=== PATIENT | female | born 1940 | race Caucasian/White ===

== ENCOUNTER → 2020-12-21 16:06 | Outpatient (CLI) | payer MEDICARE, OTHER, SELFPAY ==
--- NOTE | 2020-12-21 16:23 | RAD_ITS ---
STUDY: X-RAY - CERVICAL SPINE REASON FOR EXAM: Female, 80 years old. Cervical radiculopathy. TECHNIQUE: 3 view(s) of the cervical spine were obtained. COMPARISON: None FINDINGS: Generalized osteopenia. Normal anterior atlantoaxial articulation. Normal odontoid process. Normal cervical lordosis. Normal vertebral bodies and endplates. Diffuse uncovertebral and facet sclerosis. And intervertebral disc space narrowing at C4-5, C5-6 and C6-7 with osteophyte formation most marked at C5-6. The soft tissue structures are unremarkable. RAD/Cerv Spine 2 or 3 Views IMPRESSION: Osteopenia with moderate lower cervical spondylosis, most marked at C5-6. No acute abnormality, erosive changes or evidence of fusion. Electronically Signed: Logan Talavera MD at 12:31 EDT , Service support ,
--- NOTE | 2020-12-21 16:23 | RAD_ITS ---
STUDY: X-RAY - ABDOMEN/PELVIS REASON FOR EXAM: Female, 80 years old. Abdominal pain. TECHNIQUE: AP supine and decubitus views of the abdomen and pelvis. COMPARISON: None. FINDINGS: Normal visualized lung bases. There is an unremarkable bowel gas pattern with air seen to the rectum. There is no demonstrated free abdominal air. The visualized liver, spleen and kidneys are grossly normal in size and morphology. Normal soft tissue structures. Osteopenia with osteoarthritic changes. RAD/Abd Inc Decub and/or Erect IMPRESSION: No acute abnormality of the lower chest, abdomen or pelvis. Electronically Signed: Logan Talavera MD at 12:28 EDT , Service support ,
--- NOTE | 2020-12-21 16:23 | RAD_ITS ---
STUDY: X-RAY - LUMBAR SPINE REASON FOR EXAM: Female, 80 years old. Low back pain. TECHNIQUE: 2 view(s) of the lumbar spine were obtained. COMPARISON: None FINDINGS: Generalized osteopenia. Normal lumbar lordosis. There is no substantial scoliosis. There is a normal alignment of the vertebrae. Normal vertebral bodies and endplates. Diffuse facet sclerosis. Intervertebral disc space narrowing at L5-S1 with small osteophytes. Vascular calcifications. RAD/Lumbar Spine 2 or 3 Views IMPRESSION: Osteopenia with lumbar spondylosis most marked at L5-S1. Electronically Signed: Logan Talavera MD at 13:40 EDT , Service support ,
--- NOTE | 2020-12-21 16:25 | RAD_ITS ---
STUDY: X-RAY - RIGHT SHOULDER REASON FOR EXAM: Female, 80 years old. Rotator cuff syndrome. TECHNIQUE: 4 view(s) of the shoulder. COMPARISON: None. FINDINGS: Generalized osteopenia. Moderate arthrosis of the glenohumeral joint. Moderate arthrosis of the AC joint. Normal acromion. Normal humeral head and visualized proximal humerus. The soft tissue structures are unremarkable. Normal visualized pulmonary apex. RAD/Shoulder min 2 Views IMPRESSION: Osteopenia with moderate arthrosis of the glenohumeral and acromioclavicular joints. Electronically Signed: Logan Talavera MD at 12:29 EDT , Service support ,
[2020-12-21 17:15] LABS: Absolute Lymphocyte Count 1.53 X10^3/uL (0.83-4.51); Absolute Neutrophil Count 6.4 X10^3/uL (2.0-7.7); Basophil# 0.02 X10^3/uL; Basophil% 0.2 % (0-1); Eosinophil# 0.07 X10^3/uL; Eosinophils% 0.8 % (0-5); Hematocrit 38.4 % (37-47); Hemoglobin 11.6 g/dL (12.0-15.0); Lymphocyte # 1.53 X10^3/ul (0.83-4.51); Lymphocyte % 17.7 % (19-41); Mean Corp Hgb Conc 30.2 g/dL (32-36); Mean Corpuscular Hgb 24.6 pg (27.0-32.0); Mean Corpuscular Volume 81.4 fL (81-99); Mean Platelet Vol. 11.6 fl (6.2-12.0); Monocyte# 0.56 X10^3/uL; Monocyte% 6.5 % (0-10); NRBC Flagged by Analyzer 0 % (0-5); Neutrophil % 74.2 % (47-70); Platelet Count 324 K/mm3 (150-450); RBC Distribution Width CV 17.5 % (11.6-14.6); RBC Distribution Width SD 51.8 fl (35.1-43.9); Red Blood Count 4.72 M/mm3 (4.2-5.4); White Blood Count 8.6 K/mm3 (4.4-11.0)
[2020-12-21 17:44] LABS: Vitamin D,25 Hydroxy 66.7 ng/mL
[2020-12-21 17:54] LABS: ALB/GLOB Ratio 0.9 RATIO (0.9-2.4); AST(SGOT) 14 U/L (15-37); Alanine Aminotransfer ALT/SGPT 27 U/L (13-56); Albumin, Serum 3.3 g/dL (3.2-5.0); Alkaline Phosphatase 84 U/L (45-117); Anion Gap 7 (5-15); BUN 22 mg/dL (7-18); BUN/Creat Ratio 13.7 RATIO (10-20); Calcium,Total 9.2 mg/dL (8.5-10.1); Chloride 100 mmol/L (98-107); Creatinine, Serum 1.61 mg/dL (0.55-1.02); EST Glomerular Filtration Rate 33 mL/min (>60); Est Glom Filt Rate - Afr Amer 40 mL/min (>60); Globulin 3.6 g/dL (2.2-4.2); Glucose 398 mg/dL (74-106); Potassium 4.9 mmol/L (3.5-5.1); Protein, Total 6.9 g/dL (6.4-8.2); Sodium Level 134 mmol/L (136-145); Thyroid Stim Hormone (TSH) 1.02 uIU/mL (0.358-3.74)
== END ==
PROVIDERS: Visit Provider Family Medicine Geriatric Medicine
DX: R53.83 Other fatigue (principal); E55.9 Vitamin D deficiency, unspecified; R10.9 Unspecified abdominal pain; G54.2 Cervical root disorders, not elsewhere classified; M75.50 Bursitis of unspecified shoulder; M54.5 Low back pain
CPT/HCPCS: 36415; 72040; 72100; 73030; 74019; 80053; 82306; 84443; 85025

== ENCOUNTER → 2021-01-10 | Outpatient (CLI) | payer MEDICARE, SELFPAY | END | disposition home or self-care (01) | LOC: LABSPEC 17:02 | PROVIDERS: Visit Provider Family Medicine Geriatric Medicine | DX: N39.0 Urinary tract infection, site not specified (principal) | CPT/HCPCS: 87077; 87086; 87088; 87186 ==

== ENCOUNTER → 2021-01-14 12:06 | Outpatient (CLI) | payer MEDICARE, SELFPAY | PROVIDERS: Visit Provider Family Medicine Geriatric Medicine | DX: R19.7 Diarrhea, unspecified (principal) | CPT/HCPCS: 82274; 83630; 87177; 87209; 87493; 87506 ==

== ENCOUNTER → 2021-02-08 12:59 | Outpatient (CLI) | payer MEDICARE, OTHER, SELFPAY | PROVIDERS: PCP Family Medicine Geriatric Medicine; Referring Provider Family Medicine Geriatric Medicine; Visit Provider Family Medicine Geriatric Medicine | DX: R68.83 Chills (without fever) (principal) | CPT/HCPCS: 87635; 87804; 87807; C9803; U0005; U0003 ==

== ENCOUNTER → 2021-03-22 14:21 | Outpatient (CLI) | payer MEDICARE, OTHER, SELFPAY ==
--- NOTE | 2021-03-22 15:18 | RAD_ITS ---
EXAM: XR ABDOMEN, 2 VIEWS CLINICAL INDICATION: FECAL IMPACTION OF COLON TECHNIQUE: Frontal view of the abdomen/pelvis with upright view of the abdomen. This report was created using [employer] report generation technology. COMPARISON: None. FINDINGS: LOWER THORAX: No acute pathology. INTRAPERITONEAL SPACE: No free air. GASTROINTESTINAL TRACT: Large amount of stool in the rectal vault can suggest constipation. ORGANS: Unremarkable as visualized. No organomegaly. No abnormal calcifications. BONES/JOINTS: Degenerative findings in the lumbar spine. Degenerative findings of the hips. SOFT TISSUES: No acute pathology. RAD/Abd Inc Decub and/or Erect IMPRESSION: Large amount of stool in the rectal vault can suggest constipation. Electronically Signed: Gui Ott MD at 16:23 EDT , Service support ,
[2021-03-22 17:21] LABS: Absolute Lymphocyte Count 2.11 X10^3/uL (0.83-4.51); Absolute Neutrophil Count 4.7 X10^3/uL (2.0-7.7); Basophil# 0.01 X10^3/uL; Basophil% 0.1 % (0-1); Eosinophil# 0.05 X10^3/uL; Eosinophils% 0.7 % (0-5); Hematocrit 40.7 % (37-47); Hemoglobin 12.6 g/dL (12.0-15.0); Lymphocyte # 2.11 X10^3/ul (0.83-4.51); Lymphocyte % 28.8 % (19-41); Mean Corpuscular Hgb 26.4 pg (27.0-32.0); Mean Corpuscular Volume 85.3 fL (81-99); Mean Platelet Vol. 11.8 fl (6.2-12.0); Monocyte# 0.49 X10^3/uL; Monocyte% 6.7 % (0-10); NRBC Flagged by Analyzer 0 % (0-5); Neutrophil # 4.65 X10^3/uL (2.7-7.7); Neutrophil % 63.4 % (47-70); Platelet Count 239 K/mm3 (150-450); RBC Distribution Width CV 15.9 % (11.6-14.6); RBC Distribution Width SD 50.1 fl (35.1-43.9); Red Blood Count 4.77 M/mm3 (4.2-5.4); White Blood Count 7.3 K/mm3 (4.4-11.0)
[2021-03-22 17:38] LABS: Vitamin D,25 Hydroxy 57.2 ng/mL
[2021-03-22 17:43] LABS: ALB/GLOB Ratio 0.9 RATIO (0.9-2.4); AST(SGOT) 21 U/L (15-37); Alanine Aminotransfer ALT/SGPT 35 U/L (13-56); Albumin, Serum 3.3 g/dL (3.2-5.0); Alkaline Phosphatase 68 U/L (45-117); Anion Gap 9 (5-15); BUN 41 mg/dL (7-18); BUN/Creat Ratio 27.5 RATIO (10-20); Calcium,Total 9.2 mg/dL (8.5-10.1); Chloride 104 mmol/L (98-107); Creatinine, Serum 1.49 mg/dL (0.55-1.02); EST Glomerular Filtration Rate 36 mL/min (>60); Est Glom Filt Rate - Afr Amer 43 mL/min (>60); Globulin 3.5 g/dL (2.2-4.2); Glucose 203 mg/dL (74-106); Potassium 4.7 mmol/L (3.5-5.1); Protein, Total 6.8 g/dL (6.4-8.2); Sodium Level 141 mmol/L (136-145); Thyroid Stim Hormone (TSH) 1.29 uIU/mL (0.358-3.74)
== END ==
LOC: POLAB3 14:22 → RAD 15:15
PROVIDERS: PCP Family Medicine Geriatric Medicine; Referring Provider Family Medicine Geriatric Medicine; Visit Provider Family Medicine Geriatric Medicine
DX: E11.65 Type 2 diabetes mellitus with hyperglycemia (principal); E55.9 Vitamin D deficiency, unspecified; I10 Essential (primary) hypertension; K56.41 Fecal impaction
CPT/HCPCS: 36415; 74019; 80053; 82306; 84443; 85025

== ENCOUNTER → 2021-06-08 14:10 | Outpatient (CLI) | payer MEDICARE, OTHER, SELFPAY | PROVIDERS: PCP Family Medicine Geriatric Medicine; Visit Provider Family Medicine Geriatric Medicine | DX: R68.83 Chills (without fever) (principal) | CPT/HCPCS: 87635; 87804; 87807; U0005; U0003 ==

== ENCOUNTER 2021-06-20 14:26 | Outpatient (CLI) | payer MEDICARE, SELFPAY ==
[2021-06-20 17:18] LABS: Absolute Lymphocyte Count 1.57 X10^3/uL (0.83-4.51); Absolute Neutrophil Count 4.3 X10^3/uL (2.0-7.7); Basophil# 0.02 X10^3/uL; Basophil% 0.3 % (0-1); Eosinophil# 0.04 X10^3/uL; Eosinophils% 0.6 % (0-5); Hematocrit 43.7 % (37-47); Hemoglobin 13.8 g/dL (12.0-15.0); Lymphocyte # 1.57 X10^3/ul (0.83-4.51); Lymphocyte % 24.7 % (19-41); Mean Corp Hgb Conc 31.6 g/dL (32-36); Mean Corpuscular Hgb 27.8 pg (27.0-32.0); Mean Corpuscular Volume 87.9 fL (81-99); Mean Platelet Vol. 11.4 fl (6.2-12.0); Monocyte# 0.42 X10^3/uL; Monocyte% 6.6 % (0-10); NRBC Flagged by Analyzer 0 % (0-5); Neutrophil # 4.29 X10^3/uL (2.7-7.7); Neutrophil % 67.5 % (47-70); Platelet Count 196 K/mm3 (150-450); RBC Distribution Width CV 14.9 % (11.6-14.6); RBC Distribution Width SD 47.7 fl (35.1-43.9); Red Blood Count 4.97 M/mm3 (4.2-5.4); White Blood Count 6.4 K/mm3 (4.4-11.0)
[2021-06-20 17:39] LABS: Vitamin D,25 Hydroxy 59.7 ng/mL
[2021-06-20 17:46] LABS: AST(SGOT) 22 U/L (15-37); Alanine Aminotransfer ALT/SGPT 50 U/L (13-56); Albumin, Serum 3.2 g/dL (3.2-5.0); Alkaline Phosphatase 64 U/L (45-117); Anion Gap 6 (5-15); BUN 28 mg/dL (7-18); BUN/Creat Ratio 21.9 RATIO (10-20); Calcium,Total 9.3 mg/dL (8.5-10.1); Chloride 104 mmol/L (98-107); Creatinine, Serum 1.28 mg/dL (0.55-1.02); EST Glomerular Filtration Rate 43 mL/min (>60); Est Glom Filt Rate - Afr Amer 52 mL/min (>60); Globulin 3.3 g/dL (2.2-4.2); Glucose 169 mg/dL (74-106); Potassium 4.4 mmol/L (3.5-5.1); Protein, Total 6.5 g/dL (6.4-8.2); Sodium Level 141 mmol/L (136-145); Thyroid Stim Hormone (TSH) 1.19 uIU/mL (0.358-3.74)
== END 2021-06-20 23:59 | disposition short-term general hospital (02) ==
LOC: POLAB3 14:31
PROVIDERS: PCP Family Medicine Geriatric Medicine; Visit Provider Family Medicine Geriatric Medicine
DX: E11.65 Type 2 diabetes mellitus with hyperglycemia (principal); E55.9 Vitamin D deficiency, unspecified; R53.83 Other fatigue
CPT/HCPCS: 36415; 80053; 82306; 84443; 85025

== ENCOUNTER 2021-07-21 14:29 | Outpatient (CLI) | payer MEDICARE, SELFPAY ==
[2021-07-21 17:38] LABS: Protein, Urine (Random) 29.6 mg/dL (<11.9); Protein:Creat Ratio 165 mg/g CRE (0-200)
== END 2021-07-21 23:59 | disposition home or self-care (01) ==
LOC: LABSPEC 14:29
PROVIDERS: PCP Family Medicine Geriatric Medicine; Visit Provider Internal Medicine Nephrology
DX: E11.22 Type 2 diabetes mellitus with diabetic chronic kidney disease (principal); N18.32 Chronic kidney disease, stage 3b
CPT/HCPCS: 82570; 84156

== ENCOUNTER 2021-07-26 14:21 | Outpatient (CLI) | payer MEDICARE, SELFPAY ==
--- NOTE | 2021-07-26 14:25 | US_ITS ---
STUDY: RENAL ULTRASOUND - COMPLETE REASON FOR EXAM: Female, 80 years old. CKD TECHNIQUE: Ultrasound evaluation of the kidneys was performed with real-time and static walter-scale imaging. COMPARISON: None. FINDINGS: RIGHT KIDNEY: Normal location of the right kidney, which is normal in size. The right kidney measures 11 cm x 4.2 cm x 4.6 cm. There is a normal cortex of the right kidney. The renal cortex measures 1.0 cm. There is no right renal mass or cyst. There are no right renal calculi. There is no right hydronephrosis. DISTAL RIGHT URETER: There is non-visualization of the distal right ureter. There is no demonstrated right ureterovesical junction calculus. There is a visualized right ureteral jet. LEFT KIDNEY: Normal location of the left kidney, which is normal in size. The left kidney measures 9.1 cm x 4.6cm x 5.1 cm. There is a normal cortex of the left kidney. The renal cortex measures 1 cm. There is no left renal mass or cyst. There are no left renal calculi. There is no left hydronephrosis. DISTAL LEFT URETER: There is non-visualization of the distal left ureter. There is no demonstrated left ureterovesical junction calculus. There is a visualized left ureteral jet. BLADDER: The distended urinary bladder has a volume of 310 ml. There is a normal wall thickness of the distended urinary bladder. There is no demonstrated mass within the urinary bladder. There are no demonstrated bladder calculi. US/Kidney and Bladder IMPRESSION: Normal ultrasound of the kidneys and urinary bladder. Electronically Signed: Toni Dawkins MD at 12:09 EST ,
== END 2021-07-26 23:59 | disposition home or self-care (01) ==
LOC: US 14:22
PROVIDERS: PCP Family Medicine Geriatric Medicine; Referring Provider Internal Medicine Nephrology; Visit Provider Internal Medicine Nephrology
DX: N18.32 Chronic kidney disease, stage 3b (principal)
CPT/HCPCS: 76770

== ENCOUNTER 2021-08-30 15:25 | Outpatient (CLI) | payer MEDICARE, SELFPAY ==
--- NOTE | 2021-08-30 15:32 | RAD_ITS ---
STUDY: RIGHT SHOULDER X-RAY SERIES--4 VIEWS OF 1440 HOURS ON 08/30/2021 REASON FOR EXAM: 80 year-old female with right shoulder pain. TECHNIQUE: 4 view(s) of the shoulder. COMPARISON: None. FINDINGS: No fractures or dislocations. No osseous lytic, sclerotic or mass lesions. Mild osteoarthritic changes of the right acromioclavicular joint. No significant arthritic changes of the right shoulder joint. No calcific tendinitis. Normal clavicle, scapula, and adjacent ribs. Normal soft tissues. Mild demineralization. RAD/Shoulder min 2 Views IMPRESSION: 1. Mild osteoarthritic changes of the right acromioclavicular joint. 2. No evidence of arthritic changes of the right shoulder joint. 3. No fractures or dislocations. 4. No calcific tendinitis. 5. Mild demineralization. Electronically Signed: Farrukh Barcenas MD at 20:27 EDT ,
== END 2021-08-30 23:59 | disposition home or self-care (01) ==
LOC: RAD 15:27
PROVIDERS: PCP Family Medicine Geriatric Medicine; Referring Provider Family Medicine Geriatric Medicine; Visit Provider Family Medicine Geriatric Medicine
DX: M25.519 Pain in unspecified shoulder (principal)
CPT/HCPCS: 73030

== ENCOUNTER 2021-09-22 14:04 | Outpatient (CLI) | payer MEDICARE, SELFPAY ==
[2021-09-22 17:23] LABS: Absolute Lymphocyte Count 1.41 X10^3/uL (0.83-4.51); Absolute Neutrophil Count 5.5 X10^3/uL (2.0-7.7); Basophil# 0.02 X10^3/uL; Basophil% 0.3 % (0-1); Eosinophil# 0.14 X10^3/uL; Eosinophils% 1.8 % (0-5); Hematocrit 43.4 % (37-47); Hemoglobin 13.8 g/dL (12.0-15.0); Lymphocyte # 1.41 X10^3/ul (0.83-4.51); Lymphocyte % 18.6 % (19-41); Mean Corp Hgb Conc 31.8 g/dL (32-36); Mean Corpuscular Hgb 28.6 pg (27.0-32.0); Mean Platelet Vol. 11.5 fl (6.2-12.0); Monocyte# 0.49 X10^3/uL; Monocyte% 6.4 % (0-10); NRBC Flagged by Analyzer 0 % (0-5); Neutrophil # 5.49 X10^3/uL (2.7-7.7); Neutrophil % 72.2 % (47-70); Platelet Count 213 K/mm3 (150-450); RBC Distribution Width CV 13.3 % (11.6-14.6); RBC Distribution Width SD 43.8 fl (35.1-43.9); Red Blood Count 4.82 M/mm3 (4.2-5.4); White Blood Count 7.6 K/mm3 (4.4-11.0)
[2021-09-22 17:42] LABS: Vitamin D,25 Hydroxy 70.2 ng/mL
[2021-09-22 17:44] LABS: Hemoglobin A1c 10.7 % (3.8-5.6)
[2021-09-22 17:50] LABS: ALB/GLOB Ratio 1.1 RATIO (0.9-2.4); AST(SGOT) 18 U/L (15-37); Alanine Aminotransfer ALT/SGPT 33 U/L (13-56); Albumin, Serum 3.4 g/dL (3.2-5.0); Alkaline Phosphatase 68 U/L (45-117); Anion Gap 5 (5-15); BUN 24 mg/dL (7-18); Chloride 104 mmol/L (98-107); Cholesterol 90 mg/dL (200); EST Glomerular Filtration Rate 46 mL/min (>60); Est Glom Filt Rate - Afr Amer 56 mL/min (>60); Globulin 3.2 g/dL (2.2-4.2); Glucose 255 mg/dL (74-106); High Density Lipoprotein 45 mg/dL; Magnesium 1.5 mg/dL (1.6-2.6); Phosphorus 2.5 mg/dL (2.5-4.9); Potassium 4.3 mmol/L (3.5-5.1); Protein, Total 6.6 g/dL (6.4-8.2); Sodium Level 138 mmol/L (136-145); Thyroid Stim Hormone (TSH) 0.82 uIU/mL (0.358-3.74); Triglycerides 81 mg/dL; Very Low Density Lipoprotein 16 mg/dL (5-40)
[2021-09-23 08:04] LABS: PTHIN 23.9 pg/mL (18.4-80.1)
== END 2021-09-22 23:59 | disposition home or self-care (01) ==
LOC: POLAB3 14:05
PROVIDERS: PCP Family Medicine Geriatric Medicine; Visit Provider Internal Medicine Nephrology
DX: E11.22 Type 2 diabetes mellitus with diabetic chronic kidney disease (principal); E11.65 Type 2 diabetes mellitus with hyperglycemia; N18.32 Chronic kidney disease, stage 3b; E55.9 Vitamin D deficiency, unspecified; E78.5 Hyperlipidemia, unspecified; I12.9 Hypertensive chronic kidney disease with stage 1 through stage 4 chronic kidney disease, or unspecified chronic kidney disease
CPT/HCPCS: 36415; 80053; 80061; 82306; 83036; 83735; 83970; 84100; 84443; 85025

== ENCOUNTER → 2021-10-05 | Outpatient (CLI) | payer MEDICARE, SELFPAY ==
--- NOTE | 2021-10-05 14:24 | US_ITS ---
EXAM: US CHEST CLINICAL INDICATION: CHEST LUMP TECHNIQUE: Real-time ultrasound of the chest with image documentation. This report was created using [employer] report generation technology. COMPARISON: None. FINDINGS: LIMITATIONS: Evaluation was limited to the area of palpable lump at the level of the superior sternum in the midline. SOFT TISSUES: There is fairly homogeneous zone of soft tissue suspected to be subcutaneous fat or lipoma in the region of palpable swelling. No measurements are provided but this is at least 5.5 cm x 5.8 cm x 2 cm on the images. No capsule or fluid collection identified. LYMPH NODES: Unremarkable. No lymphadenopathy. US/Chest IMPRESSION: Prominent heterogeneous lobulated tissue in the indicated region of palpable mass appears to be likely adipose tissue without capsule or necrosis. Electronically Signed: Niharika Martin MD at 7:56 EDT ,
== END | disposition home or self-care (01) ==
LOC: US 14:18
PROVIDERS: PCP Family Medicine Geriatric Medicine; Referring Provider Family Medicine Geriatric Medicine; Visit Provider Family Medicine Geriatric Medicine
DX: R22.9 Localized swelling, mass and lump, unspecified (principal)
CPT/HCPCS: 76604

== ENCOUNTER → 2021-10-17 | Outpatient (CLI) | payer MEDICARE, SELFPAY ==
--- NOTE | 2021-10-17 12:01 | RAD_ITS ---
EXAM: XR SACRUM AND COCCYX, 2 OR MORE VIEWS CLINICAL INDICATION: LOW BACK PAIN TECHNIQUE: Frontal and lateral views of the sacrum and coccyx. This report was created using [employer] report generation technology. COMPARISON: None. FINDINGS: SACRUM/COCCYX: Nondisplaced fracture of the inferior portion of the coccyx. No destructive or sclerotic lesions. Sacroiliac joints are unremarkable. DISC SPACES: Disc space narrowing noted at L5-S1. Facet arthropathy present at L4-5 and L5-S1. SOFT TISSUES: Unremarkable. No soft tissue swelling or gas. RAD/Sacrum-Coccyx min 2 Views IMPRESSION: Nondisplaced coccygeal fracture. Electronically Signed: Tushar Lyn MD at 11:53 EDT ,
--- NOTE | 2021-10-17 12:02 | RAD_ITS ---
ACR Level 3 findings have been noted. An addendum which confirms receipt of the report will follow. EXAM: XR RIGHT HUMERUS, 2 OR MORE VIEWS CLINICAL INDICATION: PAIN IN R ARM TECHNIQUE: Frontal and lateral views of the right humerus. This report was created using [employer] report generation technology. COMPARISON: Right shoulder radiographs December 21, 2020. Right shoulder radiographs August 30, 2021. FINDINGS: BONES/JOINTS: Mild hypertrophic changes of the acromioclavicular joint but it is fairly well-maintained, similar. Fairly well-maintained glenohumeral joint. Thin line of benign type periosteal reaction along the deep margin of the proximal half of the right humerus, best seen on the lateral view, nonspecific, similar to appearance on internal rotation view of the shoulder December 21, 2020. No acute fracture. No subluxation. Normal alignment. No sclerotic or destructive changes observed. SOFT TISSUES: Unremarkable. No soft tissue swelling or gas. No radiopaque foreign body. RAD/Humerus min 2 Views IMPRESSION: 1. No specific acute abnormality. 2. Mild degenerative changes of the shoulder. 3. Mild benign-type periosteal reaction of the proximal half of the humerus may be due to hypertrophic pulmonary osteoarthropathy or other process such as hypervitaminosis A, chronic venous insufficiency, thyroid disease or other process. It appears similar to shoulder radiographs from December 21, 2020. Electronically Signed: Niharika Martin MD at 20:48 EDT ,
--- NOTE | 2021-10-17 12:10 | RAD_ITS ---
STUDY: X-RAY - RIGHT SHOULDER REASON FOR EXAM: Female, 80 years old. Shoulder pain. TECHNIQUE: 3 view(s) of the shoulder. COMPARISON: 08/30/2021. FINDINGS: Osteopenia. Mild arthrosis of the glenohumeral joint unchanged. Moderate arthrosis of the AC joint is unchanged. Normal acromion. Normal humeral head and visualized proximal humerus. The soft tissue structures are unremarkable. Normal visualized pulmonary apex. RAD/Shoulder min 2 Views IMPRESSION: Stable osteopenia with osteoarthritic changes as described. No acute abnormality or erosive changes. Electronically Signed: Logan Talavera MD at 9:39 EDT ,
== END | disposition home or self-care (01) ==
LOC: RAD 11:58
PROVIDERS: PCP Family Medicine Geriatric Medicine; Referring Provider Family Medicine Geriatric Medicine; Visit Provider Family Medicine Geriatric Medicine
DX: M25.511 Pain in right shoulder (principal); M79.601 Pain in right arm; M54.50 Low back pain, unspecified
CPT/HCPCS: 72220; 73030; 73060

== ENCOUNTER → 2021-11-02 | Outpatient (CLI) | payer MEDICARE, SELFPAY | END | disposition home or self-care (01) | LOC: LAB 06:46 | PROVIDERS: PCP Family Medicine Geriatric Medicine; Referring Provider Family Medicine Geriatric Medicine; Visit Provider Family Medicine Geriatric Medicine | DX: E24.9 Cushing's syndrome, unspecified (principal) | CPT/HCPCS: 36415; 82533 ==

== ENCOUNTER → 2021-11-10 | Outpatient (CLI) | payer MEDICARE, SELFPAY | END | disposition home or self-care (01) | LOC: PSN 12:05 | PROVIDERS: PCP Family Medicine Geriatric Medicine; Referring Provider Family Medicine Geriatric Medicine; Visit Provider Family Medicine Geriatric Medicine | DX: R68.83 Chills (without fever) (principal); Z20.822 Contact with and (suspected) exposure to COVID-19 | CPT/HCPCS: 87635; 87804; 87807; U0003; U0005 ==

== ENCOUNTER → 2021-11-30 | Outpatient (CLI) | payer MEDICARE, SELFPAY | END | disposition home or self-care (01) | LOC: LAB 06:56 | PROVIDERS: PCP Family Medicine Geriatric Medicine; Visit Provider Family Medicine Geriatric Medicine | DX: E24.9 Cushing's syndrome, unspecified (principal) | CPT/HCPCS: 36415; 82533 ==

== ENCOUNTER → 2021-12-15 | Outpatient (CLI) | payer MEDICARE, SELFPAY ==
[2021-12-17 12:08] LABS: DHEA Sulfate 31.5 ug/dL (13.9-142.8)
[2021-12-18 14:37] LABS: Adrenocorticotropic Hormone 9.7 pg/mL (7.2-63.3)
== END | disposition home or self-care (01) ==
LOC: POLAB3 15:28
PROVIDERS: PCP Family Medicine Geriatric Medicine; Visit Provider Family Medicine Geriatric Medicine
DX: E24.9 Cushing's syndrome, unspecified (principal)
CPT/HCPCS: 36415; 82024; 82627; 82626

== ENCOUNTER → 2021-12-22 | Outpatient (CLI) | payer MEDICARE, SELFPAY ==
[2021-12-22 17:01] LABS: Absolute Lymphocyte Count 1.44 X10^3/uL (0.83-4.51); Absolute Neutrophil Count 5.4 X10^3/uL (2.0-7.7); Basophil# 0.01 X10^3/uL; Basophil% 0.1 % (0-1); Eosinophil# 0.07 X10^3/uL; Eosinophils% 0.9 % (0-5); Hematocrit 41.5 % (37-47); Hemoglobin 13.3 g/dL (12.0-15.0); Lymphocyte # 1.44 X10^3/ul (0.83-4.51); Lymphocyte % 19.2 % (19-41); Mean Corpuscular Hgb 28.7 pg (27.0-32.0); Mean Corpuscular Volume 89.4 fL (81-99); Mean Platelet Vol. 11.6 fl (6.2-12.0); Monocyte# 0.53 X10^3/uL; Monocyte% 7.1 % (0-10); NRBC Flagged by Analyzer 0 % (0-5); Neutrophil # 5.42 X10^3/uL (2.7-7.7); Neutrophil % 72.3 % (47-70); Platelet Count 223 K/mm3 (150-450); RBC Distribution Width CV 14.1 % (11.6-14.6); RBC Distribution Width SD 45.9 fl (35.1-43.9); Red Blood Count 4.64 M/mm3 (4.2-5.4); White Blood Count 7.5 K/mm3 (4.4-11.0)
[2021-12-22 17:31] LABS: Vitamin D,25 Hydroxy 46.2 ng/mL
[2021-12-22 18:09] LABS: ALB/GLOB Ratio 1.1 RATIO (0.9-2.4); AST(SGOT) 18 U/L (15-37); Alanine Aminotransfer ALT/SGPT 32 U/L (13-56); Albumin, Serum 3.4 g/dL (3.2-5.0); Alkaline Phosphatase 60 U/L (45-117); Anion Gap 5 (5-15); BUN 25 mg/dL (7-18); BUN/Creat Ratio 20.3 RATIO (10-20); Calcium,Total 9.3 mg/dL (8.5-10.1); Chloride 102 mmol/L (98-107); Cholesterol 96 mg/dL (200); Creatinine, Serum 1.23 mg/dL (0.55-1.02); EST Glomerular Filtration Rate 45 mL/min (>60); Est Glom Filt Rate - Afr Amer 54 mL/min (>60); Glucose 208 mg/dL (74-106); High Density Lipoprotein 45 mg/dL; Potassium 4.5 mmol/L (3.5-5.1); Protein, Total 6.4 g/dL (6.4-8.2); Sodium Level 138 mmol/L (136-145); Triglycerides 111 mg/dL; Very Low Density Lipoprotein 22 mg/dL (5-40)
== END | disposition home or self-care (01) ==
LOC: POLAB3 14:31
PROVIDERS: PCP Family Medicine Geriatric Medicine; Visit Provider Family Medicine Geriatric Medicine
DX: I10 Essential (primary) hypertension (principal); E11.65 Type 2 diabetes mellitus with hyperglycemia; E78.5 Hyperlipidemia, unspecified; E55.9 Vitamin D deficiency, unspecified
CPT/HCPCS: 36415; 80053; 80061; 82306; 84443; 85025

== ENCOUNTER → 2022-01-26 | Outpatient (CLI) | payer MEDICARE, SELFPAY ==
--- NOTE | 2022-01-26 13:30 | MRI_ITS ---
EXAM: MR ABDOMEN WITHOUT AND WITH INTRAVENOUS CONTRAST CLINICAL INDICATION: GT''S SYNDROME TECHNIQUE: Multiplanar and multisequence MR images of the abdomen without and with intravenous contrast. This report was created using [employer] report [employer] technology. CONTRAST: IV Yes YES COMPARISON: None. FINDINGS: LOWER THORAX: There is a small hiatal hernia. No pleural effusion. LIVER: Unremarkable. Normal morphology. No focal mass. GALLBLADDER AND BILE DUCTS: Unremarkable. No gallstones. No gallbladder distention or wall edema. No intra- or extrahepatic biliary ductal dilation. PANCREAS: Unremarkable. No focal cystic or solid mass. SPLEEN: Unremarkable. Normal size without focal cystic or solid mass. ADRENALS: Normal bilateral adrenal glands. KIDNEYS AND URETERS: Unremarkable. Normal renal size and position. No hydronephrosis. INTRAPERITONEAL SPACE: Unremarkable. No ascites or other fluid collection. No free air. VASCULATURE: Unremarkable. Abdominal aorta is non-dilated. LYMPH NODES: No enlarged lymph nodes. MRI/MRI Abd WITH and W/O Contrast IMPRESSION: Normal bilateral adrenal glands. Electronically Signed: Gui Ott MD at 14:47 EDT ,
== END | disposition home or self-care (01) ==
LOC: MRI 12:41
PROVIDERS: PCP Family Medicine Geriatric Medicine; Visit Provider Family Medicine Geriatric Medicine
DX: E24.9 Cushing's syndrome, unspecified (principal)
CPT/HCPCS: 74183; A9575

== ENCOUNTER → 2022-02-09 | Outpatient (CLI) | payer MEDICARE, SELFPAY ==
[2022-02-09 17:07] LABS: Anion Gap 4 (5-15); BUN 32 mg/dL (7-18); BUN/Creat Ratio 19.8 RATIO (10-20); Calcium,Total 9.4 mg/dL (8.5-10.1); Chloride 102 mmol/L (98-107); Creatinine, Serum 1.62 mg/dL (0.55-1.02); EST Glomerular Filtration Rate 32 mL/min (>60); Est Glom Filt Rate - Afr Amer 39 mL/min (>60); Glucose 315 mg/dL (74-106); Potassium 4.8 mmol/L (3.5-5.1); Sodium Level 138 mmol/L (136-145)
== END | disposition home or self-care (01) ==
LOC: POLAB3 16:05
PROVIDERS: PCP Family Medicine Geriatric Medicine; Visit Provider Family Medicine Geriatric Medicine
DX: N18.31 Chronic kidney disease, stage 3a (principal)
CPT/HCPCS: 36415; 80048

== ENCOUNTER → 2022-03-30 | Outpatient (CLI) | payer MEDICARE, SELFPAY ==
[2022-03-30 13:40] LABS: Albumin, Serum 3.3 g/dL (3.2-5.0); BUN 28 mg/dL (7-18); Calcium,Total 9.4 mg/dL (8.5-10.1); Chloride 107 mmol/L (98-107); Creatinine, Serum 1.65 mg/dL (0.55-1.02); EST Glomerular Filtration Rate 32 mL/min (>60); Est Glom Filt Rate - Afr Amer 38 mL/min (>60); Glucose 164 mg/dL (74-106); Magnesium 1.7 mg/dL (1.6-2.6); Phosphorus 3.4 mg/dL (2.5-4.9); Potassium 4.4 mmol/L (3.5-5.1); Sodium Level 143 mmol/L (136-145)
== END | disposition home or self-care (01) ==
LOC: LAB 11:52
PROVIDERS: PCP Family Medicine Geriatric Medicine; Referring Provider Internal Medicine Nephrology; Visit Provider Internal Medicine Nephrology
DX: N18.32 Chronic kidney disease, stage 3b (principal); E83.42 Hypomagnesemia
CPT/HCPCS: 36415; 80069; 83735

== ENCOUNTER → 2022-04-06 | Outpatient (CLI) | payer MEDICARE, SELFPAY ==
--- NOTE | 2022-04-06 14:49 | CT_ITS ---
STUDY: CTA CHEST REASON FOR EXAM: Female, 81 years old. SOB. Hypertension. RADIATION DOSAGE (If Supplied By Facility): CTDIvol = ( 13.63 ) mGy, DLP = ( 504.41 ) mGycm TECHNIQUE: The examination was performed with the intravenous administration of IV 100mL Isovue-370. Post-processing of the angiographic images was performed, with multiplanar reformation and 3D reconstruction. Individualized dose optimization techniques were used for this CT. COMPARISON: None. FINDINGS: Normal enhancement of the main pulmonary artery and right and left pulmonary arteries. Normal enhancement of the bilateral peripheral pulmonary arteries. There is no demonstrated pulmonary embolism. There is atherosclerotic calcification of the aortic arch with tortuosity. There is no demonstrated aortic dissection. There are calcifications of the coronary arteries. Normal mediastinum. Normal hilar regions. Normal visualized trachea and bronchi. The lungs are well expanded. Minimal degree of increased linear markings at the lung bases slightly more prominent at the left lower lobe suggestive of atelectasis. Minimal linear scarring in the posterior aspect of the left lung apex. 1.1 cm groundglass nodular density in the lateral aspect of the right lung apex. Normal pleura. Normal chest wall structures. There are degenerative changes of thoracic spine. Moderate sized hiatal hernia. CT/CTA Chest W/WO Contrast IMPRESSION: No evidence of pulmonary embolism. Mild linear densities at the lung bases as well as in the left lung apex. Hiatal hernia. Coronary artery calcification. Electronically Signed: Toni Dawkins MD at 15:31 EDT ,
[2022-04-06 17:58] LABS: Absolute Lymphocyte Count 1.56 X10^3/uL (0.83-4.51); Absolute Neutrophil Count 4.8 X10^3/uL (2.0-7.7); Basophil# 0.02 X10^3/uL; Basophil% 0.3 % (0-1); Eosinophil# 0.07 X10^3/uL; Hematocrit 39.5 % (37-47); Hemoglobin 12.3 g/dL (12.0-15.0); Lymphocyte # 1.56 X10^3/ul (0.83-4.51); Lymphocyte % 22.3 % (19-41); Mean Corp Hgb Conc 31.1 g/dL (32-36); Mean Corpuscular Hgb 28.9 pg (27.0-32.0); Mean Corpuscular Volume 92.7 fL (81-99); Mean Platelet Vol. 11.6 fl (6.2-12.0); Monocyte# 0.53 X10^3/uL; Monocyte% 7.6 % (0-10); NRBC Flagged by Analyzer 0 % (0-5); Neutrophil # 4.78 X10^3/uL (2.7-7.7); Neutrophil % 68.4 % (47-70); Platelet Count 225 K/mm3 (150-450); RBC Distribution Width CV 14.4 % (11.6-14.6); RBC Distribution Width SD 49.1 fl (35.1-43.9); Red Blood Count 4.26 M/mm3 (4.2-5.4)
[2022-04-06 18:36] LABS: AST(SGOT) 13 U/L (15-37); Alanine Aminotransfer ALT/SGPT 21 U/L (13-56); Albumin, Serum 3.3 g/dL (3.2-5.0); Alkaline Phosphatase 59 U/L (45-117); Anion Gap 6 (5-15); BUN 32 mg/dL (7-18); BUN/Creat Ratio 20.4 RATIO (10-20); Calcium,Total 8.9 mg/dL (8.5-10.1); Chloride 106 mmol/L (98-107); Cholesterol 66 mg/dL (200); Creatinine, Serum 1.57 mg/dL (0.55-1.02); EST Glomerular Filtration Rate 34 mL/min (>60); Est Glom Filt Rate - Afr Amer 41 mL/min (>60); Globulin 3.2 g/dL (2.2-4.2); Glucose 49 mg/dL (74-106); High Density Lipoprotein 29 mg/dL; Potassium 3.8 mmol/L (3.5-5.1); Protein, Total 6.5 g/dL (6.4-8.2); Sodium Level 142 mmol/L (136-145); Thyroid Stim Hormone (TSH) 1.75 uIU/mL (0.358-3.74); Triglycerides 98 mg/dL; Very Low Density Lipoprotein 20 mg/dL (5-40)
[2022-04-06 18:38] LABS: Vitamin D,25 Hydroxy 49.8 ng/mL
== END | disposition home or self-care (01) ==
PROVIDERS: PCP Family Medicine Geriatric Medicine; Referring Provider Family Medicine Geriatric Medicine; Visit Provider Family Medicine Geriatric Medicine
DX: I10 Essential (primary) hypertension (principal); E11.65 Type 2 diabetes mellitus with hyperglycemia; E78.5 Hyperlipidemia, unspecified; E55.9 Vitamin D deficiency, unspecified
CPT/HCPCS: 36415; 71275; 80053; 80061; 82306; 84443; 85025; Q9967

== ENCOUNTER → 2022-04-24 | Outpatient (CLI) | payer MEDICARE, SELFPAY ==
[2022-04-24 18:28] LABS: Albumin, Serum 3.4 g/dL (3.2-5.0); BUN 19 mg/dL (7-18); BUN/Creat Ratio 13.6 RATIO (10-20); Calcium,Total 9.5 mg/dL (8.5-10.1); Chloride 105 mmol/L (98-107); EST Glomerular Filtration Rate 38 mL/min (>60); Est Glom Filt Rate - Afr Amer 46 mL/min (>60); Glucose 233 mg/dL (74-106); Phosphorus 2.4 mg/dL (2.5-4.9); Potassium 3.9 mmol/L (3.5-5.1); Sodium Level 144 mmol/L (136-145)
== END | disposition home or self-care (01) ==
LOC: POLAB3 14:45
PROVIDERS: PCP Family Medicine Geriatric Medicine; Visit Provider Internal Medicine Nephrology
DX: N18.32 Chronic kidney disease, stage 3b (principal); N39.0 Urinary tract infection, site not specified
CPT/HCPCS: 36415; 80069; 87077; 87086; 87088; 87186

== ENCOUNTER → 2022-05-10 | Outpatient (CLI) | payer MEDICARE, SELFPAY | END | disposition home or self-care (01) | PROVIDERS: PCP Family Medicine Geriatric Medicine; Referring Provider Family Medicine Geriatric Medicine; Visit Provider Family Medicine Geriatric Medicine | DX: R68.83 Chills (without fever) (principal); Z20.822 Contact with and (suspected) exposure to COVID-19 | CPT/HCPCS: 36415; 80053; 84100; 84443; 85025; 87086; 87088; 87635; 87804; 87807; C9803; U0003; U0005 ==

== ENCOUNTER → 2022-05-10 | Outpatient (CLI) | payer MEDICARE, SELFPAY ==
[2022-05-10 13:17] LABS: Absolute Lymphocyte Count 1.62 X10^3/uL (0.83-4.51); Absolute Neutrophil Count 5.2 X10^3/uL (2.0-7.7); Basophil# 0.02 X10^3/uL; Basophil% 0.3 % (0-1); Eosinophil# 0.06 X10^3/uL; Eosinophils% 0.8 % (0-5); Hematocrit 42.1 % (37-47); Hemoglobin 13.4 g/dL (12.0-15.0); Lymphocyte # 1.62 X10^3/ul (0.83-4.51); Mean Corp Hgb Conc 31.8 g/dL (32-36); Mean Corpuscular Hgb 27.7 pg (27.0-32.0); Mean Platelet Vol. 13.1 fl (6.2-12.0); Monocyte# 0.47 X10^3/uL; Monocyte% 6.4 % (0-10); NRBC Flagged by Analyzer 0 % (0-5); Neutrophil # 5.16 X10^3/uL (2.7-7.7); Neutrophil % 70.2 % (47-70); Platelet Count 217 K/mm3 (150-450); RBC Distribution Width CV 13.7 % (11.6-14.6); RBC Distribution Width SD 43.4 fl (35.1-43.9); Red Blood Count 4.84 M/mm3 (4.2-5.4); White Blood Count 7.4 K/mm3 (4.4-11.0)
[2022-05-10 14:19] LABS: ALB/GLOB Ratio 1.1 RATIO (0.9-2.4); AST(SGOT) 26 U/L (15-37); Alanine Aminotransfer ALT/SGPT 37 U/L (13-56); Albumin, Serum 3.3 g/dL (3.2-5.0); Alkaline Phosphatase 60 U/L (45-117); Anion Gap 10 (5-15); BUN 18 mg/dL (7-18); BUN/Creat Ratio 11.8 RATIO (10-20); Calcium,Total 9.1 mg/dL (8.5-10.1); Chloride 97 mmol/L (98-107); Creatinine, Serum 1.53 mg/dL (0.55-1.02); EST Glomerular Filtration Rate 35 mL/min (>60); Est Glom Filt Rate - Afr Amer 42 mL/min (>60); Globulin 3.1 g/dL (2.2-4.2); Glucose 312 mg/dL (74-106); Phosphorus 1.7 mg/dL (2.5-4.9); Potassium 2.7 mmol/L (3.5-5.1); Protein, Total 6.4 g/dL (6.4-8.2); Sodium Level 139 mmol/L (136-145); Thyroid Stim Hormone (TSH) 7.61 uIU/mL (0.358-3.74)
== END | disposition home or self-care (01) ==
LOC: POLAB3 11:21
PROVIDERS: PCP Family Medicine Geriatric Medicine; Visit Provider Internal Medicine Nephrology
DX: N18.32 Chronic kidney disease, stage 3b (principal); N39.0 Urinary tract infection, site not specified; I12.9 Hypertensive chronic kidney disease with stage 1 through stage 4 chronic kidney disease, or unspecified chronic kidney disease
CPT/HCPCS: 36415; 80053; 84100; 84443; 85025; 87086; 87088

== ENCOUNTER → 2022-05-12 | Outpatient (CLI) | payer MEDICARE, SELFPAY ==
[2022-05-12 13:55] LABS: Anion Gap 5 (5-15); BUN 22 mg/dL (7-18); BUN/Creat Ratio 12.4 RATIO (10-20); Calcium,Total 9.6 mg/dL (8.5-10.1); Chloride 100 mmol/L (98-107); Creatinine, Serum 1.77 mg/dL (0.55-1.02); EST Glomerular Filtration Rate 29 mL/min (>60); Est Glom Filt Rate - Afr Amer 35 mL/min (>60); Glucose 289 mg/dL (74-106); Potassium 3.4 mmol/L (3.5-5.1); Sodium Level 141 mmol/L (136-145)
== END | disposition home or self-care (01) ==
LOC: LAB 13:02
PROVIDERS: PCP Family Medicine Geriatric Medicine; Referring Provider Family Medicine Geriatric Medicine; Visit Provider Family Medicine Geriatric Medicine
DX: I10 Essential (primary) hypertension (principal)
CPT/HCPCS: 36415; 80048

== ENCOUNTER 2022-05-14 10:33 | Inpatient (IN) | payer MEDICARE, SELFPAY ==
[2022-05-14] VITALS (20 sets, daily range): BP systolic 148–198; BP diastolic 64–112; PULSE 74–95; RESP 16–24; TEMP 36.1–36.9; O2SAT 2–100; BMI 34.9; BMI 35.1
--- NOTE | 2022-05-14 10:51 | EDS_ITS ---
HPI History of Present Illness Chief Complaint: Shortness of Breath Informant: patient Onset/Context/Timing Onset: Weeks (2) Context: gradual Timing: Continuous Quality: Positive for Dyspnea on exertion Worsened by: Exertion Relieved by: Nothing Associated Symptoms cough, subjective, chills and yellow sputum; Negative for rhinorrhea, post nasal drip, ear pain, fever, sore throat or sweats Chest Pain: Positive for Intermittent and Dull Narrative Narrative: Patient presents with shortness of breath that has been getting progressively worse over the past 2 weeks. Patient states it is gradually getting worse. Patient states it is worse with any exertion or movement. Patient admits to a cough with some yellow sputum production. Patient states nothing seems to help with her breathing. Patient has an albuterol inhaler but states that it is not effective. Patient admits to some subjective chills. Patient admits to occasional intermittent chest pain. Patient states that her doctor told her it is from arthritis. [facility] Medical History Asthma Atherosclerosis of coronary artery of [place] heart without angina pectoris CKD (chronic kidney disease), stage III Dameon syndrome Depression Diabetes mellitus Essential hypertension Hyperlipidemia Obesity Osteoarthritis Home Medications aspirin 81 mg chewable tablet 81 mg PO DAILY 10/27/21 [History Last Taken Unknown] albuterol sulfate 90 mcg/actuation aerosol inhaler 1 puff inhalation Q4H PRN sob 03/13/22 [History Last Taken Unknown] atorvastatin 40 mg tablet 40 mg PO QHS 03/13/22 [History Last Taken Unknown] baclofen 10 mg tablet 10 mg PO DAILY 03/13/22 [History Last Taken Unknown] citalopram 20 mg tablet 20 mg PO DAILY 03/13/22 [History Last Taken Unknown] insulin degludec 200 unit/mL (3 mL) subcutaneous pen 52 unit subcut DAILY 03/13/22 [History Last Taken Unknown] ipratropium bromide 42 mcg (0.06 %) nasal spray 1 spray intranasal BID 03/13/22 [History Last Taken Unknown] isosorbide mononitrate 30 mg tablet,extended release 24 hr 30 mg PO DAILY 03/13/22 [History Last Taken Unknown] levocetirizine 5 mg tablet 5 mg PO DAILY 03/13/22 [History Last Taken Unknown] pantoprazole 40 mg tablet,delayed release 40 mg PO DAILY 03/13/22 [History Last Taken Unknown] pioglitazone 30 mg tablet 30 mg PO DAILY 03/13/22 [History Last Taken Unknown] terbinafine HCl 1 % topical cream (Antifungal (terbinafine)) 1 applic topical BID 03/13/22 [History Last Taken Unknown] Allergy/AdvReac Type Severity Reaction Status Date / Time naproxen Allergy Unknown Hives Verified 03/15/22 12:03 Surgical History History of right and left heart catheterization (12/30/20) Hx of hysterectomy Social History Smoking Status: Former smoker ROS ROS ED Constitutional Constitutional ED: Denies chills or fever(s) Eyes Eyes: Denies blurry vision or change in vision ENT ENT ED: Denies rhinorrhea or sore throat Cardiovascular Cardiovascular: Denies chest pain or palpitations Respiratory/Chest Respiratory/Chest: Reports cough and dyspnea Gastrointestinal Gastrointestinal: Reports diarrhea and nausea; Denies vomiting Genitourinary Genitourinary ED: Denies dysuria or hematuria Musculoskeletal Musculoskeletal: Reports back pain; Denies neck pain Integumentary Reports rash; Denies abscess Neurologic Neurologic: Denies headache(s) or weakness Allergic/Immunologic Allergic/Immunologic ED: Denies mouth swelling or urticaria EXAM Physical Exam Const Vital Signs: 05/14/22 10:34 05/14/22 10:39 05/14/22 10:44 Temperature 97.4 F L 97.4 F L Temperature Source Temporal Temporal Pulse Rate 95 87 Respiratory Rate 24 H 24 H Respiratory Effort Short of Breath Respiratory Depth Deep Respiratory Pattern Tachypnea Blood Pressure 174/87 H 179/112 H Blood Pressure Mean 116 134 Pulse Ox 85 95 Oxygen Delivery Method Room Air Nasal Cannula Room Air Oxygen Flow Rate (L/min) 2 05/14/22 11:05 05/14/22 11:15 05/14/22 12:00 Temperature Temperature Source Pulse Rate 82 80 78 Respiratory Rate 18 16 18 Respiratory Effort Respiratory Depth Respiratory Pattern Normal Blood Pressure 198/81 H 163/80 H Blood Pressure Mean 120 107 Pulse Ox 94 97 Oxygen Delivery Method Nasal Cannula Nasal Cannula Oxygen Flow Rate (L/min) 2 2 05/14/22 13:00 05/14/22 14:00 05/14/22 15:02 Temperature 97.8 F Temperature Source Oral Pulse Rate 75 78 82 Respiratory Rate 17 17 17 Respiratory Effort Respiratory Depth Respiratory Pattern Blood Pressure 196/78 H 197/94 H 172/80 H Blood Pressure Mean 117 128 110 Pulse Ox 97 95 96 Oxygen Delivery Method Nasal Cannula Nasal Cannula Nasal Cannula Oxygen Flow Rate (L/min) 2 2 2 Positive well nourished, well developed and obese General Appearance ED: well developed and NAD Nutritional Appearance: obese HEENT Reports moist mucous membranes Neck supple and no JVD Resp normal respiratory effort Auscultation: diminished lung sounds diffuse Cardio regular rate, regular rhythm and no murmurs GI normal to inspection, nondistended, normoactive bowel sounds and non-tender Palpation: soft Extremity normal to inspection General Extremety ED: Negative for edema or tenderness General Extremity: Negative for edema Neuro oriented x3, CN's II-XII intact bilaterally and no sensory deficits noted Sensorium / Orientation: alert Motor Exam: strength 5/5 throughout Psych mental status grossly normal Skin no rashes or lesions noted MDM MDM MDM Narrative Medical decision making narrative: Patient was placed on oxygen. EKG was obtained. On my interpretation it shows a normal sinus rhythm with frequent PVCs. There are occasional couplets. There TN interval with borderline at 196 ms. QRS interval was normal. QTc interval was borderline at 500 ms. [place] was -16. There is evidence of left ventricular hypertrophy with repolarization abnormality. This was unchanged compared to previous EKG dated 03/15/2022. CBC was within normal limits. Basic metabolic profile showed a potassium of 2.6. Creatinine was slightly elevated at 1.32. High-sensitivity troponin was normal. Lactate was normal. Glucose was 147. Anion gap was normal. PA and lateral chest x-ray was obtained. There are 2 views. On my interpretation, lung rodríguez are clear. There is normal cardiac silhouette. Bony thorax is normal. There is no acute process noted. Radiologist also interpreted the x-ray and agrees. COVID-19 rapid antigen was obtained and was negative. Influenza A and influenza B rapid antigens were obtained and were negative. Blood cultures were obtained. Patient was still feeling short of breath on reevaluation. Because of this, CTA of the chest was obtained. There are bilateral pulmonary emboli. There is no evidence of heart strain. This was interpreted by the radiologist and reviewed by myself. Patient was started on Eliquis. Case was discussed with the hospitalist. She will admit the patient to her service. Patient understood and was agreeable with the plan. All questions were answered. Lab Data Attestation: I reviewed the patient's lab results. Labs: Laboratory Results - last 24 hr 05/14/22 05/14/22 05/14/22 10:45 10:45 10:45 WBC 8.6 RBC 4.62 Hgb 12.6 Hct 40.1 MCV 86.8 MCH 27.3 MCHC 31.4 L RDW Std Deviation 45.4 H RDW Coeff of Duran 14.3 Plt Count 255 MPV 12.3 H Immature Gran % (Auto) 0.400 Neut % (Auto) 69.4 Lymph % (Auto) 21.8 [place] % (Auto) 6.8 Eos % (Auto) 1.4 Baso % (Auto) 0.2 Absolute Neuts (auto) 5.9 Absolute Lymphs (auto) 1.87 Nucleated RBC % 0 Sodium 142 Potassium 2.6 L* Chloride 104 Carbon Dioxide 34.0 H Anion Gap 4 L BUN 15 Creatinine 1.32 H Estim Creat Clear Calc 28.86 Est GFR (MDRD) Af Amer 50 L Est GFR (MDRD) Non-Af 41 L BUN/Creatinine Ratio 11.4 Glucose 147 H Lactic Acid 1.9 Calcium 9.3 Troponin I High Sens 47 Radiography Chest X-Ray - ED: 2 View, Read by ED Physician, Read by Radiologist and No Acute Disease Diagnostic Testing: Clinical Impression(s) from Imaging Studies Chest X-Ray 05/14/22 10:56 IMPRESSION: No radiographic evidence of acute cardiopulmonary disease. Electronically Signed: Naty Wong MD at 12:50 EST , Chest CTA 05/14/22 13:48 IMPRESSION: Bilateral pulmonary emboli. Atherosclerosis. Stable 1 cm right upper lobe nodular groundglass opacity recommend follow-up chest CT in 6 months. Hiatal hernia. Electronically Signed: Naty Wong MD at 14:57 EST , EKG Initial EKG: Attestation: I personally reviewed and interpreted this EKG as follows: Interpretation: Sinus Rhythm (With occasional PVCs with a rate of 87 beats) and Non-Specific ST Changes Prior EKG tracings: available for review Prior: Unchanged (03/15/2022) Discharge Plan Triage Chief Complaint: Shortness of Breath ED Provider: [place] Dx/Rx/DC Orders Clinical Impression: Pulmonary emboli, Dyspnea, Hypoxia Prescriptions: No Action aspirin 81 mg tablet,chewable 81 mg PO DAILY atorvastatin 40 mg tablet 40 mg PO QHS baclofen 10 mg tablet 10 mg PO DAILY ipratropium bromide 42 mcg (0.06 %) spray,non-aerosol 1 spray intranasal BID isosorbide mononitrate 30 mg tablet extended release 24 hr 30 mg PO DAILY levocetirizine 5 mg tablet 5 mg PO DAILY pantoprazole 40 mg tablet,delayed release (DR/EC) 40 mg PO DAILY pioglitazone 30 mg tablet 30 mg PO DAILY insulin degludec 200 unit/mL (3 mL) insulin pen 52 unit subcut DAILY albuterol sulfate 90 mcg/actuation HFA aerosol inhaler 1 puff inhalation Q4H PRN (Reason: sob) citalopram 20 mg tablet 20 mg PO DAILY terbinafine HCl [Antifungal (terbinafine)] 1 % cream 1 applic topical BID Primary Care Provider: Lei Kwok Chi Referrals: Lei Kwok Chi, MD [Primary Care Provider] - Disposition Disposition: Acute Care Hospital [facility]
--- NOTE | 2022-05-14 10:56 | RAD_ITS ---
INDICATION: Dyspnea EXAMINATION/TECHNIQUE: X-RAY - XR Chest 2 Views COMPARISON: October 27, 2021 FINDINGS: LINES/DEVICES: None. LUNGS: No consolidation, edema or effusion. No pneumothorax. MEDIASTINUM AND CARDIOVASCULAR STRUCTURES: Cardiac silhouette not enlarged. Central airways and mediastinal contour are unremarkable. BONES AND SOFT TISSUES: Unremarkable. RAD/Chest PA and Lateral IMPRESSION: No radiographic evidence of acute cardiopulmonary disease. Electronically Signed: Naty Wong MD at 12:50 EST ,
--- NOTE | 2022-05-14 10:57 | EKG12_ITS ---
Test Reason : Blood Pressure : / mmHG Vent. Rate : 087 BPM Atrial Rate : 087 BPM P-R Int : 196 ms QRS Dur : 082 ms QT Int : 416 ms P-R-T Axes : 037 -16 066 degrees QTc Int : 500 ms Sinus rhythm with frequent and consecutive Premature ventricular complexes Left ventricular hypertrophy with repolarization abnormality ( R in aVL , Romhilt-Self ) Prolonged QT Abnormal ECG Confirmed by SHIREEN CALHOUN, LOY ([id number]), multimedia editor MICHAEL SIM ([id number]) on 05/15/2022 10:05:06 AM Referred By: Confirmed By:LOY IYER MD
--- NOTE | 2022-05-14 11:03 | NURSING ---
NO OLD EKGS
[2022-05-14 11:06] LABS: Absolute Lymphocyte Count 1.87 X10^3/uL (0.83-4.51); Absolute Neutrophil Count 5.9 X10^3/uL (2.0-7.7); Basophil# 0.02 X10^3/uL; Basophil% 0.2 % (0-1); Eosinophil# 0.12 X10^3/uL; Eosinophils% 1.4 % (0-5); Hematocrit 40.1 % (37-47); Hemoglobin 12.6 g/dL (12.0-15.0); Lymphocyte # 1.87 X10^3/ul (0.83-4.51); Lymphocyte % 21.8 % (19-41); Mean Corp Hgb Conc 31.4 g/dL (32-36); Mean Corpuscular Hgb 27.3 pg (27.0-32.0); Mean Corpuscular Volume 86.8 fL (81-99); Mean Platelet Vol. 12.3 fl (6.2-12.0); Monocyte# 0.58 X10^3/uL; Monocyte% 6.8 % (0-10); NRBC Flagged by Analyzer 0 % (0-5); Neutrophil # 5.94 X10^3/uL (2.7-7.7); Neutrophil % 69.4 % (47-70); Platelet Count 255 K/mm3 (150-450); RBC Distribution Width CV 14.3 % (11.6-14.6); RBC Distribution Width SD 45.4 fl (35.1-43.9); Red Blood Count 4.62 M/mm3 (4.2-5.4); White Blood Count 8.6 K/mm3 (4.4-11.0)
[2022-05-14] MEDS: Ipratropium/Albuterol Sulfate 3 ML AMPUL.NEB INHALATION ×2 (11:15→21:07)
[2022-05-14 11:19] LABS: Lactic Acid 1.9 mmol/L (0.4-1.9)
[2022-05-14 11:28] LABS: Anion Gap 4 (5-15); BUN 15 mg/dL (7-18); BUN/Creat Ratio 11.4 RATIO (10-20); Calcium,Total 9.3 mg/dL (8.5-10.1); Chloride 104 mmol/L (98-107); Creatinine, Serum 1.32 mg/dL (0.55-1.02); EST Glomerular Filtration Rate 41 mL/min (>60); Est Glom Filt Rate - Afr Amer 50 mL/min (>60); Estimated Creatinine Clearance 28.86 ml/min; Glucose 147 mg/dL (74-106); Potassium 2.6 mmol/L (3.5-5.1); Sodium Level 142 mmol/L (136-145); Troponin-I HS 47 pg/mL (3.0-54.0)
[2022-05-14] MEDS: Potassium Chloride Oral Tablet 20 MEQ 40 MEQ PO (12:53)
[2022-05-14] MEDS: Potassium Chloride 10mEq/100mL 10 MEQ/100 ML IV.SOLN. 100 MEQ IV BOLUS ×2 (12:55→14:06)
--- NOTE | 2022-05-14 13:48 | CT_ITS ---
We are attempting to reach an attending provider to discuss findings. An addendum with communication details will be sent when the communication is complete. STUDY: CTA CHEST REASON FOR EXAM: Female, 81 years old. Dyspnea RADIATION DOSAGE (If Supplied By Facility): CTDIvol = ( 13.39 ) mGy, DLP = ( 496.90 ) mGycm TECHNIQUE: The examination was performed with the intravenous administration of IV 100mL Isovue-370. Post-processing of the angiographic images was performed, with multiplanar reformation and 3D reconstruction. Individualized dose optimization techniques were used for this CT. COMPARISON: April 06, 2022 FINDINGS: Normal enhancement of the main pulmonary artery and right and left pulmonary arteries. There are bilateral filling defects within segmental and subsegmental pulmonary arteries throughout the lungs consistent with pulmonary emboli. There is no evidence of right heart strain. . There is atherosclerotic calcification of the aortic arch and descending thoracic aorta. There is no demonstrated aortic dissection. There are calcifications of the coronary arteries. There is a moderate-sized hiatal hernia. Normal hilar regions. Normal visualized trachea and bronchi. Minimal grossly stable bibasilar atelectasis and/or scarring. There is a stable 1 cm groundglass nodular opacity within the right upper lobe. Normal chest wall structures. There are degenerative changes of thoracic spine. The limited images of the upper abdomen demonstrates splenic granulomas. CT/CTA Chest W/WO Contrast IMPRESSION: Bilateral pulmonary emboli. Atherosclerosis. Stable 1 cm right upper lobe nodular groundglass opacity recommend follow-up chest CT in 6 months. Hiatal hernia. Electronically Signed: Naty Wong MD at 14:57 EST ,
[2022-05-14] MEDS: 0.9% Normal Saline 1,000 ML 1000 ML IV (14:44)
--- NOTE | 2022-05-14 15:01 | HP.PCM.HOS_ITS ---
HPI - General General Date of Admission: 05/14/22 Date of Service: 05/14/22 Chief Complaint: Dyspnea, cough, fever, chills. HPI Narrative The patient is an 81 y/o F w/ PMHx: CKD stage III unclear subtype, HTN, HLD, Depression and Anxiety, Cheswold syndrome, Nonobstructive CAD, Allergic rhinitis, Asthma, Obesity, Diabetes mellitus type II who presents to the [facility] ED on 05/14/22 with history of worsening dyspnea, worse with exertion progressively over the last 2 weeks with associated cough with yellow sputum production as well as subjective fevers and chills with associated pleuritic chest discomfort intermittent, dull, worse with coughing without any improvement with her home albuterol inhaler prompting eventual ED evaluation. Patient does report that since she was ill and not feeling well she had been very inactive and primarily laying or sitting constantly. Patient also reports over the last several days she has had intermittent loose stools and poor appetite. Work-up in the ED included T97.4, heart rate 95, BP 174/87, respiratory rate 24, initially 85% on room air with improvement to 95% on 2 L nasal cannula, CBC with WC 8.6, hemoglobin 12.6, platelet 255 without marked shift, BMP with potassium 2.6, At 34, BUN/creatinine 15/1.32, glucose 147, lactic acid 1.9, troponin 47, blood culture x2 pending per ED, rapid SARS COVID and influenza negative, chest x-ray with no acute cardiopulmonary findings, CTPA with bilateral pulmonary emboli, atherosclerotic change, stable 1 cm right upper lobe nodular groundglass opacity with recommended CT chest follow-up 6 months, hiatal hernia, EKG SR with PVCs with with no acute evidence of ischemia. In the ED patient administered potassium 40 mill equivalent p.o. x1, DuoNeb therapy, Eliquis 10 mg p.o. x1 and a 500 cc bolus. [facility] Medical History (Updated 05/14/22 @ 15:[address] Los Tate, ) Asthma Atherosclerosis of coronary artery of [place] heart without angina pectoris CKD (chronic kidney disease), stage III Dameon syndrome Depression Diabetes mellitus Essential hypertension Former tobacco use Hyperlipidemia Obesity Osteoarthritis Home Medications aspirin 81 mg chewable tablet 81 mg PO DAILY 10/27/21 [History Last Taken Unknown] albuterol sulfate 90 mcg/actuation aerosol inhaler 1 puff inhalation Q4H PRN sob 03/13/22 [History Last Taken Unknown] atorvastatin 40 mg tablet 40 mg PO QHS 03/13/22 [History Last Taken Unknown] baclofen 10 mg tablet 10 mg PO DAILY 03/13/22 [History Last Taken Unknown] citalopram 20 mg tablet 20 mg PO DAILY 03/13/22 [History Last Taken Unknown] insulin degludec 200 unit/mL (3 mL) subcutaneous pen 52 unit subcut DAILY 08/30 [History Last Taken Unknown] ipratropium bromide 42 mcg (0.06 %) nasal spray 1 spray intranasal BID 03/13/22 [History Last Taken Unknown] isosorbide mononitrate 30 mg tablet,extended release 24 hr 30 mg PO DAILY 03/13/22 [History Last Taken Unknown] levocetirizine 5 mg tablet 5 mg PO DAILY 03/13/22 [History Last Taken Unknown] pantoprazole 40 mg tablet,delayed release 40 mg PO DAILY 03/13/22 [History Last Taken Unknown] pioglitazone 30 mg tablet 30 mg PO DAILY 03/13/22 [History Last Taken Unknown] terbinafine HCl 1 % topical cream (Antifungal (terbinafine)) 1 applic topical BID 03/13/22 [History Last Taken Unknown] Allergy/AdvReac Type Severity Reaction Status Date / Time naproxen Allergy Unknown Hives Verified 03/15/22 12:03 Family History (Updated 05/14/22 @ 16:[address] Lauren Walton MD) Mother Heart disease CAD (coronary artery disease) Hypertension CHF (congestive heart failure) Father Diabetes Surgical History History of right and left heart catheterization (12/30/20) Hx of hysterectomy Social History (Updated 05/14/22 @ 16:[address] Lauren Walton MD) household members: family Smoking Status: Former smoker how long ago did patient quit smoking: Quit ~ 30 years prior, 1 ppd since teen until quit. alcohol intake: never substance use type: does not use ROS ROS Narrative Admission Review of Systems: CONSTITUTIONAL: No weight loss, + fever, chills, weakness or fatigue. HEENT: + congestion, rhinorrhea. Eyes: No visual loss, blurred vision, double vision or yellow sclerae. Ears, Nose, Throat: No hearing loss, sneezing. SKIN: No rash or itching, lesions, wounds. CARDIOVASCULAR: + Pleuritic chest discomfort. No palpitations, edema, orthopnea, syncopal events. RESPIRATORY: + shortness of breath, cough with mildly productive sputum, No marked wheezing, hemoptysis. GASTROINTESTINAL: + anorexia, nausea without vomiting, diarrhea, No marked abdominal pain, melena, BRBPR. GENITOURINARY: No dysuria, frequency, urgency or retention. NEUROLOGICAL: No headache, dizziness, syncope, paralysis, ataxia, numbness or tingling in the extremities, focal weakness, change in bowel or bladder control, seizure. MUSCULOSKELETAL: + muscle, back pain, joint pain or stiffness. HEMATOLOGIC: No anemia, bleeding or bruising. LYMPHATICS: No enlarged nodes. No history of splenectomy. PSYCHIATRIC: + history of depression or anxiety. ENDOCRINOLOGIC: No reports of sweating, cold or heat intolerance. No polyuria or polydipsia. ALLERGIES: + history of asthma, hives, rhinitis. Vital Signs Vital Signs Vital Signs: 05/14/22 10:34 05/14/22 10:39 05/14/22 10:44 Temperature 97.4 F L 97.4 F L Temperature Source Temporal Temporal Pulse Rate 95 87 Respiratory Rate 24 H 24 H Respiratory Effort Short of Breath Respiratory Depth Deep Respiratory Pattern Tachypnea Blood Pressure 174/87 H 179/112 H Blood Pressure Mean 116 134 Pulse Ox 85 95 Oxygen Delivery Method Room Air Nasal Cannula Room Air Oxygen Flow Rate (L/min) 2 05/14/22 11:05 05/14/22 11:15 05/14/22 12:00 Temperature Temperature Source Pulse Rate 82 80 78 Respiratory Rate 18 16 18 Respiratory Effort Respiratory Depth Respiratory Pattern Normal Blood Pressure 198/81 H 163/80 H Blood Pressure Mean 120 107 Pulse Ox 94 97 Oxygen Delivery Method Nasal Cannula Nasal Cannula Oxygen Flow Rate (L/min) 2 2 05/14/22 13:00 Temperature Temperature Source Pulse Rate 75 Respiratory Rate 17 Respiratory Effort Respiratory Depth Respiratory Pattern Blood Pressure 196/78 H Blood Pressure Mean 117 Pulse Ox 97 Oxygen Delivery Method Nasal Cannula Oxygen Flow Rate (L/min) 2 Weight Weight: 203 lb 11.314 oz Body Mass Index (BMI) 34.9 Physical Exam Narrative Physical Examination: General: Awake, alert, oriented x 3 and cooperative, seated upright in the ED bed, fatigued and ill-appearing. Skin: Normal color, normal turgor, no icterus, no cyanosis except for occasional staged ecchymoses and healing abrasion to the left anterior trejo. HEENT: AT/NC, EOMI, PERRLA, mildly dry MM, no carotid bruits or JVD noted. Lungs: Significantly diminished, decreased effort, shallow breaths secondary to discomfort with deep inspiratory effort, currently no rales, ronchi or wheezing. Heart: Currently regular rate and rhythm; no gallop, rub audible. Abdomen: Soft, obese, NTTP, ND, mildly hyperactive BS, no HSM. Extremities: No cyanosis, clubbing, or edema, discomfort bilateral lower extremity palpation consistent with her peripheral neuropathy per discussion. Neurological: Patient awake, alert, oriented as noted, cognitive function intact; pupils equally reactive to light and accommodation, cranial nerves II-XI I grossly normal, moving all 4 extremities, no focal deficits, strength moderately to severely globally decreased secondary to acute presentation Psychiatric: Affect appears fatigued, ill-appearing, no acute evidence of depressive or anxiety feelings. Results Lab / Micro Data Result Diagrams: 05/14/22 10:45 05/14/22 10:45 Labs: Laboratory Results - last 24 hr 05/14/22 10:45: WBC 8.6, RBC 4.62, Hgb 12.6, Hct 40.1, MCV 86.8, MCH 27.3, MCHC 31.4 L, RDW Std Deviation 45.4 H, RDW Coeff of Duran 14.3, Plt Count 255, MPV 12.3 H, Immature Gran % (Auto) 0.400, Neut % (Auto) 69.4, Lymph % (Auto) 21.8, [place] % (Auto) 6.8, Eos % (Auto) 1.4, Baso % (Auto) 0.2, Absolute Neuts (auto) 5.9, Absolute Lymphs (auto) 1.87, Nucleated RBC % 0 05/14/22 10:45: Sodium 142, Potassium 2.6 L*, Chloride 104, Carbon Dioxide 34.0 H, Anion Gap 4 L, BUN 15, Creatinine 1.32 H, Estim Creat Clear Calc 28.86, Est GFR (MDRD) Af Amer 50 L, Est GFR (MDRD) Non-Af 41 L, BUN/Creatinine Ratio 11.4, Glucose 147 H, Calcium 9.3, Troponin I High Sens 47 05/14/22 10:45: Lactic Acid 1.9 Micro: Microbiology 05/14/22 10:45 Nasal Secretion SARS-CoV-2 & FLU Antigen (Rapid) - Final Radiology Impression Chest X-Ray 05/14/22 10:56 IMPRESSION: No radiographic evidence of acute cardiopulmonary disease. Electronically Signed: Naty Wong MD at 12:50 EST , Chest CTA 05/14/22 13:48 IMPRESSION: Bilateral pulmonary emboli. Atherosclerosis. Stable 1 cm right upper lobe nodular groundglass opacity recommend follow-up chest CT in 6 months. Hiatal hernia. Electronically Signed: Naty Wong MD at 14:57 EST , Assessment & Plan Assessment/Plan (1) Pulmonary emboli: PLAN: Plan The patient is an 81 y/o F w/ PMHx: CKD stage III unclear subtype, HTN, HLD, Depression and Anxiety, Cheswold syndrome, Nonobstructive CAD, Allergic rhinitis, Asthma, Obesity, Diabetes mellitus type II who presents to the [facility] ED on 05/14/22 with history of worsening dyspnea, worse with exertion progressively over the last 2 weeks with associated cough with yellow sputum production as well as subjective fevers and chills with associated pleuritic chest discomfort intermittent, dull, worse with coughing without any improvement with her home albuterol inhaler prompting eventual ED evaluation. #1. Acute Hypoxia, chest pain secondary to Bilateral Pulmonary Embolism: Will admit to PCU, maintain on cardiac telemetry. Will obtain ECHO, BNP, suspect patient likely with PE secondary to recent significant decrease in activity however to be cautious COVID PCR requested given timeline as this certainly would make patient at risk for VTE, continue therapeutic Eliquis regimen with pending AM insurance oral regimen investigation. #2. Suspected Recent Acute Viral Syndrome complicated by Underlying Chronic Asthma in addition to #1: Given URI type symptoms, still some concern for concurrent viral syndrome, maintain on oxygen with wean as tolerated to room air, continue ATC duonebs, PRN albuterol, HOB, IS parameters, obtain full respiratory viral panel, sputum Cx, procalcitonin although no concerning findings on CTPA. #4. Hypokalemia: Admission K+ 2.6, magnesium level requested, supplementation given, repeat level in AM. #5. Incidental right upper lobe nodule: CTPA with noted stable 1 cm right upper lobe nodular groundglass opacity with recommended CT chest follow-up 6 months, will encourage outpatient follow-up and continued evaluation. #6. Nonobstructive CAD: Nonobstructive CAD with last cardiac catheterization noted 11/2020 with moderate disease in the left anterior descending with normal FFR, normal right heart pressure and the rest of her anatomy unremarkable, will continue aspirin, statin, hypertensive regimen with adjustments as needed as noted. #7. Hypertension: Continue home regimen including isosorbide with further adjustments as needed as elevated BP upon presentation, PRN hydralazine. #8. Hyperlipidemia: Continue home statin regimen. #9. Diabetes mellitus type II: Hold oral home regimen, continue home insulin regimen, ADA diet, accu checks w/ ISS. #10. Chronic Kidney Disease Stage III, unclear subtype: Admission BUN/Cr 15/1.32, baseline renal function appears primarily 1.4-1.7, repeat BMP in AM. #11. Obesity: Weight loss and lifestyle changes encouraged. #12. Allergic rhinitis: We will continue patient home levocetirizine and nasal ipratropium regimen regimen. #13. Anxiety and depression: We will continue patient home citalopram regimen. #14. GERD: We will continue patient on PPI. #15. DVT prophylaxis: SCDs, Eliquis as noted. #16. CODE status: Patient MALCOM is the patient's daughter who is present and living will is currently in place. Discussed CODE status at length including difference between FULL code, DNR-CCA and DNR-CC status. Following discussions about the differences in these status, requested DNR-CCA, no intubation status. Advanced Care Planning Face to Face Time: 16 minutes. Charges/Coding Visit Charges Inpatient E&M: 74316 Init Hosp L3 Procedures Hospitalists Procedures: 19916 Advncd Care Plan 30 Min
--- NOTE | 2022-05-14 15:31 | NURSING ---
PCU WHITE PULMONARY EMBOLI, HYPOXIA
[2022-05-14] MEDS: APIXABAN 5 MG TABLET 10 MG PO ×2 (16:01→21:49)
[2022-05-14 16:32] LABS: Magnesium 1.5 mg/dL (1.6-2.6)
[2022-05-14 16:41] LABS: BNP,B-Type NATRIURETIC PEPTIDE 251.8 pg/mL (0-100)
--- NOTE | 2022-05-14 17:10 | ECHOD_ITS ---
Reason For Study: Other, B/L PEs Procedure This was a 2D Doppler, Color Flow transthoracic echocardiogram. Myocardial strain analysis was performed in this exam to aid in the assessment of cardiac function. Exam performed portable in patient room. Left Ventricle Normal LV size. Mild concentric left ventricular hypertrophy. Left ventricular systolic function is normal. The estimated ejection fraction is 70 %. Stage 1 diastolic dysfunction. No regional wall motion abnormalities noted. Right Ventricle Normal RV size. Normal systolic function. Atria Normal left atrium. Normal right atrium. Mitral Valve Normal mitral valve. Tricuspid Valve Normal tricuspid valve. Moderate (2+) tricuspid valve insufficiency. Pulmonary artery systolic pressure is 54 mmHg. Aortic Valve Normal aortic valve. Trisinus/trileaflet aortic valve. Pulmonic Valve Normal pulmonic valve. Great Vessels Normal aortic root. The pulmonary artery is normal size. Normal inferior vena cava. Pericardium/Pleural No pericardial effusion. MMode/2D Measurements & Calculations LVIDd: 4.8 cm IVSd: 1.2 cm Ao root diam: 2.8 cm LVIDs: 2.7 cm LVPWd: 1.2 cm RVDd: 3.6 cm FS: 43.8 % LAV(MOD-bp): 53.9 ml LVAd ap4: 21.6 cm2 SV(MOD-sp4): 34.5 ml LAV(MOD-bp) Indexed: 27.4 ml/m2 LVLd ap4: 7.4 cm LAV(MOD-sp2): 49.2 ml EDV(MOD-sp4): 53.1 ml LAV(MOD-sp4): 54.9 ml EDV(sp4-el): 53.1 ml LVAs ap4: 11.0 cm2 LVLs ap4: 5.7 cm ESV(MOD-sp4): 18.6 ml ESV(sp4-el): 18.0 ml EF(MOD-sp4): 65.0 % EF(sp4-el): 66.1 % SV(sp4-el): 35.1 ml LA A4 area: 19.8 cm2 LA dimension(2D): 4.0 cm RA A4 area: 13.0 cm2 Time Measurements MV dec time: 0.29 sec Doppler Measurements & Calculations MV E max dhruv: 92.6 cm/sec Lat Peak E' Dhruv: 6.7 cm/sec Med Peak E' Dhruv: 6.6 cm/sec MV A max dhruv: 130.3 cm/sec E/E' lat: 13.8 E/E' med: 14.1 MV E/A: 0.71 MV V2 max: 166.3 cm/sec Ao V2 max: 187.7 cm/sec LV V1 max: 143.7 cm/sec MV max P.1 mmHg Ao max P.1 mmHg LV V1 max P.3 mmHg MV V2 mean: 100.5 cm/sec Ao V2 mean: 128.2 cm/sec MV mean P.5 mmHg Ao mean P.3 mmHg MV V2 VTI: 35.8 cm Ao V2 VTI: 32.7 cm PA V2 max: 102.2 cm/sec TR max dhruv: 359.0 cm/sec TR max P.6 mmHg ECHO/Echo Complete Interpretation Summary Normal LV size. Mild concentric left ventricular hypertrophy. Left ventricular systolic function is normal. The estimated ejection fraction is 70 %. Pulmonary artery systolic pressure is 54 mmHg. Stage 1 diastolic dysfunction. Ordering Physician: Luaren Walton Referring Physician: Lei Kwok Chi Performed By: Jade Webb, MONICA, RVT
[2022-05-14] MEDS: 0.9% Normal Saline 1,000 ML 100 ML IV (18:23)
[2022-05-14 18:30] LABS: Bedside Glucose 95 mg/dL (74-106)
[2022-05-14] MEDS: Menthol/Lanolin/Calamine/Znox 113 GM Tube 1 APPLIC TOPICAL (21:46)
[2022-05-14] MEDS: Ipratropium Bromide 0.06% NASAL SPRAY 1 SPRAY NASAL (21:48)
[2022-05-14] MEDS: Acetaminophen 325 MG Tablet 650 MG PO (21:49)
[2022-05-14] MEDS: Atorvastatin Calcium 40 MG Tablet PO (21:49)
[2022-05-14] MEDS: oxyCODONE 5 MG Tablet PO (21:50)
[2022-05-14] MEDS: MELATONIN 3 MG TABLET PO (21:50)
[2022-05-14 21:55] LABS: Bedside Glucose 85 mg/dL (74-106)
[2022-05-15] VITALS (14 sets, daily range): BP systolic 125–157; BP diastolic 54–83; PULSE 60–93; RESP 16–24; TEMP 36.7–37.5; O2SAT 94–98
[2022-05-15 06:39] LABS: Absolute Neutrophil Count 4.8 X10^3/uL (2.0-7.7); Basophil# 0.02 X10^3/uL; Basophil% 0.2 % (0-1); Eosinophil# 0.14 X10^3/uL; Eosinophils% 1.6 % (0-5); Hematocrit 38.5 % (37-47); Hemoglobin 11.8 g/dL (12.0-15.0); Lymphocyte % 35.8 % (19-41); Mean Corp Hgb Conc 30.6 g/dL (32-36); Mean Corpuscular Hgb 26.9 pg (27.0-32.0); Mean Corpuscular Volume 87.7 fL (81-99); Mean Platelet Vol. 11.6 fl (6.2-12.0); Monocyte# 0.75 X10^3/uL; Monocyte% 8.4 % (0-10); NRBC Flagged by Analyzer 0 % (0-5); Neutrophil # 4.81 X10^3/uL (2.7-7.7); Neutrophil % 53.8 % (47-70); Platelet Count 254 K/mm3 (150-450); RBC Distribution Width CV 14.5 % (11.6-14.6); RBC Distribution Width SD 46.8 fl (35.1-43.9); Red Blood Count 4.39 M/mm3 (4.2-5.4); White Blood Count 8.9 K/mm3 (4.4-11.0)
[2022-05-15 07:08] LABS: AST(SGOT) 42 U/L (15-37); Alanine Aminotransfer ALT/SGPT 47 U/L (13-56); Albumin, Serum 2.9 g/dL (3.2-5.0); Alkaline Phosphatase 57 U/L (45-117); Anion Gap 5 (5-15); BUN 14 mg/dL (7-18); BUN/Creat Ratio 10.4 RATIO (10-20); Calcium,Total 8.8 mg/dL (8.5-10.1); Chloride 107 mmol/L (98-107); Creatinine, Serum 1.34 mg/dL (0.55-1.02); EST Glomerular Filtration Rate 40 mL/min (>60); Est Glom Filt Rate - Afr Amer 49 mL/min (>60); Estimated Creatinine Clearance 28.43 ml/min; Globulin 2.9 g/dL (2.2-4.2); Glucose 71 mg/dL (74-106); Protein, Total 5.8 g/dL (6.4-8.2); Sodium Level 144 mmol/L (136-145)
[2022-05-15 07:15] LABS: Bedside Glucose 66 mg/dL (74-106)
[2022-05-15] MEDS: Ipratropium/Albuterol Sulfate 3 ML AMPUL.NEB INHALATION ×3 (07:19→15:45)
[2022-05-15 07:20] LABS: Bedside Glucose 98 mg/dL (74-106)
[2022-05-15] MEDS: Mag Hydrox/Al Hydrox/Simeth 30 ML UDC PO (08:07)
[2022-05-15] MEDS: Ipratropium Bromide 0.06% NASAL SPRAY 1 SPRAY NASAL ×2 (08:09→21:08)
[2022-05-15] MEDS: Aspirin 81 MG TAB.CHEW PO (08:09)
[2022-05-15] MEDS: Loratadine 10 MG Tablet PO (08:09)
[2022-05-15] MEDS: Pantoprazole Sodium 40 MG Tablet PO (08:09)
[2022-05-15] MEDS: Baclofen 10 MG Tablet PO (08:09)
[2022-05-15] MEDS: Citalopram 20 MG Tablet PO (08:09)
[2022-05-15] MEDS: Isosorbide Mononitrate 30 MG Tablet PO (08:09)
[2022-05-15] MEDS: APIXABAN 5 MG TABLET 10 MG PO ×2 (08:09→21:15)
[2022-05-15] MEDS: Menthol/Lanolin/Calamine/Znox 113 GM Tube 1 APPLIC TOPICAL ×4 (08:10→21:09)
[2022-05-15] MEDS: Potassium Chloride Oral Tablet 20 MEQ 40 MEQ PO (11:04)
[2022-05-15] MEDS: Insulin Glargine-YFGN 100 UNIT/ML Pen 52 UNIT SC (11:05)
[2022-05-15] MEDS: Insulin Lispro 100 UNIT/ML INSULN.PEN SC ×3 (11:07→21:24)
--- NOTE | 2022-05-15 11:50 | CASEMGMT ---
RN ACE Face to Face with patient for initial transition planning/care coordination assessment. RN CM introduced self and role at [facility]. Patient sister in chair, alert and oriented, daughter and son at bedside. Patient willing to participate in assessment and is able to answer all questions appropriately. Care providers, pharmacy, and demographics verified. Patient wishes to discharge home with possible HHC, will monitor progress with therapy. List of SNF provided to patient. CM to provide HHC list as well. Patient states she has no further needs or concerns at this time. CM to follow for discharge planning needs that may arise. PCP: Sundar Specialists: Newton briar wood sorter Preferred Pharmacy: [facility] Insurance: [employer] Prescription Benefit: yes Living Will/HPOA: yes, daughter Kassi Villaseñor LNOK: daughter, son, grandson Living Arrangements: Patient lives with daughter and grandson in a 2 story home with bed and bath on first floor. 2 steps to enter the home. Patient states the daughter and grandson assist patient with ADLs at home. Transportation: daughter DME/HHC: Patient has shower chair, cane, walker, and grab bars at home. No previous HHC or SNF. Will monitor patient for home oxygen and states no preferences for DME. Disposition Plan: Patient to discharge home with HHC, family support, and follow-up plans in place. Carmen OSBORN, RN, CM
[2022-05-15 11:55] LABS: Bedside Glucose 183 mg/dL (74-106)
--- NOTE | 2022-05-15 13:00 | CASEMGMT ---
Per Hitesh AVALOS CM, family requesting HHC list as well. Pt/family provided list of HHC providers including quality and resource use data and consistent with pt's preferred geographic region, medical needs, and insurance network. Pt/family updated on therapy recommendations today, voice understanding. CM to follow. Bryan AVALOS CM
--- NOTE | 2022-05-15 15:04 | CHAPLAIN ---
Type of Pastoral Visit __x_ Initial Visit ___ Follow-up Visit ___ On-call Visit ___ General Patient Visit ___ Spiritual Assessment ___ Family Conference ___ Bereavement ___ Rapid Response ___ Code Blue ___ Other (describe below) Pastoral Care Referral From _x__ Patient _x__ Family ___ Nurse ___ Physician ___ [employer] Fuels Research Engineer ___ Funeral Director ___ Other (describe below) Sacrament/Intervention _x__ Active listening ___ Anointing ___ Druze ___ Bereavement ___ Communion ___ Elvira exploration ___ _x__ Life review _x__ Prayer ___ Reconciliation ___ Sacrament of Sick _x__ Supportive presence ___ Wedding ___ Other (describe below) Pastoral Comments family asks for prayer for mother/grandmother
--- NOTE | 2022-05-15 15:52 | PCM.PN.HOSP ---
Subjective Subjective Reports continued shortness of breath, minimal cough. No significant chest pain though did have some indigestion after drinking more juice. Reports she did have leg swelling at home but it is somewhat better. No other complaints today Objective Data Objective Data Vital Signs: Vital Signs Temp Pulse Resp BP Pulse Ox O2 Del Method O2 Flow Rate 99.5 F H 60 16 125/54 H 94 Nasal Cannula 3 05/15/22 14:00 05/15/22 14:00 05/15/22 14:00 05/15/22 14:00 05/15/22 14:00 05/15/22 14:00 05/15/22 14:00 Oxygen Flow Rate (L/min) 3 Oxygen Delivery Method Nasal Cannula Weight: 93 kg Body Mass Index (BMI) 35.1 Intake & Output: Intake and Output for Last 24 Hours 05/13/22 05/14/22 05/15/22 23:59 23:59 23:59 Intake Total 1700.00 / 1700.00 104 / 104 Output Total 150 / 150 Balance 1700.00 / 1700.00 -46 / -46 Lab / Micro Data Result Diagrams: 05/15/22 06:31 05/15/22 06:31 Labs: Laboratory Results - last 24 hr 05/14/22 15:40: COVID-19 (DHARA) Not Detected 05/14/22 18:04: POC Glucose 95 05/14/22 21:36: POC Glucose 85 05/14/22 : Magnesium 1.5 L 05/14/22 : Procalcitonin 0.10 H 05/14/22 : B-Natriuretic Peptide 251.8 H 05/15/22 06:23: POC Glucose 66 L 05/15/22 06:31: WBC 8.9, RBC 4.39, Hgb 11.8 L, Hct 38.5, MCV 87.7, MCH 26.9 L, MCHC 30.6 L, RDW Std Deviation 46.8 H, RDW Coeff of Duran 14.5, Plt Count 254, MPV 11.6, Immature Gran % (Auto) 0.200, Neut % (Auto) 53.8, Lymph % (Auto) 35.8, [place] % (Auto) 8.4, Eos % (Auto) 1.6, Baso % (Auto) 0.2, Absolute Neuts (auto) 4.8, Absolute Lymphs (auto) 3.20, Nucleated RBC % 0 05/15/22 06:31: Sodium 144, Potassium 3.0 L, Chloride 107, Carbon Dioxide 32.0, Anion Gap 5, BUN 14, Creatinine 1.34 H, Estim Creat Clear Calc 28.43, Est GFR (MDRD) Af Amer 49 L, Est GFR (MDRD) Non-Af 40 L, BUN/Creatinine Ratio 10.4, Glucose 71 L, Calcium 8.8, Total Bilirubin 0.70, AST 42 H, ALT 47, Alkaline Phosphatase 57, Total Protein 5.8 L, Albumin 2.9 L, Globulin 2.9, Albumin/Globulin Ratio 1.0 05/15/22 06:59: POC Glucose 98 05/15/22 11:03: POC Glucose 183 H Micro: Microbiology 05/14/22 21:00 Mucosa - Nasopharyngeal Respiratory Panel (PCR) - Final 05/14/22 10:45 Nasal Secretion SARS-CoV-2 & FLU Antigen (Rapid) - Final Radiography Diagnostic Testing: Radiology Impression Echocardiogram 05/14/22 17:10 Interpretation Summary Normal LV size. Mild concentric left ventricular hypertrophy. Left ventricular systolic function is normal. The estimated ejection fraction is 70 %. Pulmonary artery systolic pressure is 54 mmHg. Stage 1 diastolic dysfunction. Ordering Physician: Lauren Walton Referring Physician: Lei Kwok Chi Performed By: Jade Webb, RDCS, RVT Physical Exam Const alert and no apparent distress Constitutional Narrative: Oriented HEENT normocephalic and head/scalp atraumatic Eyes Eyes Narrative: EOM grossly intact, anicteric Neck supple Resp Resp Narrative: Slight increased work of breathing Cardio regular rate and regular rhythm GI soft to palpation, non-tender and non-distended Extremity Extremity Narrative: No edema appreciated Neuro moves all extremities Neuro Narrative: No overt focal deficits appreciated Psych Psych Narrative: Cooperative Assessment & Plan Assessment/Plan (1) Pulmonary emboli: PLAN: Plan #Acute hypoxia and chest pain secondary to bilateral pulmonary embolism On telemetry Echo shows: Mild concentric left ventricular hypertrophy. Left ventricular systolic function is normal. The estimated ejection fraction is 70 %. Pulmonary artery systolic pressure is 54 mmHg. Stage 1 diastolic dysfunction. COVID-negative Therapeutic Eliquis #Incidental right upper lobe nodule Stable 1 cm right upper lobe nodule with groundglass opacity, recommend CT chest follow-up in 6 months as an outpatient #Hypertension continue home medications #Type 2 diabetes mellitus Home insulin regimen #CKD stage III unclear subtype Trend BMP avoid nephrotoxic agents #Obesity Weight loss and lifestyle changes encouraged #DVT ppx: SCDs, Naga Sauceda MD Charges/Coding Visit Charges Inpatient E&M: 59893 Subs Hosp L2
[2022-05-15 17:45] LABS: Bedside Glucose 216 mg/dL (74-106)
[2022-05-15] MEDS: Acetaminophen 325 MG Tablet 650 MG PO (19:36)
[2022-05-15] MEDS: Atorvastatin Calcium 40 MG Tablet PO (21:15)
[2022-05-15 22:20] LABS: Bedside Glucose 268 mg/dL (74-106)
[2022-05-16] VITALS (15 sets, daily range): BP systolic 141–164; BP diastolic 63–78; PULSE 74–93; RESP 18–20; TEMP 36.4–37.3; O2SAT 82–99
[2022-05-16 06:33] LABS: Absolute Lymphocyte Count 1.28 X10^3/uL (0.83-4.51); Absolute Neutrophil Count 4.7 X10^3/uL (2.0-7.7); Basophil# 0.01 X10^3/uL; Basophil% 0.1 % (0-1); Eosinophil# 0.11 X10^3/uL; Eosinophils% 1.6 % (0-5); Hematocrit 35.6 % (37-47); Hemoglobin 10.8 g/dL (12.0-15.0); Lymphocyte # 1.28 X10^3/ul (0.83-4.51); Lymphocyte % 19.2 % (19-41); Mean Corp Hgb Conc 30.3 g/dL (32-36); Mean Corpuscular Hgb 27.1 pg (27.0-32.0); Mean Corpuscular Volume 89.2 fL (81-99); Mean Platelet Vol. 12.2 fl (6.2-12.0); Monocyte# 0.58 X10^3/uL; Monocyte% 8.7 % (0-10); NRBC Flagged by Analyzer 0.4 % (0-5); Neutrophil # 4.68 X10^3/uL (2.7-7.7); Neutrophil % 70.3 % (47-70); Platelet Count 241 K/mm3 (150-450); RBC Distribution Width CV 14.6 % (11.6-14.6); RBC Distribution Width SD 46.8 fl (35.1-43.9); Red Blood Count 3.99 M/mm3 (4.2-5.4); White Blood Count 6.7 K/mm3 (4.4-11.0)
[2022-05-16 07:00] LABS: Bedside Glucose 75 mg/dL (74-106)
[2022-05-16 07:14] LABS: Anion Gap 3 (5-15); BUN 17 mg/dL (7-18); BUN/Creat Ratio 12.8 RATIO (10-20); Chloride 110 mmol/L (98-107); Creatinine, Serum 1.33 mg/dL (0.55-1.02); EST Glomerular Filtration Rate 41 mL/min (>60); Est Glom Filt Rate - Afr Amer 49 mL/min (>60); Estimated Creatinine Clearance 28.65 ml/min; Glucose 83 mg/dL (74-106); Potassium 3.4 mmol/L (3.5-5.1); Sodium Level 145 mmol/L (136-145)
[2022-05-16] MEDS: Ipratropium/Albuterol Sulfate 3 ML AMPUL.NEB INHALATION ×3 (07:27→15:10)
[2022-05-16] MEDS: Potassium Chloride Oral Tablet 20 MEQ 40 MEQ PO (07:56)
[2022-05-16] MEDS: hydrALAZINE 20 MG/ML Vial 10 MG IV (08:19)
[2022-05-16] MEDS: Aspirin 81 MG TAB.CHEW PO (08:19)
[2022-05-16] MEDS: 0.9% Saline Lock 10 ML Syringe IV (08:20)
[2022-05-16] MEDS: Ipratropium Bromide 0.06% NASAL SPRAY 1 SPRAY NASAL (10:38)
[2022-05-16] MEDS: Isosorbide Mononitrate 30 MG Tablet PO (10:45)
[2022-05-16] MEDS: Citalopram 20 MG Tablet PO (10:45)
[2022-05-16] MEDS: Loratadine 10 MG Tablet PO (10:45)
[2022-05-16] MEDS: Pantoprazole Sodium 40 MG Tablet PO (10:46)
[2022-05-16] MEDS: oxyCODONE 5 MG Tablet PO (10:57)
[2022-05-16] MEDS: Insulin Glargine-YFGN 100 UNIT/ML Pen 52 UNIT SC (11:05)
[2022-05-16] MEDS: Insulin Lispro 100 UNIT/ML INSULN.PEN SC ×2 (11:06→17:32)
[2022-05-16 11:31] LABS: Bedside Glucose 151 mg/dL (74-106)
--- NOTE | 2022-05-16 12:58 | CASEMGMT ---
Physician indicated family would like patient to go to TCU. This JOLEEN and JOLEEN Rm met with patient, her daughter, and son. Introduced selves and role at [facility]. SW let them know there are no beds available in TCU. Family did not want patient to go to a longterm. Patient's daughter said they will take patient home. SW offered home health and patient's daughter declined. Patient's daughter said she helps patient with everything already and she is with her 01/01. They would have been in agreement with TCU, but no other nursing homes. JOLEEN notified physician. Plan: Home with family Dulce Piper Mireles MSW [place]
[2022-05-16] MEDS: APIXABAN 5 MG TABLET 10 MG PO (13:04)
[2022-05-16] MEDS: Baclofen 10 MG Tablet PO (13:04)
[2022-05-16] MEDS: Acetaminophen 325 MG Tablet 650 MG PO (13:08)
--- NOTE | 2022-05-16 14:31 | DCINST_ITS ---
Discharge Instructions Diet Discharge Diet: No restrictions Activity Discharge Activity: Return to Normal Activity (As tolerated) Follow Up Care Test Results: Test results from this visit will be discussed in further detail at your follow- up appointment, if applicable. Discharge Plan Admission Admit Date/Time: 05/14/22 15:11 Primary Reason for Your Visit: Shortness of breath Attending Provider: Gerri Sauceda Primary Care Provider: Lei Kwok Chi Consulting Providers: Lauren Walton Instructions Patient Instructions: DVT/PE Discharge instruction sheet, Embolism Pulmonary Dc Additional Instructions / Restrictions: *Please take this with you to your next doctors appointment* ?You have been started on a blood thinner called Eliquis. You will take 10 mg twice daily through the and starting the you will take 5 mg twice daily. ?Your pioglitazone has been held, but you will continue your insulin. Please discuss this with your primary care physician your hospital follow-up appointment ?You were incidentally found to have a small stable 1 cm right upper lobe nodule on your lung imaging and follow-up imaging is recommended in 6 months. Please discuss this with your primary care physician -Please call your primary care provider's office upon discharge to schedule a hospital follow up within 1 week. -For any concerning signs or symptoms please call 911 or proceed to the nearest emergency department Discharge Orders/Prescriptions Prescriptions: New Eliquis 5 mg Tablet See Rx Instructions .ROUTE .COMPLEX Qty: 78 0RF Rx Instructions: You will take 10 mg (2 tabs) twice daily through the and thereafter you will take 5 mg twice daily. Continued aspirin 81 mg tablet,chewable 81 mg PO DAILY atorvastatin 40 mg tablet 40 mg PO QHS baclofen 10 mg tablet 10 mg PO DAILY ipratropium bromide 42 mcg (0.06 %) spray,non-aerosol 1 spray intranasal BID isosorbide mononitrate 30 mg tablet extended release 24 hr 30 mg PO DAILY levocetirizine 5 mg tablet 5 mg PO DAILY pantoprazole 40 mg tablet,delayed release (DR/EC) 40 mg PO DAILY insulin degludec 200 unit/mL (3 mL) insulin pen 52 unit subcut DAILY albuterol sulfate 90 mcg/actuation HFA aerosol inhaler 1 puff inhalation Q4H PRN (Reason: sob) citalopram 20 mg tablet 20 mg PO DAILY terbinafine HCl [Antifungal (terbinafine)] 1 % cream 1 applic topical BID Discontinued pioglitazone 30 mg tablet 30 mg PO DAILY Referrals / Follow Up: Lei Kwok Chi, MD [Primary Care Provider] - Within 1 Week Disposition Disposition (needs filled in before D/C Order can be placed): Home, Self Care
--- NOTE | 2022-05-16 14:45 | DS.PCM_ITS ---
Providers Date of Admission: 05/14/22 Date of Discharge: 05/16/22 Primary Care Physician: Dr. Lei Kwok MD Reason For Visit: HYPOXIA, BL PE Diagnosis Discharge Diagnosis (1) Pulmonary emboli: Status: Acute Code(s): I26.99 - Other pulmonary embolism without acute cor pulmonale Plan #Acute hypoxia and chest pain secondary to bilateral pulmonary embolism #Incidental right upper lobe nodule #Hypertension #Type 2 diabetes mellitus #CKD stage III unclear subtype #Obesity Medications at Discharge Home Medications aspirin 81 mg chewable tablet 81 mg PO DAILY 10/27/21 albuterol sulfate 90 mcg/actuation aerosol inhaler 1 puff inhalation Q4H PRN sob 03/13/22 atorvastatin 40 mg tablet 40 mg PO QHS 03/13/22 baclofen 10 mg tablet 10 mg PO DAILY 03/13/22 citalopram 20 mg tablet 20 mg PO DAILY 03/13/22 insulin degludec 200 unit/mL (3 mL) subcutaneous pen 52 unit subcut DAILY 03/13/22 ipratropium bromide 42 mcg (0.06 %) nasal spray 1 spray intranasal BID 03/13/22 isosorbide mononitrate 30 mg tablet,extended release 24 hr 30 mg PO DAILY 03/13/22 levocetirizine 5 mg tablet 5 mg PO DAILY 03/13/22 pantoprazole 40 mg tablet,delayed release 40 mg PO DAILY 03/13/22 terbinafine HCl 1 % topical cream (Antifungal (terbinafine)) 1 applic topical BID 03/13/22 apixaban 5 mg tablet (Eliquis) See Rx Instructions .Route .COMPLEX #78 tabs 05/16/22 Hospital Course Procedures Transthoracic echo Summary of Care Provided Minutes Spent on Discharge: 32 Hospital Course: 81 y/o F w/ PMHx: CKD stage III unclear subtype, HTN, HLD, Depression and Anxiety, Hamel syndrome, Nonobstructive CAD, Allergic rhinitis, Asthma, Obesity, Diabetes mellitus type II who presents to the [facility] ED on 05/14/22 with h istory of worsening dyspnea, worse with exertion progressively over the last 2 weeks with associated cough with yellow sputum production as well as subjective fevers and chills with associated pleuritic chest discomfort intermittent, dull, worse with coughing without any improvement with her home albuterol inhaler prompting eventual ED evaluation. She was found to have bilateral PEs and was admitted and placed on Eliquis. Vitally stable, shortness of breath did not worsen and stayed roughly the same. Slight cough. Ambulated to assess for O2 needs prior to discharge. On day of discharge she did have some nausea in the morning but this resolved and overall she was feeling better. Was assessed by therapy and SNF versus TCU recommended, patient and family only agreeable to TCU will and given no beds available they prefer home. Reports she was already requiring significant assistance prior to presentation and they were comfortable with home discharge. Of note incidental 1 cm stable right upper lobe nodule seen on CT and follow-up recommended in 6 months. Instructions provided for patient as below: *Please take this with you to your next doctors appointment* ?You have been started on a blood thinner called Eliquis. You will take 10 mg twice daily through the and starting the you will take 5 mg twice daily. ?Your pioglitazone has been held, but you will continue your insulin. Please discuss this with your primary care physician your hospital follow-up appointment ?You were incidentally found to have a small stable 1 cm right upper lobe nodule on your lung imaging and follow-up imaging is recommended in 6 months. Please discuss this with your primary care physician -Please call your primary care provider's office upon discharge to schedule a hospital follow up within 1 week. -For any concerning signs or symptoms please call 911 or proceed to the nearest emergency department Physical Exam Const alert and no apparent distress Constitutional Narrative: Oriented HEENT normocephalic and head/scalp atraumatic Eyes Eyes Narrative: EOM grossly intact, anicteric Neck supple Resp Resp Narrative: Slight increased work of breathing Cardio regular rate and regular rhythm GI soft to palpation, non-tender and non-distended Extremity Extremity Narrative: No edema appreciated Neuro moves all extremities Neuro Narrative: No overt focal deficits appreciated Psych Psych Narrative: Cooperative Weight / BMI Weight Weight: 95.2 kg Body Mass Index (BMI) 35.1 ABG / Lab / Microbiology Data Result Diagrams: 05/16/22 05:49 05/16/22 05:49 Laboratory: Laboratory Results - last 24 hr 05/15/22 17:18: POC Glucose 216 H 05/15/22 21:23: POC Glucose 268 H 05/16/22 05:49: WBC 6.7, RBC 3.99 L, Hgb 10.8 L, Hct 35.6 L, MCV 89.2, MCH 27.1, MCHC 30.3 L, RDW Std Deviation 46.8 H, RDW Coeff of Duran 14.6, Plt Count 241, MPV 12.2 H, Immature Gran % (Auto) 0.100, Neut % (Auto) 70.3 H, Lymph % (Auto) 19.2, [place] % (Auto) 8.7, Eos % (Auto) 1.6, Baso % (Auto) 0.1, Absolute Neuts (auto) 4.7, Absolute Lymphs (auto) 1.28, Nucleated RBC % 0.4 05/16/22 05:49: Sodium 145, Potassium 3.4 L, Chloride 110 H, Carbon Dioxide 32.0, Anion Gap 3 L, BUN 17, Creatinine 1.33 H, Estim Creat Clear Calc 28.65, Est GFR (MDRD) Af Amer 49 L, Est GFR (MDRD) Non-Af 41 L, BUN/Creatinine Ratio 12.8, Glucose 83, Calcium 9.0 05/16/22 06:35: POC Glucose 75 05/16/22 11:03: POC Glucose 151 H Microbiology: Microbiology 05/14/22 13:45 Blood Culture (Wb) #2 - Left Wrist Blood Culture - Preliminary No growth in 48 hours. 05/14/22 10:45 Blood Culture (Wb) - Anticubital Left Blood Culture - Preliminary No growth in 48 hours. 05/16/22 09:41 Sputum, Expectorated/Coughed Gram Stain - Final 05/15/22 12:15 Stool Enteric Bacteriology - Final 05/15/22 16:15 Stool C. difficile DNA Amplification - Final 05/14/22 21:00 Mucosa - Nasopharyngeal Respiratory Panel (PCR) - Final 05/14/22 10:45 Nasal Secretion SARS-CoV-2 & FLU Antigen (Rapid) - Final D/C Instructions Discharge Diet: No restrictions Meaningful Use Info Meaningful Use Diagnoses (Choose all that apply): VTE VTE Anticoag overlap given w/in hospital stay or rx'd at dc?: Yes Pt receive overlap for 5 days?: Yes Discharge Plan Admission Admit Date/Time: 05/14/22 15:11 Primary Reason for Your Visit: Shortness of breath Attending Provider: Gerri Sauceda Primary Care Provider: Lei Kwok Chi Consulting Providers: Lauren Walton Instructions Patient Instructions: DVT/PE Discharge instruction sheet, Embolism Pulmonary Dc Additional Instructions / Restrictions: *Please take this with you to your next doctors appointment* ?You have been started on a blood thinner called Eliquis. You will take 10 mg twice daily through the and starting the you will take 5 mg twice daily. ?Your pioglitazone has been held, but you will continue your insulin. Please discuss this with your primary care physician your hospital follow-up appointment ?You were incidentally found to have a small stable 1 cm right upper lobe nodule on your lung imaging and follow-up imaging is recommended in 6 months. Please discuss this with your primary care physician -Please call your primary care provider's office upon discharge to schedule a hospital follow up within 1 week. -For any concerning signs or symptoms please call 911 or proceed to the nearest emergency department Discharge Orders/Prescriptions Prescriptions: New Eliquis 5 mg Tablet See Rx Instructions .ROUTE .COMPLEX Qty: 78 0RF Rx Instructions: You will take 10 mg (2 tabs) twice daily through the and thereafter you will take 5 mg twice daily. Continued aspirin 81 mg tablet,chewable 81 mg PO DAILY atorvastatin 40 mg tablet 40 mg PO QHS baclofen 10 mg tablet 10 mg PO DAILY ipratropium bromide 42 mcg (0.06 %) spray,non-aerosol 1 spray intranasal BID isosorbide mononitrate 30 mg tablet extended release 24 hr 30 mg PO DAILY levocetirizine 5 mg tablet 5 mg PO DAILY pantoprazole 40 mg tablet,delayed release (DR/EC) 40 mg PO DAILY insulin degludec 200 unit/mL (3 mL) insulin pen 52 unit subcut DAILY albuterol sulfate 90 mcg/actuation HFA aerosol inhaler 1 puff inhalation Q4H PRN (Reason: sob) citalopram 20 mg tablet 20 mg PO DAILY terbinafine HCl [Antifungal (terbinafine)] 1 % cream 1 applic topical BID Discontinued pioglitazone 30 mg tablet 30 mg PO DAILY Referrals / Follow Up: Lei Kwok Chi, MD [Primary Care Provider] - Within 1 Week Disposition Disposition (needs filled in before D/C Order can be placed): Home, Self Care Charges/Coding Visit Charges Inpatient E&M: 43348 Disch Hosp
[2022-05-16 17:56] LABS: Bedside Glucose 204 mg/dL (74-106)
== END 2022-05-16 19:15 | disposition home or self-care (01) | DRG 176 ==
LOC: ED 15:19 → PCU 16:04
PROVIDERS: Admitting Provider Family Medicine; Emergency Provider Emergency Medicine; PCP Family Medicine Geriatric Medicine; Visit Provider Internal Medicine
DX: I26.99 Other pulmonary embolism without acute cor pulmonale (principal); E11.22 Type 2 diabetes mellitus with diabetic chronic kidney disease; N18.30 Chronic kidney disease, stage 3 unspecified; K21.9 Gastro-esophageal reflux disease without esophagitis; E78.5 Hyperlipidemia, unspecified; I25.10 Atherosclerotic heart disease of native coronary artery without angina pectoris; J45.909 Unspecified asthma, uncomplicated; E87.6 Hypokalemia; I12.9 Hypertensive chronic kidney disease with stage 1 through stage 4 chronic kidney disease, or unspecified chronic kidney disease; F41.9 Anxiety disorder, unspecified; F32.A Depression, unspecified; Z87.891 Personal history of nicotine dependence; I49.3 Ventricular premature depolarization; Z79.82 Long term (current) use of aspirin; R91.8 Other nonspecific abnormal finding of lung field; E66.9 Obesity, unspecified; Z68.35 Body mass index [BMI] 35.0-35.9, adult
CPT/HCPCS: 36415; 71046; 71275; 80048; 80053; 82962; 83605; 83735; 83880; 84145; 84484; 85025; 87040; 87070; 87077; 87186; 87205; 87428; 87493; 87506; 87633; 87635; 93005; 93306; 94640; 97162; 97166; 97802; 99251; 99285; J7030; J7040; Q9957; Q9967; A4216; G0463; U0003; U0005

== ENCOUNTER → 2022-05-18 | Outpatient (CLI) | payer MEDICARE, SELFPAY ==
--- NOTE | 2022-05-18 14:05 | VDLE_ITS ---
Reason For Study: Edema RIGHT GSV is normal. CFV is compressible, spontaneous, phasic, competent and demonstrates normal augmentation. FV is compressible, spontaneous, phasic, competent and demonstrates normal augmentation. POP V is compressible, spontaneous, phasic, competent and demonstrates normal augmentation. T/P Trunk is compressible. PTV is compressible. RT PerV is compressible. Procedure This is a venous duplex using B-mode, color flow and spectral Doppler. Exam performed in department. A preliminary report was called and/or faxed to [facility]. VL/Venous Duplex US, Unilateral Interpretation Summary Deep veins of the right lower extremity are patent and compressible segmentally . There is no evidence of right lower extremity deep vein thrombosis. Valvular competence luba ears intact within the proximal deep venous system on the right . The right great saphenous vein a ppears patent and compressible segmentally. Ordering Physician: Lei Kwok Chi Referring Physician: Lei Kwok Chi Performed By: Carmen Cid RVT
== END | disposition home or self-care (01) ==
LOC: CVS 14:03
PROVIDERS: PCP Family Medicine Geriatric Medicine; Referring Provider Family Medicine Geriatric Medicine; Visit Provider Family Medicine Geriatric Medicine
DX: R60.0 Localized edema (principal)
CPT/HCPCS: 93971

== ENCOUNTER → 2022-05-31 | Outpatient (CLI) | payer MEDICARE, SELFPAY ==
--- NOTE | 2022-05-31 14:08 | RAD_ITS ---
STUDY: X-RAY - THORACIC SPINE REASON FOR EXAM: Female, 81 years old. PAIN -- . TECHNIQUE: XR Spine Thoracic 3 Views COMPARISON: None FINDINGS: Normal kyphosis of the thoracic spine. There is no substantial scoliosis. There is demineralization of the thoracic spine. There is multilevel disc space narrowing of the thoracic spine. The soft tissue structures are unremarkable. RAD/Thoracic Spine 3 Views IMPRESSION: There are degenerative changes as noted above. Electronically Signed: Gui Ott MD at 17:52 EST ,
== END | disposition home or self-care (01) ==
PROVIDERS: PCP Family Medicine Geriatric Medicine; Referring Provider Family Medicine Geriatric Medicine; Visit Provider Family Medicine Geriatric Medicine
DX: M54.6 Pain in thoracic spine (principal); N39.0 Urinary tract infection, site not specified
CPT/HCPCS: 72072; 87077; 87086; 87088; 87186

== ENCOUNTER → 2022-06-17 | Outpatient (CLI) | payer MEDICARE, SELFPAY ==
--- NOTE | 2022-06-17 11:21 | MRI_ITS ---
MRI of thoracic spine INDICATION: Back pain without known injury MRI of thoracic spine was performed in sagittal and axial projections utilizing T1, T2 and STIR imaging sequences. FINDINGS: There is moderate to severe wedging of the T6 vertebral body demonstrating intramedullary bone marrow edema in association with bulging of the disc at T6-7 narrowing the spinal canal and mildly compressing the cord Spinal cord is normal size and homogeneous signal intensity. There is mild multilevel disc space narrowing and desiccation of the discs. MRI/Spine Thoracic (Routine) IMPRESSION: Moderate to severe acute compression of the T6 vertebral body with bulging of the disc at T6-7 creating mild spinal stenosis and cord compression. In the absence of recent trauma pathologic fracture not excluded. Repeat scan with contrast would be useful for further evaluation if indicated Electronically Signed: Seymour Lindsay MD at 17:50 EST ,
== END | disposition home or self-care (01) ==
LOC: MRI 10:48
PROVIDERS: PCP Family Medicine Geriatric Medicine; Visit Provider Family Medicine Geriatric Medicine
DX: M54.6 Pain in thoracic spine (principal)
CPT/HCPCS: 72146

== ENCOUNTER → 2022-07-06 | Outpatient (CLI) | payer MEDICARE, SELFPAY ==
[2022-07-06 15:35] LABS: Absolute Lymphocyte Count 1.34 X10^3/uL (0.83-4.51); Absolute Neutrophil Count 5.9 X10^3/uL (2.0-7.7); Basophil# 0.01 X10^3/uL; Basophil% 0.1 % (0-1); Eosinophil# 0.03 X10^3/uL; Eosinophils% 0.4 % (0-5); Hematocrit 37.1 % (37-47); Hemoglobin 11.1 g/dL (12.0-15.0); Lymphocyte # 1.34 X10^3/ul (0.83-4.51); Mean Corp Hgb Conc 29.9 g/dL (32-36); Mean Corpuscular Hgb 25.5 pg (27.0-32.0); Mean Corpuscular Volume 85.3 fL (81-99); Mean Platelet Vol. 11.7 fl (6.2-12.0); Monocyte# 0.54 X10^3/uL; Monocyte% 6.9 % (0-10); NRBC Flagged by Analyzer 0 % (0-5); Neutrophil # 5.91 X10^3/uL (2.7-7.7); Neutrophil % 75.2 % (47-70); Platelet Count 329 K/mm3 (150-450); RBC Distribution Width CV 15.4 % (11.6-14.6); Red Blood Count 4.35 M/mm3 (4.2-5.4); White Blood Count 7.9 K/mm3 (4.4-11.0)
[2022-07-06 15:50] LABS: Vitamin D,25 Hydroxy 49.8 ng/mL
[2022-07-06 16:06] LABS: AST(SGOT) 14 U/L (15-37); Alanine Aminotransfer ALT/SGPT 26 U/L (13-56); Albumin, Serum 3.2 g/dL (3.2-5.0); Alkaline Phosphatase 73 U/L (45-117); Anion Gap 6 (5-15); BUN 31 mg/dL (7-18); Chloride 98 mmol/L (98-107); Creatinine, Serum 1.24 mg/dL (0.55-1.02); EST Glomerular Filtration Rate 44 mL/min (>60); Est Glom Filt Rate - Afr Amer 53 mL/min (>60); Globulin 3.3 g/dL (2.2-4.2); Glucose 265 mg/dL (74-106); Potassium 4.9 mmol/L (3.5-5.1); Protein, Total 6.5 g/dL (6.4-8.2); Sodium Level 137 mmol/L (136-145)
[2022-07-07 11:24] LABS: Cholesterol 86 mg/dL (200); High Density Lipoprotein 46 mg/dL; Triglycerides 84 mg/dL; Very Low Density Lipoprotein 17 mg/dL (5-40)
== END | disposition home or self-care (01) ==
LOC: POLAB3 12:55
PROVIDERS: PCP Family Medicine Geriatric Medicine; Visit Provider Family Medicine Geriatric Medicine
DX: I10 Essential (primary) hypertension (principal); E11.65 Type 2 diabetes mellitus with hyperglycemia; E55.9 Vitamin D deficiency, unspecified; E78.5 Hyperlipidemia, unspecified; N39.0 Urinary tract infection, site not specified
CPT/HCPCS: 36415; 80053; 80061; 82306; 84443; 85025; 87086; 87088

== ENCOUNTER → 2022-07-17 | Outpatient (CLI) | payer MEDICARE, SELFPAY ==
[2022-07-17 17:29] LABS: Amphetamine Urine VISTA NEGATIVE (<1000 ng/mL); Barbiturate Urine VISTA NEGATIVE (< 200 ng/mL); Benzodiazepine Urine VISTA NEGATIVE (< 200 ng/mL); Cocaine Urine VISTA NEGATIVE (< 300 ng/mL); Ecstacy Urine VISTA NEGATIVE (< 500 ng/mL); Methadone Urine VISTA NEGATIVE (< 300 ng/mL); PCP Urine VISTA NEGATIVE (< 25 ng/mL); THC Urine VISTA NEGATIVE (< 50 ng/mL); Vista UDS pH Range 5
== END | disposition home or self-care (01) ==
LOC: LAB 15:36
PROVIDERS: PCP Family Medicine Geriatric Medicine; Referring Provider Anesthesiology Pain Medicine; Visit Provider Anesthesiology Pain Medicine
DX: F11.20 Opioid dependence, uncomplicated (principal)
CPT/HCPCS: 80307

== ENCOUNTER → 2022-08-03 | Outpatient (CLI) | payer MEDICARE, SELFPAY ==
[2022-08-03 14:35] LABS: Absolute Lymphocyte Count 1.73 X10^3/uL (0.83-4.51); Basophil# 0.02 X10^3/uL; Basophil% 0.3 % (0-1); Eosinophil# 0.08 X10^3/uL; Eosinophils% 1.1 % (0-5); Hematocrit 36.9 % (37-47); Hemoglobin 10.9 g/dL (12.0-15.0); Lymphocyte # 1.73 X10^3/ul (0.83-4.51); Lymphocyte % 23.1 % (19-41); Mean Corp Hgb Conc 29.5 g/dL (32-36); Mean Corpuscular Hgb 25.3 pg (27.0-32.0); Mean Corpuscular Volume 85.6 fL (81-99); Mean Platelet Vol. 11.1 fl (6.2-12.0); Monocyte% 6.7 % (0-10); NRBC Flagged by Analyzer 0 % (0-5); Neutrophil # 5.03 X10^3/uL (2.7-7.7); Neutrophil % 66.9 % (47-70); Platelet Count 250 K/mm3 (150-450); RBC Distribution Width CV 16.2 % (11.6-14.6); RBC Distribution Width SD 51.7 fl (35.1-43.9); Red Blood Count 4.31 M/mm3 (4.2-5.4); White Blood Count 7.5 K/mm3 (4.4-11.0)
[2022-08-03 14:57] LABS: ALB/GLOB Ratio 1.1 RATIO (0.9-2.4); AST(SGOT) 13 U/L (15-37); Alanine Aminotransfer ALT/SGPT 20 U/L (13-56); Albumin, Serum 3.3 g/dL (3.2-5.0); Alkaline Phosphatase 57 U/L (45-117); Anion Gap 5 (5-15); BUN 30 mg/dL (7-18); BUN/Creat Ratio 24.4 RATIO (10-20); Calcium,Total 9.3 mg/dL (8.5-10.1); Chloride 101 mmol/L (98-107); Creatinine, Serum 1.23 mg/dL (0.55-1.02); EST Glomerular Filtration Rate 45 mL/min (>60); Est Glom Filt Rate - Afr Amer 54 mL/min (>60); Globulin 3.1 g/dL (2.2-4.2); Glucose 205 mg/dL (74-106); Magnesium 1.7 mg/dL (1.6-2.6); Phosphorus 3.1 mg/dL (2.5-4.9); Potassium 4.4 mmol/L (3.5-5.1); Protein, Total 6.4 g/dL (6.4-8.2); Sodium Level 140 mmol/L (136-145)
== END | disposition home or self-care (01) ==
LOC: POLAB3 13:53
PROVIDERS: PCP Family Medicine Geriatric Medicine; Visit Provider Family Medicine Geriatric Medicine
DX: N39.0 Urinary tract infection, site not specified (principal); R25.1 Tremor, unspecified
CPT/HCPCS: 36415; 80053; 83735; 84100; 85025; 87086

== ENCOUNTER → 2022-08-03 | Outpatient (CLI) | payer MEDICARE, SELFPAY ==
--- NOTE | 2022-08-03 14:07 | VDLE_ITS ---
Reason For Study: Calf pain RIGHT LEFT GSV is normal. CFV is compressible, spontaneous, phasic, CFV is compressible, spontaneous, phasic, competent, and demonstrates normal competent and demonstrates normal augmentation. augmentation. FV is compressible, spontaneous, phasic, competent and demonstrates normal augmentation. POP V is compressible, spontaneous, phasic, competent and demonstrates normal augmentation. T/P Trunk is compressible. PTV is compressible. RT PerV is compressible. Procedure This is a venous duplex using B-mode, color flow and spectral Doppler. Exam performed in department. A preliminary report was called and/or faxed to [facility]. VL/Venous Duplex US, Unilateral Interpretation Summary There is no evidence of right lower extremity deep vein thrombosis. Right great saphenous vein appears patent and compressible segmentally. Normal flow patterns left common f emoral vein Ordering Physician: Lei Kwok Chi Referring Physician: Lei Kwok Chi Performed By: Carmen Cid RVT
== END | disposition home or self-care (01) ==
PROVIDERS: PCP Family Medicine Geriatric Medicine; Referring Provider Family Medicine Geriatric Medicine; Visit Provider Family Medicine Geriatric Medicine
DX: M79.661 Pain in right lower leg (principal); N39.0 Urinary tract infection, site not specified; R25.1 Tremor, unspecified
CPT/HCPCS: 36415; 80053; 83735; 84100; 85025; 87086; 87088; 93971

== ENCOUNTER → 2022-08-31 | Outpatient (CLI) | payer MEDICARE, SELFPAY ==
[2022-08-31 16:59] LABS: Absolute Lymphocyte Count 1.59 X10^3/uL (0.83-4.51); Absolute Neutrophil Count 4.2 X10^3/uL (2.0-7.7); Basophil# 0.01 X10^3/uL; Basophil% 0.2 % (0-1); Eosinophil# 0.06 X10^3/uL; Eosinophils% 0.9 % (0-5); Hematocrit 37.2 % (37-47); Hemoglobin 11.3 g/dL (12.0-15.0); Lymphocyte # 1.59 X10^3/ul (0.83-4.51); Mean Corp Hgb Conc 30.4 g/dL (32-36); Mean Corpuscular Hgb 25.9 pg (27.0-32.0); Mean Corpuscular Volume 85.3 fL (81-99); Mean Platelet Vol. 12.3 fl (6.2-12.0); Monocyte# 0.44 X10^3/uL; Monocyte% 6.9 % (0-10); NRBC Flagged by Analyzer 0 % (0-5); Neutrophil # 4.23 X10^3/uL (2.7-7.7); Neutrophil % 66.7 % (47-70); Platelet Count 218 K/mm3 (150-450); RBC Distribution Width CV 16.1 % (11.6-14.6); RBC Distribution Width SD 50.5 fl (35.1-43.9); Red Blood Count 4.36 M/mm3 (4.2-5.4); White Blood Count 6.4 K/mm3 (4.4-11.0)
[2022-08-31 17:25] LABS: AST(SGOT) 12 U/L (15-37); Alanine Aminotransfer ALT/SGPT 28 U/L (13-56); Albumin, Serum 3.3 g/dL (3.2-5.0); Alkaline Phosphatase 64 U/L (45-117); Anion Gap 5 (5-15); BUN 30 mg/dL (7-18); BUN/Creat Ratio 27.8 RATIO (10-20); Calcium,Total 9.4 mg/dL (8.5-10.1); Chloride 98 mmol/L (98-107); Creatinine, Serum 1.08 mg/dL (0.55-1.02); EST Glomerular Filtration Rate 52 mL/min (>60); Est Glom Filt Rate - Afr Amer 63 mL/min (>60); Globulin 3.3 g/dL (2.2-4.2); Glucose 286 mg/dL (74-106); Potassium 4.7 mmol/L (3.5-5.1); Protein, Total 6.6 g/dL (6.4-8.2); Sodium Level 135 mmol/L (136-145)
== END | disposition home or self-care (01) ==
LOC: MFPLAB 15:09
PROVIDERS: PCP Family Medicine Geriatric Medicine; Visit Provider Family Medicine Geriatric Medicine
DX: R32 Unspecified urinary incontinence (principal); N18.31 Chronic kidney disease, stage 3a
CPT/HCPCS: 36415; 80053; 85025; 87086; 87088

== ENCOUNTER → 2022-09-01 | Outpatient (CLI) | payer MEDICARE, SELFPAY | END | disposition home or self-care (01) | PROVIDERS: PCP Family Medicine Geriatric Medicine; Referring Provider Family Medicine Geriatric Medicine; Visit Provider Family Medicine Geriatric Medicine | DX: A04.72 Enterocolitis due to Clostridium difficile, not specified as recurrent (principal); R19.7 Diarrhea, unspecified | CPT/HCPCS: 82274; 83630; 87177; 87209 ==

== ENCOUNTER → 2022-10-05 | Outpatient (CLI) | payer MEDICARE, SELFPAY ==
[2022-10-05 15:31] LABS: Absolute Lymphocyte Count 1.54 X10^3/uL (0.83-4.51); Absolute Neutrophil Count 4.3 X10^3/uL (2.0-7.7); Basophil# 0.02 X10^3/uL; Basophil% 0.3 % (0-1); Eosinophil# 0.11 X10^3/uL; Eosinophils% 1.7 % (0-5); Hematocrit 36.4 % (37-47); Hemoglobin 10.9 g/dL (12.0-15.0); Lymphocyte # 1.54 X10^3/ul (0.83-4.51); Mean Corp Hgb Conc 29.9 g/dL (32-36); Mean Corpuscular Hgb 26.7 pg (27.0-32.0); Monocyte# 0.49 X10^3/uL; Monocyte% 7.6 % (0-10); NRBC Flagged by Analyzer 0 % (0-5); Neutrophil # 4.25 X10^3/uL (2.7-7.7); Neutrophil % 66.1 % (47-70); Platelet Count 191 K/mm3 (150-450); RBC Distribution Width CV 15.9 % (11.6-14.6); RBC Distribution Width SD 51.8 fl (35.1-43.9); Red Blood Count 4.09 M/mm3 (4.2-5.4); White Blood Count 6.4 K/mm3 (4.4-11.0)
[2022-10-05 16:05] LABS: Vitamin D,25 Hydroxy 45.6 ng/mL
[2022-10-05 16:08] LABS: AST(SGOT) 14 U/L (15-37); Alanine Aminotransfer ALT/SGPT 23 U/L (13-56); Alkaline Phosphatase 58 U/L (45-117); Anion Gap 2 (5-15); BUN 32 mg/dL (7-18); BUN/Creat Ratio 28.3 RATIO (10-20); Calcium,Total 9.2 mg/dL (8.5-10.1); Chloride 103 mmol/L (98-107); Cholesterol 92 mg/dL (200); Creatinine, Serum 1.13 mg/dL (0.55-1.02); EST Glomerular Filtration Rate 49 mL/min (>60); Est Glom Filt Rate - Afr Amer 59 mL/min (>60); Globulin 3.1 g/dL (2.2-4.2); Glucose 188 mg/dL (74-106); High Density Lipoprotein 43 mg/dL; Potassium 4.4 mmol/L (3.5-5.1); Protein, Total 6.1 g/dL (6.4-8.2); Sodium Level 139 mmol/L (136-145); Triglycerides 107 mg/dL; Very Low Density Lipoprotein 21 mg/dL (5-40)
== END | disposition home or self-care (01) ==
LOC: POLAB3 13:33
PROVIDERS: PCP Family Medicine Geriatric Medicine; Visit Provider Family Medicine Geriatric Medicine
DX: I10 Essential (primary) hypertension (principal); E11.65 Type 2 diabetes mellitus with hyperglycemia; E55.9 Vitamin D deficiency, unspecified; E78.5 Hyperlipidemia, unspecified
CPT/HCPCS: 36415; 80053; 80061; 82306; 84443; 85025

== ENCOUNTER → 2022-12-25 | Outpatient (CLI) | payer MEDICARE, SELFPAY ==
[2022-12-25 16:24] LABS: Absolute Neutrophil Count 4.2 X10^3/uL (2.0-7.7); Basophil# 0.01 X10^3/uL; Basophil% 0.2 % (0-1); Eosinophil# 0.08 X10^3/uL; Eosinophils% 1.3 % (0-5); Hematocrit 32.9 % (37-47); Hemoglobin 9.6 g/dL (12.0-15.0); Lymphocyte % 21.6 % (19-41); Mean Corp Hgb Conc 29.2 g/dL (32-36); Mean Corpuscular Hgb 26.2 pg (27.0-32.0); Mean Corpuscular Volume 89.6 fL (81-99); Mean Platelet Vol. 12.9 fl (6.2-12.0); Monocyte# 0.47 X10^3/uL; Monocyte% 7.8 % (0-10); NRBC Flagged by Analyzer 0 % (0-5); Neutrophil # 4.15 X10^3/uL (2.7-7.7); Neutrophil % 68.8 % (47-70); POSITIVE COUNT YES; Platelet Count 207 K/mm3 (150-450); RBC Distribution Width CV 14.5 % (11.6-14.6); Red Blood Count 3.67 M/mm3 (4.2-5.4)
[2022-12-25 16:28] LABS: Differential Indicated SCAN CRITERIA MET
[2022-12-25 16:52] LABS: Differential Comment SCANNED
[2022-12-25 17:16] LABS: Vitamin D,25 Hydroxy 48.2 ng/mL
[2022-12-25 17:29] LABS: ALB/GLOB Ratio 0.9 RATIO (0.9-2.4); AST(SGOT) 17 U/L (15-37); Alanine Aminotransfer ALT/SGPT 20 U/L (13-56); Alkaline Phosphatase 75 U/L (45-117); Anion Gap 2 (5-15); BUN 27 mg/dL (7-18); BUN/Creat Ratio 23.1 RATIO (10-20); Calcium,Total 8.9 mg/dL (8.5-10.1); Chloride 101 mmol/L (98-107); Cholesterol 92 mg/dL (200); Creatinine, Serum 1.17 mg/dL (0.55-1.02); EST Glomerular Filtration Rate 47 mL/min (>60); Est Glom Filt Rate - Afr Amer 57 mL/min (>60); Globulin 3.3 g/dL (2.2-4.2); Glucose 237 mg/dL (74-106); High Density Lipoprotein 40 mg/dL; Potassium 4.6 mmol/L (3.5-5.1); Protein, Total 6.3 g/dL (6.4-8.2); Sodium Level 138 mmol/L (136-145); Triglycerides 143 mg/dL; Very Low Density Lipoprotein 29 mg/dL (5-40)
== END | disposition home or self-care (01) ==
LOC: POLAB3 13:39
PROVIDERS: PCP Family Medicine Geriatric Medicine; Visit Provider Family Medicine Geriatric Medicine
DX: I10 Essential (primary) hypertension (principal); E11.65 Type 2 diabetes mellitus with hyperglycemia; E55.9 Vitamin D deficiency, unspecified
CPT/HCPCS: 36415; 80053; 80061; 82306; 84443; 85025

== ENCOUNTER → 2023-01-01 | Outpatient (CLI) | payer MEDICARE, SELFPAY ==
--- NOTE | 2023-01-01 14:30 | RAD_ITS ---
INDICATION: Other intervertebral disc degeneration, lumbar region EXAMINATION/TECHNIQUE: X-RAY - XR Spine Lumbar 2 or 3 Views COMPARISON: Lumbar spine 12/21/2020. FINDINGS: 3 views of the lumbar spine. BONES: Normal anatomic alignment without evidence of fracture or subluxation. No concerning bony lesion or abnormal sclerosis to suggest lesion. DISCS/JOINTS: Moderate L5-S1 degenerative disc disease. SOFT TISSUES: Dense atherosclerotic vascular calcifications. RAD/Lumbar Spine 2 or 3 Views IMPRESSION: Degenerative change of the lumbar spine. If there is persistent clinical concern for spine fracture and this is a trauma patient, recommend dedicated lumbar spine CT. Electronically Signed: Renny Ortega MD at 5:57 EDT ,
== END | disposition home or self-care (01) ==
PROVIDERS: PCP Family Medicine Geriatric Medicine; Referring Provider Anesthesiology Pain Medicine; Visit Provider Anesthesiology Pain Medicine
DX: M51.36 Other intervertebral disc degeneration, lumbar region (principal)
CPT/HCPCS: 72100

== ENCOUNTER → 2023-01-18 | Outpatient (CLI) | payer MEDICARE, SELFPAY ==
[2023-01-18 11:46] LABS: Anion Gap 4 (5-15); BUN 28 mg/dL (7-18); BUN/Creat Ratio 21.5 RATIO (10-20); Calcium,Total 8.8 mg/dL (8.5-10.1); Chloride 99 mmol/L (98-107); EST Glomerular Filtration Rate 42 mL/min (>60); Est Glom Filt Rate - Afr Amer 50 mL/min (>60); Glucose 298 mg/dL (74-106); Sodium Level 140 mmol/L (136-145)
== END | disposition home or self-care (01) ==
LOC: LAB 11:10
PROVIDERS: PCP Family Medicine Geriatric Medicine; Referring Provider Nurse Practitioner Family; Visit Provider Nurse Practitioner Family
DX: E11.22 Type 2 diabetes mellitus with diabetic chronic kidney disease (principal); N18.30 Chronic kidney disease, stage 3 unspecified; Z51.81 Encounter for therapeutic drug level monitoring; Z79.899 Other long term (current) drug therapy
CPT/HCPCS: 36415; 80048

== ENCOUNTER → 2023-03-06 | Outpatient (CLI) | payer MEDICARE, SELFPAY | END | disposition home or self-care (01) | LOC: PSN 13:36 | PROVIDERS: PCP Family Medicine Geriatric Medicine; Referring Provider Family Medicine Geriatric Medicine; Visit Provider Family Medicine Geriatric Medicine | DX: R68.83 Chills (without fever) (principal) | CPT/HCPCS: 87635; 87804; 87807; C9803 ==

== ENCOUNTER → 2023-03-19 | Outpatient (CLI) | payer MEDICARE, SELFPAY | END | disposition home or self-care (01) | LOC: RAD 12:37 | PROVIDERS: PCP Family Medicine Geriatric Medicine; Referring Provider Family Medicine Geriatric Medicine; Visit Provider Family Medicine Geriatric Medicine | DX: R13.10 Dysphagia, unspecified (principal) | CPT/HCPCS: 74230 ==

== ENCOUNTER → 2023-03-27 | Outpatient (CLI) | payer MEDICARE, SELFPAY ==
--- NOTE | 2023-03-19 13:43 | SP.MBSS_ITS ---
Modified Barium Swallow Patient Information Study Date: 03/19/23 Study Time: 13:00 Direct Billable Minutes: 90 Total Minutes procedure & reportin Diagnosis: R06.00 - Dyspnea, unspecified Referring Physician: Lei Kwok Chi Reason for Referral: Objectively assess swallow function, risk for aspiration and to determine recommendations for LRD and compensatory strategies to improve safety of swallow. Medical History: Jake Mendez is a 82-year-old lady with a hx of SOB, hypertension, hyperlipidemia, type 2 diabetes mellitus and significant shortness of breath. Patient accompanied with her daughter who reports coughing / choking w/ PO intake resulting in emesis. Patient reporting frequent globus sensation. Hx of reflux which is managed by medication. Current Diet Ordered: Regular / Thin Dentition: WNL and Upper Dentures Mental Status: WNL Respiratory Status: Oxygenating on 4L/M nasal cannula Penetration-Aspiration Scale Penetration-Aspiration Scale: OBJECTIVE ASSESSMENT OF SWALLOW FUNCTION (QUANTITATIVE ? PER TRIAL): PENETRATION / ASPIRATION SCALE (ROJAS): 1 = does not enter airway 2 = enters airway/above vocal folds/ejected 3 = enters airway/above vocal folds/not ejected 4 = enters airway/contacts vocal folds/ejected 5 = enters airway/contacts vocal folds/not ejected 6 = enters airway/below vocal folds/ejected 7 = enters airway/below vocal folds/not ejected despite effort 8 = enters airway/below vocal folds/no effort VIDEOFLOROSCOPIC SCALE SCORE (ROJAS): Grade I = aspiration of material that has penetrated into the laryngeal vestibule, intact cough reflex Grade II = aspiration < 10 % of the bolus, intact cough reflex Grade III = aspiration of < 10 % of the bolus, reduced cough reflex or aspiration of > 10 % of the bolus, intact cough reflex Grade IV = aspiration of > 10 % of the bolus, reduced cough reflex Penetration-Aspiration Scale Score Thin Liquid via teaspoon: Result: 1= does not enter airway Thin Liquid via teaspoon Trial 2: Result: 1= does not enter airway Thin Liquid via cup: Result: 1= does not enter airway Thin Liquid via straw: Result: 2= enter airway/above vocal folds/ejected [place] Thick Liquid via cup: Result: 1= does not enter airway Honey Thick Liquid via tsp: Result: 1= does not enter airway Pudding via tsp: Result: 1= does not enter airway Cookie: Result: 1= does not enter airway Oral Phase Labial Seal: No Labial Escape Tongue Control During Bolus Hold: Escape to lateral buccal cavity/floor of mouth Bolus Preparation/Mastication: Slow prolonged chewing/mashing with complete recollection Bolus Transport/Lingual Motion: Brisk tongue motion Oral Residue: Trace residue lining oral structures Pharyngeal Phase Initiation of Pharyngeal Swallow: Bolus head in valleculae Soft Palate Elevation: No bolus between soft palate and pharyngeal wall Laryngeal Elevation: Comp. Superior move thyroid cart w/comp. apprx arytenoid cart-epig pet Anterior Hyoid Excursion: Complete anterior movement Epiglottic Movement: Complete inversion Laryngeal Vestibule Closure at Height of Swallow: Complete; no air/contrast in laryngeal vestibule Pharyngeal Stripping Wave: Present - diminished Pharyngoesophageal Segment Opening: Complete distension and complete duration; no obstruction of flow Tongue Base Retraction: Narrow column of contrast between tongue base & post. pharyngeal wall Pharyngeal Residue: Trace residue within or on pharyngeal structures Esophageal Phase Esophageal Clearance: Esophageal retention w/ retrograde flow through pharyngoesophageal seg Diagnosis/Impression Diagnosis: esophageal dysphagia R13.14 Impression: No significant deficits identified in the oral or pharyngeal phase of the swallow. Prominent cricopharyngeal bar located at the C5/C6 level w/ no effect on pharyngeal motility. Noted esophageal retention with retrograde flow with belching post deglutition observed by STERILIZATION SPECIALIST. Recommendations Diet: Regular Textures and Thin Liquids Compensatory Strategies: Small Bites, Small Sips, Alternate bites/solids and sips/liquids, Sitting upright and Remain sitting upright for 30 minutes after PO intake Recommend Repeat Modified Barium Swallow: No Need for Skilled Speech Therapy Services: No Recommended Referrals: GI Consult Education Completed: 1. Described result of evaluation. Status Active ST Patient: Active Contact Information [facility] Speech Therapy:: Sandra White M.A. [facility] Speech-Language Pathologist [facility] [address] [place] [address] [email or web address] [phone]
--- NOTE | 2023-03-27 09:35 | RAD_ITS ---
STUDY: X-RAY - ESOPHAGUS (BARIUM SWALLOW) WITH FLUOROSCOPY REASON FOR EXAM: Female, 82 years old. DYSPHAGIA TECHNIQUE: 17 view(s) of the esophagus were obtained following swallowing of barium. FLUOROSCOPY TIME (if supplied): (36 seconds) minutes/seconds. 54.56 mGy COMPARISON: None. FINDINGS: There is no demonstrated esophageal foreign body. There is no demonstrated stricture or mucosal abnormality. Large hiatal hernia. There is evidence of gastroesophageal reflux. The patient ingested a 12 mm tablet of barium. The tablet is trapped in the hiatal hernia. There is atherosclerotic calcification of the aortic arch with tortuosity of the descending aorta. Normal visualized pulmonary parenchyma. There are diffuse degenerative changes of the visualized thoracic spine. RAD/Esophagus Dual Contrast IMPRESSION: Large hiatal hernia with gastroesophageal reflux. The ingested tablet of barium is trapped within the hiatal hernia. Electronically Signed: Toni Dawkins MD at 9:57 EDT ,
== END | disposition home or self-care (01) ==
LOC: RAD 09:32
PROVIDERS: PCP Family Medicine Geriatric Medicine; Referring Provider Family Medicine Geriatric Medicine; Visit Provider Family Medicine Geriatric Medicine
DX: R13.10 Dysphagia, unspecified (principal)
CPT/HCPCS: 74221; 92611

== ENCOUNTER → 2023-03-29 | Outpatient (CLI) | payer MEDICARE, SELFPAY ==
[2023-03-29 15:19] LABS: Absolute Lymphocyte Count 1.17 X10^3/uL (0.83-4.51); Absolute Neutrophil Count 3.7 X10^3/uL (2.0-7.7); Basophil# 0.01 X10^3/uL; Basophil% 0.2 % (0-1); Eosinophil# 0.09 X10^3/uL; Eosinophils% 1.6 % (0-5); Hematocrit 35.4 % (37-47); Lymphocyte # 1.17 X10^3/ul (0.83-4.51); Lymphocyte % 21.4 % (19-41); Mean Corp Hgb Conc 28.2 g/dL (32-36); Mean Corpuscular Hgb 23.8 pg (27.0-32.0); Mean Corpuscular Volume 84.1 fL (81-99); Mean Platelet Vol. 12.6 fl (6.2-12.0); Monocyte# 0.49 X10^3/uL; Monocyte% 8.9 % (0-10); NRBC Flagged by Analyzer 0 % (0-5); Neutrophil % 67.5 % (47-70); Platelet Count 277 K/mm3 (150-450); RBC Distribution Width CV 17.2 % (11.6-14.6); RBC Distribution Width SD 52.8 fl (35.1-43.9); Red Blood Count 4.21 M/mm3 (4.2-5.4); White Blood Count 5.5 K/mm3 (4.4-11.0)
[2023-03-29 16:00] LABS: Vitamin D,25 Hydroxy 46.1 ng/mL
[2023-03-29 16:16] LABS: ALB/GLOB Ratio 0.8 RATIO (0.9-2.4); AST(SGOT) 14 U/L (15-37); Alanine Aminotransfer ALT/SGPT 23 U/L (13-56); Albumin, Serum 2.8 g/dL (3.2-5.0); Alkaline Phosphatase 88 U/L (45-117); Anion Gap 5 (5-15); BUN 25 mg/dL (7-18); BUN/Creat Ratio 19.1 RATIO (10-20); Calcium,Total 8.9 mg/dL (8.5-10.1); Chloride 98 mmol/L (98-107); Cholesterol 78 mg/dL (200); Creatinine, Serum 1.31 mg/dL (0.55-1.02); EST Glomerular Filtration Rate 41 mL/min (>60); Est Glom Filt Rate - Afr Amer 50 mL/min (>60); Globulin 3.6 g/dL (2.2-4.2); Glucose 322 mg/dL (74-106); High Density Lipoprotein 38 mg/dL; Potassium 4.1 mmol/L (3.5-5.1); Protein, Total 6.4 g/dL (6.4-8.2); Sodium Level 139 mmol/L (136-145); Thyroid Stim Hormone (TSH) 1.88 uIU/mL (0.358-3.74); Triglycerides 143 mg/dL; Very Low Density Lipoprotein 29 mg/dL (5-40)
== END | disposition home or self-care (01) ==
LOC: POLAB3 13:18
PROVIDERS: PCP Family Medicine Geriatric Medicine; Visit Provider Family Medicine Geriatric Medicine
DX: I10 Essential (primary) hypertension (principal); E11.65 Type 2 diabetes mellitus with hyperglycemia; E55.9 Vitamin D deficiency, unspecified
CPT/HCPCS: 36415; 80053; 80061; 82306; 84443; 85025

== ENCOUNTER → 2023-05-24 | Outpatient (CLI) | payer MEDICARE, SELFPAY ==
[2023-05-24 13:12] LABS: BUP Internal Control LINE = VALID (VALID); Buprenorphine Drug Screen Negative (<10 ng/mL)
[2023-05-24 13:23] LABS: Amphetamine Urine VISTA NEGATIVE (<1000 ng/mL); Barbiturate Urine VISTA NEGATIVE (< 200 ng/mL); Benzodiazepine Urine VISTA NEGATIVE (< 200 ng/mL); Cocaine Urine VISTA NEGATIVE (< 300 ng/mL); Ecstacy Urine VISTA NEGATIVE (< 500 ng/mL); Methadone Urine VISTA NEGATIVE (< 300 ng/mL); PCP Urine VISTA NEGATIVE (< 25 ng/mL); THC Urine VISTA NEGATIVE (< 50 ng/mL); Vista UDS pH Range 6
== END | disposition home or self-care (01) ==
LOC: LAB 12:25
PROVIDERS: PCP Family Medicine Geriatric Medicine; Referring Provider Anesthesiology Pain Medicine; Visit Provider Anesthesiology Pain Medicine
DX: F11.20 Opioid dependence, uncomplicated (principal)
CPT/HCPCS: 80307

== ENCOUNTER → 2023-06-27 | Outpatient (CLI) | payer MEDICARE, SELFPAY ==
--- OUTSIDE RECORDS SUMMARY | 2023-06-27 11:56 | XMS RPT_ITS | CCD ---
Author Name Unknown Address [address] [place] [address] Organization [facility] Care Team Providers Care Skin Pass Operator Name Role Phone JAZ DIALLO Unavailable Unavailable JAZ DIALLO Unavailable Unavailable JAYDA AVENDAÑO Unavailable Unavailable REFERRINGMARC Unavailable Unavailable JAZ DIALLO Unavailable Unavailable JAYDA AVENDAÑO Unavailable Unavailable DR KUSH LUNSFORD MD Primary Care Physician Calos CHULA, Breann Unavailable Unavailable ISATU SAN, DR. CURRIE Primary Care UnavailMINE Jaffe Attending Unavailable Allergies Allergy Classification Reported Allergen(s) Allergy Type Date of Onset Reaction(s) Facility (2 sources) Naproxen; Translations: [naproxen] Drug Allergy Unknown, shayy [facility] [place] Medications Current Medications Medication Drug Class(es) Dates Sig (Normalized) Sig (Original) Albuterol (Eqv-ProAir HFA) 90 mcg/inh inhalation aerosol (1 source) Start: 10-08-2020 take 1 dose by inhalation every six hours as needed for wheezing Albuterol (Eqv-ProAir HFA) 90 mcg/inh inhalation aerosol Dose = 2 puff(s), Inhalation, q6hr, PRN Wheezing, INHALE 2 PUFFS UP TO 4 TIMES A DAY NEEDED Start Date: 10/08/20 Status: Ordered aspirin 81 mg delayed release oral tablet (1 source) Platelet Aggregation Inhibitor, Nonsteroidal Anti-inflammatory Drug Start: 12-30-2020 aspirin 81 mg oral delayed release tablet Dose : 81 mg = 1 tab(s), Oral, Daily, # 30 tab(s), 0 Refill(s), Pharmacy: [facility]/pharmacy #[id number], 165.1, cm, 12/30/20 9:17:00 EDT, Height, kg, 12/30/20 9:17:00 EDT, Dosing Weight Start Date: 12/30/20 Status: Ordered atorvastatin 40 mg oral tablet (1 source) HMG-CoA Reductase Inhibitor Start: 12-30-2020 atorvastatin 40 mg oral tablet Dose : 40 mg = 1 tab(s), Oral, qDay, # 90 tab(s), 0 Refill(s), Pharmacy: [facility]/pharmacy #[id number], 165.1, cm, 12/30/20 9:17:00 EDT, Height, kg, 12/30/20 9:17:00 EDT, Dosing Weight Start Date: 12/30/20 Status: Ordered Breo Ellipta 200 mcg-25 mcg/inh inhalation powder (1 source) Start: 10-08-2020 take 1 dose by inhalation once daily Breo Ellipta 200 mcg-25 mcg/inh inhalation powder Dose = 1 puff(s), Inhalation, Daily, 0 Refill(s) Start Date: 10/08/20 Status: Ordered carvedilol 3.125 mg oral tablet (1 source) alpha-Adrenergic Michael, beta-Adrenergic Michael Start: 01-23-2022 carvedilol 3.125 mg oral tablet 1 tab(s), Oral, BIDM, # 180 tab(s), 3 Refill(s), Pharmacy: [id number], 165, cm, 05/03/21 14:18:00 EST, Height, kg, 05/03/21 14:18:00 EST, Dosing Weight Start Date: 01/23/22 Status: Ordered DME MISCellaneous (1 source) Start: 05-10-2021 DME MISCellaneous See Instructions, BD Ultra Fine Mini Pen needles use as directed #1 box x refills Dx: E11.9, # 1 EA, 11 Refill(s), [facility], 165, cm, 05/03/21 14:18:00 EST, Height, 87.5, kg, 05/03/21 14:18:00 EST, Dosing Weight Start Date: 05/10/21 Status: Ordered 3 ml insulin glargine 100 unt/ml pen injector (1 source) Insulin Analog Start: 11-05-2020 inject 1 dose by subcutaneous injection once daily at bedtime Eliudaglyovanny FishikPen 100 units/mL subcutaneous solution Dose : 40 unit(s) =, Subcutaneous, qHS, # 1 EA, 3 Refill(s), other reason (Rx), Dosing Weight Start Date: 11/05/20 Status: Ordered 3 ml insulin glargine 100 unt/ml / lixisenatide 0.033 mg/ml pen injector (1 source) Insulin Analog Start: 12-30-2020 inject 1 dose by subcutaneous injection once daily Soliqua 100/33 subcutaneous solution Dose : 30 unit(s) =, Subcutaneous, Daily Start Date: 12/30/20 Status: Ordered 24 hr isosorbide mononitrate 30 mg extended release oral tablet (1 source) Nitrate Vasodilator Start: 11-11-2021 take 1 tablet by mouth once daily in the morning isosorbide mononitrate 30 mg oral tablet, extended release 1 tab(s), Oral, qAM, # 90 tab(s), 1 Refill(s), Pharmacy: [facility] [id number], 165, cm, 05/03/21 14:18:00 EST, Height, kg, 05/03/21 14:18:00 EST, Dosing Weight Start Date: 11/11/21 Status: Ordered pioglitazone 30 mg oral tablet (1 source) Peroxisome Proliferator Receptor alpha Agonist, Peroxisome Proliferator Receptor gamma Agonist, Thiazolidinedione Start: 10-08-2020 take 1 tablet by mouth once daily pioglitazone 30 mg oral tablet See Instructions, TAKE 1 TABLET DAILY, # 90 tab(s), 3 Refill(s), [id number], DM (diabetes mellitus), type 2, 163.19, cm, 10/08/20 13:37:00 EDT, Height, kg, 10/08/20 13:37:00 EDT, Dosing Weight Start Date: 10/08/20 Status: Ordered Completed/Discontinued Medications Medication Drug Class(es) Dates Sig (Normalized) Sig (Original) pantoprazole 40 mg delayed release oral tablet (1 source) Proton Pump Inhibitor Start: 10-08-2020 End: 10-03-2021 pantoprazole 40 mg oral enteric coated tablet Dose : 40 mg = 1 tab(s), Oral, qDay, # 90 tab(s), 3 Refill(s), Pharmacy: [facility]/pharmacy #[id number], GERD - Gastro-esophageal reflux disease, 163.19, cm, 10/08/20 13:37:00 EDT, Height, kg, 10/08/20 13:37:00 EDT, Dosing Weight Start Date: 10/08/20 Stop Date: 10/03/21 Status: Ordered Problems Active Problems Problem Classification Problem Date Documented Da te Episodic/Chronic Abdominal hernia (1 source) Hiatal hernia 11-18-2020 Episodic Cardiac dysrhythmias (1 source) Premature atrial contraction 11-18-2020 Chronic Coronary atherosclerosis and other heart disease (1 source) Coronary arteriosclerosis 02-07-2021 Chronic Diabetes mellitus without complication (1 source) Type 2 diabetes mellitus 11-07-2019 Chronic Esophageal disorders (1 source) Gastroesophageal reflux disease 12-02-2015 Chronic Essential hypertension (1 source) Hypertensive disorder 11-07-2019 Chronic Heart valve disorders (1 source) Irregular heart beat 11-18-2020 Episodic Past or Other Problems Problem Classification Problem Date Documented Da te Episodic/Chronic Gastrointestinal hemorrhage (2 sources) Gastrointestinal hemorrhage, unspecified; Translations: [GASTROINTESTINAL HEMORRHAGE, UNSPECIFIED] Onset: 7 Episodic Unclassified (1 source) RECTAL BLEED Onset: 7 Results Test Name Value Interpretation Reference Range Facil ity Vital Signs Date Time Vital Sign Value Performing Clinician [facility] 04-04-2022 12:13-0400 Diastolic blood pressure 78 mm[Hg] DR MINE ZAVALA MD [facility] 04-04-2022 12:13-0400 Heart rate 80 /min DR MINE ZAVALA MD [facility] 04-04-2022 12:13-0400 Respiratory rate 20 /min DR MINE ZAVALA MD [facility] 04-04-2022 12:13-0400 Systolic blood pressure 168 mm[Hg] DR MINE ZAVALA MD [facility] 04-04-2022 10:25-0400 Body height 165.[address] MINE ZAVALA MD [facility] 04-04-2022 10:25-0400 Body temperature 98.42 [degF] DR MINE ZAVALA MD [facility] 04-04-2022 10:25-0400 Body weight 81.[address] MINE ZAVALA MD [facility] 04-04-2022 10:25-0400 Diastolic blood pressure 86 mm[Hg] DR MINE ZAVALA MD [facility] 04-04-2022 10:25-0400 Heart rate 79 /min DR MINE ZAVALA MD [facility] 04-04-2022 10:25-0400 Respiratory rate 20 /min DR MINE ZAVALA MD [facility] 04-04-2022 10:25-0400 Systolic blood pressure 188 mm[Hg] DR MINE ZAVALA MD [facility] Encounters Encounter Date Encounter Type Care Provider Facility Start: 04-04-2022 End: 04-04-2022 Emergency department patient visit DR. KUSH LUNSFORD MD. Facility: Start: 04-04-2022 End: 04-04-2022 Emergency department patient visit DR MINE ZAVALA MD [facility] Start: 12-18-2016 End: 12-19-2016 Ambulatory PHY WO ID REFERRING Facility:[facility] Start: 12-18-2016 End: 12-18-2016 Ambulatory JAZ DIALLO Facility:[facility] Procedures Date Procedure Procedure Detail Performing Clinician Start: 01-27-[address] er[address] injection DR MINE ZAVALA MD Start: 02-25-2015 Cervical facet joint pain (finding) DR MINE ZAVALA MD Immunizations Immunization Date Immunization Notes Care Provider [facility] 10-08-2020 pneumococcal polysaccharide vaccine, 23 valent; Translations: [Pneumovax 23] DR MINE ZAVALA MD [facility] 08-16-2020 COVID-19, mRNA, LNP- S, PF, 100 mcg or 50 mcg dose; Translations: [Moderna COVID-19 Vaccine] DR MINE ZAVALA MD [facility] 07-19-2020 SARS-CoV-2 (COVID-19 ) mRNA-[address] MINE ZAVALA MD [facility] 05-27-2019 influenza, injectabl e, quadrivalent, preservative free; Translations: [Fluarix PF Quadrivalent ] DR MINE ZAVALA MD [facility] 05-27-2019 pneumococcal conjuga te vaccine, 13 valent; Translations: [Prevnar 13] DR MINE ZAVALA MD [facility] 05-07-2018 influenza virus vacc ine, unspecified formulation DR MINE ZAVALA MD [facility] 05-14-2017 influenza virus vacc ine, unspecified formulation DR MINE ZAVALA MD [facility] 04-13-2016 influenza virus vacc ine, unspecified formulation DR MINE ZAVALA MD [facility] 04-15-2015 influenza virus vacc ine, unspecified formulation DR MINE ZAVALA MD [facility] 06-11-2013 zoster vaccine, live DR FANI ZAVALA MD [facility] [place] Payers Date Payer Category Payer Private Health Insurance [id number] 1940 Unknown [id number] Social History Date Type Detail Facility Start: 04-15-2018 Tobacco smoking status Ex-smoker (fi nding) [facility] Sex Assigned At Female [facility] Medical Equipment Procedure Code Equipment Code Equipment Origin al Text Equipment Identifier Dates BD PEN NEEDL MIS [id number], 0 Refill(s) Start: 04-04-2019 Functional Status Date Assessment Result Facility 04-04-2022 Functional Status Resting [facility] Mental Status Date Assessment Result Facility 04-04-2022 Mental Status Orientation Oriented x 4 [facility] Discharge instructions 04-04-2022 Note Date & Type Note Facility 04-04-2022 Hospital Discharg e instructions Patient Education 04/04/2022 11:40:26 NECK SPRAIN/STRAIN Neck Sprain or Strain A sudden force that causes turning or bending of the neck (such as in a car accident) can stretch or tear muscles (strain) and ligaments (sprain) and cause neck pain. Sometimes neck pain occurs after a simple awkward movement. In either case, muscle spasm is commonly present and contributes to the pain. Unless you had a forceful physical injury (for example, a car accident or fall), X-rays are usually not ordered for the initial evaluation of neck pain. If pain continues and dose not respond to medical treatment, X-rays and other tests may be performed at a later time. Home care The following guidelines will help you care for your injury at home: You may feel more soreness and spasm the first few days after the injury. Reduce your activity level until symptoms begin to improve. When lying down, use a comfortable pillow that supports the head and keeps the spine in a neutral position. The position of the head should not be tilted forward or backward. Use ice packs (ice in a plastic bag, wrapped in a towel) to treat acute pain. Apply for 20 minutes every 2 4 hours during the first two days. Then, begin local heat (hot shower, hot bath or heating pad) and massage to reduce muscle spasm. Some patients feel best alternating hot and cold treatments, or just staying with one method only. Do what feels the best to you and gives the most relief. You may use acetaminophen or ibuprofen to control pain, unless another pain medicine was prescribed. If you have chronic liver or kidney disease or ever had a stomach ulcer or GI bleeding, talk with your doctor before using these medicines. Follow-up care Follow up with your physician or this facility if your symptoms do not show signs of improvement. Physical therapy may be needed. If you had X-rays today, they didn t show any broken bones, breaks, or fractures. Sometimes fractures don t show up on the first X-ray. Bruises and sprains can sometimes hurt as much as a fracture. These injuries can take time to heal completely. If your symptoms don t improve or they get worse, talk with your doctor. You may need a repeat X-ray. When to seek medical advice Call your health care provider right away if any of these occur: Pain becomes worse or spreads into your arms Weakness or numbness in one or both arms [id number] [employer] [place] [address]. All rights reserved. This information is not intended as a substitute for professional medical care. Always follow your healthcare professional's instructions. 04/04/2022 11:40:22 Hypoglycemia (Low Blood Sugar) Low Blood Sugar (Hypoglycemia) Having too little sugar (glucose) in your blood is called low blood sugar (hypoglycemia). Low blood sugar often means anything lower than 70 mg/dL. Talk with your healthcare provider about your target range. Ask what level is too low for you. Diabetes itself doesn t cause low blood sugar. But some treatments for diabetes may raise your risk for it. These include pills or insulin. Low blood sugar may make you pass out or have a seizure. So always treat low blood sugar right away. But don't overeat. Special note: Always carry a source of fast-acting sugar and a snack in case of hypoglycemia. What you may notice If you have low blood sugar, you may have one or more of these symptoms: Shakiness or dizziness Cold, clammy skin or sweating Feeling hungry Headache Nervousness A hard, fast heartbeat Weakness Confusion or irritability Blurred eyesight Having nightmares or waking up confused or sweating Numbness or tingling in the lips or tongue What you should do Here are tips to follow if you have hypoglycemia: First check your blood sugar. If it's too low (out of your target range), eat or drink 15 to 20 grams of fast-acting sugar. This may be 3 to 4 glucose tablets, 4 ounces (half a cup) of fruit juice or regular (nondiet) soda, or 1 tablespoon of honey. Don t take more than this, or your blood sugar may go too high. Don't eat foods high in protein such as milk or nuts to treat hypoglycemia. Protein may increase your insulin response. It may lower your blood sugar even more. Wait 15 minutes. Then recheck your blood sugar if you can. If your blood sugar is still too low, repeat the steps above and check your blood sugar again. If your blood sugar still has not gone back to your target range, contact your healthcare provider. Or seek emergency care. Once your blood sugar is back at target range, eat a snack or meal. Preventing low blood sugar Things you can do include the following: If your condition needs a strict treatment plan, eat meals and snacks at the same times each day. Don t skip meals! If your treatment plan lets you change when and what you eat, learn how to change the time and dose of your rapid-acting insulin to match this. Ask your healthcare provider if it's safe to drink alcohol. Never drink on an empty stomach. Take your medicine at the prescribed times. Always carry a source of fast-acting sugar and a snack when you re away from home. If you have had several hypoglycemic episodes, talk with your healthcare provider. See if you may be able to take less medicine. You also may have a condition where you no longer recognize the symptoms of low blood sugar until the value falls to dangerous levels. Other things to do Other tips include: Carry a medical ID card or wear a medical alert bracelet or necklace. It should say that you have diabetes. It should also say what to do if you pass out or have a seizure. Make sure your family, friends, and coworkers know the signs of low blood sugar. Tell them what to do if your blood sugar falls very low and you can t treat yourself. Keep a glucagon emergency kit handy. Be sure your family, friends, and coworkers know how and when to use it. Check it often. Replace the glucagon before it expires. Talk with your healthcare team about other things you can do to prevent low blood sugar. If you have unexplained hypoglycemia or hypoglycemia several times, call your healthcare provider. [phone] [employer]. [address] [place] [address]. All rights reserved. This information is not intended as a substitute for professional medical care. Always follow your healthcare professional's instructions. Follow Up Care 04/04/2022 10:03:28 With:KUSH LUNSFORD MD Address: [facility] [place] [id number]- When:2-[address] [facility] Clinical Note 04-04-2022 Note Date & Type Note Facility 04-04-2022 Note Discharge Instructions Thank you for allowing [facility] to assist you with your healthcare needs. The following is important discharge information regarding your hospital visit. Diagnosis from Today's Visit Hypoglycemia Neck sprain Fall What to Do Next Instructions from Your Care Team No qualifying data available. Post Acute Orders No qualifying data available. You Need to Schedule the Following Appointments Follow Up with KUSH LUNSFORD MD When Within 2-4 days Where: [facility] [place] [address]- Allergies naproxen sodium (hives) naproxen (Unknown) Medications Please ask your primary doctor or pharmacist before taking any other medication not listed, including over the counter drugs, herbal medications, vitamins and or supplements as they may interact with your home medications. What How Much When Why Instructions Last Dose Unchanged albuterol (Albuterol (Eqv-ProAir HFA) 90 mcg/ inh inhalation aerosol) 2 puff(s) by inhalation Every 6 hours as needed for Wheezing INHALE 2 PUFFS UP TO 4 TIMES A DAY NEEDED Unchanged aspirin (aspirin 81 mg oral delayed release tablet) 1 tab(s) by mouth Every day Unchanged atorvastatin (atorvastatin 40 mg oral tablet) 1 tab(s) by mouth Once a day Unchanged carvedilol (carvedilol 3.125 mg oral tablet) 1 tab(s) by mouth Twice daily with meals Unchanged DME (DME MISCellaneous) See instructions BD Ultra Fine Mini Pen needles use as directed #1 box x refills Dx: E11.9 Unchanged fluticasone-vilanterol (Breo Ellipta 200 mcg-25 mcg/ inh inhalation powder) 1 puff(s) by inhalation Every day Unchanged insulin glargine (Basaglar KwikPen 100 units/ mL subcutaneous solution) 40 unit(s) Subcutaneous Daily at bedtime Unchanged insulin glargine-lixisenatide (Soliqua) (Soliqua 100/ 33 subcutaneous solution) 30 unit(s) Subcutaneous Every day Unchanged isosorbide mononitrate (isosorbide mononitrate 30 mg oral tablet, extended release) 1 tab(s) by mouth Once a day (in the morning) Unchanged Misc Medication (BD PEN NEEDL MIS [id number]) Unchanged pantoprazole (pantoprazole 40 mg oral enteric coated tablet) 1 tab(s) by mouth Once a day GERD - Gastro-esophageal reflux disease Duration: 90 Days Unchanged pioglitazone (pioglitazone 30 mg oral tablet) See instructions DM (diabetes mellitus), type 2 TAKE 1 TABLET DAILY Please take this list to your next doctor s visit. Bring all medications you take, including over the counter medications, herbals and other supplements with you to your doctor s visit. Patients and families are reminded to discard old lists and to update any records with all medication providers or retail pharmacies. Education [employer] Neck Sprain or Strain A sudden force that causes turning or bending of the neck (such as in a car accident) can stretch or tear muscles (strain) and ligaments (sprain) and cause neck pain. Sometimes neck pain occurs after a simple awkward movement. In either case, muscle spasm is commonly present and contributes to the pain. Unless you had a forceful physical injury (for example, a car accident or fall), X-rays are usually not ordered for the initial evaluation of neck pain. If pain continues and dose not respond to medical treatment, X-rays and other tests may be performed at a later time. Home care The following guidelines will help you care for your injury at home: You may feel more soreness and spasm the first few days after the injury. Reduce your activity level until symptoms begin to improve. When lying down, use a comfortable pillow that supports the head and keeps the spine in a neutral position. The position of the head should not be tilted forward or backward. Use ice packs (ice in a plastic bag, wrapped in a towel) to treat acute pain. Apply for 20 minutes every 2 4 hours during the first two days. Then, begin local heat (hot shower, hot bath or heating pad) and massage to reduce muscle spasm. Some patients feel best alternating hot and cold treatments, or just staying with one method only. Do what feels the best to you and gives the most relief. You may use acetaminophen or ibuprofen to control pain, unless another pain medicine was prescribed. If you have chronic liver or kidney disease or ever had a stomach ulcer or GI bleeding, talk with your doctor before using these medicines. Follow-up care Follow up with your physician or this facility if your symptoms do not show signs of improvement. Physical therapy may be needed. If you had X-rays today, they didn t show any broken bones, breaks, or fractures. Sometimes fractures don t show up on the first X-ray. Bruises and sprains can sometimes hurt as much as a fracture. These injuries can take time to heal completely. If your symptoms don t improve or they get worse, talk with your doctor. You may need a repeat X-ray. When to seek medical advice Call your health care provider right away if any of these occur: Pain becomes worse or spreads into your arms Weakness or numbness in one or both arms [phone] [employer]. [address] [place] [id number]. All rights reserved. This information is not intended as a substitute for professional medical care. Always follow your healthcare professional's instructions. Low Blood Sugar (Hypoglycemia) Having too little sugar (glucose) in your blood is called low blood sugar (hypoglycemia). Low blood sugar often means anything lower than 70 mg/dL. Talk with your healthcare provider about your target range. Ask what level is too low for you. Diabetes itself doesn t cause low blood sugar. But some treatments for diabetes may raise your risk for it. These include pills or insulin. Low blood sugar may make you pass out or have a seizure. So always treat low blood sugar right away. But don't overeat. Special note: Always carry a source of fast-acting sugar and a snack in case of hypoglycemia. What you may notice If you have low blood sugar, you may have one or more of these symptoms: Shakiness or dizziness Cold, clammy skin or sweating Feeling hungry Headache Nervousness A hard, fast heartbeat Weakness Confusion or irritability Blurred eyesight Having nightmares or waking up confused or sweating Numbness or tingling in the lips or tongue What you should do Here are tips to follow if you have hypoglycemia: First check your blood sugar. If it's too low (out of your target range), eat or drink 15 to 20 grams of fast-acting sugar. This may be 3 to 4 glucose tablets, 4 ounces (half a cup) of fruit juice or regular (nondiet) soda, or 1 tablespoon of honey. Don t take more than this, or your blood sugar may go too high. Don't eat foods high in protein such as milk or nuts to treat hypoglycemia. Protein may increase your insulin response. It may lower your blood sugar even more. Wait 15 minutes. Then recheck your blood sugar if you can. If your blood sugar is still too low, repeat the steps above and check your blood sugar again. If your blood sugar still has not gone back to your target range, contact your healthcare provider. Or seek emergency care. Once your blood sugar is back at target range, eat a snack or meal. Preventing low blood sugar Things you can do include the following: If your condition needs a strict treatment plan, eat meals and snacks at the same times each day. Don t skip meals! If your treatment plan lets you change when and what you eat, learn how to change the time and dose of your rapid-acting insulin to match this. Ask your healthcare provider if it's safe to drink alcohol. Never drink on an empty stomach. Take your medicine at the prescribed times. Always carry a source of fast-acting sugar and a snack when you re away from home. If you have had several hypoglycemic episodes, talk with your healthcare provider. See if you may be able to take less medicine. You also may have a condition where you no longer recognize the symptoms of low blood sugar until the value falls to dangerous levels. Other things to do Other tips include: Carry a medical ID card or wear a medical alert bracelet or necklace. It should say that you have diabetes. It should also say what to do if you pass out or have a seizure. Make sure your family, friends, and coworkers know the signs of low blood sugar. Tell them what to do if your blood sugar falls very low and you can t treat yourself. Keep a glucagon emergency kit handy. Be sure your family, friends, and coworkers know how and when to use it. Check it often. Replace the glucagon before it expires. Talk with your healthcare team about other things you can do to prevent low blood sugar. If you have unexplained hypoglycemia or hypoglycemia several times, call your healthcare provider. [phone] [employer]. [address] [place] [address], [place] [address]. All rights reserved. This information is not intended as a substitute for professional medical care. Always follow your healthcare professional's instructions. Additional Information VACCINATE! IT SAVES LIVES! Members of the community who have not yet received the COVID-19 vaccine and would like to receive it can visit one of [facility] vaccine clinics. There are many vaccine clinic locations within the [facility]. For locations and available times, please visit [email or web address]. It is important to note that some COVID mobile vaccine clinics are held outdoors and may be canceled in rainy or stormy conditions. To learn more about pediatric vaccinations (ages 5-11), we invite you to visit the [facility] webpage. [email or web address]/pages/[email or web address] 992-Lyhca-Ilqhawtdoyx-Frequently-Asked -Questions.html To learn more about the COVID-19 vaccine, we invite you to visit the [facility] website for a list of frequently asked questions. [email or web address]/assets/Patients-an d-Visitors/ufavr-Oyeobzi-Mbojnuspxy_Fd ked-Questions.pdf [facility] Patient Portal Access Instructions: Stay connected with your healthcare team and access your personal medical information anytime with the [facility] [employer]Spring [employer] Patient Portal. If you would like a full copy of your medical records please contact the [facility] Medical Records Department Sunday through Sunday between 8a.m. and 4:30p.m. Please follow the directions below to access the portal: 1.Access the email account [facility]2.Look for an invitation email from [facility].3.Open the email and access the invitation link: Accept Invitation to [employer]4.Fill in the required rodríguez to create your account. Sign into [email or web address] with your username and password that you created in the above steps to stay up to date. You can then view a summary of results, a summary of your visits, and the ability to download your summaries to your computer or send the information securely to a physician. Remember that your healthcare information is confidential, so carefully consider who you will allow to register on the [facility] Patient Portal for access to your information. You can also access the [facility] Patient Portal on the Zackfire.[email or web address] luba. Simply click on Health Records under Health Data and then click on the Upfront [employer]at[employer] logo. HOW TO SAFELY DISPOSE OF PRESCRIPTION MEDICATIONS Please use one of the following methods to safely dispose of your unused medications. 1.Use a drug disposal kit: the drug disposal pouch allows you to safely discard your old and unused drugs. Ask your nurse to give you one when you are discharged.2.Visit a local take-back location: Many local pharmacies and police departments have programs that collect old and unwanted prescription drugs. Call your local pharmacy or go to http://Zaiseoul.Healthcentrix/5V6Li6t to find one close to you.3.Make use of household items: Use cat litter or old coffee grounds to dispose medications if other options are not available. Mix your drugs with these household products, seal them in an airtight container and throw it into the garbage. Call [facility]: [phone] to be sure your drugs can be disposed of in this way. Some medicines may require a different approach.4.Never flush your medications down the toilet. IF YOU HAVE BEEN PRESCRIBED AN OPIOIDS FOR PAIN If you have been prescribed an opioid (such as hydrocodone, oxycodone or morphine), it is critical to understand the possible side effects and risks of opioid pain medications. Even when taken as directed, opioids can have several side effects including: Tolerance, meaning you might need to take more of a medication for the same pain relief. Nausea, vomiting and/or constipation. Sleepiness, dizziness, dry mouth, confusion, depression or itching. Physical dependence, meaning you have withdrawal symptoms when a medication is stopped ? this can develop within a few days. KNOW YOUR RESPONSIBILITIES It is important to know exactly how much and how often to take the opioid pain medications you are prescribed. Never take opioids in higher amounts or more often than prescribed. Do not combine opioids with alcohol or other drugs that cause drowsiness, such as benzodiazepines, also known as benzos, including diazepam and alprazolam, muscle relaxants or sleep aids. Never sell or share prescription opioids. This is illegal. Store opioids in a secure place and out of reach of others (including children, family, friends and visitors). The last page(s) of this document has been signed and retained as a CHART COPY Signatures Patient Education Materials NECK SPRAIN/STRAIN Hypoglycemia (Low Blood Sugar) Medication Leaflets My discharge plan and instructions have been reviewed and explained to me and I,MAYTE YUMIKO Feng understand my current condition and have read and understand these discharge instructions. I have received a written copy of the plan/instructions. If I have questions, I am aware that I should contact my doctor. Patient/Audiovisual Tech Signature: _ Date/Time: Relationship to Patient: Witness Name/Signature: Date/Time: [facility] Clinical Note 04-04-2022 Note Date & Type Note Facility 04-04-2022 Note ORIGINAL HISTORY: Injury COMPARISON: No TECHNIQUE: Cervical spine CT with sagittal and coronal reconstructions. This exam was performed according to our departmental dose optimization program, and includes the following measures where applicable: automated exposure control, adjustment of the mAs and/or kVp according to patient size and/or exam, and an iterative reconstruction algorithm. FINDINGS: There are no acute fractures or dislocations. Alignment is within normal limits. The individual vertebral bodies are. The prevertebral soft tissues are unremarkable in appearance. IMPRESSION: No acute fracture. Interpreted by: Francisco James MD Preliminary Report By: Francisco James MD Electronically signed By Francisco James MD Dictated Date: 04/04/2022 10:45:02 AM Prelim Date: 04/04/2022 10:46:28 AM Sign Date: 04/04/2022 10:46:28 AM Ordering Provider: [facility] Clinical Note 04-04-2022 Note Date & Type Note Facility 04-04-2022 Note ORIGINAL HISTORY: Injury COMPARISON: No TECHNIQUE: Cervical spine CT with sagittal and coronal reconstructions. This exam was performed according to our departmental dose optimization program, and includes the following measures where applicable: automated exposure control, adjustment of the mAs and/or kVp according to patient size and/or exam, and an iterative reconstruction algorithm. FINDINGS: There are no acute fractures or dislocations. Alignment is within normal limits. The individual vertebral bodies are. The prevertebral soft tissues are unremarkable in appearance. IMPRESSION: No acute fracture. Interpreted by: Francisco James MD Preliminary Report By: Francisco James MD Electronically signed By Francisco James MD Dictated Date: 04/04/2022 10:45:02 AM Prelim Date: 04/04/2022 10:46:28 AM Sign Date: 04/04/2022 10:46:28 AM Ordering Provider: [facility] Evaluation + Plan note Note Date & Type Note Facility Evaluation + Plan note No data available for this section [facility] Summary Purpose Family History No Family History Records FoundNo Family History Records Found Advance Directives No Advanced Directives Records FoundNo Advanced Directives Records Found Additional Source Comments INFORMATION SOURCE (unrecogn ized section and content) DATE CREATED AUTHOR AUTHOR'S ORGANIZ ATION 04/14/2022 [facility] ([place]) Care Team (unrecognized sect ion and content) Care Team Personnel Name: MELIA POWERS Position: P4 Advanced Practice Nurse Member Role: Primary Care Address: Address: [address] [place] [address]- Name: Percy Live Clerbertrand Crain PT Position: P3 Scheduling - Transportation Agent Advanced Member Role: Other Name: KUSH LUNSFORD MD Member Role: Primary Care Physician Address: Address: [facility]/[address] [place], [place] [address] Name: ROBBIE Browning Position: AO RN Member Role: ED RN Name: MD SALLY, MINE CALHOUN Position: ED Physician Member Role: ED Physician Address: Address[address] [facility] [place] [address]- Care Team Related Persons Name: KENNETH LYMAN FOR RECORDS PERTAINING TO PATIENTS WHO ARE OR HAVE BEEN ENROLLED IN A CHEMICAL DEPENDENCY/SUBSTANCEABUSE PROGRAM, SOME INFORMATION MAY BE OMITTED. This clinical summary was aggregated from multiple sources. Caution should be exercised in using it in the provision of clinical care. This summary normalizes information from multiple sources, and as a consequence, information in this document may materially change the coding, format and clinical context of patient data. In addition, data may be omitted in some cases. CLINICAL DECISIONS SHOULD BE BASED ON THE PRIMARY CLINICAL RECORDS. [facility] [employer] provides no warranty or guarantee of the accuracy or completeness of information in this document.
[2023-06-27 12:27] LABS: Absolute Neutrophil Count 6.9 X10^3/uL (2.0-7.7); Basophil# 0.01 X10^3/uL; Basophil% 0.1 % (0-1); Hematocrit 31.7 % (37-47); Hemoglobin 9.5 g/dL (12.0-15.0); Mean Corpuscular Hgb 24.6 pg (27.0-32.0); Mean Corpuscular Volume 82.1 fL (81-99); Mean Platelet Vol. 12.6 fl (6.2-12.0); Monocyte# 0.39 X10^3/uL; Monocyte% 4.7 % (0-10); NRBC Flagged by Analyzer 0 % (0-5); Neutrophil # 6.91 X10^3/uL (2.7-7.7); Neutrophil % 82.6 % (47-70); Platelet Count 258 K/mm3 (150-450); RBC Distribution Width CV 16.3 % (11.6-14.6); Red Blood Count 3.86 M/mm3 (4.2-5.4); White Blood Count 8.4 K/mm3 (4.4-11.0)
[2023-06-27 12:49] LABS: Vitamin D,25 Hydroxy 47.9 ng/mL
[2023-06-27 13:35] LABS: AST(SGOT) 15 U/L (15-37); Alanine Aminotransfer ALT/SGPT 22 U/L (13-56); Albumin, Serum 3.1 g/dL (3.2-5.0); Alkaline Phosphatase 87 U/L (45-117); Anion Gap 6 (5-15); BUN 27 mg/dL (7-18); BUN/Creat Ratio 18.6 RATIO (10-20); Calcium,Total 9.2 mg/dL (8.5-10.1); Chloride 99 mmol/L (98-107); Cholesterol 95 mg/dL (200); Creatinine, Serum 1.45 mg/dL (0.55-1.02); EST Glomerular Filtration Rate 37 mL/min (>60); Est Glom Filt Rate - Afr Amer 44 mL/min (>60); Globulin 3.1 g/dL (2.2-4.2); Glucose 392 mg/dL (74-106); High Density Lipoprotein 42 mg/dL; Potassium 4.3 mmol/L (3.5-5.1); Protein, Total 6.2 g/dL (6.4-8.2); Sodium Level 137 mmol/L (136-145); Thyroid Stim Hormone (TSH) 0.89 uIU/mL (0.358-3.74); Triglycerides 129 mg/dL; Very Low Density Lipoprotein 26 mg/dL (5-40)
== END | disposition home or self-care (01) ==
PROVIDERS: PCP Family Medicine Geriatric Medicine; Visit Provider Family Medicine Geriatric Medicine
DX: E11.65 Type 2 diabetes mellitus with hyperglycemia (principal); E55.9 Vitamin D deficiency, unspecified; E78.5 Hyperlipidemia, unspecified; I10 Essential (primary) hypertension
CPT/HCPCS: 36415; 80053; 80061; 82306; 84443; 85025

== ENCOUNTER → 2023-07-02 | Outpatient (CLI) | payer MEDICARE, SELFPAY ==
--- OUTSIDE RECORDS SUMMARY | 2023-07-02 14:28 | XMS RPT_ITS | CCD ---
Author Name Unknown Address [address] [place] [address] Organization [facility] Care Team Providers Care Senior Staff Consultant Name Role Phone JAZ DIALLO Unavailable Unavailable JAZ DIALLO Unavailable Unavailable JAYDA AVENDAÑO Unavailable Unavailable REFERRINGMARC Unavailable Unavailable JAZ DIALLO Unavailable Unavailable JAYDA AVENDAÑO Unavailable Unavailable DR KUSH LUNSFORD MD Primary Care Physician Calos QUIROS, Breann Unavailable Unavailable ISATU SAN, DR. CURRIE Primary Care UnavailMINE Jaffe Attending Unavailable Allergies Allergy Classification Reported Allergen(s) Allergy Type Date of Onset Reaction(s) Facility (2 sources) Naproxen; Translations: [naproxen] Drug Allergy Unknown, shayy [facility] [place] Medications Current Medications Medication Drug Class(es) Dates [...] Daily, # 30 tab(s), 0 Refill(s), Pharmacy: [facility]/pharmacy #[id number], 165.1, cm, 12/30/20 9:17:00 EDT, Height, kg, 12/30/20 9:17:00 EDT, Dosing Weight Start Date: 12/30/20 Status: Ordered atorvastatin 40 mg oral tablet (1 source) HMG-CoA Reductase Inhibitor Start: 12-30-2020 atorvastatin 40 mg oral tablet Dose : 40 mg = 1 tab(s), Oral, qDay, # 90 tab(s), 0 Refill(s), Pharmacy: [facility]/pharmacy #[id number], 165.1, cm, 12/30/20 9:17:00 EDT, Height, [...] BIDM, # 180 tab(s), 3 Refill(s), Pharmacy: [facility] STORE [id number], 165, cm, 05/03/21 14:18:00 EST, Height, kg, 05/03/21 14:18:00 EST, Dosing Weight Start Date: 01/23/22 Status: Ordered DME MISCellaneous (1 source) Start: 05-10-2021 DME MISCellaneous See Instructions, BD Ultra Fine Mini Pen needles use as directed #1 box x refills Dx: E11.9, # 1 EA, 11 Refill(s), [facility], 165, cm, 05/03/21 14:18:00 EST, Height, [...] qAM, # 90 tab(s), 1 Refill(s), Pharmacy: [id number], 165, cm, 05/03/21 14:18:00 EST, Height, kg, 05/03/21 14:18:00 EST, Dosing Weight Start Date: 11/11/21 Status: Ordered pioglitazone 30 mg oral tablet (1 source) Peroxisome Proliferator Receptor alpha Agonist, Peroxisome Proliferator Receptor gamma Agonist, Thiazolidinedione Start: 10-08-2020 take 1 tablet by mouth once daily pioglitazone 30 mg oral tablet See Instructions, TAKE 1 TABLET DAILY, # 90 tab(s), 3 Refill(s), [id number], DM (diabetes mellitus), type 2, 163.19, [...] qDay, # 90 tab(s), 3 Refill(s), Pharmacy: [facility]/pharmacy #[id number], GERD - Gastro-esophageal reflux disease, 163.19, [...] Time Vital Sign Value Performing Clinician [facility] 04-04-2022 12:13-0400 Diastolic blood pressure 78 mm[Hg] DR MINE ZAVALA MD [facility] 04-04-2022 12:13-0400 Heart rate 80 /min DR MINE ZAVALA MD [facility] 04-04-2022 12:13-0400 Respiratory rate 20 /min DR MINE ZAVALA MD [facility] 04-04-2022 12:13-0400 Systolic blood pressure 168 mm[Hg] DR MINE ZAVALA MD [facility] 04-04-2022 10:25-0400 Body height 165.[address] MINE ZAVALA MD [facility] 04-04-2022 10:25-0400 Body temperature 98.42 [degF] DR MINE ZAVAAL MD [facility] 04-04-2022 10:25-0400 Body weight 81.[address] MINE ZAVALA MD [facility] 04-04-2022 10:25-0400 Diastolic blood pressure 86 mm[Hg] DR MINE ZAVALA MD [facility] 04-04-2022 10:25-0400 Heart rate 79 /min DR MINE ZAVALA MD [facility] 04-04-2022 10:25-0400 Respiratory rate 20 /min DR MINE ZAVALA MD [facility] 04-04-2022 10:25-0400 Systolic blood pressure 188 mm[Hg] DR MINE ZAVALA MD [facility] Encounters Encounter Date Encounter Type Care Provider Facility Start: 04-04-2022 End: 04-04-2022 Emergency department patient visit DR. KUSH LUNSFORD MD. Facility: Start: 04-04-2022 End: 04-04-2022 Emergency department patient visit DR MINE ZAVALA MD [facility] Start: 12-18-2016 End: 12-19-2016 Ambulatory PHY WO ID REFERRING Facility:[facility] Start: 12-18-2016 End: 12-18-2016 Ambulatory JAZ DIALLO Facility:[facility] Procedures Date Procedure Procedure Detail Performing Clinician Start: 01-27-[address] eroid injection DR MINE ZAVALA MD Start: 02-25-2015 Cervical facet joint pain (finding) DR MINE ZAVALA MD Immunizations Immunization Date Immunization Notes Care Provider Fa [facility] 10-08-2020 pneumococcal polysaccharide vaccine, 23 valent; Translations: [Pneumovax 23] DR MINE ZAVALA MD [facility] 08-16-2020 COVID-19, mRNA, LNP- S, PF, 100 mcg or 50 mcg dose; Translations: [Moderna COVID-19 Vaccine] DR MINE ZAVALA MD [facility] 07-19-2020 SARS-CoV-2 (COVID-19 ) mRNA-[address] MINE ZAVALA MD [facility] 05-27-2019 influenza, injectabl e, quadrivalent, preservative free; Translations: [Fluarix PF Quadrivalent ] DR MINE ZAVALA MD [facility] 05-27-2019 pneumococcal conjuga te vaccine, 13 valent; Translations: [Prevnar 13] DR MINE ZAVALA MD [facility] 05-07-2018 influenza virus vacc ine, unspecified formulation DR MINE ZAVALA MD [facility] 05-14-2017 influenza virus vacc ine, unspecified formulation DR MINE ZAVALA MD [facility] 04-13-2016 influenza virus vacc ine, unspecified formulation DR MINE ZAVALA MD [facility] 04-15-2015 influenza virus vacc ine, unspecified formulation DR MINE ZAVALA MD [facility] 06-11-2013 zoster vaccine, live DR FANI ZAVALA MD [facility] [place] Payers Date Payer Category Payer Private Health Insurance [id number] 1940 Unknown [id number] Social History Date Type Detail Facility Start: 04-15-2018 Tobacco smoking status Ex-smoker (fi nding) [facility] Sex Assigned At Female [facility] Medical Equipment Procedure Code Equipment Code Equipment Origin al Text Equipment Identifier Dates BD PEN NEEDL MIS [id number], 0 Refill(s) Start: 04-04-2019 Functional Status Date Assessment Result Facility 04-04-2022 Functional Status Resting [facility] spital [facility] Mental Status Date Assessment Result Facility 04-04-2022 Mental Status Orientation Oriented x 4 [facility] Discharge instructions 04-04-2022 Note Date & Type [...] or numbness in one or both arms [id number] [employer] [place] [address]. All rights reserved. This information is not [...] hypoglycemia several times, call your healthcare provider. [phone] [employer]. [address] [place] [address]. All rights reserved. This information is not intended as a substitute for professional medical care. Always follow your healthcare professional's instructions. Follow Up Care 04/04/2022 10:03:28 With:KUSH LUNSFORD MD Address: [facility]ULT [facility]/[address] [place] [address]- When:2-4 days [facility] Clinical Note 04-04-2022 Note Date & Type Note Facility 04-04-2022 Note Discharge Instructions Thank you for allowing [facility] to assist you with your healthcare needs. [...] ADULT [facility]AT[facility]/[place] [place] [address]- Allergies naproxen sodium (hives) naproxen (Unknown) Medications [...] Unchanged Misc Medication (BD PEN NEEDL MIS [id number]) Unchanged pantoprazole (pantoprazole 40 mg oral enteric [...] or numbness in one or both arms [phone] [employer]. [address] [place] [address]. All rights reserved. This information is not [...] hypoglycemia several times, call your healthcare provider. [phone] [employer]. [address] [place] [address], [place] [address]. All rights reserved. This information is not intended as a substitute for professional medical care. Always follow your healthcare professional's instructions. Additional Information VACCINATE! IT SAVES LIVES! Members of the community who have not yet received the COVID-19 vaccine and would like to receive it can visit one of [facility] vaccine clinics. There are many vaccine clinic locations within the [facility]. For locations and available times, please visit [email or web address]. It is important to note that some COVID mobile vaccine clinics are held outdoors and may be canceled in rainy or stormy conditions. To learn more about pediatric vaccinations (ages 5-11), we invite you to visit the [facility] webpage. [email or web address]/pages/[email or web address] 899-Ismux-Emhcjzjcxmu-Frequently-Asked -Questions.html To learn more about the COVID-19 vaccine, we invite you to visit the [facility] website for a list of frequently asked questions. https://[place].[facility]/assets/Patients-an d-Visitors/yvxcn-Hnrlzxv-Tuluuudryc_Ae ked-Questions.pdf [facility] Patient Portal Access Instructions: Stay connected with your healthcare team and access your personal medical information anytime with the [facility] 4th aspectChart Patient Portal. If you would like a full copy of your medical records please contact the [facility] Medical Records Department Sunday through Sunday between 8a.m. and 4:30p.m. Please follow the directions below to access the portal: 1.Access the email account you provided upon registration to the [facility].2.Look for an invitation email from [facility].3.Open the email and access the invitation link: Accept Invitation to [employer]4.Fill in the required rodríguez to create your account. Sign into www.Clear Standards with your username and password that you [...] you will allow to register on the [facility] Patient Portal for access to your information. You can also access the [facility] Patient Portal on the ChargeBee luba. Simply click on Health Records under Health Data and then click on the SpamLion logo. HOW TO SAFELY DISPOSE OF PRESCRIPTION [...] Call your local pharmacy or go to http://Canal Internet.Game Digital/5P1As6l to find one close to you.3.Make use of household items: Use cat litter or old coffee grounds to dispose medications if other options are not available. Mix your drugs with these household products, seal them in an airtight container and throw it into the garbage. Call [facility]: [phone] to be sure your drugs can be [...] aware that I should contact my doctor. Patient/Catering Coordinator Signature: _ Date/Time: Relationship to Patient: Witness Name/Signature: Date/Time: [facility] Clinical Note 04-04-2022 Note Date & Type [...] Sign Date: 04/04/2022 10:46:28 AM Ordering Provider: [facility] Clinical Note 04-04-2022 Note Date & [...] Sign Date: 04/04/2022 10:46:28 AM Ordering Provider: [facility] Evaluation + Plan note Note Date & Type Note Facility Evaluation + Plan note No data available for this section [facility] Summary Purpose Family History No Family History Records FoundNo Family History Records Found Advance Directives No Advanced Directives Records FoundNo Advanced Directives Records Found Additional Source Comments INFORMATION SOURCE (unrecogn ized section and content) DATE CREATED AUTHOR AUTHOR'S ORGANIZ ATION 04/14/2022 [facility] ([place]) Care Team (unrecognized sect ion and content) Care Team Personnel Name: MELIA POWERS Position: P4 Advanced Practice Nurse Member Role: Primary Care Address: Address: [address] [place] [address]- Name: Percy Live Clerbertrand Crain PT Position: P3 Scheduling - Corrections Nurse Advanced Member Role: Other Name: KUSH LUNSFORD MD Member Role: Primary Care Physician Address: Address: ADULT GERIATRICS/[address] [place], [place] [address] Name: ROBBIE Browning Position: AO RN Member Role: ED RN Name: MD SALLY, MINE CALHOUN Position: ED Physician Member Role: ED Physician Address: Address: [address] [place] [address]- Care Team Related Persons Name: KENNETH LYMAN [...] BE BASED ON THE PRIMARY CLINICAL RECORDS. [facility] [employer] provides no warranty or guarantee of the accuracy or completeness of information in this document.
[2023-07-02 16:25] LABS: Vitamin B12 370 pg/mL (211-911)
[2023-07-02 16:32] LABS: Absolute Lymphocyte Count 1.85 X10^3/uL (0.83-4.51); Absolute Neutrophil Count 6.7 X10^3/uL (2.0-7.7); Basophil# 0.02 X10^3/uL; Basophil% 0.2 % (0-1); Eosinophil# 0.08 X10^3/uL; Eosinophils% 0.9 % (0-5); Hematocrit 37.4 % (37-47); Hemoglobin 11.3 g/dL (12.0-15.0); Lymphocyte # 1.85 X10^3/ul (0.83-4.51); Lymphocyte % 19.7 % (19-41); Mean Corp Hgb Conc 30.2 g/dL (32-36); Mean Corpuscular Hgb 24.6 pg (27.0-32.0); Mean Corpuscular Volume 81.3 fL (81-99); Mean Platelet Vol. 12.8 fl (6.2-12.0); Monocyte# 0.73 X10^3/uL; Monocyte% 7.8 % (0-10); NRBC Flagged by Analyzer 0 % (0-5); Neutrophil # 6.67 X10^3/uL (2.7-7.7); Neutrophil % 70.9 % (47-70); POSITIVE MORPHOLOGY YES; Platelet Count 229 K/mm3 (150-450); RBC Distribution Width CV 16.5 % (11.6-14.6); RBC Distribution Width SD 48.5 fl (35.1-43.9); RET-HE 28.8 pg (30-35); Reticulocyte Count 1.78 % (0.5-1.5); White Blood Count 9.4 K/mm3 (4.4-11.0)
[2023-07-02 16:49] LABS: Ferritin 13 ng/mL (8-252); Iron 56 ug/dL (50-170); Iron Binding Capacity,Total 412 ug/dL (250-450); PERCENT IRON SATURATION 13.6 % (15.0-55.0)
[2023-07-02 16:51] LABS: Differential Indicated SCAN CRITERIA MET
[2023-07-02 16:55] LABS: Differential Comment SCANNED
== END | disposition home or self-care (01) ==
LOC: LAB 14:00
PROVIDERS: PCP Family Medicine Geriatric Medicine; Referring Provider Family Medicine Geriatric Medicine; Visit Provider Family Medicine Geriatric Medicine
DX: D50.9 Iron deficiency anemia, unspecified (principal)
CPT/HCPCS: 36415; 82607; 82728; 82746; 83540; 83550; 85025; 85045

== ENCOUNTER → 2023-07-03 | Outpatient (CLI) | payer MEDICARE, SELFPAY ==
--- OUTSIDE RECORDS SUMMARY | 2023-07-03 12:59 | XMS RPT_ITS | CCD ---
Author Name Unknown Address [address] [place] [address] Organization [facility] Care Team Providers Care Inside Steward/Stewardess Name Role Phone JAZ DIALLO Unavailable Unavailable [...] Translations: [naproxen] Drug Allergy Unknown, shayy [facility] Medications Current Medications Medication Drug Class(es) Dates [...] Daily, # 30 tab(s), 0 Refill(s), Pharmacy: [facility]/pharmacy #[id number], 165.1, cm, 12/30/20 9:17:00 EDT, Height, kg, 12/30/20 9:17:00 EDT, Dosing Weight Start Date: 12/30/20 Status: Ordered atorvastatin 40 mg oral tablet (1 source) HMG-CoA Reductase Inhibitor Start: 12-30-2020 atorvastatin 40 mg oral tablet Dose : 40 mg = 1 tab(s), Oral, qDay, # 90 tab(s), 0 Refill(s), Pharmacy: [facility]/pharmacy #[id number], 165.1, cm, 12/30/20 9:17:00 EDT, Height, [...] BIDM, # 180 tab(s), 3 Refill(s), Pharmacy: [facility], 165, cm, 05/03/21 14:18:00 EST, Height, kg, 05/03/21 14:18:00 EST, Dosing Weight Start Date: 01/23/22 Status: Ordered DME MISCellaneous (1 source) Start: 05-10-2021 DME MISCellaneous See Instructions, BD Ultra Fine Mini Pen needles use as directed #1 box x refills Dx: E11.9, # 1 EA, 11 Refill(s), [facility], 165, cm, 05/03/21 14:18:00 EST, [...] qAM, # 90 tab(s), 1 Refill(s), Pharmacy: [id number], 165, cm, 05/03/21 14:18:00 EST, Height, kg, 05/03/21 14:18:00 EST, Dosing Weight Start Date: 11/11/21 Status: Ordered pioglitazone 30 mg oral tablet (1 source) Peroxisome Proliferator Receptor alpha Agonist, Peroxisome Proliferator Receptor gamma Agonist, Thiazolidinedione Start: 10-08-2020 take 1 tablet by mouth once daily pioglitazone 30 mg oral tablet See Instructions, TAKE 1 TABLET DAILY, # 90 tab(s), 3 Refill(s), [id number], DM (diabetes mellitus), type 2, 163.19, [...] qDay, # 90 tab(s), 3 Refill(s), Pharmacy: [facility]/pharmacy #[id number], GERD - Gastro-esophageal reflux disease, 163.19, [...] Time Vital Sign Value Performing Clinician [facility] 04-04-2022 12:13-0400 Diastolic blood pressure 78 mm[Hg] DR MINE ZAVALA MD [facility] 04-04-2022 12:13-0400 Heart rate 80 /min DR MINE ZAVALA MD [facility] 04-04-2022 12:13-0400 Respiratory rate 20 /min DR MINE ZAVALA MD [facility] 04-04-2022 12:13-0400 Systolic blood pressure 168 mm[Hg] DR MINE ZAVALA MD [facility] 04-04-2022 10:25-0400 Body height 165.[address] MINE ZAVALA MD [facility] 04-04-2022 10:25-0400 Body temperature 98.42 [degF] DR MINE ZAVALA MD [facility] 04-04-2022 10:25-0400 Body weight 81.[address] MINE ZAVALA MD [facility] 04-04-2022 10:25-0400 Diastolic blood pressure 86 mm[Hg] DR MINE ZAVALA MD [facility] 04-04-2022 10:25-0400 Heart rate 79 /min DR MINE ZAVALA MD [facility] 04-04-2022 10:25-0400 Respiratory rate 20 /min DR MINE ZAVALA MD [facility] 04-04-2022 10:25-0400 Systolic blood pressure 188 mm[Hg] DR MINE ZAVALA MD [facility] Encounters Encounter Date Encounter Type Care Provider Facility Start: 04-04-2022 End: 04-04-2022 Emergency department patient visit DR. KUSH LUNSFORD MD. Facility: Start: 04-04-2022 End: 04-04-2022 Emergency department patient visit DR MINE ZAVALA MD [facility] Start: 12-18-2016 End: 12-19-2016 Ambulatory PHY WO ID REFERRING Facility:[facility] Start: 12-18-2016 End: 12-18-2016 Ambulatory JAZ DIALLO Facility:[facility] Procedures Date Procedure Procedure Detail Performing Clinician Start: 01-27-[address] eroid injection DR MINE ZAVALA MD Start: 02-25-2015 Cervical facet joint pain (finding) DR MINE ZAVALA MD Immunizations Immunization Date Immunization Notes Care Provider [facility] 10-08-2020 pneumococcal polysaccharide vaccine, 23 valent; Translations: [Pneumovax 23] DR MINE ZAVALA MD [facility] 08-16-2020 COVID-19, mRNA, LNP- S, PF, 100 mcg or 50 mcg dose; Translations: [Moderna COVID-19 Vaccine] DR MINE ZAVALA MD [facility] 07-19-2020 SARS-CoV-2 (COVID-19 ) mRNA-[address] MINE ZAVALA MD [facility] 05-27-2019 influenza, injectabl e, quadrivalent, preservative free; Translations: [Fluarix PF Quadrivalent ] DR MINE ZAVALA MD [facility] 05-27-2019 pneumococcal conjuga te vaccine, 13 valent; Translations: [Prevnar 13] DR MINE ZAVALA MD [facility] 05-07-2018 influenza virus vacc ine, unspecified formulation DR MINE ZAVALA MD [facility] 05-14-2017 influenza virus vacc ine, unspecified formulation DR MINE ZAVALA MD [facility] 04-13-2016 influenza virus vacc ine, unspecified formulation DR MINE ZAVALA MD [facility] 04-15-2015 influenza virus vacc ine, unspecified formulation DR MINE ZAVALA MD [facility] 06-11-2013 zoster vaccine, live DR FANI ZAVALA MD [facility] Payers Date Payer Category Payer Private Health Insurance [id number] 1940 Unknown [id number] Social History Date Type Detail Facility Start: 04-15-2018 Tobacco smoking status Ex-smoker (fi nding) [facility] Sex Assigned At Female [facility] Medical Equipment Procedure Code Equipment Code Equipment Origin al Text Equipment Identifier Dates BD PEN NEEDL MIS [id number], 0 Refill(s) Start: 04-04-2019 Functional Status Date Assessment Result Facility 04-04-2022 Functional Status Resting [facility] spital [facility] Mental Status Date Assessment Result Facility 04-04-2022 Mental Status Orientation Oriented x 4 [facility] Discharge instructions 04-04-2022 Note Date & [...] or numbness in one or both arms [id number] [employer] [address] [place] [address]. All rights reserved. This information is not [...] hypoglycemia several times, call your healthcare provider. [phone] [employer]. [address] [place] [address]. All rights reserved. This information is not intended as a substitute for professional medical care. Always follow your healthcare professional's instructions. Follow Up Care 04/04/2022 10:03:28 With:KUSH LUNSFORD MD Address: [facility] [place] [id number]- When:2-4 days [facility] Clinical Note 04-04-2022 Note Date & Type Note Facility 04-04-2022 Note Discharge Instructions Thank you for allowing [facility] to assist you with your healthcare needs. [...] [facility] [place] [address]- Allergies naproxen sodium (hives) naproxen (Unknown) Medications [...] Unchanged Misc Medication (BD PEN NEEDL MIS [id number]) Unchanged pantoprazole (pantoprazole 40 mg oral enteric [...] or numbness in one or both arms [id number] [employer]. [address] [place] [address]. All rights reserved. This information is not [...] hypoglycemia several times, call your healthcare provider. [phone] [employer]. [address] [place] [address], [place] [address]. All rights reserved. This information is not intended as a substitute for professional medical care. Always follow your healthcare professional's instructions. Additional Information VACCINATE! IT SAVES LIVES! Members of the community who have not yet received the COVID-19 vaccine and would like to receive it can visit one of [facility] vaccine clinics. There are many vaccine clinic locations within the [facility]. For locations and available times, please visit [email or web address]. It is important to note that some COVID mobile vaccine clinics are held outdoors and may be canceled in rainy or stormy conditions. To learn more about pediatric vaccinations (ages 5-11), we invite you to visit the [facility] webpage. [email or web address] -[email or web address] To learn more about the COVID-19 vaccine, we invite you to visit the [facility] website for a list of frequently asked questions. [email or web address] [facility] Patient Portal Access Instructions: Stay connected with your healthcare team and access your personal medical information anytime with the [facility] Patient Portal. If you would like a full copy of your medical records please contact the [facility] Medical Records Department Sunday through Sunday between 8a.m. and 4:30p.m. Please follow the directions below to access the portal: 1.Access the email account you provided upon registration to the [facility].2.Look for an invitation email from [facility].3.Open the email and access the invitation link: Accept Invitation to [facility]4.Fill in the required rodríguez to create your account. Sign into [email or web address] with your username and password that you [...] you will allow to register on the [facility] Patient Portal for access to your information. You can also access the [facility] Patient Portal on the [employer]. Simply click on Health Records under Health Data and then click on the [employer] logo. HOW TO SAFELY DISPOSE OF PRESCRIPTION [...] Call your local pharmacy or go to [email or web address] to find one close to you.3.Make use of household items: Use cat litter or old coffee grounds to dispose medications if other options are not available. Mix your drugs with these household products, seal them in an airtight container and throw it into the garbage. Call [facility]: [phone] to be sure your drugs can be [...] aware that I should contact my doctor. Patient/Broker In Charge Signature: _ Date/Time: Relationship to Patient: Witness Name/Signature: Date/Time: [facility] Clinical Note 04-04-2022 Note Date & Type [...] Sign Date: 04/04/2022 10:46:28 AM Ordering Provider: [facility] Clinical Note 04-04-2022 Note Date & [...] Sign Date: 04/04/2022 10:46:28 AM Ordering Provider: [facility] Evaluation + Plan note Note Date & Type Note Facility Evaluation + Plan note No data available for this section [facility] Summary Purpose Family History No Family History Records FoundNo Family History Records Found Advance Directives No Advanced Directives Records FoundNo Advanced Directives Records Found Additional Source Comments INFORMATION SOURCE (unrecogn ized section and content) DATE CREATED AUTHOR AUTHOR'S ORGANIZ ATION 04/14/2022 [facility] ([place]) Care Team (unrecognized sect ion and content) Care Team Personnel Name: MELIA POWERS Position: P4 Advanced Practice Nurse Member Role: Primary Care Address: Address: [address] [place] [address]- Name: Percy Live Clerbertrand Crain PT Position: P3 Scheduling - [employer] Technician Advanced Member Role: Other Name: KUSH LUNSFORD MD Member Role: Primary Care Physician Address: Address: [facility] [place], [place] [address] Name: ROBBIE Browning Position: AO RN Member Role: ED RN Name: MD SALLY, MINE CALHOUN Position: ED Physician Member Role: ED Physician Address: Address: [address] [place] [address]- Care Team Related Persons Name: KENNETH LYMAN [...] BE BASED ON THE PRIMARY CLINICAL RECORDS. [facility] [employer] provides no warranty or guarantee of the accuracy or completeness of information in this document.
== END | disposition home or self-care (01) ==
LOC: LABSPEC 12:33
PROVIDERS: PCP Family Medicine Geriatric Medicine; Referring Provider Family Medicine Geriatric Medicine; Visit Provider Family Medicine Geriatric Medicine
DX: D64.9 Anemia, unspecified (principal)
CPT/HCPCS: 82274

== ENCOUNTER → 2023-08-02 | Outpatient (CLI) | payer MEDICARE, SELFPAY ==
[2023-08-02 12:03] LABS: Absolute Lymphocyte Count 1.43 X10^3/uL (0.83-4.51); Absolute Neutrophil Count 4.2 X10^3/uL (2.0-7.7); Basophil# 0.02 X10^3/uL; Basophil% 0.3 % (0-1); Eosinophil# 0.07 X10^3/uL; Eosinophils% 1.1 % (0-5); Hematocrit 36.1 % (37-47); Hemoglobin 10.4 g/dL (12.0-15.0); Lymphocyte # 1.43 X10^3/ul (0.83-4.51); Lymphocyte % 22.7 % (19-41); Mean Corp Hgb Conc 28.8 g/dL (32-36); Mean Corpuscular Hgb 24.7 pg (27.0-32.0); Mean Corpuscular Volume 85.7 fL (81-99); Mean Platelet Vol. 12.3 fl (6.2-12.0); Monocyte# 0.56 X10^3/uL; Monocyte% 8.9 % (0-10); NRBC Flagged by Analyzer 0 % (0-5); Neutrophil # 4.18 X10^3/uL (2.7-7.7); Neutrophil % 66.4 % (47-70); Platelet Count 206 K/mm3 (150-450); RBC Distribution Width CV 18.2 % (11.6-14.6); RBC Distribution Width SD 56.6 fl (35.1-43.9); Red Blood Count 4.21 M/mm3 (4.2-5.4); White Blood Count 6.3 K/mm3 (4.4-11.0)
== END | disposition home or self-care (01) ==
LOC: LAB 11:09
PROVIDERS: PCP Family Medicine Geriatric Medicine; Referring Provider Family Medicine Geriatric Medicine; Visit Provider Family Medicine Geriatric Medicine
DX: D50.9 Iron deficiency anemia, unspecified (principal)
CPT/HCPCS: 36415; 85025

== ENCOUNTER 2023-08-17 09:20 | Inpatient (IN) | payer MEDICARE, SELFPAY ==
[2023-08-17] VITALS (13 sets, daily range): BP systolic 152–228; BP diastolic 81–115; PULSE 78–105; RESP 16–24; TEMP 36.3–37.1; O2SAT 90–99; BMI 39.7
--- NOTE | 2023-08-17 10:22 | EDS_ITS ---
HPI History of Present Illness Chief Complaint: Back Informant: patient and family Narrative Narrative: Brought in by EMS from home increasing lower back pain for the past few days. Started after opening a window no radicular pain. Pain worse with movement. She and was with a walker. She had leftover hydrocodone from compression fracture cervical spine previously was been using this last dose 7 AM. In addition reports worsening cough started 2 months ago worse over the last few days with sputum. Chronic 3 L oxygen at home. Wheezing. Denies diagnosed COPD or asthma. Remote tobacco 40 years ago. She is a diabetic. Status post aerosol treatments by EMS. Daughters increase oxygen to 4 L. No fevers. Denies nausea or vomiting. [facility] Medical History Asthma Atherosclerosis of coronary artery of [place] heart without angina pectoris CKD (chronic kidney disease), stage III [place] syndrome Depression Diabetes mellitus Dyspnea Essential hypertension Former tobacco use Hyperlipidemia Hypoxia Obesity Osteoarthritis Home Medications aspirin 81 mg chewable tablet 81 mg PO DAILY 10/27/21 [History Last Taken Unknown] atorvastatin 40 mg tablet 40 mg PO QHS 03/13/22 [History Last Taken Unknown] ipratropium bromide 42 mcg (0.06 %) nasal spray 1 spray intranasal BID 03/13/22 [History Last Taken Unknown] isosorbide mononitrate 30 mg tablet,extended release 24 hr 30 mg PO DAILY 03/13/22 [History Last Taken Unknown] levocetirizine 5 mg tablet 5 mg PO DAILY 03/13/22 [History Last Taken Unknown] pantoprazole 40 mg tablet,delayed release 40 mg PO DAILY 03/13/22 [History Last Taken Unknown] hydrocodone-acetaminophen 5-325mg 5mg-325mg 1 tab PO TID 01/02/23 [History Last Taken Unknown] insulin degludec 200 unit/mL (3 mL) subcutaneous pen 40 unit subcut BID 01/02/23 [History Last Taken Unknown] pioglitazone 30 mg tablet 30 mg PO DAILY 01/02/23 [History Last Taken Unknown] pregabalin 50 mg capsule 50 mg PO TID 01/02/23 [History Last Taken Unknown] propranolol 40 mg tablet 40 mg PO BID 01/02/23 [History Last Taken Unknown] furosemide 40 mg tablet (Lasix) 40 mg PO DAILY #90 tabs 01/05/23 [Rx Last Taken Unknown] doxepin 10 mg capsule 25 mg PO DAILY 05/07/23 [History Last Taken Unknown] venlafaxine 75 mg tablet 75 mg PO DAILY 05/07/23 [History Last Taken Unknown] Allergy/AdvReac Type Severity Reaction Status Date / Time naproxen Allergy Unknown Hives Verified 05/07/23 13:00 Family History Mother Heart disease CAD (coronary artery disease) Hypertension CHF (congestive heart failure) Father Diabetes Surgical History History of right and left heart catheterization (12/30/20) Hx of hysterectomy Social History household members: family number of children: 4 Smoking Status: Former smoker how long ago did patient quit smoking: Quit ~ 30 years prior, 1 ppd since teen until quit. alcohol intake: never substance use type: does not use ROS ROS ED Constitutional Constitutional ED: Denies chills, fever(s) or sweats Eyes Eyes: Denies change in vision ENT ENT ED: Denies dysphagia or sore throat Cardiovascular Cardiovascular: Denies chest pain, leg edema, palpitations or racing heartbeat Respiratory/Chest Respiratory/Chest: Reports cough and dyspnea; Denies dyspnea on exertion Gastrointestinal Gastrointestinal: Denies abdominal pain, diarrhea, nausea or vomiting Genitourinary Genitourinary ED: Denies dysuria, hematuria or urinary frequency Musculoskeletal Musculoskeletal: Reports back pain; Denies extremity pain or neck pain Integumentary Denies rash or wounds Neurologic Neurologic: Denies headache(s), paresthesias or weakness EXAM Physical Exam Const Vital Signs: 08/17/23 09:22 08/17/23 09:21 08/17/23 09:27 Temperature 97.8 F 97.8 F 98.1 F Temperature Source Oral Temporal Temporal Pulse Rate 82 90 89 Respiratory Rate 24 H 16 20 H Blood Pressure 207/96 H 201/93 H 201/97 H Blood Pressure Mean 133 129 131 Pulse Ox 97 98 97 Oxygen Delivery Method Nasal Cannula Nasal Cannula Nasal Cannula Oxygen Flow Rate (L/min) 4 4 4 08/17/23 10:27 08/17/23 11:00 08/17/23 10:45 Temperature 98.1 F 97.4 F L Temperature Source Temporal Temporal Pulse Rate 89 89 Respiratory Rate 20 H 19 H Blood Pressure 201/94 H 179/103 H Blood Pressure Mean 129 128 Pulse Ox 98 90 Oxygen Delivery Method Nasal Cannula Nasal Cannula Nasal Cannula Oxygen Flow Rate (L/min) 4 4 4 08/17/23 11:04 08/17/23 11:04 08/17/23 12:22 Temperature Temperature Source Pulse Rate 89 89 Respiratory Rate 20 H 17 Blood Pressure 194/94 H Blood Pressure Mean 127 Pulse Ox 98 98 Oxygen Delivery Method Nasal Cannula Nasal Cannula Oxygen Flow Rate (L/min) 4 08/17/23 12:00 Temperature 98.1 F Temperature Source Temporal Pulse Rate 89 Respiratory Rate 20 H Blood Pressure 174/82 H Blood Pressure Mean 112 Pulse Ox 97 Oxygen Delivery Method Room Air Oxygen Flow Rate (L/min) 4 Positive well nourished and well developed Constitutional Narrative: 4 L nasal cannula speaking in short sentences. However no distress. General Appearance ED: well developed HEENT Reports moist mucous membranes normocephalic and atraumatic Eyes PERRL, EOMs intact bilaterally and conjunctivae normal General Eye ED: Yes normal appearance of both eyes Neck no lymphadenopathy and supple General: Negative for tenderness Chest Wall Chest: Negative for tenderness Resp Resp Narrative: Coarse breath sounds. Effort and Inspection: symmetric chest movement; Negative for respiratory distress Cardio regular rate, regular rhythm and no murmurs Peripheral Pulses: pulses 2+ throughout GI normal to inspection, nondistended, normoactive bowel sounds and non-tender Palpation: Negative for guarding or rebound tenderness present Back/Spine no CVA tenderness Back/Spine Narrative: No midline tenderness tender palpation left lumbar para straight leg test was negative. Extremity normal to inspection General Extremety ED: Negative for edema or tenderness General Extremity: Negative for edema Neuro oriented x3 and no sensory deficits noted Sensorium / Orientation: awake and alert Skin no rashes or lesions noted and no wounds MDM MDM MDM Narrative Medical decision making narrative: Interventions / MDM: Differential diagnosis: Vertebral compression fracture, electrolyte abnormalities, viral syndrome reviewed. Wrist x-rays in the system. Diagnosis considered but do not suspect: Pneumonia however x-ray negative. My EKG interpretation: Sinus rate of 87, no ST or T wave changes. Imaging independently reviewed and interpreted by myself: 2 view chest x-ray no infiltrates. T7 compression fracture new from May 2022. T12 compression fracture new from December 2022. 3 view lumbar x-ray: T12 fracture noted. No lumbar fractures. External documents reviewed: Reviewed previous x-rays in the system for comparison. Test considered but not ordered:N/A ED course: Patient multiple complaints primary complaint is back pain without direct falls. Reports worsening cough with productive sputum. Aerosol treatments ordered for coarse breath sounds. On her baseline home oxygen. COVID and flu sent. Basic labs ordered. [place] for pain control. Chest x-ray and lumbar x-rays ordered. Chest x-ray negative for any acute lung process notes new T7 and T12 fractures. Lumbar x-rays negative. COVID and flu returned negative. Labs notes potassium 2.4 oral potassium started. Magnesium added 1.3. IV magnesium for infusion. Patient difficulty ambulating at home with new compression fractures. Clinically tender T12. There is no T7 tenderness. I discussed with hospitalist Dr. Hernandez for admission. Re-evaluation: stable Disposition discussed with patient/family/significant other: Patient and family Case discussed with consulting clinician: Hospitalist This note was generated with [employer] dictation software. It may contain incorrect words, spelling, and punctuation that were not noted in checking the note before signing. Lab Data Attestation: I reviewed the patient's lab results. Labs: Laboratory Results - last 24 hr 08/17/23 10:34 WBC 9.8 RBC 4.28 Hgb 10.8 L Hct 36.1 L MCV 84.3 MCH 25.2 L MCHC 29.9 L RDW Std Deviation 53.7 H RDW Coeff of Duran 17.5 H Plt Count 208 MPV 12.1 H Immature Gran % (Auto) 0.500 Neut % (Auto) 85.2 H Lymph % (Auto) 7.9 L [place] % (Auto) 6.2 Eos % (Auto) 0.0 Baso % (Auto) 0.2 Absolute Neuts (auto) 8.4 H Absolute Lymphs (auto) 0.78 L Nucleated RBC % 0 Sodium 144 Potassium 2.4 L* Chloride 110 H Carbon Dioxide 29.0 Anion Gap 5 BUN 14 Creatinine 0.59 Estim Creat Clear Calc 66.39 Est GFR (MDRD) Af Amer 126 Est GFR (MDRD) Non-Af 104 BUN/Creatinine Ratio 23.9 H Glucose 124 H Calcium 7.1 L Phosphorus 1.6 L Magnesium 1.3 L Radiography Diagnostic Testing: Clinical Impression(s) from Imaging Studies Chest X-Ray 08/17/23 10:45 IMPRESSION: 1. No radiographic evidence of acute cardiopulmonary disease. 2. Severe compression fractures of T7 and L1 new since the previous exam. Electronically Signed: Hayden Arango MD at 11:31 EST , Lumbar Spine X-Ray 08/17/23 11:45 IMPRESSION: Degenerative changes of the lower lumbar spine unchanged. Electronically Signed: Hayden Arango MD at 12:04 EST , Discharge Plan Dx/Rx/DC Orders Clinical Impression: Compression fracture of T7 vertebra, T12 compression fracture, Acute viral syndrome, Acute hypokalemia, Hypomagnesemia Disposition Disposition: Acute Care Hospital [facility] Discharge Date/Time: 08/17/23 14:11
[2023-08-17] MEDS: HYDROcodone Bitartrate/Apap 5/325 Tablet PO (10:25)
[2023-08-17 10:42] LABS: Absolute Lymphocyte Count 0.78 X10^3/uL (0.83-4.51); Absolute Neutrophil Count 8.4 X10^3/uL (2.0-7.7); Basophil# 0.02 X10^3/uL; Basophil% 0.2 % (0-1); Hematocrit 36.1 % (37-47); Hemoglobin 10.8 g/dL (12.0-15.0); Lymphocyte # 0.78 X10^3/ul (0.83-4.51); Lymphocyte % 7.9 % (19-41); Mean Corp Hgb Conc 29.9 g/dL (32-36); Mean Corpuscular Hgb 25.2 pg (27.0-32.0); Mean Corpuscular Volume 84.3 fL (81-99); Mean Platelet Vol. 12.1 fl (6.2-12.0); Monocyte# 0.61 X10^3/uL; Monocyte% 6.2 % (0-10); NRBC Flagged by Analyzer 0 % (0-5); Neutrophil # 8.37 X10^3/uL (2.7-7.7); Neutrophil % 85.2 % (47-70); Platelet Count 208 K/mm3 (150-450); RBC Distribution Width CV 17.5 % (11.6-14.6); RBC Distribution Width SD 53.7 fl (35.1-43.9); Red Blood Count 4.28 M/mm3 (4.2-5.4); White Blood Count 9.8 K/mm3 (4.4-11.0)
--- NOTE | 2023-08-17 10:45 | RAD_ITS ---
INDICATION: cough EXAMINATION/TECHNIQUE: X-RAY - XR Chest 2 Views COMPARISON: Prior study dated: 05/14/2022 FINDINGS: LINES/DEVICES: None. LUNGS: Hypoventilatory changes. No focal infiltrate is seen. No evidence of pleural effusions. MEDIASTINUM AND CARDIOVASCULAR STRUCTURES: Borderline cardiac silhouette. BONES AND SOFT TISSUES: Severe compression fracture of T7 and L1 new since the previous examination. RAD/Chest PA and Lateral IMPRESSION: 1. No radiographic evidence of acute cardiopulmonary disease. 2. Severe compression fractures of T7 and L1 new since the previous exam. Electronically Signed: Hayden Arango MD at 11:31 EST ,
[2023-08-17] MEDS: Ipratropium/Albuterol Sulfate 3 ML AMPUL.NEB INHALATION (11:02)
--- OUTSIDE RECORDS SUMMARY | 2023-08-17 11:02 | XMS RPT_ITS | CCD ---
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 Name Role Phone JAZ DIALLO Unavailable Unavailable [...] Translations: [naproxen] Drug Allergy Unknown, shayy [facility] [place] Medications Current Medications Medication Drug Class(es) Dates [...] Daily, # 30 tab(s), 0 Refill(s), Pharmacy: [facility]/pharmacy #[id number], 165.1, cm, 12/30/20 9:17:00 EDT, Height, kg, 12/30/20 9:17:00 EDT, Dosing Weight Start Date: 12/30/20 Status: Ordered atorvastatin 40 mg oral tablet (1 source) HMG-CoA Reductase Inhibitor Start: 12-30-2020 atorvastatin 40 mg oral tablet Dose : 40 mg = 1 tab(s), Oral, qDay, # 90 tab(s), 0 Refill(s), Pharmacy: [facility]/pharmacy #[id number], 165.1, cm, 12/30/20 9:17:00 EDT, [...] BIDM, # 180 tab(s), 3 Refill(s), Pharmacy: [facility] STORE 15[facility], 165, cm, 05/03/21 14:18:00 EST, Height, kg, 05/03/21 14:18:00 EST, Dosing Weight Start Date: 01/23/22 Status: Ordered DME MISCellaneous (1 source) Start: 05-10-2021 DME MISCellaneous See Instructions, BD Ultra Fine Mini Pen needles use as directed #1 box x refills Dx: E11.9, # 1 EA, 11 Refill(s), [facility], 165, cm, 05/03/21 14:18:00 EST, [...] qAM, # 90 tab(s), 1 Refill(s), Pharmacy: [facility] [id number], 165, cm, 05/03/21 14:18:00 EST, Height, kg, 05/03/21 14:18:00 EST, Dosing Weight Start Date: 11/11/21 Status: Ordered pioglitazone 30 mg oral tablet (1 source) Peroxisome Proliferator Receptor alpha Agonist, Peroxisome Proliferator Receptor gamma Agonist, Thiazolidinedione Start: 10-08-2020 take 1 tablet by mouth once daily pioglitazone 30 mg oral tablet See Instructions, TAKE 1 TABLET DAILY, # 90 tab(s), 3 Refill(s), [id number], DM (diabetes mellitus), type [...] qDay, # 90 tab(s), 3 Refill(s), Pharmacy: [facility]/pharmacy #[id number], GERD - Gastro-esophageal reflux disease, [...] Value Performing Clinician [facility] 04-04-2022 12:13-0400 Diastolic blood pressure 78 mm[Hg] DR MINE ZAVALA MD [facility] 04-04-2022 12:13-0400 Heart rate 80 /min DR MINE ZAVALA MD [facility] 04-04-2022 12:13-0400 Respiratory rate 20 /min DR MINE ZAVALA MD [facility] 04-04-2022 12:13-0400 Systolic blood pressure 168 mm[Hg] DR MINE ZAVALA MD [facility] 04-04-2022 10:25-0400 Body height 165.[address] MINE ZAVALA MD [facility] 04-04-2022 10:25-0400 Body temperature 98.42 [degF] DR MINE ZAVALA MD [facility] 04-04-2022 10:25-0400 Body weight 81.[address] MINE ZAVALA MD [facility] 04-04-2022 10:25-0400 Diastolic blood pressure 86 mm[Hg] DR MINE ZAVALA MD [facility] 04-04-2022 10:25-0400 Heart rate 79 /min DR MINE ZAVALA MD [facility] 04-04-2022 10:25-0400 Respiratory rate 20 /min DR MINE ZAVALA MD [facility] 04-04-2022 10:25-0400 Systolic blood pressure 188 mm[Hg] DR MINE ZAVALA MD [facility] Encounters Encounter Date Encounter Type Care Provider Facility Start: 04-04-2022 End: 04-04-2022 Emergency department patient visit DR. KUSH LUNSFORD MD. Facility: Start: 04-04-2022 End: 04-04-2022 Emergency department patient visit DR MINE ZAVALA MD [facility] Start: 12-18-2016 End: 12-19-2016 Ambulatory PHY WO ID REFERRING Facility:[facility] Start: 12-18-2016 End: 12-18-2016 Ambulatory JAZ DIALLO Facility:[facility] Procedures Date Procedure Procedure Detail Performing Clinician Start: 01-27-[address] eroid injection DR MINE ZAVALA MD Start: 02-25-2015 Cervical facet joint pain (finding) DR MINE ZAVALA MD Immunizations Immunization Date Immunization Notes Care Provider [facility] 10-08-2020 pneumococcal polysaccharide vaccine, 23 valent; Translations: [Pneumovax 23] DR MINE ZAVALA MD [facility] 08-16-2020 COVID-19, mRNA, LNP- S, PF, 100 mcg or 50 mcg dose; Translations: [Moderna COVID-19 Vaccine] DR MINE ZAVALA MD [facility] 07-19-2020 SARS-CoV-2 (COVID-19 ) mRNA-[address] MINE ZAVALA MD [facility] 05-27-2019 influenza, injectabl e, quadrivalent, preservative free; Translations: [Fluarix PF Quadrivalent ] DR MINE ZAVALA MD [facility] 05-27-2019 pneumococcal conjuga te vaccine, 13 valent; Translations: [Prevnar 13] DR MINE ZAVALA MD [facility] 05-07-2018 influenza virus vacc ine, unspecified formulation DR MINE ZAVALA MD [facility] 05-14-2017 influenza virus vacc ine, unspecified formulation DR MINE ZAVALA MD [facility] 04-13-2016 influenza virus vacc ine, unspecified formulation DR MINE ZAVALA MD [facility] 04-15-2015 influenza virus vacc ine, unspecified formulation DR MINE ZAVALA MD [facility] 06-11-2013 zoster vaccine, live DR FANI ZAVALA MD [facility] [place] Payers Date Payer Category Payer Private Health Insurance [id number] 1940 Unknown [id number] Social History Date Type Detail Facility Start: 04-15-2018 Tobacco smoking status Ex-smoker (fi nding) [facility] Sex Assigned At Female [facility] Medical Equipment Procedure Code Equipment Code Equipment Origin al Text Equipment Identifier Dates BD PEN NEEDL MIS [id number], 0 Refill(s) Start: 04-04-2019 Functional Status Date Assessment Result Facility 04-04-2022 Functional Status Resting [facility] Mental Status Date Assessment Result Facility 04-04-2022 Mental Status Orientation Oriented x [address] [facility] Discharge instructions 04-04-2022 Note Date & [...] or numbness in one or both arms [id number] [employer] [address] [place] [address]. All rights reserved. This information is not [...] hypoglycemia several times, call your healthcare provider. [id number] [employer]. [address] [place] [address]. All rights reserved. This information is not intended as a substitute for professional medical care. Always follow your healthcare professional's instructions. Follow Up Care 04/04/2022 10:03:28 With:KUSH LUNSFORD MD Address: [facility] [place] [id number]- When:2-4 days [facility] Clinical Note 04-04-2022 Note Date & Type Note Facility 04-04-2022 Note Discharge Instructions Thank you for allowing [facility] to assist you with your healthcare needs. [...] [facility] [place] [address]- Allergies naproxen sodium (hives) naproxen (Unknown) Medications [...] Unchanged Misc Medication (BD PEN NEEDL MIS [id number]) Unchanged pantoprazole (pantoprazole 40 mg oral enteric [...] or numbness in one or both arms [id number] [employer]. [address] [place] [address]. All rights reserved. This information is not [...] hypoglycemia several times, call your healthcare provider. [phone] [employer]. [address] [place] [address], [place] [address]. All rights reserved. This information is not intended as a substitute for professional medical care. Always follow your healthcare professional's instructions. Additional Information VACCINATE! IT SAVES LIVES! Members of the community who have not yet received the COVID-19 vaccine and would like to receive it can visit one of [facility] vaccine clinics. There are many vaccine clinic locations within the [facility]. For locations and available times, please visit [email or web address]. It is important to note that some COVID mobile vaccine clinics are held outdoors and may be canceled in rainy or stormy conditions. To learn more about pediatric vaccinations (ages 5-11), we invite you to visit the [facility] webpage. [email or web address] -[email or web address] To learn more about the COVID-19 vaccine, we invite you to visit the [facility] website for a list of frequently asked questions. [email or web address] [facility] [employer] Patient Portal Access Instructions: Stay connected with your healthcare team and access your personal medical information anytime with the [facility] [employer] Patient Portal. If you would like a full copy of your medical records please contact the [facility] Medical Records Department Sunday through Sunday between 8a.m. and 4:30p.m. Please follow the directions below to access the portal: 1.Access the email account you provided upon registration to the [facility].2.Look for an invitation email from [facility].3.Open the email and access the invitation link: Accept Invitation to [employer]4.Fill in the required rodríguez to create your account. Sign into www.[email or web address] with your username and password that you [...] you will allow to register on the [employer] Patient Portal for access to your information. You can also access the [employer] Patient Portal on the [employer]a. Simply click on Health Records under Health Data and then click on the [employer] logo. HOW TO SAFELY DISPOSE OF PRESCRIPTION [...] Call your local pharmacy or go to [email or web address] to find one close to you.3.Make use of household items: Use cat litter or old coffee grounds to dispose medications if other options are not available. Mix your drugs with these household products, seal them in an airtight container and throw it into the garbage. Call [facility]: [phone] to be sure your drugs can be [...] aware that I should contact my doctor. 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: _ Date/Time: Relationship to Patient: Witness Name/Signature: Date/Time: [facility] Clinical Note 04-04-2022 Note Date & [...] Sign Date: 04/04/2022 10:46:28 AM Ordering Provider: [facility] Clinical Note 04-04-2022 Note Date & [...] Sign Date: 04/04/2022 10:46:28 AM Ordering Provider: [facility] Evaluation + Plan note Note Date & Type Note Facility Evaluation + Plan note No data available for this section [facility] Summary Purpose Family History No Family [...] Member Role: Primary Care Address: Address: [address] [place] [address]- Name: Percy [employer]erbertrand Crain PT Position: P3 Scheduling - Recruiting Consultant Advanced Member Role: Other Name: KUSH LUNSFORD MD Member Role: Primary Care Physician Address: Address: [facility] [place], [place] [address] Name: ROBBIE Browning Position: AO RN Member Role: ED RN Name: MD SALLY, MINE CALHOUN Position: ED Physician Member Role: ED Physician Address: Address: [address] [place] [address]- Care Team Related Persons Name: KENNETH LYMAN [...] BE BASED ON THE PRIMARY CLINICAL RECORDS. [facility] [employer] provides no warranty or guarantee of the accuracy or completeness of information in this document.
[2023-08-17 11:05] LABS: Anion Gap 5 (5-15); BUN 14 mg/dL (7-18); BUN/Creat Ratio 23.9 RATIO (10-20); Calcium,Total 7.1 mg/dL (8.5-10.1); Chloride 110 mmol/L (98-107); Creatinine, Serum 0.59 mg/dL (0.55-1.02); EST Glomerular Filtration Rate 104 mL/min (>60); Est Glom Filt Rate - Afr Amer 126 mL/min (>60); Estimated Creatinine Clearance 66.39 ml/min; Glucose 124 mg/dL (74-106); Potassium 2.4 mmol/L (3.5-5.1); Sodium Level 144 mmol/L (136-145)
--- NOTE | 2023-08-17 11:13 | EKG12_ITS ---
Test Reason : SOB Blood Pressure : / mmHG Vent. Rate : 087 BPM Atrial Rate : 087 BPM P-R Int : 192 ms QRS Dur : 086 ms QT Int : 376 ms P-R-T Axes : 055 -18 047 degrees QTc Int : 452 ms Normal sinus rhythm Minimal voltage criteria for LVH, may be normal variant ( R in aVL ) Borderline ECG Confirmed by Jun Salas ([id number]), health editor TRACEY PINEDA ([id number]) on 08/20/2023 2:01:59 PM Referred By: Confirmed By:Jun Salas
[2023-08-17] MEDS: Potassium Chloride Oral Tablet 20 MEQ 40 MEQ PO (11:21)
[2023-08-17 11:31] LABS: Magnesium 1.3 mg/dL (1.6-2.6)
--- NOTE | 2023-08-17 11:45 | RAD_ITS ---
INDICATION: pain EXAMINATION/TECHNIQUE: X-RAY - XR Spine Lumbar 2 or 3 Views COMPARISON: Prior study dated: 01/01/2023 FINDINGS: VERTEBRAE: Preserved vertebral body height. No fracture. No spondylolisthesis. Preservation of the normal lumbar lordosis. No substantial scoliosis. DISCS: Narrowing of L5-S1 disc space is again seen. Mild degenerative changes in the facet joints of the lower lumbar spine. INCLUDED ABDOMEN: Atherosclerotic calcifications of the abdominal aorta. RAD/Lumbar Spine 2 or 3 Views IMPRESSION: Degenerative changes of the lower lumbar spine unchanged. Electronically Signed: Hayden Arango MD at 12:04 EST ,
--- NOTE | 2023-08-17 11:58 | CHAPLAIN ---
Type of Pastoral Visit _x__ Initial Visit ___ Follow-up Visit ___ On-call Visit ___ General Patient Visit ___ Spiritual Assessment ___ Family Conference ___ Bereavement ___ Rapid Response ___ Code Blue ___ Other (describe below) Pastoral Care Referral From _x__ Patient _x__ Family ___ Nurse ___ Physician ___ Rabbit Dresser ___ Skin Care Therapist ___ Other (describe below) Sacrament/Intervention _x__ Active listening ___ Anointing ___ Congregation ___ Bereavement ___ Communion ___ Elvira exploration ___ ___ Life review _x__ Prayer ___ Reconciliation ___ Sacrament of Sick _x__ Supportive presence ___ Wedding ___ Other (describe below) Pastoral Comments
--- NOTE | 2023-08-17 12:37 | PCM.HP.STD ---
[facility] - General General Date of Admission: 08/17/23 Date of Service: 08/17/23 Chief Complaint: Patient has severe back pain lower since Sunday. HPI Narrative YUMIKO HU, is a 82 F with history of osteoporosis and chronic back pain follows Dr. Gunderson was brought to ED for severe lower back pain. Patient was trying to open the window by pushing upward and got severe lower back pain on past Sunday. Patient is very fatigued tired and frail, increased nausea for last few days to weeks with the decreased oral intake. Patient looks dehydrated. Patient has history of T7 old fracture but in ER imaging chest x-ray shows severe compression fracture of T12 which is new. She has old T7 fracture. Patient was given pain medication and further admitted. [facility] Medical History Asthma Atherosclerosis of coronary artery of [place] heart without angina pectoris CKD (chronic kidney disease), stage III [place] syndrome Depression Diabetes mellitus Dyspnea Essential hypertension Former tobacco use Hyperlipidemia Hypoxia Obesity Osteoarthritis Home Medications aspirin 81 mg chewable tablet 81 mg PO DAILY 10/27/21 [History Last Taken Unknown] atorvastatin 40 mg tablet 40 mg PO QHS 03/13/22 [History Last Taken Unknown] ipratropium bromide 42 mcg (0.06 %) nasal spray 1 spray intranasal BID 03/13/22 [History Last Taken Unknown] isosorbide mononitrate 30 mg tablet,extended release 24 hr 30 mg PO DAILY 03/13/22 [History Last Taken Unknown] levocetirizine 5 mg tablet 5 mg PO DAILY 03/13/22 [History Last Taken Unknown] pantoprazole 40 mg tablet,delayed release 40 mg PO DAILY 03/13/22 [History Last Taken Unknown] hydrocodone-acetaminophen 5-325mg 5mg-325mg 1 tab PO TID 01/02/23 [History Last Taken Unknown] insulin degludec 200 unit/mL (3 mL) subcutaneous pen 40 unit subcut BID 01/02/23 [History Last Taken Unknown] pioglitazone 30 mg tablet 30 mg PO DAILY 01/02/23 [History Last Taken Unknown] pregabalin 50 mg capsule 50 mg PO TID 01/02/23 [History Last Taken Unknown] propranolol 40 mg tablet 40 mg PO BID 01/02/23 [History Last Taken Unknown] furosemide 40 mg tablet (Lasix) 40 mg PO DAILY #90 tabs 01/05/23 [Rx Last Taken Unknown] doxepin 10 mg capsule 25 mg PO DAILY 05/07/23 [History Last Taken Unknown] venlafaxine 75 mg tablet 75 mg PO DAILY 05/07/23 [History Last Taken Unknown] Allergy/AdvReac Type Severity Reaction Status Date / Time naproxen Allergy Unknown Hives Verified 05/07/23 13:00 Family History Mother Heart disease CAD (coronary artery disease) Hypertension CHF (congestive heart failure) Father Diabetes Surgical History History of right and left heart catheterization (12/30/20) Hx of hysterectomy Social History household members: family number of children: 4 Smoking Status: Former smoker how long ago did patient quit smoking: Quit ~ 30 years prior, 1 ppd since teen until quit. alcohol intake: never substance use type: does not use ROS ROS Narrative Constitutional: Reports fatigue and weakness. No fever. In pain HEENT: Reports systems reviewed and no addt'l complaints, except as documented Respiratory/Chest: No acute shortness of breath or respiratory distress or wheezing. CVS: No chest pain or tightness. Gastrointestinal: Nausea. Denies coffee ground emesis, hematemesis or vomiting Genitourinary: Denies burning urination or new urinary tract symptoms. Chronic urinary incontinence Musculoskeletal: As described in HPI. Low back pain Neurologic: Denies seizure-like symptoms. Denies one-sided weakness or numbness/paresthesia. skin: No ulcer. No rash Endocrinology: Reports systems reviewed and no addt'l complaints, except as documented Hematologic/Lymphatic: Reports systems reviewed and no addt'l complaints, except as documented Rest 14 ROS are negative except as mentioned in HPI Vital Signs Vital Signs Vital Signs: 08/17/23 09:22 08/17/23 09:21 08/17/23 09:27 Temperature 97.8 F 97.8 F 98.1 F Temperature Source Oral Temporal Temporal Pulse Rate 82 90 89 Respiratory Rate 24 H 16 20 H Blood Pressure 207/96 H 201/93 H 201/97 H Blood Pressure Mean 133 129 131 Pulse Ox 97 98 97 Oxygen Delivery Method Nasal Cannula Nasal Cannula Nasal Cannula Oxygen Flow Rate (L/min) 4 4 4 08/17/23 10:27 08/17/23 11:00 08/17/23 10:45 Temperature 98.1 F 97.4 F L Temperature Source Temporal Temporal Pulse Rate 89 89 Respiratory Rate 20 H 19 H Blood Pressure 201/94 H 179/103 H Blood Pressure Mean 129 128 Pulse Ox 98 90 Oxygen Delivery Method Nasal Cannula Nasal Cannula Nasal Cannula Oxygen Flow Rate (L/min) 4 4 4 08/17/23 11:04 08/17/23 11:04 08/17/23 12:22 Temperature Temperature Source Pulse Rate 89 89 Respiratory Rate 20 H 17 Blood Pressure 194/94 H Blood Pressure Mean 127 Pulse Ox 98 98 Oxygen Delivery Method Nasal Cannula Nasal Cannula Oxygen Flow Rate (L/min) 4 Weight Weight: 239 lb Body Mass Index (BMI) 39.7 Physical Exam Narrative General: Alert, Oriented x3, Cooperative HEENT: Atraumatic, PERRLA, EOMI, Normocephalic Oral: Oral mucosa dry. No Gingival or Mucosal Lesions/ Ulcerations Neck: Supple, No JVD, Negative Carotid Bruits Chest wall/Lungs: Air entry diminished in bilateral lung bases. No crepitation/rhonchi Cardiovascular: Regular rate, Regular Rhythm, Normal S1, Normal S2, No M/G/R Abdomen: Bowel Sounds Present, Soft, Non Tender, Non-Distended : No dysuria. No renal angle tenderness. No suprapubic tenderness. Extremities: No edema, Capillary Refill Less than 3 Seconds Skin: No rashes, No breakdown Spine: Tenderness present over T12-L1 vertebra although not able to sit or down laterally. SLR positive on the left lower extremity. Musculoskeletal: No Tenderness to Palpation of Joints or Extremities Neurological: Cranial nerves II-XII grossly intact, DTR 2+/4. Perineal sensation intact. Voiding urine although chronic incontinence Psych/Mental Status: Flat affect in pain Results Lab / Micro Data 08/17/23 10:34 08/17/23 10:34 Labs: Laboratory Results - last 24 hr 08/17/23 10:34: WBC 9.8, RBC 4.28, Hgb 10.8 L, Hct 36.1 L, MCV 84.3, MCH 25.2 L, MCHC 29.9 L, RDW Std Deviation 53.7 H, RDW Coeff of Duran 17.5 H, Plt Count 208, MPV 12.1 H, Immature Gran % (Auto) 0.500, Neut % (Auto) 85.2 H, Lymph % (Auto) 7.9 L, [place] % (Auto) 6.2, Eos % (Auto) 0.0, Baso % (Auto) 0.2, Absolute Neuts (auto) 8.4 H, Absolute Lymphs (auto) 0.78 L, Nucleated RBC % 0, Sodium 144, Potassium 2.4 L*, Chloride 110 H, Carbon Dioxide 29.0, Anion Gap 5, BUN 14, Creatinine 0.59, Estim Creat Clear Calc 66.39, Est GFR (MDRD) Af Amer 126, Est GFR (MDRD) Non-Af 104, BUN/Creatinine Ratio 23.9 H, Glucose 124 H, Calcium 7.1 L, Magnesium 1.3 L Micro: Microbiology 08/17/23 10:34 Mucosa - Nasopharyngeal SARS-CoV-2, Influenza & RSV (PCR) - Final Imaging Radiology Impression Chest X-Ray 08/17/23 10:45 IMPRESSION: 1. No radiographic evidence of acute cardiopulmonary disease. 2. Severe compression fractures of T7 and L1 new since the previous exam. Electronically Signed: Hayden Arango MD at 11:31 EST , Lumbar Spine X-Ray 08/17/23 11:45 IMPRESSION: Degenerative changes of the lower lumbar spine unchanged. Electronically Signed: Hayden Arango MD at 12:04 EST , Assessment & Plan Assessment/Plan (1) Acute exacerbation of chronic low back pain: PLAN: Plan This is a 82-year-old female being admitted for acute on chronic lower back pain after she tried to push window door about 3 days ago. 1. Acute on chronic lower back pain with osteoporosis complicated with compression fracture of T12: Patient is being admitted in PCU. Patient has chronic fracture of T7 since May 2022. T12 is a new fracture. chest x-ray and lumbar spine individually reviewed. Patient is very uncomfortable and pain gets exacerbated on movement on the spine therefore currently not candidate for MRI. Discussed with the pain management Dr. Guevara and agreed for epidural injection on Sunday. IV fluid Ringer lactate ordered. 2. Electrolyte abnormality, severe hypokalemia, hypomagnesemia and hypophosphatemia with severe nausea: IV electrolyte replacement ordered. Twelve-lead EKG shows normal sinus rhythm 87 beats minute, QTc 452 ms with mild concentric LVH. Supportive treatment for nausea and vomiting 3. Diabetes mellitus type 2: Glucose in BMP is 124. Accu-Chek ACHS and cover with Humalog sliding scale. Patient on pioglitazone continued. Home insulin dose adjusted as patient has poor oral intake. 4. Hypertension: Blood pressure is very high systolic in 200s. IV labetalol ordered. Lisinopril 10 mg daily ordered and titrate upwards. Patient on isosorbide mononitrate 30 mg daily also. Hold Lasix as patient is dehydrated. 5. CKD stage IIIa: BUNs/creatinine 14/0.59. 6. Obesity Weight loss and lifestyle changes encouraged 7. Incidental right upper lobe nodule, 1 cm with groundglass opacity found during previous admission on 05/15/2022. Was recommended for outpatient follow-up in 6 months. Patient is a 82-year-old and seems practically not possible to follow-up for nodule with other active comorbidities ongoing. 8. History of pulmonary embolism for which patient was on admitted in May 2022. Patient currently not on Eliquis probably has completed it. On baby aspirin continued #DVT ppx: SCDs. Lovenox 40 mg subcu daily. Last dose Sunday morning. Living will/advanced directive/end of life care: Patient does not have living will or advanced directive. After discussion of benefits/risks procedures involved with full code, DNR CC arrest and DNR CC, the patient opted for full code. Patient does want artificial life support including intubation, tube feed, ventilator and/chest compression, central venous catheter, vasopressor and DC shock if needed Total time spent in [id number] encounter in discussion of advanced directive 17 minutes. Microbiology Past 72 Hours 08/17/23 10:34 Mucosa - Nasopharyngeal SARS-CoV-2, Influenza & RSV (PCR) - Final Laboratory Results 08/17/23 10:34: WBC 9.8, RBC 4.28, Hgb 10.8 L, Hct 36.1 L, MCV 84.3, MCH 25.2 L, MCHC 29.9 L, RDW Std Deviation 53.7 H, RDW Coeff of Duran 17.5 H, Plt Count 208, MPV 12.1 H, Immature Gran % (Auto) 0.500, Neut % (Auto) 85.2 H, Lymph % (Auto) 7.9 L, [place] % (Auto) 6.2, Eos % (Auto) 0.0, Baso % (Auto) 0.2, Absolute Neuts (auto) 8.4 H, Absolute Lymphs (auto) 0.78 L, Nucleated RBC % 0, Sodium 144, Potassium 2.4 L*, Chloride 110 H, Carbon Dioxide 29.0, Anion Gap 5, BUN 14, Creatinine 0.59, Estim Creat Clear Calc 66.39, Est GFR (MDRD) Af Amer 126, Est GFR (MDRD) Non-Af 104, BUN/Creatinine Ratio 23.9 H, Glucose 124 H, Calcium 7.1 L, Magnesium 1.3 L Clinical Impression(s) from Imaging Studies Chest X-Ray 08/17/23 10:45 IMPRESSION: 1. No radiographic evidence of acute cardiopulmonary disease. 2. Severe compression fractures of T7 and L1 new since the previous exam. Lumbar Spine X-Ray 08/17/23 11:45 IMPRESSION: Degenerative changes of the lower lumbar spine unchanged. Charges/Coding Visit Charges Inpatient E&M: 34136 Init Hosp L3 Procedures Hospitalists Procedures: 73087 Advncd Care Plan 30 Min
[2023-08-17] MEDS: Magnesium Sulfate 2 GM in Dextrose 5%-Water (100mL Bag) 100 ML IV (12:55)
[2023-08-17 13:17] LABS: Phosphorus 1.6 mg/dL (2.5-4.9)
[2023-08-17] MEDS: Labetalol (Prefilled) 20 MG/4 ML 10 MG IV (13:29)
[2023-08-17] MEDS: Metoclopramide 10 MG/2 ML Vial 5 MG IV (14:51)
[2023-08-17] MEDS: Pregabalin 50 MG Capsule PO ×2 (15:28→22:02)
[2023-08-17] MEDS: oxyCODONE 5 MG Tablet PO ×2 (15:37→22:11)
[2023-08-17] MEDS: Lactated Ringers 1,000 ML 75 ML IV (16:34)
[2023-08-17] MEDS: Potassium Phosphate 21 MM in 0.9% Normal Saline (250mL Bag) 250 ML 84 MM IV (16:36)
[2023-08-17] MEDS: tiZANidine HCl 2 MG Tablet PO (22:04)
[2023-08-17] MEDS: Propranolol 40 MG Tablet PO (22:04)
[2023-08-17] MEDS: Atorvastatin Calcium 40 MG Tablet PO (22:05)
[2023-08-17] MEDS: Senna/Docusate Sodium 1 Tablet 2 TABLET PO (22:05)
[2023-08-17] MEDS: Ipratropium Bromide 0.06% NASAL SPRAY 1 SPRAY NASAL (22:06)
[2023-08-17 22:36] LABS: Bedside Glucose 116 mg/dL (74-106)
[2023-08-18] VITALS (11 sets, daily range): BP systolic 111–148; BP diastolic 56–78; PULSE 80–102; RESP 16–28; TEMP 35.8–37.2; O2SAT 94–99; BMI 40.5
[2023-08-18] MEDS: oxyCODONE 5 MG Tablet PO ×3 (03:45→12:31)
[2023-08-18 05:49] LABS: Absolute Lymphocyte Count 0.94 X10^3/uL (0.83-4.51); Basophil# 0.02 X10^3/uL; Basophil% 0.2 % (0-1); Eosinophil# 0.07 X10^3/uL; Eosinophils% 0.8 % (0-5); Hematocrit 35.3 % (37-47); Hemoglobin 10.4 g/dL (12.0-15.0); Lymphocyte # 0.94 X10^3/ul (0.83-4.51); Lymphocyte % 10.5 % (19-41); Mean Corp Hgb Conc 29.5 g/dL (32-36); Mean Corpuscular Volume 84.9 fL (81-99); Mean Platelet Vol. 11.9 fl (6.2-12.0); Monocyte# 0.82 X10^3/uL; Monocyte% 9.2 % (0-10); NRBC Flagged by Analyzer 0 % (0-5); Neutrophil # 7.03 X10^3/uL (2.7-7.7); Neutrophil % 78.9 % (47-70); Platelet Count 235 K/mm3 (150-450); RBC Distribution Width CV 17.7 % (11.6-14.6); RBC Distribution Width SD 55.2 fl (35.1-43.9); Red Blood Count 4.16 M/mm3 (4.2-5.4); White Blood Count 8.9 K/mm3 (4.4-11.0)
[2023-08-18] MEDS: Enoxaparin 40 MG/0.4 ML Syringe SC (05:59)
[2023-08-18] MEDS: Pregabalin 50 MG Capsule PO ×3 (05:59→22:46)
[2023-08-18] MEDS: tiZANidine HCl 2 MG Tablet PO (06:00)
[2023-08-18] MEDS: Lactated Ringers 1,000 ML 75 ML IV (06:00)
[2023-08-18 06:09] LABS: Anion Gap 3 (5-15); BUN 18 mg/dL (7-18); BUN/Creat Ratio 19.4 RATIO (10-20); Chloride 100 mmol/L (98-107); Creatinine, Serum 0.93 mg/dL (0.55-1.02); EST Glomerular Filtration Rate 61 mL/min (>60); Est Glom Filt Rate - Afr Amer 74 mL/min (>60); Estimated Creatinine Clearance 55.12 ml/min; Glucose 55 mg/dL (74-106); Magnesium 2.1 mg/dL (1.6-2.6); Phosphorus 2.9 mg/dL (2.5-4.9); Potassium 3.6 mmol/L (3.5-5.1); Sodium Level 142 mmol/L (136-145)
[2023-08-18] MEDS: Dextrose 50%-Water 25 GM/50 ML DISP.SYRIN IV (06:49)
[2023-08-18] MEDS: Venlafaxine HCl 75 MG Tablet PO (07:43)
[2023-08-18] MEDS: Pantoprazole Sodium 40 MG Tablet PO (07:43)
[2023-08-18] MEDS: Aspirin 81 MG TAB.CHEW PO (07:43)
[2023-08-18] MEDS: Ipratropium Bromide 0.06% NASAL SPRAY 1 SPRAY NASAL ×2 (07:43→22:47)
[2023-08-18] MEDS: Doxepin Hcl 25 MG Capsule PO (07:43)
[2023-08-18 07:49] LABS: Bedside Glucose 86 mg/dL (74-106)
[2023-08-18 07:49] LABS: Bedside Glucose 56 mg/dL (74-106)
[2023-08-18 07:49] LABS: Bedside Glucose 42 mg/dL (74-106)
--- NOTE | 2023-08-18 08:10 | CPS ---
Pt is unable to do I.S. or PEP therapy
--- NOTE | 2023-08-18 09:16 | PCM.PN.HOSP ---
Reason for Visit Reason for Visit: Diagnoses Other chronic pain (08/17/23) Low back pain, unspecified (08/17/23) Objective Data Objective Data Vital Signs: Vital Signs Temp Pulse Resp BP Pulse Ox O2 Del Method O2 Flow Rate 96.5 F L 80 18 132/78 H 99 Nasal Cannula 4 08/18/23 04:00 08/18/23 04:00 08/18/23 04:00 08/18/23 04:00 08/18/23 04:00 08/18/23 07:59 08/18/23 07:59 Oxygen Flow Rate (L/min) 4 Oxygen Delivery Method Nasal Cannula Weight: 236 lb 5.369 oz Body Mass Index (BMI) 40.5 Intake & Output: Intake and Output for Last 24 Hours 08/16/23 08/17/23 08/18/23 23:59 23:59 23:59 Intake Total 411 / 411 1000 / 1000 Output Total 50 / 50 Balance 361 / 361 1000 / 1000 Lab / Micro Data 08/18/23 05:27 08/18/23 05:27 Labs: Laboratory Results - last 24 hr 08/17/23 10:34: WBC 9.8, RBC 4.28, Hgb 10.8 L, Hct 36.1 L, MCV 84.3, MCH 25.2 L, MCHC 29.9 L, RDW Std Deviation 53.7 H, RDW Coeff of Duran 17.5 H, Plt Count 208, MPV 12.1 H, Immature Gran % (Auto) 0.500, Neut % (Auto) 85.2 H, Lymph % (Auto) 7.9 L, [place] % (Auto) 6.2, Eos % (Auto) 0.0, Baso % (Auto) 0.2, Absolute Neuts (auto) 8.4 H, Absolute Lymphs (auto) 0.78 L, Nucleated RBC % 0, Sodium 144, Potassium 2.4 L*, Chloride 110 H, Carbon Dioxide 29.0, Anion Gap 5, BUN 14, Creatinine 0.59, Estim Creat Clear Calc 66.39, Est GFR (MDRD) Af Amer 126, Est GFR (MDRD) Non-Af 104, BUN/Creatinine Ratio 23.9 H, Glucose 124 H, Calcium 7.1 L, Phosphorus 1.6 L, Magnesium 1.3 L 08/17/23 21:55: POC Glucose 116 H 08/18/23 05:27: WBC 8.9, RBC 4.16 L, Hgb 10.4 L, Hct 35.3 L, MCV 84.9, MCH 25.0 L, MCHC 29.5 L, RDW Std Deviation 55.2 H, RDW Coeff of Duran 17.7 H, Plt Count 235, MPV 11.9, Immature Gran % (Auto) 0.400, Neut % (Auto) 78.9 H, Lymph % (Auto) 10.5 L, [place] % (Auto) 9.2, Eos % (Auto) 0.8, Baso % (Auto) 0.2, Absolute Neuts (auto) 7.0, Absolute Lymphs (auto) 0.94, Nucleated RBC % 0, Sodium 142, Potassium 3.6, Chloride 100, Carbon Dioxide 39.0 H, Anion Gap 3 L, BUN 18, Creatinine 0.93, Estim Creat Clear Calc 55.12, Est GFR (MDRD) Af Amer 74, Est GFR (MDRD) Non-Af 61, BUN/Creatinine Ratio 19.4, Glucose 55 L, Calcium 9.0, Phosphorus 2.9, Magnesium 2.1 08/18/23 06:17: POC Glucose 42 L* 08/18/23 06:43: POC Glucose 56 L 08/18/23 07:30: POC Glucose 86 Micro: Microbiology 08/17/23 10:34 Mucosa - Nasopharyngeal SARS-CoV-2, Influenza & RSV (PCR) - Final Radiography Diagnostic Testing: Radiology Impression Chest X-Ray 08/17/23 10:45 IMPRESSION: 1. No radiographic evidence of acute cardiopulmonary disease. 2. Severe compression fractures of T7 and L1 new since the previous exam. Electronically Signed: Hayden Arango MD at 11:31 EST , Lumbar Spine X-Ray 08/17/23 11:45 IMPRESSION: Degenerative changes of the lower lumbar spine unchanged. Electronically Signed: Hayden Arango MD at 12:04 EST , Physical Exam Narrative Seen and examined. Patient is still in the pain stairs no change from yesterday. Patient had 14 beats of NSVT. Pain gets exacerbated on little bit change of the spine movement General: Alert, Oriented x3, Cooperative HEENT: Atraumatic, PERRLA, EOMI, Normocephalic Oral: Oral mucosa dry. No Gingival or Mucosal Lesions/ Ulcerations Neck: Supple, No JVD, Negative Carotid Bruits Chest wall/Lungs: Air entry diminished in bilateral lung bases. Bilateral wheezing. On 4 L of oxygen. Cardiovascular: Regular rate, Regular Rhythm, Normal S1, Normal S2, No M/G/R Abdomen: Bowel Sounds Present, Soft, Non Tender, Non-Distended : No dysuria. No renal angle tenderness. No suprapubic tenderness. Extremities: No edema, Capillary Refill Less than 3 Seconds Skin: No rashes, No breakdown Spine: Tenderness present over T12-L1 vertebra although not able to sit or down laterally. SLR positive on the left lower extremity. Musculoskeletal: No Tenderness to Palpation of Joints or Extremities Neurological: Cranial nerves II-XII grossly intact, DTR 2+/4. Perineal sensation intact. Voiding urine although chronic incontinence Psych/Mental Status: Flat affect in pain Assessment & Plan Assessment/Plan (1) Acute exacerbation of chronic low back pain: PLAN: Plan This is a 82-year-old female being admitted for acute on chronic lower back pain after she tried to push window door about 3 days ago. 1. Acute on chronic lower back pain with osteoporosis complicated with compression fracture of T12: Patient is being admitted in PCU. Patient has chronic fracture of T7 since May 2022. T12 is a new fracture. chest x-ray and lumbar spine individually reviewed. Patient is very uncomfortable and pain gets exacerbated on movement on the spine therefore currently not candidate for MRI. Discussed with the pain management Dr. Guevara and agreed for epidural injection on Sunday. IV fluid Ringer lactate ordered. NSVT: 4 patient had 14 beats of short run of PVC. Patient on propranolol 40 mg p.o. twice daily, changed to metoprolol 25 mg p.o. twice daily. Electrolytes are corrected. 2. Electrolyte abnormality, severe hypokalemia, hypomagnesemia and hypophosphatemia with severe nausea: IV electrolyte replacement ordered. Twelve-lead EKG shows normal sinus rhythm 87 beats minute, QTc 452 ms with mild concentric LVH. Supportive treatment for nausea and vomiting 08/17 hypomagnesemia hypophosphatemia and hypokalemia are corrected. Short run of NSVT. Per plain clothes police officer to metoprolol. Keep potassium about 4 and magnesium about 2.0. Suspected COPD: Chronic wheezing and hypoxia, exact etiology unclear: As per the daughter patient has chronic wheezing and history of smoking about about 20 pack years of smoking. Patient on DuoNeb every 6 hourly. Patient also on furosemide 40 mg daily at home regimen. Monitor electrolytes. 3. Diabetes mellitus type 2: Glucose in BMP is 124. Accu-Chek ACHS and cover with Humalog sliding scale. Patient on pioglitazone continued. Home insulin dose adjusted as patient has poor oral intake. 08/17: Patient had hypoglycemia glucose 42 and 56. Patient on 30 units of glargine insulin twice daily at home, decrease to 10 mg twice daily with holding parameters because of hypoglycemia. 4. Hypertension: Blood pressure is very high systolic in 200s. IV labetalol ordered. Lisinopril 10 mg daily ordered and titrate upwards. Patient on isosorbide mononitrate 30 mg daily also. Hold Lasix as patient is dehydrated. 08/28: Blood pressure profile is better improved 142/63. 5. CKD stage IIIa: BUNs/creatinine 14/0.59. 6. Obesity Weight loss and lifestyle changes encouraged 7. Incidental right upper lobe nodule, 1 cm with groundglass opacity found during previous admission on 05/15/2022. Was recommended for outpatient follow-up in 6 months. Patient is a 82-year-old and seems practically not possible to follow-up for nodule with other active comorbidities ongoing. 8. Patient also has chronic wheezing as per the daughter but denies any history of diagnosed asthma or COPD. Patient might have 2024. Packs of smoking but quit 40 years ago. Will recommend outpatient follow-up. 9. History of pulmonary embolism for which patient was on admitted in May 2022. Patient currently not on Eliquis probably has completed it. On baby aspirin continued #DVT ppx: SCDs. Lovenox 40 mg subcu daily. Last dose Sunday morning. Living will/advanced directive/end of life care: Patient does not have living will or advanced directive. After discussion of benefits/risks procedures involved with full code, DNR CC arrest and DNR CC, the patient opted for full code. Patient does want artificial life support including intubation, tube feed, ventilator and/chest compression, central venous catheter, vasopressor and DC shock if needed Total time spent in [id number] encounter in discussion of advanced directive 17 minutes. Microbiology Past 72 Hours 08/17/23 10:34 Mucosa - Nasopharyngeal SARS-CoV-2, Influenza & RSV (PCR) - Final Microbiology Past 72 Hours 08/17/23 10:34 Mucosa - Nasopharyngeal SARS-CoV-2, Influenza & RSV (PCR) - Final Laboratory Results 08/17/23 10:34: Phosphorus 1.6 L 08/17/23 21:55: POC Glucose 116 H 08/18/23 05:27: WBC 8.9, RBC 4.16 L, Hgb 10.4 L, Hct 35.3 L, MCV 84.9, MCH 25.0 L, MCHC 29.5 L, RDW Std Deviation 55.2 H, RDW Coeff of Duran 17.7 H, Plt Count 235, MPV 11.9, Immature Gran % (Auto) 0.400, Neut % (Auto) 78.9 H, Lymph % (Auto) 10.5 L, [place] % (Auto) 9.2, Eos % (Auto) 0.8, Baso % (Auto) 0.2, Absolute Neuts (auto) 7.0, Absolute Lymphs (auto) 0.94, Nucleated RBC % 0, Sodium 142, Potassium 3.6, Chloride 100, Carbon Dioxide 39.0 H, Anion Gap 3 L, BUN 18, Creatinine 0.93, Estim Creat Clear Calc 55.12, Est GFR (MDRD) Af Amer 74, Est GFR (MDRD) Non-Af 61, BUN/Creatinine Ratio 19.4, Glucose 55 L, Calcium 9.0, Phosphorus 2.9, Magnesium 2.1 08/18/23 06:17: POC Glucose 42 L* 08/18/23 06:43: POC Glucose 56 L 08/18/23 07:30: POC Glucose 86 08/18/23 11:11: POC Glucose 81 Clinical Impression(s) from Imaging Studies Chest X-Ray 08/17/23 10:45 IMPRESSION: 1. No radiographic evidence of acute cardiopulmonary disease. 2. Severe compression fractures of T7 and L1 new since the previous exam. Lumbar Spine X-Ray 08/17/23 11:45 IMPRESSION: Degenerative changes of the lower lumbar spine unchanged. Charges/Coding Visit Charges Inpatient E&M: 15033 Subs Hosp L2
[2023-08-18] MEDS: 0.9% Saline Lock 10 ML Syringe IV ×2 (09:53→16:16)
[2023-08-18] MEDS: KCL 20MEQ in D5.45NS 20 MEQ/1,000 ML IV.SOLN. 50 MEQ IV (09:53)
[2023-08-18] MEDS: Lisinopril 10 MG Tablet PO (09:54)
[2023-08-18] MEDS: Metoprolol Tartrate 25 MG Tablet PO ×2 (09:54→22:45)
[2023-08-18] MEDS: Isosorbide Mononitrate 30 MG Tablet PO (09:54)
[2023-08-18] MEDS: Potassium Chloride Oral Tablet 20 MEQ 40 MEQ PO (09:54)
[2023-08-18] MEDS: Furosemide 40 MG Tablet PO (09:57)
[2023-08-18 11:30] LABS: Bedside Glucose 81 mg/dL (74-106)
--- NOTE | 2023-08-18 13:40 | CASEMGMT ---
ROBBIE BELLO Assessment: Face to Face with pt for initial transition planning/care coordination assessment. ROBBIE EBLLO introduced self and role at [facility], pt voices understanding and consents to assessment. Pt is A&O x4, pt resting in bed, and answers all questions appropriately at this time. Care providers, pharmacy, and demographics verified/updated. Admitting Dx: compression T7, T12, hypokalemia PCP: Specialists: Dr. Estrada [facility] Insurance: [employer] Medicare Prescription Benefit: yes LNOK: Dale Solitario Living Arrangements: Pt lives at home with daughter and grandson. Home is single story with basement. Pt does not go down into the basement. There are 2 steps to enter the home with no rail, daughter and grandson assist pt. Pt reports she needs help with ADLs at baseline, daughter helps and is home 01/01, daughter completes all IADLs. Transportation: Daughter provides all transportation. DME: walker, shower chair, oxygen at 4L [place] through [employer]. Pt has a portable tank and home concentrator. CM to follow up Sunday to confirm home Rx. HHC/SNF: None Pt states no concerns with going home at time of dc. Pt states no further concerns/needs. CM to follow. Advised pt to ask CM if any further question/concerns/needs arise, voices understanding. Pt Goal: Home but is open to OP PT/OT, HHC, or SNF if needed Plan: Tentatively home, pending PT/OT assessment after her procedure Sunday Greta Wong MSN, RN, CCM
[2023-08-18] MEDS: tiZANidine HCl 2 MG Tablet 4 MG PO ×2 (13:48→22:45)
[2023-08-18] MEDS: Ipratropium/Albuterol Sulfate 3 ML AMPUL.NEB INHALATION ×2 (14:05→19:16)
[2023-08-18 15:58] LABS: Bedside Glucose 124 mg/dL (74-106)
[2023-08-18] MEDS: HYDROmorphone 1 MG/ML Syringe IV ×2 (16:16→20:19)
[2023-08-18] MEDS: Acetaminophen 325 MG Tablet 650 MG PO (20:14)
[2023-08-18] MEDS: Senna/Docusate Sodium 1 Tablet 2 TABLET PO (22:46)
[2023-08-18] MEDS: Atorvastatin Calcium 40 MG Tablet PO (22:47)
[2023-08-18] MEDS: Insulin Glargine-YFGN 100 UNIT/ML Pen 10 UNIT SC (23:07)
[2023-08-18] MEDS: Insulin Lispro 100 UNIT/ML INSULN.PEN SC (23:11)
[2023-08-18 23:30] LABS: Bedside Glucose 171 mg/dL (74-106)
[2023-08-19] VITALS (9 sets, daily range): BP systolic 92–178; BP diastolic 57–79; PULSE 81–105; RESP 16–24; TEMP 36.4–37.6; O2SAT 94–97; BMI 41.1
[2023-08-19 05:09] LABS: Absolute Lymphocyte Count 0.98 X10^3/uL (0.83-4.51); Absolute Neutrophil Count 4.8 X10^3/uL (2.0-7.7); Basophil# 0.03 X10^3/uL; Basophil% 0.4 % (0-1); Eosinophil# 0.13 X10^3/uL; Eosinophils% 1.9 % (0-5); Hematocrit 33.9 % (37-47); Hemoglobin 9.9 g/dL (12.0-15.0); Lymphocyte # 0.98 X10^3/ul (0.83-4.51); Lymphocyte % 14.3 % (19-41); Mean Corp Hgb Conc 29.2 g/dL (32-36); Mean Corpuscular Hgb 25.1 pg (27.0-32.0); Mean Platelet Vol. 11.7 fl (6.2-12.0); Monocyte# 0.84 X10^3/uL; Monocyte% 12.3 % (0-10); NRBC Flagged by Analyzer 0 % (0-5); Neutrophil # 4.81 X10^3/uL (2.7-7.7); Neutrophil % 70.5 % (47-70); Platelet Count 214 K/mm3 (150-450); RBC Distribution Width CV 17.5 % (11.6-14.6); RBC Distribution Width SD 55.8 fl (35.1-43.9); Red Blood Count 3.94 M/mm3 (4.2-5.4); White Blood Count 6.8 K/mm3 (4.4-11.0)
[2023-08-19] MEDS: Pregabalin 50 MG Capsule PO ×3 (05:14→22:57)
[2023-08-19] MEDS: HYDROmorphone 1 MG/ML Syringe IV ×2 (05:15→08:34)
[2023-08-19] MEDS: Acetaminophen 325 MG Tablet 650 MG PO (05:15)
[2023-08-19] MEDS: KCL 20MEQ in D5.45NS 20 MEQ/1,000 ML IV.SOLN. 50 MEQ IV (05:16)
[2023-08-19] MEDS: Enoxaparin 40 MG/0.4 ML Syringe SC (05:18)
[2023-08-19] MEDS: tiZANidine HCl 2 MG Tablet 4 MG PO ×3 (05:19→22:59)
[2023-08-19 05:27] LABS: Anion Gap 6 (5-15); BUN 35 mg/dL (7-18); BUN/Creat Ratio 21.5 RATIO (10-20); Chloride 97 mmol/L (98-107); Creatinine, Serum 1.63 mg/dL (0.55-1.02); EST Glomerular Filtration Rate 32 mL/min (>60); Est Glom Filt Rate - Afr Amer 39 mL/min (>60); Glucose 194 mg/dL (74-106); Potassium 4.2 mmol/L (3.5-5.1); Sodium Level 137 mmol/L (136-145)
[2023-08-19] MEDS: Insulin Lispro 100 UNIT/ML INSULN.PEN SC ×4 (07:00→22:55)
--- NOTE | 2023-08-19 07:03 | NURSING ---
PT BLADDER SCANNED FOR [phone], WILL NOTIFY THE DR
[2023-08-19 07:21] LABS: Bedside Glucose 188 mg/dL (74-106)
[2023-08-19] MEDS: Ipratropium/Albuterol Sulfate 3 ML AMPUL.NEB INHALATION ×2 (07:21→21:04)
[2023-08-19] MEDS: Metoprolol Tartrate 25 MG Tablet PO ×2 (08:10→22:57)
[2023-08-19] MEDS: Senna/Docusate Sodium 1 Tablet 2 TABLET PO ×2 (08:11→22:58)
[2023-08-19] MEDS: Spironolactone 25 MG Tablet 12.5 MG PO (08:12)
[2023-08-19] MEDS: Furosemide 40 MG Tablet PO (08:13)
[2023-08-19] MEDS: Pioglitazone Hydrochloride 30 MG Tablet PO (08:13)
[2023-08-19] MEDS: Pantoprazole Sodium 40 MG Tablet PO (08:14)
[2023-08-19] MEDS: Doxepin Hcl 25 MG Capsule PO (08:14)
[2023-08-19] MEDS: Isosorbide Mononitrate 30 MG Tablet PO (08:14)
[2023-08-19] MEDS: Lisinopril 10 MG Tablet PO (08:15)
[2023-08-19] MEDS: Aspirin 81 MG TAB.CHEW PO (08:15)
[2023-08-19] MEDS: Venlafaxine HCl 75 MG Tablet PO (08:16)
[2023-08-19] MEDS: Ipratropium Bromide 0.06% NASAL SPRAY 1 SPRAY NASAL ×2 (08:16→22:55)
[2023-08-19] MEDS: Polyethylene Glycol 3350 17 GM PACKET PO ×2 (08:17→22:58)
[2023-08-19] MEDS: Insulin Glargine-YFGN 100 UNIT/ML Pen 10 UNIT SC (08:29)
[2023-08-19] MEDS: 0.9% Saline Lock 10 ML Syringe IV ×3 (08:34→22:58)
[2023-08-19 12:01] LABS: Bedside Glucose 185 mg/dL (74-106)
--- NOTE | 2023-08-19 14:47 | PCM.PN.HOSP ---
Reason for Visit Reason for Visit: Diagnoses Other chronic pain (08/17/23) Low back pain, unspecified (08/17/23) Objective Data Objective Data Vital Signs: Vital Signs Temp Pulse Resp BP Pulse Ox O2 Del Method O2 Flow Rate 97.6 F L 88 18 136/59 H 94 Nasal Cannula 5 08/19/23 14:00 08/19/23 14:00 08/19/23 14:00 08/19/23 14:00 08/19/23 14:00 08/19/23 14:00 08/19/23 14:00 Oxygen Flow Rate (L/min) 5 Oxygen Delivery Method Nasal Cannula Weight: 239 lb 13.807 oz Body Mass Index (BMI) 41.1 Intake & Output: Intake and Output for Last 24 Hours 08/17/23 08/18/23 08/20/23 23:59 23:59 00:59 Intake Total 411 / 411 1875. 1259.17 / 1259.17 Output Total 50 / 50 850 / 850 Balance 361 / 361 409.17 / 409.17 Lab / Micro Data 08/19/23 04:27 08/19/23 04:27 Labs: Laboratory Results - last 24 hr 08/18/23 15:38: POC Glucose 124 H 08/18/23 23:04: POC Glucose 171 H 08/19/23 04:27: WBC 6.8, RBC 3.94 L, Hgb 9.9 L, Hct 33.9 L, MCV 86.0, MCH 25.1 L, MCHC 29.2 L, RDW Std Deviation 55.8 H, RDW Coeff of Duran 17.5 H, Plt Count 214, MPV 11.7, Immature Gran % (Auto) 0.600, Neut % (Auto) 70.5 H, Lymph % (Auto) 14.3 L, [place] % (Auto) 12.3 H, Eos % (Auto) 1.9, Baso % (Auto) 0.4, Absolute Neuts (auto) 4.8, Absolute Lymphs (auto) 0.98, Nucleated RBC % 0, Sodium 137, Potassium 4.2, Chloride 97 L, Carbon Dioxide 34.0 H, Anion Gap 6, BUN 35 H, Creatinine 1.63 H, Estim Creat Clear Calc 31.80, Est GFR (MDRD) Af Amer 39 L, Est GFR (MDRD) Non-Af 32 L, BUN/Creatinine Ratio 21.5 H, Glucose 194 H, Calcium 9.0 08/19/23 06:55: POC Glucose 188 H 08/19/23 11:14: POC Glucose 185 H Micro: Microbiology 08/17/23 10:34 Mucosa - Nasopharyngeal SARS-CoV-2, Influenza & RSV (PCR) - Final Physical Exam Narrative Seen and examined. Patient states her pain is slightly better but is still painful when she tries to move. Patient had food yesterday. Patient on 5 L of oxygen. Patient is still in the pain stairs no change from yesterday. Patient had 14 beats of NSVT. Pain gets exacerbated on little bit change of the spine movement General: Alert, Oriented x3, Cooperative HEENT: Atraumatic, PERRLA, EOMI, Normocephalic Oral: Oral mucosa dry. No Gingival or Mucosal Lesions/ Ulcerations Neck: Supple, No JVD, Negative Carotid Bruits Chest wall/Lungs: Air entry diminished in bilateral lung bases. Wheezing is better but patient on 5 L of oxygen. Cardiovascular: Regular rate, Regular Rhythm, Normal S1, Normal S2, No M/G/R Abdomen: Bowel Sounds Present, Soft, Non Tender, Non-Distended : No dysuria. No renal angle tenderness. No suprapubic tenderness. Extremities: No edema, Capillary Refill Less than 3 Seconds Skin: No rashes, No breakdown Spine: Tenderness present over T12-L1 vertebra. SLR positive on the left lower extremity. Musculoskeletal: No Tenderness to Palpation of Joints or Extremities Neurological: Cranial nerves II-XII grossly intact, DTR 2+/4. Perineal sensation intact. Voiding urine although chronic incontinence Psych/Mental Status: Flat affect in pain Assessment & Plan Assessment/Plan (1) Acute exacerbation of chronic low back pain: PLAN: Plan This is a 82-year-old female being admitted for acute on chronic lower back pain after she tried to push window door about 3 days ago. 1. Acute on chronic lower back pain with osteoporosis complicated with compression fracture of T12: Patient is being admitted in PCU. Patient has chronic fracture of T7 since May 2022. T12 is a new fracture. chest x-ray and lumbar spine individually reviewed. Patient is very uncomfortable and pain gets exacerbated on movement on the spine therefore currently not candidate for MRI. Discussed with the pain management Dr. Guevara and agreed for epidural injection on Sunday. IV fluid Ringer lactate ordered. NSVT: 4 patient had 14 beats of short run of PVC. Patient on propranolol 40 mg p.o. twice daily, changed to metoprolol 25 mg p.o. twice daily. Electrolytes are corrected. 08/18: Heart rate is controlled. 2. Electrolyte abnormality, severe hypokalemia, hypomagnesemia and hypophosphatemia with severe nausea: IV electrolyte replacement ordered. Twelve-lead EKG shows normal sinus rhythm 87 beats minute, QTc 452 ms with mild concentric LVH. Supportive treatment for nausea and vomiting 08/17 hypomagnesemia hypophosphatemia and hypokalemia are corrected. Short run of NSVT. Per rubber molder to metoprolol. Keep potassium about 4 and magnesium about 2.0. Suspected COPD: Chronic wheezing and hypoxia, exact etiology unclear: As per the daughter patient has chronic wheezing and history of smoking about about 20 pack years of smoking. Patient on DuoNeb every 6 hourly. Patient also on furosemide 40 mg daily at home regimen. Monitor electrolytes. 08/18: Shortness of breath and wheezing seems better but hypoxia increased. Solu-Medrol IV ordered. Repeat CT chest ordered. 3. Diabetes mellitus type 2: Glucose in BMP is 124. Accu-Chek ACHS and cover with Humalog sliding scale. Patient on pioglitazone continued. Home insulin dose adjusted as patient has poor oral intake. 08/17: Patient had hypoglycemia glucose 42 and 56. Patient on 30 units of glargine insulin twice daily at home, decrease to 10 mg twice daily with holding parameters because of hypoglycemia. 08/18: Glucose 1 85-1 88. Patient started on Solu-Medrol therefore dose of Lantus insulin increased. 4. Hypertension: Blood pressure is very high systolic in 200s. IV labetalol ordered. Lisinopril 10 mg daily ordered and titrate upwards. Patient on isosorbide mononitrate 30 mg daily also. Hold Lasix as patient is dehydrated. 08/28: Blood pressure profile is better improved 142/63. 5. ROHIT on CKD stage IIIa: BUNs/creatinine 14/0.59. 08/18: Patient creatinine jumped up from 0.9-1.63. Patient home dose of Lasix, lisinopril and spironolactone discontinued. Patient is well-hydrated. Will monitor kidney function. Actos also discontinued. 6. Obesity Weight loss and lifestyle changes encouraged 7. Incidental right upper lobe nodule, 1 cm with groundglass opacity found during previous admission on 05/15/2022. Was recommended for outpatient follow-up in 6 months. Patient is a 82-year-old and seems practically not possible to follow-up for nodule with other active comorbidities ongoing. 8. Patient also has chronic wheezing as per the daughter but denies any history of diagnosed asthma or COPD. Patient might have 2024. Packs of smoking but quit 40 years ago. Will recommend outpatient follow-up. 9. History of pulmonary embolism for which patient was on admitted in May 2022. Patient currently not on Eliquis probably has completed it. On baby aspirin continued #DVT ppx: SCDs. Lovenox 40 mg subcu daily. Last dose Sunday morning. Living will/advanced directive/end of life care: Patient does not have living will or advanced directive. After discussion of benefits/risks procedures involved with full code, DNR CC arrest and DNR CC, the patient opted for full code. Patient does want artificial life support including intubation, tube feed, ventilator and/chest compression, central venous catheter, vasopressor and DC shock if needed Total time spent in [id number] encounter in discussion of advanced directive 17 minutes. Microbiology Past 72 Hours 08/17/23 10:34 Mucosa - Nasopharyngeal SARS-CoV-2, Influenza & RSV (PCR) - Final Laboratory Results 08/18/23 15:38: POC Glucose 124 H 08/18/23 23:04: POC Glucose 171 H 08/19/23 04:27: WBC 6.8, RBC 3.94 L, Hgb 9.9 L, Hct 33.9 L, MCV 86.0, MCH 25.1 L, MCHC 29.2 L, RDW Std Deviation 55.8 H, RDW Coeff of Duran 17.5 H, Plt Count 214, MPV 11.7, Immature Gran % (Auto) 0.600, Neut % (Auto) 70.5 H, Lymph % (Auto) 14.3 L, [place] % (Auto) 12.3 H, Eos % (Auto) 1.9, Baso % (Auto) 0.4, Absolute Neuts (auto) 4.8, Absolute Lymphs (auto) 0.98, Nucleated RBC % 0, Sodium 137, Potassium 4.2, Chloride 97 L, Carbon Dioxide 34.0 H, Anion Gap 6, BUN 35 H, Creatinine 1.63 H, Estim Creat Clear Calc 31.80, Est GFR (MDRD) Af Amer 39 L, Est GFR (MDRD) Non-Af 32 L, BUN/Creatinine Ratio 21.5 H, Glucose 194 H, Calcium 9.0 08/19/23 06:55: POC Glucose 188 H 08/19/23 11:14: POC Glucose 185 H Clinical Impression(s) from Imaging Studies Chest X-Ray 08/17/23 10:45 IMPRESSION: 1. No radiographic evidence of acute cardiopulmonary disease. 2. Severe compression fractures of T7 and L1 new since the previous exam. Lumbar Spine X-Ray 08/17/23 11:45 IMPRESSION: Degenerative changes of the lower lumbar spine unchanged. Charges/Coding Visit Charges Inpatient E&M: 23549 Subs Hosp L2
--- NOTE | 2023-08-19 17:05 | RAD_ITS ---
STUDY: XR Chest 1 View 08/19/2023 4:24 PM REASON FOR EXAM: Female, 82 years old. SOB, HYPOXIA COMPARISON: Two days ago. TECHNIQUE: XR Chest 1 View FINDINGS: There is no demonstrated pleural abnormality. Enlarged heart size. Normal mediastinum. Normal elly. Prominent appearing increased interstitial lung markings. Normal visualized pulmonary arteries. There is atherosclerotic calcification of the aortic arch with tortuosity. There are diffuse degenerative changes of the visualized thoracic spine. There is degenerative osteoarthritis of the bilateral shoulders. There are no acute findings of the upper abdomen. RAD/Chest 1 View (Portable) IMPRESSION: There are no acute findings. Electronically Signed: Gui Ott MD at 17:36 EDT ,
[2023-08-19 17:06] LABS: Bedside Glucose 194 mg/dL (74-106)
[2023-08-19] MEDS: Insulin Glargine-YFGN 100 UNIT/ML Pen 20 UNIT SC (22:56)
[2023-08-19] MEDS: Atorvastatin Calcium 40 MG Tablet PO (22:57)
[2023-08-19 23:27] LABS: Bedside Glucose 267 mg/dL (74-106)
[2023-08-20] VITALS (16 sets, daily range): BP systolic 151–200; BP diastolic 61–107; PULSE 78–107; RESP 16–20; TEMP 36.3–37; O2SAT 96–100; BMI 40.8
[2023-08-20] MEDS: 0.9% Saline Lock 10 ML Syringe IV ×2 (05:17→16:16)
[2023-08-20] MEDS: HYDROmorphone 1 MG/ML Syringe IV ×2 (05:17→20:58)
[2023-08-20] MEDS: tiZANidine HCl 2 MG Tablet 4 MG PO ×2 (05:17→20:58)
[2023-08-20] MEDS: Pregabalin 50 MG Capsule PO ×2 (05:18→20:57)
[2023-08-20 06:06] LABS: Absolute Lymphocyte Count 0.46 X10^3/uL (0.83-4.51); Basophil# 0.01 X10^3/uL; Basophil% 0.1 % (0-1); Hematocrit 31.5 % (37-47); Hemoglobin 9.7 g/dL (12.0-15.0); Lymphocyte # 0.46 X10^3/ul (0.83-4.51); Lymphocyte % 6.1 % (19-41); Mean Corp Hgb Conc 30.8 g/dL (32-36); Mean Corpuscular Hgb 25.4 pg (27.0-32.0); Mean Corpuscular Volume 82.5 fL (81-99); Mean Platelet Vol. 11.9 fl (6.2-12.0); Monocyte% 1.3 % (0-10); NRBC Flagged by Analyzer 0 % (0-5); Neutrophil # 6.97 X10^3/uL (2.7-7.7); Neutrophil % 91.8 % (47-70); POSITIVE DIFFERENTIAL YES; Platelet Count 231 K/mm3 (150-450); RBC Distribution Width CV 16.8 % (11.6-14.6); RBC Distribution Width SD 50.5 fl (35.1-43.9); Red Blood Count 3.82 M/mm3 (4.2-5.4); White Blood Count 7.6 K/mm3 (4.4-11.0)
[2023-08-20 06:32] LABS: Anion Gap 8 (5-15); BUN 33 mg/dL (7-18); BUN/Creat Ratio 27.3 RATIO (10-20); Calcium,Total 9.2 mg/dL (8.5-10.1); Chloride 99 mmol/L (98-107); Creatinine, Serum 1.21 mg/dL (0.55-1.02); EST Glomerular Filtration Rate 45 mL/min (>60); Est Glom Filt Rate - Afr Amer 55 mL/min (>60); Estimated Creatinine Clearance 43.04 ml/min; Glucose 290 mg/dL (74-106); Sodium Level 138 mmol/L (136-145)
[2023-08-20] MEDS: Insulin Lispro 100 UNIT/ML INSULN.PEN SC ×3 (06:32→21:57)
[2023-08-20 06:59] LABS: Bedside Glucose 265 mg/dL (74-106)
[2023-08-20] MEDS: Isosorbide Mononitrate 30 MG Tablet PO (08:45)
[2023-08-20] MEDS: Metoprolol Tartrate 25 MG Tablet PO ×2 (08:46→21:11)
[2023-08-20 11:09] LABS: Bedside Glucose 211 mg/dL (74-106)
[2023-08-20] MEDS: Lactated Ringers 1,000 ML 15 ML IV (13:16)
--- NOTE | 2023-08-20 13:43 | CHAPLAIN ---
Type of Pastoral Visit ___ Initial Visit _x__ Follow-up Visit ___ On-call Visit ___ General Patient Visit ___ Spiritual Assessment ___ Family Conference ___ Bereavement ___ Rapid Response ___ Code Blue ___ Other (describe below) Pastoral Care Referral From _x__ Patient _x__ Family ___ Nurse ___ Physician ___ Integration Assistant ___ Vendor Analyst ___ Other (describe below) Sacrament/Intervention _x__ Active listening ___ Anointing ___ Anabaptism ___ Bereavement ___ Communion ___ Elvira exploration ___ ___ Life review _x__ Prayer ___ Reconciliation ___ Sacrament of Sick _x__ Supportive presence ___ Wedding ___ Other (describe below) Pastoral Comments presurgery prayer and time to give patient and family emotional support
--- NOTE | 2023-08-20 14:22 | PN.HOSP_ITS ---
Reason for Visit Reason for Visit: Diagnoses Other chronic pain (08/17/23) Low back pain, unspecified (08/17/23) Objective Data Objective Data Vital Signs: Vital Signs Temp Pulse Resp BP Pulse Ox O2 Del Method O2 Flow Rate 98.6 F 86 16 163/68 H 97 Nasal Cannula 4 08/20/23 08:38 08/20/23 08:46 08/20/23 08:38 08/20/23 11:55 08/20/23 08:38 08/20/23 09:43 08/20/23 09:43 Oxygen Flow Rate (L/min) 4 Oxygen Delivery Method Nasal Cannula Weight: 238 lb 5.115 oz Body Mass Index (BMI) 40.8 Intake & Output: Intake and Output for Last 24 Hours 08/18/23 08/19/23 08/20/23 22:59 23:59 23:59 Intake Total 120 / 120 Output Total 850 / 850 Balance -730 / -730 Lab / Micro Data 08/20/23 05:10 08/20/23 05:10 Labs: Laboratory Results - last 24 hr 08/19/23 16:23: POC Glucose 194 H 08/19/23 22:54: POC Glucose 267 H 08/20/23 05:10: WBC 7.6, RBC 3.82 L, Hgb 9.7 L, Hct 31.5 L, MCV 82.5, MCH 25.4 L , MCHC 30.8 L D, RDW Std Deviation 50.5 H, RDW Coeff of Duran 16.8 H, Plt Count 231, MPV 11.9, Immature Gran % (Auto) 0.700, Neut % (Auto) 91.8 H, Lymph % (Auto) 6.1 L, [place] % (Auto) 1.3, Eos % (Auto) 0.0, Baso % (Auto) 0.1, Absolute Neuts (auto) 7.0, Absolute Lymphs (auto) 0.46 L, Nucleated RBC % 0, Sodium 138, Potassium 4.0, Chloride 99, Carbon Dioxide 31.0, Anion Gap 8, BUN 33 H, Creatinine 1.21 H, Estim Creat Clear Calc 43.04, Est GFR (MDRD) Af Amer 55 L, Est GFR (MDRD) Non-Af 45 L, BUN/Creatinine Ratio 27.3 H, Glucose 290 H, Calcium 9.2 08/20/23 06:31: POC Glucose 265 H 08/20/23 10:49: POC Glucose 211 H Micro: Microbiology 08/17/23 10:34 Mucosa - Nasopharyngeal SARS-CoV-2, Influenza & RSV (PCR) - Final Radiography Diagnostic Testing: Radiology Impression Chest X-Ray 08/19/23 17:05 IMPRESSION: There are no acute findings. Electronically Signed: Gui Ott MD at 17:36 EDT , Physical Exam Narrative Seen and examined. Patient states her pain is better but is still painful when she tries to move. Patient had food yesterday. Patient is still in the pain and plan for epidural injection today. Pain gets exacerbated on little bit change of the spine movement General: Alert, Oriented x3, Cooperative HEENT: Atraumatic, PERRLA, EOMI, Normocephalic Oral: Oral mucosa dry. No Gingival or Mucosal Lesions/ Ulcerations Neck: Supple, No JVD, Negative Carotid Bruits Chest wall/Lungs: Air entry diminished in bilateral lung bases. Wheezing is improved. On 4 L of oxygen Abdomen: Bowel Sounds Present, Soft, Non Tender, Non-Distended : No dysuria. No renal angle tenderness. No suprapubic tenderness. Extremities: No edema, Capillary Refill Less than 3 Seconds Skin: No rashes, No breakdown Spine: Tenderness present over T12-L1 vertebra. SLR positive on the left lower extremity. Musculoskeletal: No Tenderness to Palpation of Joints or Extremities Neurological: Cranial nerves II-XII grossly intact, DTR 2+/4. Perineal sensation intact. Voiding urine although chronic incontinence Psych/Mental Status: Flat affect in pain Assessment & Plan Assessment/Plan (1) Acute exacerbation of chronic low back pain: PLAN: Plan This is a 82-year-old female being admitted for acute on chronic lower back pain after she tried to push window door about 3 days ago. 1. Acute on chronic lower back pain with osteoporosis complicated with compression fracture of T12: Patient is being admitted in PCU. Patient has chronic fracture of T7 since May 2022. T12 is a new fracture. chest x-ray and lumbar spine individually reviewed. Patient is very uncomfortable and pain gets exacerbated on movement on the spine therefore currently not candidate for MRI. Discussed with the pain management Dr. Guevara and agreed for epidural injection on Sunday. IV fluid Ringer lactate ordered. NSVT: 4 patient had 14 beats of short run of PVC. Patient on propranolol 40 mg p.o. twice daily, changed to metoprolol 25 mg p.o. twice daily. Electrolytes are corrected. 08/18: Heart rate is controlled. 2. Electrolyte abnormality, severe hypokalemia, hypomagnesemia and hypophosp hatemia with severe nausea: IV electrolyte replacement ordered. Twelve-lead EKG shows normal sinus rhythm 87 beats minute, QTc 452 ms with mild concentric LVH. Supportive treatment for nausea and vomiting 08/17 hypomagnesemia hypophosphatemia and hypokalemia are corrected. Short run of NSVT. Per automotive brake technician to metoprolol. Keep potassium about 4 and magnesium about 2.0. Suspected COPD: Chronic wheezing and hypoxia, exact etiology unclear: As per the daughter patient has chronic wheezing and history of smoking about about 20 pack years of smoking. Patient on DuoNeb every 6 hourly. Patient also on furosemide 40 mg daily at home regimen. Monitor electrolytes. 08/18: Shortness of breath and wheezing seems better but hypoxia increased. Solu-Medrol IV ordered. Repeat CT chest ordered. 08/19: Chest x-ray nasal reviewed does not show acute abnormality. Continue continue IV Solu-Medrol bronchodilator incentive spirometry and PEP. Patient not able to do much incentive spirometry in supine position. 3. Diabetes mellitus type 2: Glucose in BMP is 124. Accu-Chek ACHS and cover with Humalog sliding scale. Patient on pioglitazone continued. Home insulin dose adjusted as patient has poor oral intake. 08/17: Patient had hypoglycemia glucose 42 and 56. Patient on 30 units of glargine insulin twice daily at home, decrease to 10 mg twice daily with holding parameters because of hypoglycemia. 08/18: Glucose 1 85-1 88. Patient started on Solu-Medrol therefore dose of Lantus insulin increased. 08/19: Glucose increase due to Solu-Medrol. 4. Hypertension: Blood pressure is very high systolic in 200s. IV labetalol ordered. Lisinopril 10 mg daily ordered and titrate upwards. Patient on isosorbide mononitrate 30 mg daily also. Hold Lasix as patient is dehydrated. 08/28: Blood pressure profile is better improved 142/63. 5. ROHIT on CKD stage IIIa: BUNs/creatinine 14/0.59. 08/18: Patient creatinine jumped up from 0.9-1.63. Patient home dose of Lasix, lisinopril and spironolactone discontinued. Patient is well-hydrated. Will monitor kidney function. Actos also discontinued. 08/19: Creatinine 1.21. Improving. 6. Obesity Weight loss and lifestyle changes encouraged 7. Incidental right upper lobe nodule, 1 cm with groundglass opacity found dur ing previous admission on 05/15/2022. Was recommended for outpatient follow-up in 6 months. Patient is a 82-year-old and seems practically not possible to follow-up for nodule with other active comorbidities ongoing. 8. Patient also has chronic wheezing as per the daughter but denies any history of diagnosed asthma or COPD. Patient might have 2024. Packs of smoking but quit 40 years ago. Will recommend outpatient follow-up. 9. History of pulmonary embolism for which patient was on admitted in May 2022. Patient currently not on Eliquis probably has completed it. On baby aspirin continued #DVT ppx: SCDs. Lovenox 40 mg subcu daily. Last dose Sunday morning. Living will/advanced directive/end of life care: Patient does not have living will or advanced directive. After discussion of benefits/risks procedures involved with full code, DNR CC arrest and DNR CC, the patient opted for full code. Patient does want artificial life support including intubation, tube feed, lukas tilator and/chest compression, central venous catheter, vasopressor and DC shock if needed Total time spent in [id number] encounter in discussion of advanced directive 17 minutes. Clinical Impression(s) from Imaging Studies Chest X-Ray 08/17/23 10:45 IMPRESSION: 1. No radiographic evidence of acute cardiopulmonary disease. 2. Severe compression fractures of T7 and L1 new since the previous exam. Lumbar Spine X-Ray 08/17/23 11:45 IMPRESSION: Degenerative changes of the lower lumbar spine unchanged. Charges/Coding Visit Charges Inpatient E&M: 20849 Subs Hosp L2
--- NOTE | 2023-08-20 14:26 | RAD_ITS ---
PROCEDURE: Fluoroscopic guided lumbar epidural steroid injection DATE OF EXAMINATION: August 20, 2023 INDICATION: Female, 82 years old. Lumbar epidural injection PHYSICIAN: Shin Guevara MD FLUOROSCOPY TIME (if supplied): 33 seconds RADIATION DOSAGE (If Supplied By Facility): CTDIvol = ( 21.32 ) mGy, DLP = ( ) mGycm CONSENT: The risks, benefits and alternatives to the procedure were explained to the patient, and the patient agreed to the procedure and signed the consent. STERILE BARRIER TECHNIQUE: The following sterile barrier precautions were used during the procedure: hand hygiene; use of 2% chlorhexidine aseptic; use of a cap, mask, sterile gown, sterile gloves, sterile full body drape, and a large sterile sheet. PROCEDURE/TECHNIQUE: (All elements of maximal sterile barrier technique followed, including US elements as applicable) The risks, benefits, and alternatives to the procedure were explained to patient, and the patient agreed to the procedure and signed a consent form for the procedure. A timeout was performed to confirm the patient''s identity, the type of procedure, to be performed and the site of entry. Findings: 2 fluoroscopic images showing frontal and lateral views of the lumbar spine were presented to radiology for interpretation. The images show a posterior epidural needle into the epidural space, with subsequent injection of contrast outlining the epidural space and confirming proper positioning of the needle. RAD/Fluoro Guided Needle Placement IMPRESSION: 1. Status post fluoroscopic guided epidural steroid injection Electronically Signed: Marco Stephen MD at 16:00 EDT ,
[2023-08-20] MEDS: Lidocaine 0.5% (50 ml) 50 ML Vial (14:38)
[2023-08-20] MEDS: MethylPREDNISolone Acetate 40 MG/ML Vial (14:38)
[2023-08-20] MEDS: Labetalol (Prefilled) 20 MG/4 ML IV (16:15)
[2023-08-20 16:17] LABS: Bedside Glucose 213 mg/dL (74-106)
[2023-08-20] MEDS: Bisacodyl 10 MG Suppository RC (18:50)
[2023-08-20] MEDS: Ipratropium/Albuterol Sulfate 3 ML AMPUL.NEB INHALATION (19:38)
[2023-08-20] MEDS: Ipratropium Bromide 0.06% NASAL SPRAY 1 SPRAY NASAL (20:57)
[2023-08-20] MEDS: Atorvastatin Calcium 40 MG Tablet PO (20:57)
[2023-08-20] MEDS: Polyethylene Glycol 3350 17 GM PACKET PO (20:57)
[2023-08-20] MEDS: Senna/Docusate Sodium 1 Tablet 2 TABLET PO (20:58)
--- NOTE | 2023-08-20 21:10 | NURSING ---
Called pt's sister to inform of room number change.
[2023-08-20] MEDS: Insulin Glargine-YFGN 100 UNIT/ML Pen 20 UNIT SC (21:58)
[2023-08-20 22:19] LABS: Bedside Glucose 287 mg/dL (74-106)
[2023-08-21] VITALS (8 sets, daily range): BP systolic 188–212; BP diastolic 70–101; PULSE 80–98; RESP 16–20; TEMP 36.6–36.7; O2SAT 97–98; BMI 40.8
[2023-08-21] MEDS: Labetalol (Prefilled) 20 MG/4 ML IV ×3 (05:21→21:37)
[2023-08-21] MEDS: tiZANidine HCl 2 MG Tablet 4 MG PO (05:21)
[2023-08-21] MEDS: Pregabalin 50 MG Capsule PO (05:21)
[2023-08-21] MEDS: Acetaminophen 325 MG Tablet 650 MG PO ×2 (05:30→21:37)
[2023-08-21] MEDS: 0.9% Saline Lock 10 ML Syringe IV (05:38)
[2023-08-21] MEDS: Insulin Lispro 100 UNIT/ML INSULN.PEN SC ×4 (06:49→22:02)
[2023-08-21 07:12] LABS: Bedside Glucose 280 mg/dL (74-106)
[2023-08-21] MEDS: Ipratropium/Albuterol Sulfate 3 ML AMPUL.NEB INHALATION ×3 (07:21→19:58)
[2023-08-21] MEDS: Aspirin 81 MG TAB.CHEW PO (08:59)
[2023-08-21] MEDS: Isosorbide Mononitrate 30 MG Tablet PO (08:59)
[2023-08-21] MEDS: Pantoprazole Sodium 40 MG Tablet PO (08:59)
[2023-08-21] MEDS: Metoprolol Tartrate 25 MG Tablet PO ×2 (08:59→21:26)
[2023-08-21] MEDS: Senna/Docusate Sodium 1 Tablet 2 TABLET PO ×2 (09:00→21:27)
[2023-08-21] MEDS: Insulin Glargine-YFGN 100 UNIT/ML Pen 20 UNIT SC ×2 (09:01→22:04)
[2023-08-21 09:41] LABS: Absolute Lymphocyte Count 0.66 X10^3/uL (0.83-4.51); Absolute Neutrophil Count 9.1 X10^3/uL (2.0-7.7); Hematocrit 31.8 % (37-47); Hemoglobin 10.1 g/dL (12.0-15.0); Lymphocyte # 0.66 X10^3/ul (0.83-4.51); Lymphocyte % 6.3 % (19-41); Mean Corp Hgb Conc 31.8 g/dL (32-36); Mean Corpuscular Hgb 25.8 pg (27.0-32.0); Mean Corpuscular Volume 81.3 fL (81-99); Mean Platelet Vol. 11.6 fl (6.2-12.0); Monocyte# 0.68 X10^3/uL; Monocyte% 6.5 % (0-10); NRBC Flagged by Analyzer 0 % (0-5); Neutrophil # 9.09 X10^3/uL (2.7-7.7); Neutrophil % 86.5 % (47-70); Platelet Count 264 K/mm3 (150-450); RBC Distribution Width CV 17.2 % (11.6-14.6); RBC Distribution Width SD 50.7 fl (35.1-43.9); Red Blood Count 3.91 M/mm3 (4.2-5.4); White Blood Count 10.5 K/mm3 (4.4-11.0)
[2023-08-21 09:56] LABS: Anion Gap 5 (5-15); BUN 31 mg/dL (7-18); BUN/Creat Ratio 31.2 RATIO (10-20); Calcium,Total 9.5 mg/dL (8.5-10.1); Chloride 101 mmol/L (98-107); Creatinine, Serum 0.99 mg/dL (0.55-1.02); EST Glomerular Filtration Rate 57 mL/min (>60); Est Glom Filt Rate - Afr Amer 69 mL/min (>60); Estimated Creatinine Clearance 52.58 ml/min; Glucose 266 mg/dL (74-106); Sodium Level 140 mmol/L (136-145)
[2023-08-21 11:16] LABS: Bedside Glucose 241 mg/dL (74-106)
--- NOTE | 2023-08-21 15:36 | CASEMGMT ---
Discharge Planning A list of?SNF providers including quality and resource use data and consistent with the patient's preferred geographic region, medical needs, and insurance network was created in [facility] Guide.? This list was provided to the SW. Margarita Patrick Discharge Planning Asst.
[2023-08-21] MEDS: Glucerna Shake 120 ML LIQUID PO ×2 (15:51→18:31)
--- NOTE | 2023-08-21 16:32 | CASEMGMT ---
JOLEEN met with patient's daughter, Kassi. Introduced self and role at [facility]. Kassi said patient will definitely need to go somewhere for rehab. Kassi asked if patient could stay at [facility] for rehab. JOLEEN let her know SW will make a referral. SW will get back to her tomorrow. JOLEEN did provide Kassi with a list of senior living facilities and asked that she review them in the event [facility]CU cannot take patient. JOLEEN made a referral to [facility] in [facility]CU. JOLEEN will follow up tomorrow. Dulce MANCERA
--- NOTE | 2023-08-21 16:51 | PCM.PN.HOSP ---
Reason for Visit Reason for Visit: Diagnoses Other chronic pain (08/17/23) Low back pain, unspecified (08/17/23) Objective Data Objective Data Vital Signs: Vital Signs Temp Pulse Resp BP Pulse Ox O2 Del Method O2 Flow Rate 97.8 F 84 16 212/81 H 98 Nasal Cannula 3 08/21/23 14:50 08/21/23 14:50 08/21/23 14:50 08/21/23 14:50 08/21/23 14:50 08/21/23 14:50 08/21/23 14:50 Oxygen Flow Rate (L/min) 3 Oxygen Delivery Method Nasal Cannula Weight: 238 lb 1.588 oz Body Mass Index (BMI) 40.8 Intake & Output: Intake and Output for Last 24 Hours 08/19/23 08/20/23 08/21/23 23:59 23:59 23:59 Intake Total 240 / 490 490 / 490 Output Total 1250 / 1900 1050 / 1050 Balance -1010 / -1410 -560 / -560 Lab / Micro Data 08/21/23 09:28 08/21/23 09:28 Labs: Laboratory Results - last 24 hr 08/20/23 21:53: POC Glucose 287 H 08/21/23 06:48: POC Glucose 280 H 08/21/23 09:28: WBC 10.5, RBC 3.91 L, Hgb 10.1 L, Hct 31.8 L, MCV 81.3, MCH 25.8 L, MCHC 31.8 L, RDW Std Deviation 50.7 H, RDW Coeff of Duran 17.2 H, Plt Count 264, MPV 11.6, Immature Gran % (Auto) 0.700, Neut % (Auto) 86.5 H, Lymph % (Auto) 6.3 L, [place] % (Auto) 6.5, Eos % (Auto) 0.0, Baso % (Auto) 0.0, Absolute Neuts (auto) 9.1 H, Absolute Lymphs (auto) 0.66 L, Nucleated RBC % 0, Sodium 140, Potassium 4.0, Chloride 101, Carbon Dioxide 34.0 H, Anion Gap 5, BUN 31 H, Creatinine 0.99, Estim Creat Clear Calc 52.58, Est GFR (MDRD) Af Amer 69, Est GFR (MDRD) Non-Af 57 L, BUN/Creatinine Ratio 31.2 H, Glucose 266 H, Calcium 9.5 08/21/23 10:54: POC Glucose 241 H Micro: Microbiology 08/17/23 10:34 Mucosa - Nasopharyngeal SARS-CoV-2, Influenza & RSV (PCR) - Final Physical Exam Narrative Seen and examined. Patient was confused. She was having hallucinations visual and auditory. She was seeing her dog. Her pain is better. She had epidural injection yesterday. Blood pressure is high. General: Alert, Oriented x3, Cooperative HEENT: Atraumatic, PERRLA, EOMI, Normocephalic Oral: Oral mucosa dry. No Gingival or Mucosal Lesions/ Ulcerations Neck: Supple, No JVD, Negative Carotid Bruits Chest wall/Lungs: Air entry diminished in bilateral lung bases. Wheezing is improved. On 3 L of oxygen Abdomen: Bowel Sounds Present, Soft, Non Tender, Non-Distended : No dysuria. No renal angle tenderness. No suprapubic tenderness. Extremities: No edema, Capillary Refill Less than 3 Seconds Skin: No rashes, No breakdown Spine: Tenderness present over T12-L1 vertebra. SLR positive on the left lower extremity. Musculoskeletal: No Tenderness to Palpation of Joints or Extremities Neurological: Cranial nerves II-XII grossly intact, DTR 2+/4. Perineal sensation intact. Voiding urine although chronic incontinence Psych/Mental Status: Flat affect in pain Assessment & Plan Assessment/Plan (1) Acute exacerbation of chronic low back pain: PLAN: Plan This is a 82-year-old female being admitted for acute on chronic lower back pain after she tried to push window door about 3 days ago. 1. Acute on chronic lower back pain with osteoporosis complicated with compression fracture of T12: Patient is being admitted in PCU. Patient has chronic fracture of T7 since May 2022. T12 is a new fracture. chest x-ray and lumbar spine individually reviewed. Patient is very uncomfortable and pain gets exacerbated on movement on the spine therefore currently not candidate for MRI. Discussed with the pain management Dr. Guevara and agreed for epidural injection on Sunday. IV fluid Ringer lactate ordered. NSVT: 4 patient had 14 beats of short run of PVC. Patient on propranolol 40 mg p.o. twice daily, changed to metoprolol 25 mg p.o. twice daily. Electrolytes are corrected. 3/10: Heart rate is controlled. 2. Electrolyte abnormality, severe hypokalemia, hypomagnesemia and hypophosphatemia with severe nausea: IV electrolyte replacement ordered. Twelve-lead EKG shows normal sinus rhythm 87 beats minute, QTc 452 ms with mild concentric LVH. Supportive treatment for nausea and vomiting 08/17 hypomagnesemia hypophosphatemia and hypokalemia are corrected. Short run of NSVT. Per project portfolio analyst to metoprolol. Keep potassium about 4 and magnesium about 2.0. 08/20: Blood pressure very high 161/107 went up to 212/81. Labetalol 20 mg IV given. HCTZ 25 mg 1 dose now. Lisinopril 10 mg about 8 PM. Monitor BP every 1-2 hours. I think Solu-Medrol might have resulted into high blood pressure and hyperglycemia and psychotic symptoms of visual and auditory hallucinations.'s IV Solu-Medrol discontinued. Suspected COPD: Chronic wheezing and hypoxia, exact etiology unclear: As per the daughter patient has chronic wheezing and history of smoking about about 20 pack years of smoking. Patient on DuoNeb every 6 hourly. Patient also on furosemide 40 mg daily at home regimen. Monitor electrolytes. 08/18: Shortness of breath and wheezing seems better but hypoxia increased. Solu-Medrol IV ordered. Repeat CT chest ordered. 08/19: Chest x-ray nasal reviewed does not show acute abnormality. Continue continue IV Solu-Medrol bronchodilator incentive spirometry and PEP. Patient not able to do much incentive spirometry in supine position. 08/20: Solu-Medrol changed to prednisone. 3. Diabetes mellitus type 2: Glucose in BMP is 124. Accu-Chek ACHS and cover with Humalog sliding scale. Patient on pioglitazone continued. Home insulin dose adjusted as patient has poor oral intake. 08/17: Patient had hypoglycemia glucose 42 and 56. Patient on 30 units of glargine insulin twice daily at home, decrease to 10 mg twice daily with holding parameters because of hypoglycemia. 08/18: Glucose 1 85-1 88. Patient started on Solu-Medrol therefore dose of Lantus insulin increased. 08/19: Glucose increase due to Solu-Medrol. 08/20: Glucose is [id number]. 4. Hypertension: Blood pressure is very high systolic in 200s. IV labetalol ordered. Lisinopril 10 mg daily ordered and titrate upwards. Patient on isosorbide mononitrate 30 mg daily also. Hold Lasix as patient is dehydrated. 08/28: Blood pressure profile is better improved 142/63. 5. ROHIT on CKD stage IIIa: BUNs/creatinine 14/0.59. 08/18: Patient creatinine jumped up from 0.9-1.63. Patient home dose of Lasix, lisinopril and spironolactone discontinued. Patient is well-hydrated. Will monitor kidney function. Actos also discontinued. 08/19: Creatinine 1.21. Improving. 6. Obesity Weight loss and lifestyle changes encouraged 7. Incidental right upper lobe nodule, 1 cm with groundglass opacity found during previous admission on 05/15/2022. Was recommended for outpatient follow-up in 6 months. Patient is a 82-year-old and seems practically not possible to follow-up for nodule with other active comorbidities ongoing. 8. Patient also has chronic wheezing as per the daughter but denies any history of diagnosed asthma or COPD. Patient might have 2024. Packs of smoking but quit 40 years ago. Will recommend outpatient follow-up. 9. History of pulmonary embolism for which patient was on admitted in May 2022. Patient currently not on Eliquis probably has completed it. On baby aspirin continued #DVT ppx: SCDs. Lovenox 40 mg subcu daily. Last dose Sunday morning. Living will/advanced directive/end of life care: Patient does not have living will or advanced directive. After discussion of benefits/risks procedures involved with full code, DNR CC arrest and DNR CC, the patient opted for full code. Patient does want artificial life support including intubation, tube feed, ventilator and/chest compression, central venous catheter, vasopressor and DC shock if needed Total time spent in [id number] encounter in discussion of advanced directive 17 minutes. Clinical Impression(s) from Imaging Studies Chest X-Ray 08/17/23 10:45 IMPRESSION: 1. No radiographic evidence of acute cardiopulmonary disease. 2. Severe compression fractures of T7 and L1 new since the previous exam. Lumbar Spine X-Ray 08/17/23 11:45 IMPRESSION: Degenerative changes of the lower lumbar spine unchanged. Charges/Coding Visit Charges Inpatient E&M: 29883 Subs Hosp L2
[2023-08-21] MEDS: hydroCHLOROthiazide 25 MG Tablet PO (17:14)
[2023-08-21 17:35] LABS: Bedside Glucose 320 mg/dL (74-106)
[2023-08-21] MEDS: Atorvastatin Calcium 40 MG Tablet PO (21:27)
[2023-08-21] MEDS: Ipratropium Bromide 0.06% NASAL SPRAY 1 SPRAY NASAL (21:28)
[2023-08-21] MEDS: Lisinopril 10 MG Tablet PO (21:37)
[2023-08-21] MEDS: hydrOXYzine 50 MG/ML Vial 100 MG IM (22:06)
[2023-08-21 22:51] LABS: Bedside Glucose 231 mg/dL (74-106)
[2023-08-22] VITALS (10 sets, daily range): BP systolic 162–181; BP diastolic 85–98; PULSE 76–96; RESP 16–20; TEMP 36.4–36.6; O2SAT 96–99; BMI 39.6
[2023-08-22 07:00] LABS: Anion Gap 5 (5-15); BUN 29 mg/dL (7-18); BUN/Creat Ratio 26.6 RATIO (10-20); Calcium,Total 9.7 mg/dL (8.5-10.1); Chloride 100 mmol/L (98-107); Creatinine, Serum 1.09 mg/dL (0.55-1.02); EST Glomerular Filtration Rate 51 mL/min (>60); Est Glom Filt Rate - Afr Amer 62 mL/min (>60); Estimated Creatinine Clearance 46.98 ml/min; Glucose 144 mg/dL (74-106); Potassium 3.6 mmol/L (3.5-5.1); Sodium Level 141 mmol/L (136-145)
[2023-08-22 07:05] LABS: Absolute Lymphocyte Count 1.04 X10^3/uL (0.83-4.51); Absolute Neutrophil Count 8.8 X10^3/uL (2.0-7.7); Basophil# 0.02 X10^3/uL; Basophil% 0.2 % (0-1); Hematocrit 35.2 % (37-47); Hemoglobin 10.9 g/dL (12.0-15.0); Lymphocyte # 1.04 X10^3/ul (0.83-4.51); Lymphocyte % 9.5 % (19-41); Mean Corpuscular Hgb 25.1 pg (27.0-32.0); Mean Corpuscular Volume 81.1 fL (81-99); Mean Platelet Vol. 11.6 fl (6.2-12.0); Monocyte# 1.04 X10^3/uL; Monocyte% 9.5 % (0-10); NRBC Flagged by Analyzer 0.2 % (0-5); Neutrophil # 8.76 X10^3/uL (2.7-7.7); Neutrophil % 79.7 % (47-70); Platelet Count 287 K/mm3 (150-450); RBC Distribution Width CV 17.5 % (11.6-14.6); RBC Distribution Width SD 51.4 fl (35.1-43.9); Red Blood Count 4.34 M/mm3 (4.2-5.4)
[2023-08-22] MEDS: Ipratropium/Albuterol Sulfate 3 ML AMPUL.NEB INHALATION ×2 (07:34→20:01)
[2023-08-22] MEDS: Potassium Chloride Oral Tablet 20 MEQ 40 MEQ PO (08:32)
[2023-08-22] MEDS: Senna/Docusate Sodium 1 Tablet 2 TABLET PO ×2 (08:33→20:55)
[2023-08-22] MEDS: Metoprolol Tartrate 25 MG Tablet PO ×2 (08:36→20:54)
[2023-08-22] MEDS: Aspirin 81 MG TAB.CHEW PO (08:36)
[2023-08-22] MEDS: Isosorbide Mononitrate 60 MG Tablet PO (08:37)
[2023-08-22] MEDS: Ipratropium Bromide 0.06% NASAL SPRAY 1 SPRAY NASAL ×2 (08:38→20:51)
[2023-08-22] MEDS: Metoclopramide 10 MG/2 ML Vial 5 MG IV (09:08)
[2023-08-22] MEDS: 0.9% Saline Lock 10 ML Syringe IV ×4 (09:09→20:56)
[2023-08-22 09:19] LABS: Bedside Glucose 112 mg/dL (74-106)
[2023-08-22] MEDS: Lisinopril 20 MG Tablet PO (09:43)
[2023-08-22] MEDS: hydroCHLOROthiazide 12.5mg 12.5 MG PO (09:43)
[2023-08-22] MEDS: Acetaminophen 325 MG Tablet 650 MG PO (09:44)
[2023-08-22 11:45] LABS: Bedside Glucose 180 mg/dL (74-106)
[2023-08-22] MEDS: Ondansetron 4 MG/2 ML Vial 8 MG IV (12:29)
--- NOTE | 2023-08-22 14:00 | CHAPLAIN ---
Type of Pastoral Visit ___ Initial Visit _x__ Follow-up Visit ___ On-call Visit ___ General Patient Visit ___ Spiritual Assessment ___ Family Conference ___ Bereavement ___ Rapid Response ___ Code Blue ___ Other (describe below) Pastoral Care Referral From ___ Patient _x__ Family ___ Nurse ___ Physician ___ Stone Splitter ___ Artist'S Manager ___ Other (describe below) Sacrament/Intervention _x__ Active listening ___ Anointing ___ Confucianist ___ Bereavement ___ Communion ___ Elvira exploration ___ ___ Life review ___ Prayer ___ Reconciliation ___ Sacrament of Sick _x__ Supportive presence ___ Wedding ___ Other (describe below) Pastoral Comments patient is sleeping after a rough couple of nights of hallucinations and difficulty in resting per family members; several family members are in the room; daughter slips out of room to talk about pt's condition and decision to use Palliative Care; goal is keep pain at bay and be available to the pt; offer of support to family
--- NOTE | 2023-08-22 14:16 | CASEMGMT ---
Patient was accepted and approved for TCU. SW met with patient's daughter and let her know patient was accepted by TCU. Plan: [facility] TCU when medically ready. Dulce MANCERA
--- NOTE | 2023-08-22 16:24 | PN.HOSP_ITS ---
Reason for Visit Reason for Visit: Diagnoses Other chronic pain (08/17/23) Low back pain, unspecified (08/17/23) Objective Data Objective Data Vital Signs: Vital Signs Temp Pulse Resp BP Pulse Ox O2 Del Method O2 Flow Rate 98 F 76 18 172/87 H 98 Room Air 3 08/22/23 14:57 08/22/23 14:57 08/22/23 14:57 08/22/23 14:57 08/22/23 14:57 08/22/23 15:04 08/22/23 08:30 Oxygen Flow Rate (L/min) 3 Oxygen Delivery Method Room Air Weight: 231 lb 4.238 oz Body Mass Index (BMI) 39.6 Intake & Output: Intake and Output for Last 24 Hours 08/20/23 08/21/23 08/22/23 23:59 23:59 23:59 Intake Total 240 / 490 610 / 610 100 / 100 Output Total 1250 / 1900 3300 / 3300 575 / 575 Balance -1010 / -1410 -2690 / -2690 -475 / -475 Lab / Micro Data 08/22/23 06:20 08/22/23 06:20 Labs: Laboratory Results - last 24 hr 08/21/23 17:13: POC Glucose 320 H 08/21/23 22:02: POC Glucose 231 H 08/22/23 06:20: WBC 11.0, RBC 4.34, Hgb 10.9 L, Hct 35.2 L, MCV 81.1, MCH 25.1 L , MCHC 31.0 L, RDW Std Deviation 51.4 H, RDW Coeff of Duran 17.5 H, Plt Count 287, MPV 11.6, Immature Gran % (Auto) 1.100 H, Neut % (Auto) 79.7 H, Lymph % (Auto) 9.5 L, [place] % (Auto) 9.5, Eos % (Auto) 0.0, Baso % (Auto) 0.2, Absolute Neuts (auto) 8.8 H, Absolute Lymphs (auto) 1.04, Nucleated RBC % 0.2, Sodium 141, Potassium 3.6, Chloride 100, Carbon Dioxide 36.0 H, Anion Gap 5, BUN 29 H, Creatinine 1.09 H, Estim Creat Clear Calc 46.98, Est GFR (MDRD) Af Amer 62, Est GFR (MDRD) Non-Af 51 L, BUN/Creatinine Ratio 26.6 H, Glucose 144 H, Calcium 9.7 08/22/23 08:26: POC Glucose 112 H 08/22/23 11:26: POC Glucose 180 H Micro: Microbiology 08/17/23 10:34 Mucosa - Nasopharyngeal SARS-CoV-2, Influenza & RSV (PCR) - Final Physical Exam Narrative Seen and examined. Patient is awake and talking Jackie but sometimes at night she gets confused and gets hallucinations. She had epidural injection on 08/19/2022 Blood pressure is still elevated 160s to 170s but better than yesterday. On 3 antihypertensive medications. General: Alert, Oriented x3, Cooperative HEENT: Atraumatic, PERRLA, EOMI, Normocephalic Oral: Oral mucosa moist. No Gingival or Mucosal Lesions/ Ulcerations Neck: Supple, No JVD, Negative Carotid Bruits Chest wall/Lungs: Air entry diminished in bilateral lung bases. Wheezing resolved. Hypoxia resolved. Abdomen: Bowel Sounds Present, Soft, Non Tender, Non-Distended : No dysuria. No renal angle tenderness. No suprapubic tenderness. Extremities: No edema, Capillary Refill Less than 3 Seconds Skin: No rashes, No breakdown Spine: Tenderness present over T12-L1 vertebra. SLR positive on the left lower extremity. Musculoskeletal: No Tenderness to Palpation of Joints or Extremities Neurological: Cranial nerves II-XII grossly intact, DTR 2+/4. Perineal sensation intact. Voiding urine although chronic incontinence Psych/Mental Status: Flat affect in pain Assessment & Plan Assessment/Plan (1) Acute exacerbation of chronic low back pain: PLAN: Plan This is a 82-year-old female being admitted for acute on chronic lower back pain after she tried to push window door about 3 days ago. 1. Acute on chronic lower back pain with osteoporosis complicated with compression fracture of T12: Patient is being admitted in PCU. Patient has chronic fracture of T7 since May 2022. T12 is a new fracture. chest x-ray and lumbar spine individually reviewed. Patient is very uncomfortable and pain gets exacerbated on movement on the spine therefore currently not candidate for MRI. Discussed with the pain management Dr. Guevara and agreed for epidural injection on Sunday. IV fluid Ringer lactate ordered. NSVT: 4 patient had 14 beats of short run of PVC. Patient on propranolol 40 mg p.o. twice daily, changed to metoprolol 25 mg p.o. twice daily. Electrolytes are corrected. 08/18: Heart rate is controlled. 08/20: Back pain is better but is still on pain medications. 2. Electrolyte abnormality, severe hypokalemia, hypomagnesemia and hypopho sphatemia with severe nausea: IV electrolyte replacement ordered. Twelve-lead EKG shows normal sinus rhythm 87 beats minute, QTc 452 ms with mild concentric LVH. Supportive treatment for nausea and vomiting 08/17 hypomagnesemia hypophosphatemia and hypokalemia are corrected. Short run of NSVT. Per documentation engineer to metoprolol. Keep potassium about 4 and magnesium about 2.0. 08/20: Blood pressure very high 161/107 went up to 212/81. Labetalol 20 mg IV given. HCTZ 25 mg 1 dose now. Lisinopril 10 mg about 8 PM. Monitor BP every 1-2 hours. I think Solu-Medrol might have resulted into high blood pressure and hyperglycemia and psychotic symptoms of visual and auditory hallucinations.'s IV Solu-Medrol discontinued. Suspected COPD exacerbation: Chronic wheezing and hypoxia, exact etiology unclear: As per the daughter patient has chronic wheezing and history of smoking about about 20 pack years of smoking. Patient on DuoNeb every 6 hourly. Patient also on furosemide 40 mg daily at home regimen. Monitor electrolytes. 08/18: Shortness of breath and wheezing seems better but hypoxia increased. Solu-Medrol IV ordered. Repeat CT chest ordered. 08/19: Chest x-ray nasal reviewed does not show acute abnormality. Continue continue IV Solu-Medrol bronchodilator incentive spirometry and PEP. Patient not able to do much incentive spirometry in supine position. 08/20: Solu-Medrol changed to prednisone. 3. Diabetes mellitus type 2: Glucose in BMP is 124. Accu-Chek ACHS and cover with Humalog sliding scale. Patient on pioglitazone continued. Home insulin dose adjusted as patient has poor oral intake. 08/17: Patient had hypoglycemia glucose 42 and 56. Patient on 30 units of glargine insulin twice daily at home, decrease to 10 mg twice daily with holding parameters because of hypoglycemia. 08/18: Glucose 1 85-1 88. Patient started on Solu-Medrol therefore dose of Lantus insulin increased. 08/19: Glucose increase due to Solu-Medrol. 08/20: Glucose is [id number]. 08/21: Glucose profile is better after discontinuation of Solu-Medrol. 4. Hypertension: Blood pressure is very high systolic in 200s. IV labetalol ordered. Lisinopril 10 mg daily ordered and titrate upwards. Patient on isosorbide mononitrate 30 mg daily also. Hold Lasix as patient is dehydrated. 08/20: Blood pressure profile is better improved 142/63. 08/21: Blood pressure was in 200 yesterday currently in 170s. HCTZ started 12.5 mg daily. Lisinopril dose increased to 20 and then 40 mg daily. Hydralazine added 25 mg 3 times daily. Imdur increased to 60 mg daily 5. ROHIT on CKD stage IIIa: BUNs/creatinine 14/0.59. 08/18: Patient creatinine jumped up from 0.9-1.63. Patient home dose of Lasix, lisinopril and spironolactone discontinued. Patient is well-hydrated. Will monitor kidney function. Actos also discontinued. 08/19: Creatinine 1.21. Improving. 08/21: Creatinine 1.09. 6. Obesity Weight loss and lifestyle changes encouraged 7. Incidental right upper lobe nodule, 1 cm with groundglass opacity found during previous admission on 05/15/2022. Was recommended for outpatient follow- up in 6 months. Patient is a 82-year-old and seems practically not possible to follow-up for nodule with other active comorbidities ongoing. 8. Patient also has chronic wheezing as per the daughter but denies any history of diagnosed asthma or COPD. Patient might have 2024. Packs of smoking but quit 40 years ago. Will recommend outpatient follow-up. 9. History of pulmonary embolism for which patient was on admitted in May 2022. Patient currently not on Eliquis probably has completed it. On baby aspirin continued #DVT ppx: SCDs. Lovenox 40 mg subcu daily. Last dose Sunday morning. Living will/advanced directive/end of life care: Patient does not have living will or advanced directive. After discussion of benefits/risks procedures involved with full code, DNR CC arrest and DNR CC, the patient opted for full code. Patient does want artificial life support including intubation, tube feed, ventilator and/chest compression, central venous catheter, vasopressor and DC shock if needed Total time spent in [id number] encounter in discussion of advanced directive 17 minutes. Pre-CERT pending. Clinical Impression(s) from Imaging Studies Chest X-Ray 08/17/23 10:45 IMPRESSION: 1. No radiographic evidence of acute cardiopulmonary disease. 2. Severe compression fractures of T7 and L1 new since the previous exam. Lumbar Spine X-Ray 08/17/23 11:45 IMPRESSION: Degenerative changes of the lower lumbar spine unchanged. Charges/Coding Visit Charges Inpatient E&M: 64782 Subs Hosp L2
[2023-08-22 17:10] LABS: Bedside Glucose 181 mg/dL (74-106)
[2023-08-22] MEDS: hydrALAZINE 25 MG Tablet PO ×2 (17:30→20:50)
--- NOTE | 2023-08-22 17:30 | CASEMGMT ---
RN CM NOTE: Per Dr David Proctor requesting Palliative referral. Order placed and referral sent to [facility] Palliative via e-mail at this time. David OSBORN RN CM
[2023-08-22] MEDS: HYDROmorphone 1 MG/ML Syringe IV (20:11)
[2023-08-22] MEDS: Pregabalin 50 MG Capsule PO (20:50)
[2023-08-22] MEDS: Atorvastatin Calcium 40 MG Tablet PO (20:52)
[2023-08-22] MEDS: Ondansetron 4 MG/2 ML Vial IV (20:56)
[2023-08-22] MEDS: Insulin Lispro 100 UNIT/ML INSULN.PEN SC (21:00)
[2023-08-22] MEDS: Insulin Glargine-YFGN 100 UNIT/ML Pen 20 UNIT SC (21:00)
[2023-08-22 21:33] LABS: Bedside Glucose 199 mg/dL (74-106)
[2023-08-23 03:29] VITALS: BP 181/104; PULSE 84; RESP 18; TEMP 36.7; O2SAT 96
[2023-08-23] MEDS: HYDROmorphone 1 MG/ML Syringe IV (03:36)
[2023-08-23] MEDS: 0.9% Saline Lock 10 ML Syringe IV ×2 (03:37→10:03)
[2023-08-23 04:08] VITALS: BMI 39.5
[2023-08-23] MEDS: Pregabalin 50 MG Capsule PO (06:12)
[2023-08-23 06:13] VITALS: BP 181/104; PULSE 84
[2023-08-23] MEDS: hydrALAZINE 25 MG Tablet PO (06:13)
[2023-08-23 06:35] LABS: Absolute Lymphocyte Count 1.03 X10^3/uL (0.83-4.51); Absolute Neutrophil Count 6.4 X10^3/uL (2.0-7.7); Basophil# 0.02 X10^3/uL; Basophil% 0.2 % (0-1); Eosinophil# 0.02 X10^3/uL; Eosinophils% 0.2 % (0-5); Hematocrit 38.5 % (37-47); Hemoglobin 11.6 g/dL (12.0-15.0); Lymphocyte # 1.03 X10^3/ul (0.83-4.51); Lymphocyte % 12.4 % (19-41); Mean Corp Hgb Conc 30.1 g/dL (32-36); Mean Corpuscular Hgb 24.8 pg (27.0-32.0); Mean Corpuscular Volume 82.3 fL (81-99); Monocyte# 0.75 X10^3/uL; NRBC Flagged by Analyzer 0.2 % (0-5); Neutrophil # 6.35 X10^3/uL (2.7-7.7); Neutrophil % 76.4 % (47-70); Platelet Count 292 K/mm3 (150-450); RBC Distribution Width CV 17.5 % (11.6-14.6); RBC Distribution Width SD 52.6 fl (35.1-43.9); Red Blood Count 4.68 M/mm3 (4.2-5.4); White Blood Count 8.3 K/mm3 (4.4-11.0)
[2023-08-23 06:52] VITALS: PULSE 98; RESP 16; O2SAT 95
[2023-08-23] MEDS: Ipratropium/Albuterol Sulfate 3 ML AMPUL.NEB INHALATION ×2 (06:52→12:59)
[2023-08-23 07:19] LABS: Anion Gap 6 (5-15); BUN 29 mg/dL (7-18); BUN/Creat Ratio 28.2 RATIO (10-20); Calcium,Total 9.5 mg/dL (8.5-10.1); Chloride 97 mmol/L (98-107); Creatinine, Serum 1.03 mg/dL (0.55-1.02); EST Glomerular Filtration Rate 54 mL/min (>60); Est Glom Filt Rate - Afr Amer 66 mL/min (>60); Estimated Creatinine Clearance 49.63 ml/min; Glucose 176 mg/dL (74-106); Potassium 3.7 mmol/L (3.5-5.1); Sodium Level 139 mmol/L (136-145)
[2023-08-23 08:00] VITALS: BP 169/84; PULSE 79; RESP 18; TEMP 36.2; O2SAT 100
[2023-08-23] MEDS: Insulin Lispro 100 UNIT/ML INSULN.PEN SC (08:03)
[2023-08-23] MEDS: Insulin Lispro 100 UNIT/ML INSULN.PEN 10 UNIT SC (08:03)
[2023-08-23 08:24] LABS: Bedside Glucose 160 mg/dL (74-106)
--- NOTE | 2023-08-23 09:08 | PN.HOSP_ITS ---
Reason for Visit Reason for Visit: Diagnoses Other chronic pain (08/17/23) Low back pain, unspecified (08/17/23) Subjective Subjective Still with back pain despite epidural. Objective Data Objective Data Vital Signs: Vital Signs Temp Pulse Resp BP Pulse Ox O2 Del Method O2 Flow Rate 36.2 C L 79 18 169/84 H 100 Nasal Cannula 3 08/23/23 08:00 08/23/23 08:00 08/23/23 08:00 08/23/23 08:00 08/23/23 08:00 08/23/23 08:00 08/23/23 08:00 Oxygen Flow Rate (L/min) 3 Oxygen Delivery Method Nasal Cannula Weight: 104.6 kg Body Mass Index (BMI) 39.5 Intake & Output: Intake and Output for Last 24 Hours 08/21/23 08/22/23 08/23/23 23:59 23:59 23:59 Intake Total 610 / 610 490 / 490 1010 / 1010 Output Total 3300 / 3300 2775 / 2775 0 / 0 Balance -2690 / -2690 -2285 / -2285 1010 / 1010 Lab / Micro Data 08/23/23 06:19 08/23/23 06:19 Labs: Laboratory Results - last 24 hr 08/22/23 08:26: POC Glucose 112 H 08/22/23 11:26: POC Glucose 180 H 08/22/23 16:51: POC Glucose 181 H 08/22/23 20:58: POC Glucose 199 H 08/23/23 06:19: WBC 8.3, RBC 4.68, Hgb 11.6 L, Hct 38.5, MCV 82.3, MCH 24.8 L, MCHC 30.1 L, RDW Std Deviation 52.6 H, RDW Coeff of Duran 17.5 H, Plt Count 292, MPV 11.0, Immature Gran % (Auto) 1.800 H, Neut % (Auto) 76.4 H, Lymph % (Auto) 12.4 L, [place] % (Auto) 9.0, Eos % (Auto) 0.2, Baso % (Auto) 0.2, Absolute Neuts (auto) 6.4, Absolute Lymphs (auto) 1.03, Nucleated RBC % 0.2, Sodium 139, Potassium 3.7, Chloride 97 L, Carbon Dioxide 36.0 H, Anion Gap 6, BUN 29 H, Creatinine 1.03 H, Estim Creat Clear Calc 49.63, Est GFR (MDRD) Af Amer 66, Est GFR (MDRD) Non-Af 54 L, BUN/Creatinine Ratio 28.2 H, Glucose 176 H, Calcium 9.5 08/23/23 07:58: POC Glucose 160 H Micro: Microbiology 08/17/23 10:34 Mucosa - Nasopharyngeal SARS-CoV-2, Influenza & RSV (PCR) - Final Physical Exam Const alert and no apparent distress HEENT head/scalp atraumatic and moist oral mucous membranes Resp normal respiratory effort, no retractions, no use of accessory muscles and clear to auscultation bilaterally Cardio regular rate, regular rhythm, S1 normal heart sound and S2 normal heart sound GI normal to inspection, nondistended, normoactive bowel sounds, soft to palpation, non-tender and non-distended Extremity normal to inspection and full ROM Neuro Sensorium / Orientation: awake and alert Assessment & Plan Assessment/Plan (1) Acute exacerbation of chronic low back pain: PLAN: Plan Acute on chronic lower back pain with osteoporosis complicated with compression fracture of T12: * Patient has chronic fracture of T7 since May 2022. T12 is a new fracture. * Epidural injection on 08/19. * optimize pain medication so that she may be more functional. Hypokalemia * resolved with replacement. Suspected COPD exacerbation: * transitioned to prednisone * wean oxygen as tolerated ROHIT on CKD stage IIIa: BUNs/creatinine 14/0.59. * improved. furosemide, lisinopril and spironolactone dc'd Incidental right upper lobe nodule, 1 cm with groundglass opacity found during previous admission on 05/15/2022. Was recommended for outpatient follow-up in 6 months. Patient is a 82-year-old and seems practically not possible to follow- up for nodule with other active comorbidities ongoing. Chronic conditions: * Diabetes mellitus type 2: Glucose in BMP is 124. Accu-Chek ACHS and cover wi th Humalog sliding scale. Patient on pioglitazone continued. Home insulin dose adjusted as patient has poor oral intake. 08/17: Patient had hypoglycemia glucose 42 and 56. Patient on 30 units of glargine insulin twice daily at home, decrease to 10 mg twice daily with holding parameters because of h ypoglycemia.08/18: Glucose 1 85-1 88. Patient started on Solu-Medrol therefore dose of Lantus insulin increased.08/19: Glucose increase due to Solu- Medrol.08/20: Glucose is [id number]/21: Glucose profile is better after discontinuation of Solu-Medrol. * Hypertension: Blood pressure is very high systolic in 200s. IV labetalol ordered. Lisinopril 10 mg daily ordered and titrate upwards. Patient on isosorbide mononitrate 30 mg daily also. Hold Lasix as patient is dehydrated.08/20: Blood pressure profile is better improved 142/63.08/21: Blood pressure was in 200 yesterday currently in 170s. HCTZ started 12.5 mg daily. Lisinopril dose increased to 20 and then 40 mg daily. Hydralazine added 25 mg 3 times daily. Imdur increased to 60 mg daily * obesityWeight loss and lifestyle changes encouraged * History of pulmonary embolism for which patient was on admitted in May 2022. Patient currently not on Eliquis probably has completed it. On baby aspirin continued DVT ppx: SCDs. Lovenox 40 mg subcu daily. Dispostion: to TCU. DW pt's dtr.
[2023-08-23] MEDS: Ipratropium Bromide 0.06% NASAL SPRAY 1 SPRAY NASAL (09:44)
[2023-08-23] MEDS: predniSONE 20 MG Tablet 40 MG PO (09:44)
[2023-08-23] MEDS: Aspirin 81 MG TAB.CHEW PO (09:44)
[2023-08-23] MEDS: Potassium Chloride Oral Tablet 20 MEQ 40 MEQ PO (09:44)
[2023-08-23] MEDS: Doxepin Hcl 25 MG Capsule PO (09:45)
[2023-08-23] MEDS: Senna/Docusate Sodium 1 Tablet 2 TABLET PO (09:45)
[2023-08-23] MEDS: Pantoprazole Sodium 40 MG Tablet PO (09:45)
[2023-08-23 09:46] VITALS: PULSE 79
[2023-08-23] MEDS: Metoprolol Tartrate 25 MG Tablet PO (09:46)
[2023-08-23] MEDS: Lisinopril 40 MG Tablet PO (09:46)
[2023-08-23] MEDS: Polyethylene Glycol 3350 17 GM PACKET PO (09:46)
[2023-08-23] MEDS: Isosorbide Mononitrate 60 MG Tablet PO (09:47)
[2023-08-23] MEDS: hydroCHLOROthiazide 12.5mg 12.5 MG PO (09:47)
[2023-08-23] MEDS: Insulin Glargine-YFGN 100 UNIT/ML Pen 20 UNIT SC (09:48)
[2023-08-23] MEDS: HYDROmorphone 0.5 MG/0.5 ML SYRINGE IV (10:03)
--- NOTE | 2023-08-23 11:46 | TREXTCAR_ITS ---
Diet Diet Order/Speech Therapy: 08/20/23 16:07 Diet: Carbohydrate Controlled Is pt able to select menu?: Yes Wound(s) BACK: Wound Type: Puncture Therapies Weight Bearing: Full weight bearing Physical Therapy: Eval and Treat Occupational Therapy: Eval and Treat Problem/Diagnosis (1) Acute exacerbation of chronic low back pain: Status: Chronic Code(s): M54.50 - Low back pain, unspecified; G89.29 - Other chronic pain Plan Acute on chronic lower back pain with osteoporosis complicated with compression fracture of T12: * Patient has chronic fracture of T7 since May 2022. T12 is a new fracture. * Epidural injection on 08/19. * optimize pain medication so that she may be more functional. Hypokalemia * resolved with replacement. Suspected COPD exacerbation: * transitioned to prednisone * wean oxygen as tolerated ROHIT on CKD stage IIIa: BUNs/creatinine 14/0.59. * improved. furosemide, lisinopril and spironolactone dc'd Incidental right upper lobe nodule, 1 cm with groundglass opacity found during previous admission on 05/15/2022. Was recommended for outpatient follow-up in 6 months. Patient is a 82-year-old and seems practically not possible to follow- up for nodule with other active comorbidities ongoing. Chronic conditions: * Diabetes mellitus type 2: Glucose in BMP is 124. Accu-Chek ACHS and cover with Humalog sliding scale. Patient on pioglitazone continued. Home insulin dose adjusted as patient has poor oral intake. 08/17: Patient had hypoglycemia glucose 42 and 56. Patient on 30 units of glargine insulin twice daily at home, decrease to 10 mg twice daily with holding parameters because of hypoglycemia.08/18: Glucose 1 85-1 88. Patient started on Solu-Medrol therefore dose of Lantus insulin increased.08/19: Glucose increase due to Solu- Medrol.08/20: Glucose is .08/21: Glucose profile is better after discontinuation of Solu-Medrol. * Hypertension: Blood pressure is very high systolic in 200s. IV labetalol ordered. Lisinopril 10 mg daily ordered and titrate upwards. Patient on isosorbide mononitrate 30 mg daily also. Hold Lasix as patient is dehydrated.08/20: Blood pressure profile is better improved 142/63.08/21: Blood pressure was in 200 yesterday currently in 170s. HCTZ started 12.5 mg daily. Lisinopril dose increased to 20 and then 40 mg daily. Hydralazine added 25 mg 3 times daily. Imdur increased to 60 mg daily * obesityWeight loss and lifestyle changes encouraged * History of pulmonary embolism for which patient was on admitted in May 2022. Patient currently not on Eliquis probably has completed it. On baby aspirin continued Dispostion: to TCU. DW pt's dtr. Allergies/Procedures Done in Hospital Allergies naproxen Allergy (Unknown, Verified 05/07/23 13:00) Hives Type of Care/Length of Stay Estimated LOS: Convalescent Care Less Than 30 days Type of Care Needed: Skilled Rehab Potential: Fair Prognosis: Good Additional Orders/Day of Discharge Day of Discharge: 08/23/23 Dietary and Speech Recommendations Dietitian Recommendations/Changes: Recommend resume diet as tolerated with 1600 calorie/consistent carbohydrate; cardiac diet. Consider [employer] swallow evaulation due to coughing with oral intake. Will add 120mL glucerna shake 3 times per day with medpass. Discharge Plan Admission Admit Date/Time: 08/17/23 12:40 Primary Reason for Your Visit: Vertebral compression fracture. Attending Provider: Los Garcia Primary Care Provider: Lei Kwok [employer] Providers: Shin Guevara; Christian Hernandez Discharge Orders/Prescriptions Prescriptions: New hydrochlorothiazide 12.5 mg Capsule 12.5 mg PO DAILY Qty: 0 0RF insulin lispro [Humalog KwikPen Insulin] 100 unit/mL Insulin Pen See Protocol subcut ACHS Qty: 0 0RF Protocol: 4. Sliding Scale Insulin High-Med Dosing Condition: 150-199 mg/dl = 2 units Condition: 200-259 mg/dl = 4 units Condition: 260-324 mg/dl = 6 units Condition: 325-374 mg/dl = 8 units Condition: 375-409 mg/dl = 10 units Condition: 410-449 mg/dl = 11 units Condition: Greater than 449 call physician Protocol Text: - Use for Total Daily Dose of Insulin 56-80 units - Patient who are insulin resistant or septic HIGH MEDIUM DOSING ALGORITHM insulin lispro [Humalog KwikPen Insulin] 100 unit/mL Insulin Pen 10 unit subcut TIDAC Qty: 0 0RF prednisone 20 mg Tablet 40 mg PO BREAKFAST Qty: 8 0RF lisinopril 40 mg Tablet 40 mg PO DAILY Qty: 0 0RF metoprolol tartrate 25 mg Tablet 25 mg PO BID Qty: 0 0RF tizanidine 2 mg Tablet 4 mg PO TID PRN (Reason: muscle spasm) Qty: 0 0RF acetaminophen 500 mg capsule 1,000 mg PO Q8H Qty: 30 0RF oxycodone 5 mg capsule 5 mg PO Q4H PRN (Reason: pain) 3 Days Qty: 12 0RF lidocaine [Lidoderm] 5 % adhesive patch,medicated 1 patch topical DAILY Qty: 15 0RF Rx Instructions: leave on most painful area for up to 12 hrs Continued aspirin 81 mg tablet,chewable 81 mg PO DAILY atorvastatin 40 mg tablet 40 mg PO QHS ipratropium bromide 42 mcg (0.06 %) spray,non-aerosol 1 spray intranasal BID isosorbide mononitrate 30 mg tablet extended release 24 hr 30 mg PO DAILY levocetirizine 5 mg tablet 5 mg PO DAILY pantoprazole 40 mg tablet,delayed release (DR/EC) 40 mg PO DAILY pioglitazone 30 mg tablet 30 mg PO DAILY pregabalin 50 mg capsule 50 mg PO TID venlafaxine 75 mg tablet 75 mg PO DAILY doxepin 10 mg capsule 25 mg PO DAILY Changed insulin degludec 200 unit/mL (3 mL) insulin pen 25 unit subcut BID Qty: 9 0RF Discontinued hydrocodone-acetaminophen 5-325 mg tablet 1 tab PO TID propranolol 40 mg tablet 40 mg PO BID furosemide [Lasix] 40 mg tablet 40 mg PO DAILY Qty: 90 3RF Hold Instructions: Daughter not giving Referrals / Follow Up: Shin Guevara MD [Med Staff - Active Staff] - Within 3 Months Lei Kwok Chi, MD [Primary Care Provider] - Within 2 Weeks Disposition Disposition (needs filled in before D/C Order can be placed): Intermediate Facility
--- NOTE | 2023-08-23 11:57 | DS.PCM_ITS ---
Providers Date of Admission: 08/17/23 Primary Care Physician: Dr. Lei Kwok MD Consultations 08/17/23 15:28 Consult: Pain Management Routine Consulting Provider: Shin Guevara Reason for Consult: epidural pain injection EMERGENT Consult: No MD Notified: Yes Date Notified: 08/17/23 Time Notified: 15:29 Method of Notification: Verbal Reason For Visit: COMPRESSION T7, T12, HYPOKALEMIA Diagnosis Discharge Diagnosis (1) Acute exacerbation of chronic low back pain: Status: Chronic Code(s): M54.50 - Low back pain, unspecified; G89.29 - Other chronic pain Plan Acute on chronic lower back pain with osteoporosis complicated with compression fracture of T12: * Patient has chronic fracture of T7 since May 2022. T12 is a new fracture. * Epidural injection on 08/19. * optimize pain medication so that she may be more functional. Hypokalemia * resolved with replacement. Suspected COPD exacerbation: * transitioned to prednisone * wean oxygen as tolerated ROHIT on CKD stage IIIa: BUNs/creatinine 14/0.59. * improved. furosemide, lisinopril and spironolactone dc'd Incidental right upper lobe nodule, 1 cm with groundglass opacity found during previous admission on 05/15/2022. Was recommended for outpatient follow-up in 6 months. Patient is a 82-year-old and seems practically not possible to follow- up for nodule with other active comorbidities ongoing. Chronic conditions: * Diabetes mellitus type 2: Glucose in BMP is 124. Accu-Chek ACHS and cover with Humalog sliding scale. Patient on pioglitazone continued. Home insulin dose adjusted as patient has poor oral intake. 08/17: Patient had hypoglycemia glucose 42 and 56. Patient on 30 units of glargine insulin twice daily at home, decrease to 10 mg twice daily with holding parameters because of hypoglycemia.08/18: Glucose 1 85-1 88. Patient started on Solu-Medrol therefore dose of Lantus insulin increased.08/19: Glucose increase due to Solu- Medrol.08/20: Glucose is .08/21: Glucose profile is better after discontinuation of Solu-Medrol. * Hypertension: Blood pressure is very high systolic in 200s. IV labetalol ordered. Lisinopril 10 mg daily ordered and titrate upwards. Patient on isosorbide mononitrate 30 mg daily also. Hold Lasix as patient is dehydrated.08/20: Blood pressure profile is better improved 142/63.08/21: Blood pressure was in 200 yesterday currently in 170s. HCTZ started 12.5 mg daily. Lisinopril dose increased to 20 and then 40 mg daily. Hydralazine added 25 mg 3 times daily. Imdur increased to 60 mg daily * obesityWeight loss and lifestyle changes encouraged * History of pulmonary embolism for which patient was on admitted in May 2022. Patient currently not on Eliquis probably has completed it. On baby aspirin continued Dispostion: to TCU. DW pt's dtr. Medications at Discharge Home Medications aspirin 81 mg chewable tablet 81 mg PO DAILY 10/27/21 atorvastatin 40 mg tablet 40 mg PO QHS 03/13/22 ipratropium bromide 42 mcg (0.06 %) nasal spray 1 spray intranasal BID 03/13/22 isosorbide mononitrate 30 mg tablet,extended release 24 hr 30 mg PO DAILY 03/13/22 levocetirizine 5 mg tablet 5 mg PO DAILY 03/13/22 pantoprazole 40 mg tablet,delayed release 40 mg PO DAILY 03/13/22 pioglitazone 30 mg tablet 30 mg PO DAILY 01/02/23 pregabalin 50 mg capsule 50 mg PO TID 01/02/23 doxepin 10 mg capsule 25 mg PO DAILY 05/07/23 venlafaxine 75 mg tablet 75 mg PO DAILY 05/07/23 acetaminophen 500 mg capsule 1,000 mg (2 x 500 mg) PO Q8H #30 caps 08/23/23 hydrochlorothiazide 12.5 mg capsule 12.5 mg PO DAILY #0 caps 08/23/23 insulin degludec 200 unit/mL (3 mL) subcutaneous pen 25 unit (0.125 mL) subcut BID #9 mL 08/23/23 insulin lispro 100 unit/mL subcutaneous pen (Humalog KwikPen (U-100) Insulin) 10 unit (0.1 mL) subcut TIDAC #0 mL 08/23/23 insulin lispro 100 unit/mL subcutaneous pen (Humalog KwikPen (U-100) Insulin) See Protocol subcut ACHS #0 mL 08/23/23 lidocaine 5 % topical patch (Lidoderm) 1 patch topical DAILY #15 ea 08/23/23 lisinopril 40 mg tablet 40 mg PO DAILY #0 tabs 08/23/23 metoprolol tartrate 25 mg tablet 25 mg PO BID #0 tabs 08/23/23 oxycodone 5 mg capsule 5 mg PO Q4H PRN pain 3 days #12 caps 08/23/23 prednisone 20 mg tablet 40 mg (2 x 20 mg) PO BREAKFAST #8 tabs 08/23/23 tizanidine 2 mg tablet 4 mg (2 x 2 mg) PO TID PRN muscle spasm #0 tabs 08/23/23 Hospital Course Summary of Care Provided Minutes Spent on Discharge: 35 Weight / BMI Weight Weight: 104.6 kg Body Mass Index (BMI) 39.5 ABG / Lab / Microbiology Data 08/23/23 06:19 08/23/23 06:19 Laboratory: Laboratory Results - last 24 hr 08/22/23 16:51: POC Glucose 181 H 08/22/23 20:58: POC Glucose 199 H 08/23/23 06:19: WBC 8.3, RBC 4.68, Hgb 11.6 L, Hct 38.5, MCV 82.3, MCH 24.8 L, MCHC 30.1 L, RDW Std Deviation 52.6 H, RDW Coeff of Duran 17.5 H, Plt Count 292, MPV 11.0, Immature Gran % (Auto) 1.800 H, Neut % (Auto) 76.4 H, Lymph % (Auto) 12.4 L, [place] % (Auto) 9.0, Eos % (Auto) 0.2, Baso % (Auto) 0.2, Absolute Neuts (auto) 6.4, Absolute Lymphs (auto) 1.03, Nucleated RBC % 0.2, Sodium 139, Potassium 3.7, Chloride 97 L, Carbon Dioxide 36.0 H, Anion Gap 6, BUN 29 H, Creatinine 1.03 H, Estim Creat Clear Calc 49.63, Est GFR (MDRD) Af Amer 66, Est GFR (MDRD) Non-Af 54 L, BUN/Creatinine Ratio 28.2 H, Glucose 176 H, Calcium 9.5 08/23/23 07:58: POC Glucose 160 H Microbiology: Microbiology 08/17/23 10:34 Mucosa - Nasopharyngeal SARS-CoV-2, Influenza & RSV (PCR) - Final D/C Instructions Discharge Diet: 1999 Calorie Control Diet Meaningful Use Info Meaningful Use Diagnoses (Choose all that apply): None applicable Discharge Plan Admission Admit Date/Time: 08/17/23 12:40 Primary Reason for Your Visit: Vertebral compression fracture. Attending Provider: Los Garcia Primary Care Provider: Lei Kwok Chi [employer] Providers: Shin Guevara; Christian Hernandez Discharge Orders/Prescriptions Prescriptions: New hydrochlorothiazide 12.5 mg Capsule 12.5 mg PO DAILY Qty: 0 0RF insulin lispro [Humalog KwikPen Insulin] 100 unit/mL Insulin Pen See Protocol subcut ACHS Qty: 0 0RF Protocol: 4. Sliding Scale Insulin High-Med Dosing Condition: 150-199 mg/dl = 2 units Condition: 200-259 mg/dl = 4 units Condition: 260-324 mg/dl = 6 units Condition: 325-374 mg/dl = 8 units Condition: 375-409 mg/dl = 10 units Condition: 410-449 mg/dl = 11 units Condition: Greater than 449 call physician Protocol Text: - Use for Total Daily Dose of Insulin 56-80 units - Patient who are insulin resistant or septic HIGH MEDIUM DOSING ALGORITHM insulin lispro [Humalog KwikPen Insulin] 100 unit/mL Insulin Pen 10 unit subcut TIDAC Qty: 0 0RF prednisone 20 mg Tablet 40 mg PO BREAKFAST Qty: 8 0RF lisinopril 40 mg Tablet 40 mg PO DAILY Qty: 0 0RF metoprolol tartrate 25 mg Tablet 25 mg PO BID Qty: 0 0RF tizanidine 2 mg Tablet 4 mg PO TID PRN (Reason: muscle spasm) Qty: 0 0RF acetaminophen 500 mg capsule 1,000 mg PO Q8H Qty: 30 0RF oxycodone 5 mg capsule 5 mg PO Q4H PRN (Reason: pain) 3 Days Qty: 12 0RF lidocaine [Lidoderm] 5 % adhesive patch,medicated 1 patch topical DAILY Qty: 15 0RF Rx Instructions: leave on most painful area for up to 12 hrs Continued aspirin 81 mg tablet,chewable 81 mg PO DAILY atorvastatin 40 mg tablet 40 mg PO QHS ipratropium bromide 42 mcg (0.06 %) spray,non-aerosol 1 spray intranasal BID isosorbide mononitrate 30 mg tablet extended release 24 hr 30 mg PO DAILY levocetirizine 5 mg tablet 5 mg PO DAILY pantoprazole 40 mg tablet,delayed release (DR/EC) 40 mg PO DAILY pioglitazone 30 mg tablet 30 mg PO DAILY pregabalin 50 mg capsule 50 mg PO TID venlafaxine 75 mg tablet 75 mg PO DAILY doxepin 10 mg capsule 25 mg PO DAILY Changed insulin degludec 200 unit/mL (3 mL) insulin pen 25 unit subcut BID Qty: 9 0RF Discontinued hydrocodone-acetaminophen 5-325 mg tablet 1 tab PO TID propranolol 40 mg tablet 40 mg PO BID furosemide [Lasix] 40 mg tablet 40 mg PO DAILY Qty: 90 3RF Hold Instructions: Daughter not giving Referrals / Follow Up: Shin Guevara MD [Med Staff - Active Staff] - Within 3 Months Lei Kwok Chi, MD [Primary Care Provider] - Within 2 Weeks Disposition Disposition (needs filled in before D/C Order can be placed): Shelter Facility Charges/Coding Visit Charges Inpatient E&M: 69328 Disch Hosp >30min
[2023-08-23 12:27] LABS: Bedside Glucose 97 mg/dL (74-106)
[2023-08-23 12:59] VITALS: PULSE 95; RESP 18
== END 2023-08-23 13:39 | disposition skilled nursing facility (03) | DRG 543 ==
LOC: ED 10:46 → PCU 12:54
PROVIDERS: Anesthesiology Pain Medicine; Admitting Provider Internal Medicine; Emergency Provider Emergency Medicine; PCP Family Medicine Geriatric Medicine
PROC: 3E0S3BZ Introduction of Anesthetic Agent into Epidural Space, Percutaneous Approach (ICD-10-PCS; CPT 62322; principal; 2023-08-20 13:55)
DX: M80.08XA Age-related osteoporosis with current pathological fracture, vertebra(e), initial encounter for fracture (principal); N17.9 Acute kidney failure, unspecified; J44.1 Chronic obstructive pulmonary disease with (acute) exacerbation; E11.649 Type 2 diabetes mellitus with hypoglycemia without coma; E11.22 Type 2 diabetes mellitus with diabetic chronic kidney disease; N18.31 Chronic kidney disease, stage 3a; I12.9 Hypertensive chronic kidney disease with stage 1 through stage 4 chronic kidney disease, or unspecified chronic kidney disease; I25.10 Atherosclerotic heart disease of native coronary artery without angina pectoris; M47.816 Spondylosis without myelopathy or radiculopathy, lumbar region; E83.42 Hypomagnesemia; E78.5 Hyperlipidemia, unspecified; E87.6 Hypokalemia; E66.9 Obesity, unspecified; Z51.5 Encounter for palliative care; Z79.84 Long term (current) use of oral hypoglycemic drugs; Z87.891 Personal history of nicotine dependence; R09.02 Hypoxemia; Z66 Do not resuscitate; Z79.82 Long term (current) use of aspirin; G89.29 Other chronic pain; Z86.711 Personal history of pulmonary embolism; R91.1 Solitary pulmonary nodule; Z68.39 Body mass index [BMI] 39.0-39.9, adult
CPT/HCPCS: 36415; 71045; 71046; 72100; 76000; 77002; 80048; 82962; 83735; 84100; 85025; 87631; 93005; 94640; 94668; 97162; 97166; 97530; 97535; 97802; 97803; 99252; 99285; J7050; J7120; A4216; G0463; J2405

== ENCOUNTER 2023-08-23 13:57 | Inpatient (IN) | payer MEDICARE, SELFPAY ==
[2023-08-23 14:06] VITALS: BP 110/66; PULSE 95; RESP 21; TEMP 36.3; O2SAT 94
[2023-08-23 14:20] VITALS: BMI 36.7
--- NOTE | 2023-08-23 14:41 | NURSING ---
verified with pt and daughter that she takes doxepin and effexor as ordered. they both verified it is correct.
[2023-08-23] MEDS: oxyCODONE 5 MG Tablet PO ×2 (14:50→21:24)
[2023-08-23 16:20] LABS: Bedside Glucose 200 mg/dL (74-106)
[2023-08-23 16:25] VITALS: PULSE 92; RESP 18
[2023-08-23] MEDS: Glucerna Shake 120 ML LIQUID PO (18:17)
[2023-08-23] MEDS: Insulin Lispro 100 UNIT/ML INSULN.PEN SC (18:17)
[2023-08-23] MEDS: Insulin Lispro 100 UNIT/ML INSULN.PEN 10 UNIT SC (18:17)
--- NOTE | 2023-08-23 18:30 | RAD_ITS ---
STUDY: X-RAY - ABDOMEN/PELVIS REASON FOR EXAM: Female, 82 years old. Constipation. TECHNIQUE: Single AP view of the abdomen / pelvis. COMPARISON: None. FINDINGS: Normal visualized lung bases. There is an unremarkable bowel gas pattern. The visualized liver, spleen and kidneys are grossly normal in size and morphology. Normal soft tissue structures. Normal visualized osseous structures. RAD/Abdomen Single View IMPRESSION: Normal x-ray examination of the abdomen and pelvis. Electronically Signed: Felix Ash MD at 19:57 EDT ,
--- NOTE | 2023-08-23 18:33 | NURSING ---
pt off unit via bed to xray
--- NOTE | 2023-08-23 21:02 | HP.PCM_ITS ---
HPI - General General Date of Admission: 08/23/23 Date of Service: 08/23/23 Chief Complaint: Here for rehabilitation. HPI Narrative 08/17/2023 YUMIKO HU, is a 82 Female who presents to [facility] ED back pain. Worsening back pain for few days, started with opening window, no radicular pain. Pain worse with movement, walks with walker, took leftover hydrocodone from previous cervical compression fracture. Worsening productive cough x 2 weeks, oxygen 3 liters chronic. Aerosols given per EMS, oxygen 4 liters per NC. Chest X-ray negative. X-ray showed new T7, T12 compression fracture. covid negative, flu negative, K 2.4, Magnesium 1.3. Potassium given, Magnesium given. Difficulty ambulating with T7, T12 compression fracture. 08/17/2023 Admit to [facility]. Consult Dr. Guevara for T12 compression fracture, LR IV. Replete K, Magnesium, Phosphorous. Labetalol IV, Lisinopril 10mg, Isosorbide 30mg, Hold Lasix for elevated blood pressure. 08/18/2023 Pain persists, 14 beats of NSVT. MRI unable due to pain with movement. Propranolol changed to Metoprolol for NSVT. Duoneb q6 for COPD. 08/19/2023 Pain slightly better, oxygen 5 liters. Heart rate controlled. Solu-medrol IV, Chest X-ray for hypoxia. Blood pressure 142/63. Monitor kidney function. 08/20/2023 Pain is better, but worse with movement. Chest X-ray unchanged. Lantus increased 2/2 Solu-medrol. Creatinine 1.[address] Guevara performed thoracic epidural steroid injection. 08/21/2023 Confused, visual/auditory hallucinations. Stop Solu-medrol IV 2/2 hallucinations, elevated blood pressure. Solu-medrol changed to prednisone. Glucose 241. Blood pressure 211/97. 08/22/2023 Awake, talking, but confused, hallucinates at night. Blood pressure 160 to 170 systolic, HCTZ 12.5mg daily, Lisinopril 40mg daily, Hydralazine 25mg tid, Imdur 60mg daily. Prednisone, aerosols for COPD exacerbation. Sugar improved. Creatinine 1.09. 08/23/2023 Admit to TCU with debility, here for rehabilitation, strengthening, prior to discharge home with daughter. [facility] Medical History (Updated 08/23/23 @ 21:[address] Lei Kwok MD) Asthma Atherosclerosis of coronary artery of resighini heart without angina pectoris CKD (chronic kidney disease), stage III Dameon syndrome Depression Diabetes mellitus Dyspnea Essential hypertension Former tobacco use Hyperlipidemia Hypoxia Obesity Osteoarthritis Home Medications aspirin 81 mg chewable tablet 81 mg PO DAILY heart health 10/27/21 [History Last Taken Unknown] atorvastatin 40 mg tablet 40 mg PO QHS cholesterol 03/13/22 [History Last Taken Unknown] ipratropium bromide 42 mcg (0.06 %) nasal spray 1 spray intranasal BID nasal spray 03/13/22 [History Last Taken Unknown] isosorbide mononitrate 30 mg tablet,extended release 24 hr 30 mg PO DAILY blood pressure 03/13/22 [History Last Taken Unknown] levocetirizine 5 mg tablet 5 mg PO DAILY hay fever/hives 03/13/22 [History Last Taken Unknown] pantoprazole 40 mg tablet,delayed release 40 mg PO DAILY stomach/acid 03/13/22 [History Last Taken Unknown] pioglitazone 30 mg tablet 30 mg PO DAILY diabetes 01/02/23 [History Last Taken Unknown] pregabalin 50 mg capsule 50 mg PO TID nerve pain 01/02/23 [History Last Taken Unknown] doxepin 10 mg capsule 25 mg PO DAILY nerve pain 05/07/23 [History Last Taken Unknown] venlafaxine 75 mg tablet 75 mg PO DAILY depression 05/07/23 [History Last Taken Unknown] acetaminophen 500 mg capsule 1,000 mg (2 x 500 mg) PO Q8H pain/inflammat #30 caps 08/23/23 [Rx Last Taken Unknown] hydrochlorothiazide 12.5 mg capsule 12.5 mg PO DAILY water pill #0 caps 08/23/23 [Rx Last Taken Unknown] insulin degludec 200 unit/mL (3 mL) subcutaneous pen 25 unit (0.125 mL) subcut BID diabetes #9 mL 08/23/23 [Rx Last Taken Unknown] insulin lispro 100 unit/mL subcutaneous pen (Humalog KwikPen (U-100) Insulin) 10 unit (0.1 mL) subcut TIDAC diabetes #0 mL 08/23/23 [Rx Last Taken Unknown] insulin lispro 100 unit/mL subcutaneous pen (Humalog KwikPen (U-100) Insulin) See Protocol subcut ACHS diabetes #0 mL 08/23/23 [Rx Last Taken Unknown] lidocaine 5 % topical patch (Lidoderm) 1 patch topical DAILY numbing patch #15 ea 08/23/23 [Rx Last Taken Unknown] lisinopril 40 mg tablet 40 mg PO DAILY blood pressure #0 tabs 08/23/23 [Rx Last Taken Unknown] metoprolol tartrate 25 mg tablet 25 mg PO BID blood pressure #0 tabs 08/23/23 [Rx Last Taken Unknown] oxycodone 5 mg capsule 5 mg PO Q4H PRN pain 3 days #12 caps 08/23/23 [Rx Last Taken Unknown] prednisone 20 mg tablet 40 mg (2 x 20 mg) PO BREAKFAST inflammation #8 tabs 08/23/23 [Rx Last Taken Unknown] tizanidine 2 mg tablet 4 mg (2 x 2 mg) PO TID PRN muscle spasm #0 tabs 08/23/23 [Rx Last Taken Unknown] Allergy/AdvReac Type Severity Reaction Status Date / Time naproxen Allergy Unknown Hives Verified 05/07/23 13:00 Family History Mother Heart disease CAD (coronary artery disease) Hypertension CHF (congestive heart failure) Father Diabetes Surgical History History of right and left heart catheterization (12/30/20) Hx of hysterectomy Social History household members: family number of children: 4 Smoking Status: Former smoker how long ago did patient quit smoking: Quit ~ 30 years prior, 1 ppd since teen until quit. alcohol intake: never substance use type: does not use ROS Constitutional Constitutional: Reports fatigue and weakness; Denies chills, fever(s) or weight gain ENT HEENT: Denies headache(s), nasal congestion or nasal discharge Cardiovascular Cardiovascular: Denies chest pain or palpitations Respiratory/Chest Respiratory/Chest: Denies cough, excessive phlegm production or shortness of breath with exertion Gastrointestinal Gastrointestinal: Denies abdominal pain, nausea or vomiting Genitourinary Genitourinary: Denies dysuria Musculoskeletal Musculoskeletal: Reports back pain; Denies joint pain or joint swelling Integumentary Integumentary: Denies rash or wounds Neurologic Neurologic: Denies focal weakness, numbness or tingling Psychiatric Psychiatric: Denies anxiety, auditory hallucinations, depression, homicidal ideation or suicidal ideation Vital Signs Vital Signs Vital Signs: 08/23/23 14:06 08/23/23 16:25 Temperature 97.4 F L Temperature Source Temporal Pulse Rate 95 92 Pulse Rhythm Regular Pulse Strength Normal (2+) Respiratory Rate 21 H 18 Respiratory Effort Normal Non-Labored Respiratory Depth Normal Respiratory Pattern Normal Blood Pressure 110/66 Blood Pressure Mean 80 Pulse Ox 94 Oxygen Delivery Method Nasal Cannula Nasal Cannula Oxygen Flow Rate (L/min) 3 2 Weight Weight: 100.153 kg Body Mass Index (BMI) 36.7 Physical Exam Const alert General Appearance: cooperative HEENT normocephalic Eyes PERRL and EOMs intact bilaterally Neck supple, no JVD and no carotid bruits Resp normal respiratory effort, normal air movement and clear to auscultation bilaterally Cardio regular rate and regular rhythm GI normal to inspection, nondistended, normoactive bowel sounds, non-tender and non-distended Extremity normal capillary refill General Extremity: Negative for edema Skin no rashes or lesions noted General Skin Exam: no breakdown Psych affect normal Appearance: appropriate Results Lab / Micro Data Labs: Laboratory Results - last 24 hr 08/23/23 16:01: POC Glucose 200 H Imaging Radiology Impression KUB X-Ray 08/23/23 18:30 IMPRESSION: Normal x-ray examination of the abdomen and pelvis. Electronically Signed: Felix Ash MD at 19:57 EDT , Assessment & Plan Assessment/Plan (1) Debility: (2) T12 compression fracture: (3) COPD exacerbation: (4) Hypertensive urgency: (5) Encephalopathy: (6) NSVT (nonsustained ventricular tachycardia): (7) Diabetes mellitus: (8) Depression: (9) Morbid obesity: (10) Coronary artery disease: (11) Chronic kidney disease, stage 3a: (12) Diabetic polyneuropathy: (13) Hyperlipidemia: (14) GERD (gastroesophageal reflux disease): (15) Osteoporosis: PLAN: Plan 82 year old female with below past medical history hospitalized for intractable thoracic back pain 2/2 T12 compression fracture, complicated by COPD exacerbation, acute encephalopathy, NSVT, hypokalemia, hypomagnesemia, hypophosphatemia, admitted to TCU with debility, here for rehabilitation, strengthening, prior to discharge home with daughter. * Debility - PT/OT. * Dysphagia - ST. * Pain - Tylenol 1000mg q8, Tramadol 50mg q6 prn pain (1-5), Oxycodone 5mg q4 pr n pain (6-10), Lidoderm patch 1 patch daily. * Bowel - senna/colace 2 tablets bid, Magnesium citrate 300ml daily prn. * Adult immunization - Administer pneumoia vaccine, covid vaccine, flu vaccine as appropriate. * DVT prophylaxis - Monitor. * Coronary artery disease - Metoprolol 25mg bid, Lisinopril 40mg daily, Imdur 30mg daily, Aspirin 81mg daily. * Hyperlipidemia - Atorvastatin 40mg qhs. * Insomnia - Doxepin 25mg qhs. * Nutrition - Glucerna shake 120ml tidcm. * Diabetes Mellitus II - Glargine 25 units bid, Lispro 10 units tidac, Pioglitazone 30mg daily. * Hypertension - Metoprolol 25mg bid, Lisinopril 40mg daily, Imdur 30mg daily, HCTZ 12.5mg daily. * Skin irritation - Calmoseptine topical bid, Eucerin topical qhs. * Tinea Corporis - Miconazole topical bid. * COPD - Prednisone taper. * Diabetic polyneuropathy - Lyrica 50mg tid. * Muscle spasm - Tizanidine 4mg tid prn. * Depression - Venlafaxine 75mg daily, stable chronic emt intermediate use, GDR not recommended.
[2023-08-23] MEDS: Insulin Glargine-YFGN 100 UNIT/ML Pen 25 UNIT SC (21:19)
[2023-08-23] MEDS: Ipratropium Bromide 0.06% NASAL SPRAY 1 SPRAY NASAL (21:23)
[2023-08-23] MEDS: Miconazole Nitrate 43 GM Bottle 1 APPLIC TOPICAL (21:24)
[2023-08-23] MEDS: Petrolatum 33% Tube 1 APPLIC TOPICAL (21:24)
[2023-08-23] MEDS: Menthol/Lanolin/Calamine/Znox 113 GM Tube 1 APPLIC TOPICAL (21:24)
[2023-08-23] MEDS: Atorvastatin Calcium 40 MG Tablet PO (21:25)
[2023-08-23] MEDS: Acetaminophen 500 MG Tablet 1000 MG PO (21:26)
[2023-08-23 21:27] VITALS: BP 162/77; PULSE 94
[2023-08-23] MEDS: Metoprolol Tartrate 25 MG Tablet PO (21:27)
[2023-08-23 21:36] VITALS: BP 162/77; PULSE 94
[2023-08-23] MEDS: 0.9% Saline Lock 10 ML Syringe IV (21:48)
[2023-08-23] MEDS: Doxepin Hcl 25 MG Capsule PO (21:48)
[2023-08-23 22:01] LABS: Bedside Glucose 207 mg/dL (74-106)
[2023-08-23] MEDS: Pregabalin 50 MG Capsule PO (22:09)
[2023-08-24] VITALS (7 sets, daily range): BP systolic 134–161; BP diastolic 71–87; PULSE 77–101; RESP 16; TEMP 36.8; O2SAT 93–100
[2023-08-24 05:35] LABS: Absolute Lymphocyte Count 1.89 X10^3/uL (0.83-4.51); Absolute Neutrophil Count 6.9 X10^3/uL (2.0-7.7); Basophil# 0.01 X10^3/uL; Basophil% 0.1 % (0-1); Eosinophil# 0.07 X10^3/uL; Eosinophils% 0.7 % (0-5); Hematocrit 38.4 % (37-47); Hemoglobin 11.9 g/dL (12.0-15.0); Lymphocyte # 1.89 X10^3/ul (0.83-4.51); Lymphocyte % 18.8 % (19-41); Mean Corpuscular Hgb 25.6 pg (27.0-32.0); Mean Corpuscular Volume 82.8 fL (81-99); Mean Platelet Vol. 10.7 fl (6.2-12.0); Monocyte# 0.94 X10^3/uL; Monocyte% 9.4 % (0-10); NRBC Flagged by Analyzer 0.5 % (0-5); Neutrophil # 6.89 X10^3/uL (2.7-7.7); Neutrophil % 68.6 % (47-70); Platelet Count 270 K/mm3 (150-450); RBC Distribution Width CV 17.8 % (11.6-14.6); RBC Distribution Width SD 53.9 fl (35.1-43.9); Red Blood Count 4.64 M/mm3 (4.2-5.4)
[2023-08-24] MEDS: Acetaminophen 500 MG Tablet 1000 MG PO ×3 (05:37→21:46)
[2023-08-24] MEDS: Pregabalin 50 MG Capsule PO ×3 (05:37→21:45)
[2023-08-24 06:04] LABS: Anion Gap 8 (5-15); BUN 55 mg/dL (7-18); BUN/Creat Ratio 22.7 RATIO (10-20); Calcium,Total 9.3 mg/dL (8.5-10.1); Chloride 98 mmol/L (98-107); Creatinine, Serum 2.42 mg/dL (0.55-1.02); EST Glomerular Filtration Rate 20 mL/min (>60); Est Glom Filt Rate - Afr Amer 25 mL/min (>60); Estimated Creatinine Clearance 21.01 ml/min; Glucose 88 mg/dL (74-106); Potassium 4.2 mmol/L (3.5-5.1); Sodium Level 140 mmol/L (136-145)
[2023-08-24 06:50] LABS: Bedside Glucose 67 mg/dL (74-106)
[2023-08-24] MEDS: Glucerna Shake 120 ML LIQUID PO (08:07)
[2023-08-24] MEDS: Pioglitazone Hydrochloride 30 MG Tablet PO (08:11)
[2023-08-24] MEDS: Miconazole Nitrate 43 GM Bottle 1 APPLIC TOPICAL ×2 (08:12→20:22)
[2023-08-24] MEDS: Aspirin 81 MG TAB.CHEW PO (08:12)
[2023-08-24] MEDS: Metoprolol Tartrate 25 MG Tablet PO ×2 (08:13→21:45)
[2023-08-24] MEDS: predniSONE 20 MG Tablet 10 MG PO (08:13)
[2023-08-24] MEDS: Pantoprazole Sodium 40 MG Tablet PO (08:15)
[2023-08-24] MEDS: Senna/Docusate Sodium 1 Tablet 2 TABLET PO ×2 (08:15→21:46)
[2023-08-24] MEDS: Lisinopril 40 MG Tablet PO (08:16)
[2023-08-24] MEDS: Lidocaine 5% Patch 1 PATCH TOPICAL (08:16)
[2023-08-24] MEDS: Isosorbide Mononitrate 30 MG Tablet PO (08:17)
[2023-08-24] MEDS: hydroCHLOROthiazide 12.5mg 12.5 MG PO (08:17)
[2023-08-24] MEDS: Venlafaxine HCl 75 MG Tablet PO (08:17)
[2023-08-24] MEDS: 0.9% Saline Lock 10 ML Syringe IV (09:45)
[2023-08-24] MEDS: 0.9% Normal Saline (1000mL) 1,000 ML 60 ML IV (09:45)
[2023-08-24] MEDS: oxyCODONE 5 MG Tablet PO ×3 (09:49→20:21)
[2023-08-24] MEDS: Insulin Glargine-YFGN 100 UNIT/ML Pen 15 UNIT SC ×2 (10:18→21:46)
[2023-08-24] MEDS: Tuberculin,Purif.prot.deriv. 50 TU/ML Vial 0.1 ML ID (10:19)
[2023-08-24] MEDS: Menthol/Lanolin/Calamine/Znox 113 GM Tube 1 APPLIC TOPICAL ×2 (10:19→20:22)
[2023-08-24 10:54] LABS: Bedside Glucose 154 mg/dL (74-106)
[2023-08-24 11:24] LABS: Bedside Glucose 185 mg/dL (74-106)
--- NOTE | 2023-08-24 11:49 | PCM.PN.DRR ---
Documented by User: Hugo Roberts 08/24/23 12:16 TCU RX Drug Regimen Review Subjective/Objective Subjective/Objective: Subjective: TCU admission note. 82 year old female with below past medical history hospitalized for intractable thoracic back pain 2/2 T12 compression fracture, complicated by COPD exacerbation, acute encephalopathy, NSVT, hypokalemia, hypomagnesemia, hypophosphatemia, admitted to TCU with debility, here for rehabilitation, strengthening, prior to discharge home with daughter. Objective: Allergies naproxen Allergy (Unknown, Verified 05/07/23 13:00) Hives Current Medications Generic Name Dose Route Start Last Admin Trade Name Freq PRN Reason Stop Dose Admin Acetaminophen 1,000 mg 08/23/23 22:00 08/24/23 05:37 Acetaminophen 500 Mg Tablet PO 1,000 mg Q8 XAVIER Administration Aspirin 81 mg 08/24/23 08:00 08/24/23 08:12 Aspirin 81 Mg Tab.Chew PO 81 mg DAILYCM XAVIER Administration Atorvastatin Calcium 40 mg 08/23/23 22:00 08/23/23 21:25 Atorvastatin Calcium 40 Mg Tablet PO 40 mg QHS XAVIER Administration Calamine/Phenol 1 applic 08/23/23 22:00 08/24/23 10:19 Menthol/Lanolin/Calamine/Znox 113 Gm Tube TOPICAL 1 applic BID XAVIER Administration Protocol Doxepin HCl 25 mg 08/23/23 22:00 08/23/23 21:48 Doxepin Hcl 25 Mg Capsule PO 25 mg QHS XAVIER Administration Hydrochlorothiazide 12.5 mg 08/24/23 10:00 08/24/23 08:17 Hydrochlorothiazide 12.5mg PO 12.5 mg DAILY XAVIER Administration Protocol Hydrocortisone 1 applic 08/24/23 07:54 Hydrocortisone 2.5% Crm TOPICAL TID PRN PRN RASH/TOPICAL IRRITATION Protocol Sodium Chloride 1,000 mls @ 60 mls/hr 08/24/23 08:00 08/24/23 09:45 IV 60 mls/hr .[id number] XAVIER Administration Insulin Glargine 15 unit 08/24/23 10:00 08/24/23 10:18 Insulin Glargine-Yfgn 100 Unit/Ml Pen SC 15 unit BID XAVIER Administration Isosorbide Mononitrate 30 mg 08/24/23 10:00 08/24/23 08:17 Isosorbide Mononitrate 30 Mg Tablet PO 30 mg DAILY [facility] Administration Protocol Lidocaine 1 patch 08/24/23 10:00 08/24/23 08:16 Lidocaine 5% Patch TOPICAL 1 patch DAILY [facility] Administration Protocol Lisinopril 40 mg 08/24/23 10:00 08/24/23 08:16 Lisinopril 40 Mg Tablet PO 40 mg DAILY [facility]IER Administration Protocol Magnesium Citrate 300 ml 08/23/23 20:58 Magnesium Citrate 300 Ml PO DAILY PRN Constipation Melatonin 10 mg 08/24/23 22:00 Melatonin 10 Mg Tablet PO QHS [facility] Metoprolol Tartrate 25 mg 08/23/23 22:00 08/24/23 08:13 Metoprolol Tartrate 25 Mg Tablet PO 25 mg BID [facility] Administration Protocol Miconazole Nitrate 1 applic 08/23/23 22:00 08/24/23 08:12 Miconazole Nitrate 43 Gm Bottle TOPICAL 1 applic BID [facility] Administration Protocol Multi-Ingredient Cream 1 applic 08/23/23 22:00 08/23/23 21:24 Petrolatum 33% Tube TOPICAL 1 applic QHS [facility] Administration Protocol Nutritional Formula (Lactose Free) 120 ml 08/23/23 17:45 08/24/23 08:07 Glucerna Shake 120 Ml Liquid PO 120 ml TIDCM [facility] Administration Oxycodone HCl 5 mg 08/23/23 20:59 08/24/23 09:49 Oxycodone 5 Mg Tablet PO 5 mg Q4H PRN PRN Administration Pain Score 6-10 Pantoprazole Sodium 40 mg 08/24/23 10:00 08/24/23 08:15 Pantoprazole Sodium 40 Mg Tablet PO 40 mg DAILY [facility] Administration Pioglitazone HCl 30 mg 08/24/23 10:00 08/24/23 08:11 Pioglitazone Hydrochloride 30 Mg Tablet PO 30 mg DAILY [facility] Administration Prednisone 40 mg 08/24/23 08:00 08/24/23 08:13 Prednisone 20 Mg Tablet PO 09/05/23 07:59 40 mg BREAKFAST [facility] Administration Taper Pregabalin 50 mg 08/23/23 22:00 08/24/23 05:37 Pregabalin 50 Mg Capsule PO 50 mg TID [facility] Administration Senna/Docusate Sodium 2 tablet 08/23/23 22:00 08/24/23 08:15 Senna/Docusate Sodium 1 Tablet PO 2 tablet BID [facility] Administration Sodium Chloride 10 - 40 ml 08/23/23 14:40 08/24/23 09:45 0.9% Saline Lock 10 Ml Syringe IV 10 ml UD PRN Administration SALINE FLUSH Tizanidine HCl 4 mg 08/23/23 14:15 Tizanidine Hcl 2 Mg Tablet PO TID PRN muscle spasm Tramadol HCl 50 mg 08/23/23 20:57 Tramadol 50 Mg Tablet PO Q6H PRN PRN Pain Score 1-5 Tuberculin PPD 0.1 ml 08/31/23 10:00 Tuberculin,Purif.Prot.Deriv. 50 Tu/Ml Vial ID 08/31/23 10:01 X1 ONE Venlafaxine HCl 75 mg 08/24/23 10:00 08/24/23 08:17 Venlafaxine Hcl 75 Mg Tablet PO 75 mg DAILY [facility] Administration Problem List (Updated 08/23/23 @ 21:[address] Lei Kwok MD) Osteoporosis (Acute) GERD (gastroesophageal reflux disease) (Acute) Diabetic polyneuropathy (Acute) Chronic kidney disease, stage 3a (Chronic) Coronary artery disease (Acute) Morbid obesity (Acute) Depression (Acute) NSVT (nonsustained ventricular tachycardia) (Acute) Encephalopathy (Acute) Hypertensive urgency (Acute) COPD exacerbation (Chronic) Debility (Acute) T12 compression fracture (Acute) Hyperlipidemia (Chronic) Diabetes mellitus (Chronic) Vital Signs Temp Pulse Resp BP Pulse Ox O2 Del Method O2 Flow Rate 97.4 F L 83 18 134/75 H 96 Nasal Cannula 4 08/23/23 14:06 08/24/23 10:00 08/23/23 16:25 08/24/23 08:13 08/24/23 10:40 08/24/23 10:00 08/24/23 10:40 Oxygen Flow Rate (L/min) 4 Oxygen Delivery Method Nasal Cannula Weight: 100.153 kg Body Mass Index (BMI) 36.7 Sodium 140 mmol/L (136-145) 08/24/23 05:22 Potassium 4.2 mmol/L (3.5-5.1) 08/24/23 05:22 Chloride 98 mmol/L (98-107) 08/24/23 05:22 Carbon Dioxide 34.0 mmol/L (21.0-32.0) H 08/24/23 05:22 Anion Gap 8 (5-15) 08/24/23 05:22 BUN 55 mg/dL (7-18) H 08/24/23 05:22 Creatinine 2.42 mg/dL (0.55-1.02) H 08/24/23 05:22 Est GFR (MDRD) Af Amer 25 mL/min (>60) L 08/24/23 05:22 Est GFR (MDRD) Non-Af 20 mL/min (>60) L 08/24/23 05:22 BUN/Creatinine Ratio 22.7 RATIO (10-20) H 08/24/23 05:22 Glucose 88 mg/dL (74-106) 08/24/23 05:22 Assessment/Plan: 1. Pain: acetaminophen 1000 mg PO Q8H, tramadol 50 mg PO Q6H PRN pain (1-5), oxycodone 5 mg PO Q4H PRN pain (6-10), lidocaine 5% patch daily. The patient has received 2 doses of PRN oxycodone so far this admission, but has not received any PRN doses of tramadol so far this admission. Please continue to monitor pain scores, PRN medication usage, LFTs (AST/ALT = 15/22 U/L on 06/27/23), for constipation, respiratory depression, drowsiness/dizziness and for syncope/ataxia/falls. 2. Bowel: senna/docusate 2 tablets PO BID, magnesium citrate 300 mL PO daily PRN constipation. The patient has not required any PRN doses of magnesium citrate so far this admission, and her last bowel movement was 08/21/23. Please continue to monitor for PRN medication usage, bowel movements, constipation and diarrhea. 3. Coronary artery disease/Hypertension/Hyperlipidemia: aspirin 81 mg PO daily, atorvastatin 40 mg PO daily, hydrochlorothiazide 12.5 mg PO daily, isosorbide mononitrate 30 mg PO daily, lisinopril 40 mg PO daily, metoprolol tartrate 25 mg PO BID. Please continue to monitor for chest pain, blood pressures (recent range = 110-181/75-104 mmHg), heart rates (recent range = 79-101 beats/min), for s/s of bleeding/excessive bruising, platelet counts (Plt = 270 K/mm3 on 08/24/23), for GI distress with aspirin administration, LFTs (AST/ALT = 15/22 U/L on 06/27/23), for myalgias, lipid levels (cholesterol = 95 mg/dL with LDL = 27 mg/dL on 06/27/23), renal function (serum creatinine = 2.42 mg/dL with creatinine clearance ~ 21 on 08/24/23), for headaches, potassium levels (K = 4.2 mmol/L on 08/24/23), sodium levels (Na = 140 mmol/L on 08/24/23), for dry cough, for angioedema, and for fatigue. The patient's heart rates and blood pressures have been elevated over the past several days. If these values remain elevated please consider increasing metoprolol tartrate to 50 mg PO BID. 4. Diabetes Mellitus II: insulin glargine 15 units BID, pioglitazone 30 mg PO daily. Please continue to monitor blood glucose levels (recent range = 67-207 mg/dL), hemoglobin A1C levels (A1C = 10.7% on 09/22/21), for edema, and for s/s of heart failure. Please consider ordering a hemoglobin A1C level as the patient has not had a level in > 3 months. 5. COPD: Prednisone 40 mg X 3 days, 30 mg x 3 days, 20 mg X 3 days, 10 mg X 3 days then stop. Please continue to monitor for s/s of COPD exacerbation such as cough and sputum production, BG levels (recent range = 67-207 mg/dL), blood pressures (recent range = 110-181/75-104 mmHg), for agitation, and for GI distress with prednisone administration. 6. Diabetic polyneuropathy: pregabalin 50 mg PO TID. Please continue to monitor for nerve pain, drowsiness, respiratory depression, edema and dry mouth. 7. Skin irritation/tinea corporis: hydrocortisone 2.5% topically TID PRN rash/skin irritation, calmoseptine 1 application BID, petrolatum 33% topically BID, miconazole nitrate 1 application topically BID. Please continue to monitor for rash, PRN medicaiton usage, skin irritation and for resolution of tinea corporis. 8. Muscle spasms: tizanidine 4 mg PO TID PRN muscle spasms. The patient has not required any PRN doses of tizanidine so far this admission. Please continue to monitor for muscle spasms, LFTs (AST/ALT = 15/22 U/L on 06/27/23), blood pressures (recent range = 110-181/75-104 mmHg), drowsiness, and dry mouth. 9. Nutrition: glucerna 120 mL PO three times daily with meals. Please continue to monitor nutritional status. 10. Insomnia: doxepin 25 mg PO QHS, melatonin 10 mg PO QHS. Please continue to monitor for insomnia, sedation, for dry mouth, constipation, urinary retention, delirium, sodium levels (Na = 140 mmol/L on 08/24/23), for s/s of orthostasis, and for SI. Assessment/Plan for indications treated with psychotropic medications: 1. Depression: venlafaxine 75 mg PO daily. Please see provider note regarding stable chronic long-term therapy GDR not recommended. Please continue to monitor for s/s of depression, for SI, sodium levels (Na = 140 mmol/L on 08/24/23), LFTs (AST/ALT = 15/22 U/L on 06/27/23), for s/s of serotonin syndrome, and for nausea and dry mouth. Medical chart and medication regimen reviewed. The following medication irregularities or issues were identified: 1. Coronary artery disease/Hypertension/Hyperlipidemia: aspirin 81 mg PO daily, atorvastatin 40 mg PO daily, hydrochlorothiazide 12.5 mg PO daily, isosorbide mononitrate 30 mg PO daily, lisinopril 40 mg PO daily, metoprolol tartrate 25 mg PO BID. The patient's heart rates and blood pressures have been elevated over the past several days. If these values remain elevated please consider increasing metoprolol tartrate to 50 mg PO BID. 2. Diabetes Mellitus II: insulin glargine 15 units BID, pioglitazone 30 mg PO daily. Please consider ordering a hemoglobin A1C level as the patient has not had a level in > 3 months. Date Date of Note:: 08/24/23 Documented by User: Dr. Lei Kwok MD 08/24/23 13:13 TCU RX Drug Regimen Review Provider Comments Provider responsibility Provider Comments to Recommendations by Pharmacy: Agree
--- NOTE | 2023-08-24 15:50 | CASEMGMT ---
Addendum entered by Mita Kearney 08/26/23 20:46: Late entry from admit note: SW received hand-off that pt was referred to [facility] Palliative from acute hospital stay. SW sent secure email to [facility] to notify of pt's admission and to follow at DC. Original Note: Social Work Met with patient to complete initial assessment. Introduced self and role. Verified contacts. Pt confirmed code status as DNR-CCA, no intubation. Educated to [facility] insurance with [employer] 08/26 and continued stay is not guaranteed with each review. Pt's goal is to return home living with dtr, who provides assistance for ADLs and IADLs. SW will continue to follow for DC planning. Mita Kearney, [employer]
[2023-08-24 16:58] LABS: Bedside Glucose 271 mg/dL (74-106)
--- NOTE | 2023-08-24 18:04 | NURSING ---
Pt eating dinner and started choking on food. [employer] in room at time and pt able to cough up food. notified and Chest X-ray ordered for 08/25/23.
--- NOTE | 2023-08-24 19:31 | NURSING ---
Addendum entered by Sergo Crews 08/24/23 20:29: Chest xray impression result: no active disease, updated on chest xray result. No new orders per . Original Note: Pt C/O of SOB/Wheezing. Pt SpO2 89% 4L NC HR 114 Increased O2 to 5 L NC SpO2 94%. notified N.O. for Chest X-ray Levaquin IV x7 days pharmacy to dose Duoneb 3ml q6hWA PRN Albuterol 2.5ml q2h PRN for SOB/Wheezing. Orders read back.
--- NOTE | 2023-08-24 19:45 | RAD_ITS ---
STUDY: X-RAY CHEST REASON FOR EXAM: Female, 82 years old. SOB TECHNIQUE: PA and lateral views of the chest. COMPARISON: 08/19/2023 FINDINGS: The lungs are clear and expanded. There is no demonstrated pleural abnormality. Normal size heart. Moderate hiatal hernia with an air-fluid level. Normal visualized pulmonary arteries. Normal visualized aortic arch and descending thoracic aorta. Normal visualized thoracic spine. Normal visualized ribs, clavicles, and shoulders. There is no demonstrated abnormality of the visualized soft tissue structures of the upper abdomen. RAD/Chest PA and Lateral IMPRESSION: No active disease. Electronically Signed: Felix Ash MD at 20:13 EDT ,
[2023-08-24] MEDS: levoFLOXacin IV 250 MG/50 ML BAG 50 MG IV (20:08)
[2023-08-24] MEDS: Petrolatum 33% Tube 1 APPLIC TOPICAL (21:26)
[2023-08-24] MEDS: Atorvastatin Calcium 40 MG Tablet PO (21:45)
[2023-08-24] MEDS: MELATONIN 10 MG TABLET PO (21:45)
[2023-08-24] MEDS: Doxepin Hcl 25 MG Capsule PO (21:45)
--- NOTE | 2023-08-24 22:04 | NURSING ---
notified of blood glucose result 364. New order received: administer Insulin lispro 5units x1 SC now along with RTN insulin glargine as ordered. Orders repeated back.
[2023-08-24 22:06] LABS: Bedside Glucose 364 mg/dL (74-106)
[2023-08-24] MEDS: Insulin Lispro 100 UNIT/ML INSULN.PEN SC (22:48)
[2023-08-25] VITALS (10 sets, daily range): BP systolic 113–127; BP diastolic 49–96; PULSE 71–94; RESP 15–18; TEMP 35.8; O2SAT 96–97
[2023-08-25] MEDS: 0.9% Normal Saline (1000mL) 1,000 ML 60 ML IV (03:19)
[2023-08-25] MEDS: Pregabalin 50 MG Capsule PO ×3 (06:17→21:59)
[2023-08-25] MEDS: Enoxaparin 30 MG/0.3 ML Syringe SC (06:17)
[2023-08-25] MEDS: Acetaminophen 500 MG Tablet 1000 MG PO ×3 (06:17→21:45)
[2023-08-25 06:35] LABS: Bedside Glucose 169 mg/dL (74-106)
[2023-08-25 07:06] LABS: Anion Gap 7 (5-15); BUN 74 mg/dL (7-18); BUN/Creat Ratio 24.7 RATIO (10-20); Calcium,Total 8.5 mg/dL (8.5-10.1); Chloride 100 mmol/L (98-107); EST Glomerular Filtration Rate 16 mL/min (>60); Est Glom Filt Rate - Afr Amer 19 mL/min (>60); Estimated Creatinine Clearance 16.95 ml/min; Glucose 180 mg/dL (74-106); Potassium 4.2 mmol/L (3.5-5.1); Sodium Level 137 mmol/L (136-145)
[2023-08-25] MEDS: Ipratropium/Albuterol Sulfate 3 ML AMPUL.NEB INHALATION ×3 (07:52→18:57)
--- NOTE | 2023-08-25 08:00 | RAD_ITS ---
EXAM: XR CHEST, 2 VIEWS CLINICAL INDICATION: Possible Aspiration TECHNIQUE: Frontal and lateral views of the chest. COMPARISON: August 23, August 18, and August [address] April 06, 2022 showing moderate hiatal hernia. FINDINGS: LUNGS AND PLEURAL SPACES: Similar mild blunting of the left lateral costophrenic angle. Similar mildly low lung volumes and minimal streaky atelectasis in the lung bases. No confluent alveolar infiltrate. No pneumothorax. No effusion. HEART: Unremarkable. Cardiac silhouette not enlarged. MEDIASTINUM: Similar contour of mildly tortuous descending thoracic aorta. And mild fullness of the medial left retrocardiac region, patient is known to have moderate hiatal hernia. BONES/JOINTS: Unremarkable. No acute fracture. SOFT TISSUES: Unremarkable. RAD/Chest PA and Lateral IMPRESSION: Mild pulmonary hypoinflation and stable minimal streaky presumed atelectasis in the lung bases. No significant infiltrates. Electronically Signed: Niharika Martin MD at 23:25 EDT ,
[2023-08-25] MEDS: Isosorbide Mononitrate 30 MG Tablet PO (08:55)
[2023-08-25] MEDS: Metoprolol Tartrate 25 MG Tablet PO ×2 (08:55→21:47)
[2023-08-25] MEDS: predniSONE 20 MG Tablet 10 MG PO (08:55)
[2023-08-25] MEDS: Pantoprazole Sodium 40 MG Tablet PO (08:55)
[2023-08-25] MEDS: Senna/Docusate Sodium 1 Tablet 2 TABLET PO ×2 (08:55→21:45)
[2023-08-25] MEDS: Pioglitazone Hydrochloride 30 MG Tablet PO (08:55)
[2023-08-25] MEDS: oxyCODONE 5 MG Tablet PO ×2 (08:56→19:46)
[2023-08-25] MEDS: Aspirin 81 MG TAB.CHEW PO (08:56)
[2023-08-25] MEDS: hydroCHLOROthiazide 12.5mg 12.5 MG PO (08:56)
[2023-08-25] MEDS: Venlafaxine HCl 75 MG Tablet PO (08:56)
[2023-08-25] MEDS: Lisinopril 40 MG Tablet PO (08:57)
[2023-08-25] MEDS: Lidocaine 5% Patch 1 PATCH TOPICAL (08:57)
[2023-08-25] MEDS: Menthol/Lanolin/Calamine/Znox 113 GM Tube 1 APPLIC TOPICAL ×2 (08:58→19:50)
[2023-08-25] MEDS: Insulin Glargine-YFGN 100 UNIT/ML Pen 15 UNIT SC (08:59)
[2023-08-25] MEDS: tiZANidine HCl 2 MG Tablet 4 MG PO (09:00)
[2023-08-25] MEDS: Miconazole Nitrate 43 GM Bottle 1 APPLIC TOPICAL ×2 (09:14→19:50)
--- NOTE | 2023-08-25 11:05 | US_ITS ---
STUDY: RENAL ULTRASOUND - COMPLETE REASON FOR EXAM: Female, 82 years old. ROHIT TECHNIQUE: Ultrasound evaluation of the kidneys was performed with real-time and static walter-scale imaging. COMPARISON: MRI of the abdomen dated January 26, 2022 FINDINGS: RIGHT KIDNEY: Normal location of the right kidney, which is normal in size. The right kidney measures 10.9 x 4.1 x 4.0 cm. There is a normal cortex of the right kidney. The renal cortex measures 1.1 cm. There is no right renal mass or cyst. There are no right renal calculi. There is no right hydronephrosis. DISTAL RIGHT URETER: There is non-visualization of the distal right ureter. There is no demonstrated right ureterovesical junction calculus. There is a visualized right ureteral jet. LEFT KIDNEY: with mild renal atrophy. The left kidney measures 9.1 x 3.8 x 4.4 cm. There is a normal cortex of the left kidney. The renal cortex measures 1.0 cm. There is no left renal mass or cyst. There are no left renal calculi. There is no left hydronephrosis. DISTAL LEFT URETER: There is non-visualization of the distal left ureter. There is no demonstrated left ureterovesical junction calculus. There is a visualized left ureteral jet. BLADDER: The distended urinary bladder has a volume of 18 ml. There is a normal wall thickness of the distended urinary bladder. There is no demonstrated mass within the urinary bladder. There are no demonstrated bladder calculi. US/Kidney and Bladder IMPRESSION: 1. Mild atrophy of the left kidney. Electronically Signed: Marco Stephen MD at 13:01 EDT ,
[2023-08-25 11:36] LABS: Bedside Glucose 185 mg/dL (74-106)
[2023-08-25] MEDS: Insulin Lispro 100 UNIT/ML INSULN.PEN SC ×2 (12:19→17:42)
[2023-08-25] MEDS: amLODIPine 5 MG Tablet PO ×2 (12:20→21:45)
[2023-08-25] MEDS: traMADol 50 MG Tablet PO (12:26)
[2023-08-25 12:34] LABS: Urine Sodium 11 mmol/L (Not Establ.)
[2023-08-25 16:16] LABS: Bedside Glucose 194 mg/dL (74-106)
[2023-08-25] MEDS: 0.9% Normal Saline (1000mL) 1,000 ML 100 ML IV (18:48)
--- NOTE | 2023-08-25 19:35 | NURSING ---
Parra placed per order to monitor urine output.
[2023-08-25] MEDS: 0.9% Saline Lock 10 ML Syringe IV (19:37)
[2023-08-25] MEDS: levoFLOXacin IV 250 MG/50 ML BAG 50 MG IV (19:37)
[2023-08-25] MEDS: Magnesium Citrate 300 ML PO (19:47)
[2023-08-25] MEDS: Petrolatum 33% Tube 1 APPLIC TOPICAL (19:50)
[2023-08-25] MEDS: MELATONIN 10 MG TABLET PO (21:45)
[2023-08-25] MEDS: Doxepin Hcl 25 MG Capsule PO (21:45)
[2023-08-25] MEDS: Atorvastatin Calcium 40 MG Tablet PO (21:45)
[2023-08-25 21:50] LABS: Bedside Glucose 295 mg/dL (74-106)
[2023-08-25] MEDS: Insulin Glargine-YFGN 100 UNIT/ML Pen 20 UNIT SC (22:05)
[2023-08-25 22:27] LABS: Bedside Glucose 275 mg/dL (74-106)
[2023-08-26] VITALS (7 sets, daily range): BP systolic 116–135; BP diastolic 55–88; PULSE 64–107; RESP 16–20; TEMP 35.6; O2SAT 90–97
[2023-08-26] MEDS: 0.9% Normal Saline (1000mL) 1,000 ML 100 ML IV ×2 (05:08→15:28)
[2023-08-26] MEDS: Pregabalin 50 MG Capsule PO ×3 (05:09→20:14)
[2023-08-26] MEDS: Acetaminophen 500 MG Tablet 1000 MG PO ×3 (05:09→20:14)
[2023-08-26] MEDS: 0.9% Saline Lock 10 ML Syringe IV ×2 (05:09→15:33)
[2023-08-26] MEDS: Enoxaparin 30 MG/0.3 ML Syringe SC (05:10)
[2023-08-26 06:49] LABS: Bedside Glucose 108 mg/dL (74-106)
[2023-08-26] MEDS: Ipratropium/Albuterol Sulfate 3 ML AMPUL.NEB INHALATION ×3 (07:00→18:45)
[2023-08-26 08:24] LABS: Anion Gap 5 (5-15); BUN 65 mg/dL (7-18); BUN/Creat Ratio 33.7 RATIO (10-20); Calcium,Total 8.6 mg/dL (8.5-10.1); Chloride 104 mmol/L (98-107); Creatinine, Serum 1.93 mg/dL (0.55-1.02); EST Glomerular Filtration Rate 26 mL/min (>60); Est Glom Filt Rate - Afr Amer 32 mL/min (>60); Estimated Creatinine Clearance 26.35 ml/min; Glucose 100 mg/dL (74-106); Potassium 3.8 mmol/L (3.5-5.1); Sodium Level 140 mmol/L (136-145)
[2023-08-26] MEDS: Lidocaine 5% Patch 1 PATCH TOPICAL (08:36)
[2023-08-26] MEDS: Venlafaxine HCl 75 MG Tablet PO (08:37)
[2023-08-26] MEDS: Metoprolol Tartrate 25 MG Tablet PO ×2 (08:37→20:27)
[2023-08-26] MEDS: Pioglitazone Hydrochloride 30 MG Tablet PO (08:37)
[2023-08-26] MEDS: Senna/Docusate Sodium 1 Tablet 2 TABLET PO ×2 (08:37→20:15)
[2023-08-26] MEDS: Aspirin 81 MG TAB.CHEW PO (08:37)
[2023-08-26] MEDS: Pantoprazole Sodium 40 MG Tablet PO (08:38)
[2023-08-26] MEDS: predniSONE 20 MG Tablet 10 MG PO (08:38)
[2023-08-26] MEDS: Isosorbide Mononitrate 30 MG Tablet PO (08:38)
[2023-08-26] MEDS: Menthol/Lanolin/Calamine/Znox 113 GM Tube 1 APPLIC TOPICAL ×2 (08:39→20:03)
[2023-08-26] MEDS: amLODIPine 5 MG Tablet PO (08:39)
[2023-08-26] MEDS: oxyCODONE 5 MG Tablet PO (08:41)
[2023-08-26] MEDS: Insulin Lispro 100 UNIT/ML INSULN.PEN SC ×3 (08:42→17:16)
[2023-08-26] MEDS: Miconazole Nitrate 43 GM Bottle 1 APPLIC TOPICAL ×2 (08:49→20:03)
[2023-08-26 11:01] LABS: Bedside Glucose 121 mg/dL (74-106)
[2023-08-26] MEDS: Insulin Glargine-YFGN 100 UNIT/ML Pen 20 UNIT SC ×2 (12:11→20:21)
[2023-08-26] MEDS: tiZANidine HCl 2 MG Tablet 4 MG PO (12:14)
[2023-08-26 16:23] LABS: Bedside Glucose 140 mg/dL (74-106)
--- NOTE | 2023-08-26 19:28 | CPS ---
RT gave aerosol treatment at 18:45. Patient with expiratory wheezes and rhonchi. Breath sounds noted were worse then previous night. Patient stated that she ate a burger earlier and had trouble getting it down, and had a coughing spell. Patient stated that this has happened before and occasionally will have trouble getting certain foods down. RT unsure if patient may have aspirated after this event. RT spoke with RN about this, RN aware.
[2023-08-26] MEDS: Petrolatum 33% Tube 1 APPLIC TOPICAL (20:04)
[2023-08-26] MEDS: Atorvastatin Calcium 40 MG Tablet PO (20:14)
[2023-08-26] MEDS: MELATONIN 10 MG TABLET PO (20:14)
[2023-08-26] MEDS: Doxepin Hcl 25 MG Capsule PO (20:14)
[2023-08-26 21:34] LABS: Bedside Glucose 294 mg/dL (74-106)
[2023-08-26 21:37] LABS: Bedside Glucose 328 mg/dL (74-106)
[2023-08-26] MEDS: levoFLOXacin IV 250 MG/50 ML BAG 50 MG IV (23:03)
[2023-08-27] VITALS (11 sets, daily range): BP systolic 120–175; BP diastolic 52–79; PULSE 72–94; RESP 17–22; TEMP 36.2; O2SAT 89–97
[2023-08-27] MEDS: 0.9% Normal Saline (1000mL) 1,000 ML 100 ML IV ×3 (02:49→22:57)
[2023-08-27] MEDS: Pregabalin 50 MG Capsule PO ×3 (04:40→22:48)
[2023-08-27] MEDS: Enoxaparin 30 MG/0.3 ML Syringe SC (04:40)
[2023-08-27] MEDS: Acetaminophen 500 MG Tablet 1000 MG PO ×3 (04:40→22:54)
[2023-08-27] MEDS: oxyCODONE 5 MG Tablet PO (04:49)
[2023-08-27] MEDS: Insulin Lispro 100 UNIT/ML INSULN.PEN SC ×2 (06:29→17:35)
[2023-08-27 06:47] LABS: Bedside Glucose 94 mg/dL (74-106)
[2023-08-27 06:47] LABS: Anion Gap 4 (5-15); BUN 48 mg/dL (7-18); BUN/Creat Ratio 36.9 RATIO (10-20); Calcium,Total 8.7 mg/dL (8.5-10.1); Chloride 108 mmol/L (98-107); EST Glomerular Filtration Rate 42 mL/min (>60); Est Glom Filt Rate - Afr Amer 50 mL/min (>60); Estimated Creatinine Clearance 39.11 ml/min; Glucose 122 mg/dL (74-106); Sodium Level 143 mmol/L (136-145)
[2023-08-27] MEDS: Ipratropium/Albuterol Sulfate 3 ML AMPUL.NEB INHALATION ×3 (06:54→19:18)
[2023-08-27] MEDS: Aspirin 81 MG TAB.CHEW PO (09:34)
[2023-08-27] MEDS: predniSONE 20 MG Tablet 10 MG PO (09:35)
[2023-08-27] MEDS: Pioglitazone Hydrochloride 30 MG Tablet PO (09:37)
[2023-08-27] MEDS: Venlafaxine HCl 75 MG Tablet PO (09:38)
[2023-08-27] MEDS: Isosorbide Mononitrate 30 MG Tablet PO (09:38)
[2023-08-27] MEDS: Senna/Docusate Sodium 1 Tablet 2 TABLET PO (09:39)
[2023-08-27] MEDS: Pantoprazole Sodium 40 MG Tablet PO (09:39)
[2023-08-27] MEDS: Metoprolol Tartrate 25 MG Tablet PO ×2 (09:40→22:54)
[2023-08-27] MEDS: Lidocaine 5% Patch 1 PATCH TOPICAL (09:42)
[2023-08-27] MEDS: Miconazole Nitrate 43 GM Bottle 1 APPLIC TOPICAL ×2 (09:43→22:52)
[2023-08-27] MEDS: Menthol/Lanolin/Calamine/Znox 113 GM Tube 1 APPLIC TOPICAL ×2 (09:44→22:52)
[2023-08-27 11:10] LABS: Bedside Glucose 109 mg/dL (74-106)
[2023-08-27 11:22] LABS: Bedside Glucose 108 mg/dL (74-106)
--- NOTE | 2023-08-27 11:59 | NURSING ---
Marine Services Technician Note; Activity Asset: Raul Joseph is independent in her choice of daily activities. She has a smartphone and tablet she use for reading or text and talking w/family and friend s. She enjoys reading her devotional and welcomes visit from the router machine operator and therapy dog. Staff will remind her of weekly activities and respect her right to say no.
--- NOTE | 2023-08-27 13:27 | CPS ---
pt complained she is stuffy so RT did recommend humidity, pt is back on humidity. Nurse said they ran out of bottles and called RT dept and no one ever came up with any. Rt brought up 5 bottles to stock room
[2023-08-27 17:19] LABS: Bedside Glucose 268 mg/dL (74-106)
--- NOTE | 2023-08-27 18:18 | CON.PCM.GI_ITS ---
HPI Consult Data Date of Consult: 08/27/23 HPI Narrative Reason for Consultation: Dysphagia HPI Narrative: YUMIKO HU, is a 82 F who presented to the ED with back pain. She has a past medical history of osteoporosis and chronic back pain follows Dr. Gunderson was brought to ED for severe lower back pain. Patient was trying to open the window by pushing upward and got severe lower back pain on past Sunday. Patient is very fatigued tired and frail, increased nausea for last few days to weeks with the decreased oral intake. Patient looks dehydrated. Patient has history of T7 old fracture but in ER imaging chest x-ray shows severe compression fracture of T12 which is new. She has old T7 fracture. Patient was given pain medication and further admitted. She spent some time in the hospital and was transferred over to transitional care unit. While at the transitional care unit she had multiple episodes of esophageal dysphagia followed by vomiting up whole food. I was consulted for esophageal dysphagia of solid food. [facility] Medical History (Updated 08/28/23 @ 18:[address] Morocho Friend, DO) Asthma Atherosclerosis of coronary artery of [place] heart without angina pectoris CKD (chronic kidney disease), stage III Dameon syndrome Depression Diabetes mellitus Dyspnea Essential hypertension Former tobacco use Hyperlipidemia Hypoxia Obesity Osteoarthritis Home Medications aspirin 81 mg chewable tablet 81 mg PO DAILY heart health 10/27/21 [History Last Taken Unknown] atorvastatin 40 mg tablet 40 mg PO QHS cholesterol 03/13/22 [History Last Taken Unknown] ipratropium bromide 42 mcg (0.06 %) nasal spray 1 spray intranasal BID nasal spray 03/13/22 [History Last Taken Unknown] isosorbide mononitrate 30 mg tablet,extended release 24 hr 30 mg PO DAILY blood pressure 03/13/22 [History Last Taken Unknown] levocetirizine 5 mg tablet 5 mg PO DAILY hay fever/hives 03/13/22 [History Last Taken Unknown] pantoprazole 40 mg tablet,delayed release 40 mg PO DAILY stomach/acid 03/13/22 [History Last Taken Unknown] pioglitazone 30 mg tablet 30 mg PO DAILY diabetes 01/02/23 [History Last Taken Unknown] pregabalin 50 mg capsule 50 mg PO TID nerve pain 01/02/23 [History Last Taken Unknown] doxepin 10 mg capsule 25 mg PO DAILY nerve pain 05/07/23 [History Last Taken Unknown] venlafaxine 75 mg tablet 75 mg PO DAILY depression 05/07/23 [History Last Taken Unknown] acetaminophen 500 mg capsule 1,000 mg (2 x 500 mg) PO Q8H pain/inflammat #30 caps 08/23/23 [Rx Last Taken Unknown] hydrochlorothiazide 12.5 mg capsule 12.5 mg PO DAILY water pill #0 caps 08/23/23 [Rx Last Taken Unknown] insulin degludec 200 unit/mL (3 mL) subcutaneous pen 25 unit (0.125 mL) subcut BID diabetes #9 mL 08/23/23 [Rx Last Taken Unknown] insulin lispro 100 unit/mL subcutaneous pen (Humalog KwikPen (U-100) Insulin) 10 unit (0.1 mL) subcut TIDAC diabetes #0 mL 08/23/23 [Rx Last Taken Unknown] insulin lispro 100 unit/mL subcutaneous pen (Humalog KwikPen (U-100) Insulin) See Protocol subcut ACHS diabetes #0 mL 08/23/23 [Rx Last Taken Unknown] lidocaine 5 % topical patch (Lidoderm) 1 patch topical DAILY numbing patch #15 ea 08/23/23 [Rx Last Taken Unknown] lisinopril 40 mg tablet 40 mg PO DAILY blood pressure #0 tabs 08/23/23 [Rx Last Taken Unknown] metoprolol tartrate 25 mg tablet 25 mg PO BID blood pressure #0 tabs 08/23/23 [Rx Last Taken Unknown] oxycodone 5 mg capsule 5 mg PO Q4H PRN pain 3 days #12 caps 08/23/23 [Rx Last Taken Unknown] prednisone 20 mg tablet 40 mg (2 x 20 mg) PO BREAKFAST inflammation #8 tabs 08/23/23 [Rx Last Taken Unknown] tizanidine 2 mg tablet 4 mg (2 x 2 mg) PO TID PRN muscle spasm #0 tabs 08/23/23 [Rx Last Taken Unknown] Allergy/AdvReac Type Severity Reaction Status Date / Time naproxen Allergy Unknown Hives Verified 05/07/23 13:00 Family History Mother Heart disease CAD (coronary artery disease) Hypertension CHF (congestive heart failure) Father Diabetes Surgical History History of right and left heart catheterization (12/30/20) Hx of hysterectomy Social History household members: family number of children: 4 Smoking Status: Former smoker how long ago did patient quit smoking: Quit ~ 30 years prior, 1 ppd since teen until quit. alcohol intake: never substance use type: does not use ROS Constitutional Constitutional: Reports fatigue and weakness; Denies chills, fever(s) or weight gain ENT HEENT: Denies headache(s), nasal congestion or nasal discharge Cardiovascular Cardiovascular: Denies chest pain or palpitations Respiratory/Chest Respiratory/Chest: Denies cough, excessive phlegm production or shortness of breath with exertion Gastrointestinal Gastrointestinal: Denies abdominal pain, nausea or vomiting Genitourinary Genitourinary: Denies dysuria Musculoskeletal Musculoskeletal: Reports back pain; Denies joint pain or joint swelling Integumentary Integumentary: Denies rash or wounds Neurologic Neurologic: Denies focal weakness, numbness or tingling Psychiatric Psychiatric: Denies anxiety, auditory hallucinations, depression, homicidal ideation or suicidal ideation Physical Exam Const alert General Appearance: cooperative HEENT normocephalic Eyes PERRL and EOMs intact bilaterally Neck supple, no JVD and no carotid bruits Resp normal respiratory effort, normal air movement and clear to auscultation bilaterally Cardio regular rate and regular rhythm GI normal to inspection, nondistended, normoactive bowel sounds, non-tender and non-distended Extremity normal capillary refill General Extremity: Negative for edema Skin no rashes or lesions noted General Skin Exam: no breakdown Psych affect normal Appearance: appropriate Medical Records Data Medical Nutrition Assessment Dietitian: Malnutrition Criteria Met Start: 08/24/23 12:51 Freq: Status: Active Protocol: Document 08/24/23 12:51 SLA (Rec: 08/24/23 12:51 SLA Desktop) Nutrition Malnutrition Evidence of Malnutrition Exists Yes Malnutrition (severe): Acute Illness/Injury Evidenced By Suboptimal Energy Intake ( Severe),Weight Loss (Severe) Clinical Problem Acute Disease or Injury Related Malnutrition Etiology related to inadequate energy intake and issues swallowing food Signs/Symptoms as evidenced by 4% unintended wt loss and 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 Problem Recommendation Dietitian Recommendations/Changes Will change diet to CHO Control/ Consistent CHO - 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 Will provide 8 oz Glucerna Shake w/ meals -no strawberry- for increased nutrition if consumed Will d/c glucerna shake at medpass per res request Lab / Micro Data 08/24/23 05:22 08/28/23 05:25 Labs: Laboratory Results - last 24 hr 08/27/23 21:16: POC Glucose 285 H 08/28/23 05:25: Sodium 144, Potassium 3.8, Chloride 110 H, Carbon Dioxide 31.0, Anion Gap 3 L, BUN 30 H, Creatinine 1.10 H, Estim Creat Clear Calc 46.23, Est GFR (MDRD) Af Amer 61, Est GFR (MDRD) Non-Af 50 L, BUN/Creatinine Ratio 27.3 H, Glucose 110 H, Calcium 8.6 08/28/23 06:08: POC Glucose 91 08/28/23 11:13: POC Glucose 159 H 08/28/23 16:32: POC Glucose 175 H Assessment & Plan Assessment/Plan (1) Dysphagia: PLAN: The differential diagnosis for esophageal dysphagia does include Zenker's diverticulum, esophageal dysmotility disorder, or esophagitis, eosinophilic esophagitis. She will undergo an upper endoscopy to evaluate upper GI tract. She was explained alternatives, risk, benefits include not withstanding bleeding, infection, sepsis, perforation, need for emergent surgery and . She will have an ASA of 3. Charges/Coding Visit Charges Inpatient E&M: 95577 SNF Init L2
[2023-08-27] MEDS: levoFLOXacin IV 250 MG/50 ML BAG 50 MG IV (19:50)
[2023-08-27 21:41] LABS: Bedside Glucose 285 mg/dL (74-106)
[2023-08-27] MEDS: Insulin Glargine-YFGN 100 UNIT/ML Pen 15 UNIT SC (22:48)
[2023-08-27] MEDS: Petrolatum 33% Tube 1 APPLIC TOPICAL (22:51)
[2023-08-27] MEDS: Atorvastatin Calcium 40 MG Tablet PO (22:53)
[2023-08-27] MEDS: MELATONIN 10 MG TABLET PO (22:53)
[2023-08-27] MEDS: Doxepin Hcl 25 MG Capsule PO (22:54)
--- NOTE | 2023-08-27 23:10 | NURSING ---
Patient reported feeling SOB. Patient currently at 3L O2 via NC. Patient's SpO2 89%. This nurse increased O2 to 4L, patient's SpO2 came up to 96%. Repositioned patient by raising HOB for comfort. Patient reports SOB resolved. No distress observed or reported. Patient's respirations even and unlabored. Call light in reach.
[2023-08-28] VITALS (7 sets, daily range): BP systolic 132–173; BP diastolic 64–92; PULSE 76–88; RESP 18; TEMP 36.1; O2SAT 94–99; BMI 39.3
[2023-08-28] MEDS: Acetaminophen 500 MG Tablet 1000 MG PO ×3 (05:21→21:32)
[2023-08-28] MEDS: Enoxaparin 40 MG/0.4 ML Syringe SC (05:21)
[2023-08-28] MEDS: Pregabalin 50 MG Capsule PO ×3 (05:21→21:31)
[2023-08-28 06:28] LABS: Bedside Glucose 91 mg/dL (74-106)
[2023-08-28 06:29] LABS: Anion Gap 3 (5-15); BUN 30 mg/dL (7-18); BUN/Creat Ratio 27.3 RATIO (10-20); Calcium,Total 8.6 mg/dL (8.5-10.1); Chloride 110 mmol/L (98-107); EST Glomerular Filtration Rate 50 mL/min (>60); Est Glom Filt Rate - Afr Amer 61 mL/min (>60); Estimated Creatinine Clearance 46.23 ml/min; Glucose 110 mg/dL (74-106); Potassium 3.8 mmol/L (3.5-5.1); Sodium Level 144 mmol/L (136-145)
[2023-08-28] MEDS: Ipratropium/Albuterol Sulfate 3 ML AMPUL.NEB INHALATION ×2 (07:30→19:30)
[2023-08-28] MEDS: cloNIDine HCl 0.1 MG Tablet PO ×3 (08:36→21:31)
[2023-08-28] MEDS: Insulin Lispro 100 UNIT/ML INSULN.PEN SC ×3 (08:37→17:47)
[2023-08-28] MEDS: Insulin Glargine-YFGN 100 UNIT/ML Pen 15 UNIT SC ×2 (08:37→21:31)
[2023-08-28] MEDS: Aspirin 81 MG TAB.CHEW PO (08:37)
[2023-08-28] MEDS: Miconazole Nitrate 43 GM Bottle 1 APPLIC TOPICAL ×2 (08:38→21:30)
[2023-08-28] MEDS: Pantoprazole Sodium 40 MG Tablet PO (08:38)
[2023-08-28] MEDS: predniSONE 20 MG Tablet 10 MG PO (08:38)
[2023-08-28] MEDS: Pioglitazone Hydrochloride 30 MG Tablet PO (08:38)
[2023-08-28] MEDS: Isosorbide Mononitrate 30 MG Tablet PO (08:39)
[2023-08-28] MEDS: Venlafaxine HCl 75 MG Tablet PO (08:39)
[2023-08-28] MEDS: Lidocaine 5% Patch 1 PATCH TOPICAL (08:39)
[2023-08-28] MEDS: Menthol/Lanolin/Calamine/Znox 113 GM Tube 1 APPLIC TOPICAL ×2 (08:39→21:39)
[2023-08-28] MEDS: Senna/Docusate Sodium 1 Tablet 2 TABLET PO (08:40)
[2023-08-28] MEDS: Metoprolol Tartrate 25 MG Tablet PO ×2 (08:40→21:32)
[2023-08-28 11:32] LABS: Bedside Glucose 159 mg/dL (74-106)
--- NOTE | 2023-08-28 12:55 | NURSING ---
Pt no longer on IV Fluids gave order to remove Parra Cath.
[2023-08-28 16:54] LABS: Bedside Glucose 175 mg/dL (74-106)
--- NOTE | 2023-08-28 18:20 | PN.GI_ITS ---
Subjective Subjective Patient was supposed to undergo an upper endoscopy today to evaluate esophageal dysphagia. However her procedure was put on hold by anesthesia today. Please keep n.p.o. past midnight so she can have the procedure tomorrow. Objective Data Objective Data Vital Signs: Vital Signs Temp Pulse Resp BP Pulse Ox O2 Del Method O2 Flow Rate 97.0 F L 86 18 132/64 H 94 Nasal Cannula 4 08/28/23 13:15 08/28/23 13:15 08/28/23 13:15 08/28/23 13:15 08/28/23 13:15 08/28/23 13:15 08/28/23 13:31 Oxygen Flow Rate (L/min) 4 Oxygen Delivery Method Nasal Cannula Weight: 236 lb 8 oz Body Mass Index (BMI) 39.3 Intake & Output: Intake and Output for Last 24 Hours 08/26/23 08/27/23 08/28/23 23:59 23:59 23:59 Intake Total 2908.33 / 2908.33 3996.67 / 3996.67 1300 / 1300 Output Total 1350 / 1350 3050 / 3050 1550 / 1550 Balance 1558.33 / 1558.33 946.67 / 946.67 -250 / -250 Medical Nutrition Assessment Dietitian: Malnutrition Criteria Met Start: 08/24/23 12:51 Freq: Status: Active Protocol: Document 08/24/23 12:51 SLA (Rec: 08/24/23 12:51 SLA Desktop) Nutrition Malnutrition Evidence of Malnutrition Exists Yes Malnutrition (severe): Acute Illness/Injury Evidenced By Suboptimal Energy Intake ( Severe),Weight Loss (Severe) Clinical Problem Acute Disease or Injury Related Malnutrition Etiology related to inadequate energy intake and issues swallowing food Signs/Symptoms as evidenced by 4% unintended wt loss and 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 Problem Recommendation Dietitian Recommendations/Changes Will change diet to CHO Control/ Consistent CHO - 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 Will provide 8 oz Glucerna Shake w/ meals -no strawberry- for increased nutrition if consumed Will d/c glucerna shake at medpass per res request Lab / Micro Data 08/24/23 05:22 08/28/23 05:25 Labs: Laboratory Results - last 24 hr 08/27/23 21:16: POC Glucose 285 H 08/28/23 05:25: Sodium 144, Potassium 3.8, Chloride 110 H, Carbon Dioxide 31.0, Anion Gap 3 L, BUN 30 H, Creatinine 1.10 H, Estim Creat Clear Calc 46.23, Est GFR (MDRD) Af Amer 61, Est GFR (MDRD) Non-Af 50 L, BUN/Creatinine Ratio 27.3 H, Glucose 110 H, Calcium 8.6 08/28/23 06:08: POC Glucose 91 08/28/23 11:13: POC Glucose 159 H 08/28/23 16:32: POC Glucose 175 H Physical Exam Const alert General Appearance: cooperative HEENT normocephalic Eyes PERRL and EOMs intact bilaterally Neck supple, no JVD and no carotid bruits Resp normal respiratory effort, normal air movement and clear to auscultation bilaterally Cardio regular rate and regular rhythm GI normal to inspection, nondistended, normoactive bowel sounds, non-tender and non-distended Extremity normal capillary refill General Extremity: Negative for edema Skin no rashes or lesions noted General Skin Exam: no breakdown Psych affect normal Appearance: appropriate Assessment & Plan Assessment/Plan (1) Dysphagia: PLAN: The differential diagnosis for esophageal dysphagia does include Zenker's diverticulum, esophageal dysmotility disorder, or esophagitis, eosinophilic esophagitis. She will undergo an upper endoscopy to evaluate upper GI tract. She was explained alternatives, risk, benefits include not withstanding bleeding, infection, sepsis, perforation, need for emergent surgery and . She will have an ASA of 3. N.p.o. past midnight. Charges/Coding Visit Charges Inpatient E&M: 79034 SNF Subs L3
[2023-08-28] MEDS: Furosemide 40 MG Tablet PO (18:40)
[2023-08-28] MEDS: levoFLOXacin IV 250 MG/50 ML BAG 50 MG IV (21:15)
[2023-08-28] MEDS: Doxepin Hcl 25 MG Capsule PO (21:31)
[2023-08-28] MEDS: Atorvastatin Calcium 40 MG Tablet PO (21:31)
[2023-08-28] MEDS: tiZANidine HCl 2 MG Tablet 4 MG PO (21:31)
[2023-08-28] MEDS: MELATONIN 10 MG TABLET PO (21:32)
[2023-08-28] MEDS: Petrolatum 33% Tube 1 APPLIC TOPICAL (21:38)
[2023-08-28 21:47] LABS: Bedside Glucose 223 mg/dL (74-106)
[2023-08-29] VITALS (8 sets, daily range): BP systolic 131–132; BP diastolic 68–72; PULSE 61–83; RESP 16–18; TEMP 36; O2SAT 96–99
[2023-08-29] MEDS: cloNIDine HCl 0.1 MG Tablet PO ×3 (06:00→21:18)
[2023-08-29] MEDS: Ipratropium/Albuterol Sulfate 3 ML AMPUL.NEB INHALATION ×2 (06:36→19:07)
[2023-08-29 06:37] LABS: Anion Gap 2 (5-15); BUN 27 mg/dL (7-18); BUN/Creat Ratio 24.1 RATIO (10-20); Calcium,Total 8.9 mg/dL (8.5-10.1); Chloride 104 mmol/L (98-107); Creatinine, Serum 1.12 mg/dL (0.55-1.02); EST Glomerular Filtration Rate 49 mL/min (>60); Est Glom Filt Rate - Afr Amer 60 mL/min (>60); Estimated Creatinine Clearance 47.14 ml/min; Glucose 129 mg/dL (74-106); Potassium 3.6 mmol/L (3.5-5.1); Sodium Level 143 mmol/L (136-145)
[2023-08-29 06:48] LABS: Bedside Glucose 102 mg/dL (74-106)
--- NOTE | 2023-08-29 09:06 | CASEMGMT ---
Social Work IDT met with patient and dtr for care plan meeting. Discussed patient's progress in PT/OT/ST/SN. [facility], EDC 09/10. Pt undergoing an EGD today. Pt's goal is for pt to return home with dtr and adult grandson whom provide / care for pt. SW broached topic of needing additional assistance as pt is x2 assist currently. Dtr is a little concerned about being able to care for pt but would like pt to be home. SW offered therapy training. Dtr agreed and scheduled for 08/30 at 0930, if pt is recovering well from procedure. Grandson to be present as well. SW provided dtr with this worker's contact information to follow up after training to determine home vs SNF. SW will continue to follow for DC planning. KARRIE TomasW
[2023-08-29 11:51] LABS: Bedside Glucose 91 mg/dL (74-106)
--- NOTE | 2023-08-29 12:27 | NURSING ---
Patient off unit to endoscopy.
[2023-08-29] MEDS: oxyCODONE 5 MG Tablet PO (16:06)
[2023-08-29] MEDS: Potassium Chloride Oral Tablet 20 MEQ PO (16:58)
[2023-08-29] MEDS: Aspirin 81 MG TAB.CHEW PO (16:58)
[2023-08-29] MEDS: Pioglitazone Hydrochloride 30 MG Tablet PO (16:59)
[2023-08-29] MEDS: predniSONE 20 MG Tablet 10 MG PO (16:59)
[2023-08-29] MEDS: Ipratropium Bromide 0.06% NASAL SPRAY 2 SPRAY NASAL ×2 (17:01→21:16)
[2023-08-29] MEDS: Isosorbide Mononitrate 30 MG Tablet PO (17:02)
[2023-08-29] MEDS: Menthol/Lanolin/Calamine/Znox 113 GM Tube 1 APPLIC TOPICAL ×2 (17:02→21:16)
[2023-08-29] MEDS: Venlafaxine HCl 75 MG Tablet PO (17:02)
[2023-08-29] MEDS: Miconazole Nitrate 43 GM Bottle 1 APPLIC TOPICAL ×2 (17:02→21:16)
[2023-08-29] MEDS: Furosemide 40 MG Tablet PO (17:03)
[2023-08-29 17:04] LABS: Bedside Glucose 117 mg/dL (74-106)
[2023-08-29] MEDS: Lidocaine 5% Patch 1 PATCH TOPICAL (17:05)
[2023-08-29] MEDS: Metoprolol Tartrate 25 MG Tablet PO ×2 (17:05→21:27)
[2023-08-29] MEDS: Pantoprazole Sodium 40 MG Tablet PO (17:06)
[2023-08-29] MEDS: Senna/Docusate Sodium 1 Tablet 2 TABLET PO (17:06)
[2023-08-29] MEDS: Acetaminophen 500 MG Tablet 1000 MG PO ×2 (17:11→21:26)
[2023-08-29] MEDS: Tamsulosin HCl 0.4 MG Capsule PO (17:50)
[2023-08-29] MEDS: Pregabalin 50 MG Capsule PO ×2 (17:51→21:29)
[2023-08-29] MEDS: Insulin Lispro 100 UNIT/ML INSULN.PEN SC (17:51)
[2023-08-29] MEDS: 0.9% Saline Lock 10 ML Syringe IV ×2 (17:55→19:55)
[2023-08-29] MEDS: levoFLOXacin IV 250 MG/50 ML BAG 50 MG IV (20:02)
[2023-08-29] MEDS: Petrolatum 33% Tube 1 APPLIC TOPICAL (21:17)
[2023-08-29] MEDS: Insulin Glargine-YFGN 100 UNIT/ML Pen 15 UNIT SC (21:19)
[2023-08-29] MEDS: Atorvastatin Calcium 40 MG Tablet PO (21:25)
[2023-08-29] MEDS: Doxepin Hcl 25 MG Capsule PO (21:26)
[2023-08-29] MEDS: MELATONIN 10 MG TABLET PO (21:26)
[2023-08-29 21:36] LABS: Bedside Glucose 249 mg/dL (74-106)
[2023-08-30] VITALS (8 sets, daily range): BP systolic 93–160; BP diastolic 44–71; PULSE 65–91; RESP 16–20; TEMP 36.2; O2SAT 97–99; BMI 38.1
[2023-08-30] MEDS: cloNIDine HCl 0.1 MG Tablet PO ×2 (05:05→15:03)
[2023-08-30] MEDS: Pregabalin 50 MG Capsule PO ×3 (05:05→21:02)
[2023-08-30] MEDS: Enoxaparin 40 MG/0.4 ML Syringe SC (05:05)
[2023-08-30] MEDS: Acetaminophen 500 MG Tablet 1000 MG PO ×3 (05:06→21:02)
[2023-08-30 06:18] LABS: Anion Gap 3 (5-15); BUN 25 mg/dL (7-18); Calcium,Total 8.7 mg/dL (8.5-10.1); Chloride 99 mmol/L (98-107); Creatinine, Serum 1.19 mg/dL (0.55-1.02); EST Glomerular Filtration Rate 46 mL/min (>60); Est Glom Filt Rate - Afr Amer 56 mL/min (>60); Estimated Creatinine Clearance 44.37 ml/min; Glucose 245 mg/dL (74-106); Potassium 4.3 mmol/L (3.5-5.1); Sodium Level 138 mmol/L (136-145)
[2023-08-30 06:44] LABS: Bedside Glucose 226 mg/dL (74-106)
[2023-08-30] MEDS: Ipratropium/Albuterol Sulfate 3 ML AMPUL.NEB INHALATION ×3 (07:33→19:52)
[2023-08-30] MEDS: Insulin Lispro 100 UNIT/ML INSULN.PEN SC ×4 (08:02→17:40)
[2023-08-30] MEDS: Furosemide 40 MG Tablet PO (08:03)
[2023-08-30] MEDS: Aspirin 81 MG TAB.CHEW PO (08:03)
[2023-08-30] MEDS: Insulin Glargine-YFGN 100 UNIT/ML Pen 15 UNIT SC (08:03)
[2023-08-30] MEDS: Potassium Chloride Oral Tablet 20 MEQ PO (08:03)
[2023-08-30] MEDS: Venlafaxine HCl 75 MG Tablet PO (08:03)
[2023-08-30] MEDS: Isosorbide Mononitrate 30 MG Tablet PO (08:04)
[2023-08-30] MEDS: Miconazole Nitrate 43 GM Bottle 1 APPLIC TOPICAL ×2 (08:04→21:06)
[2023-08-30] MEDS: Ipratropium Bromide 0.06% NASAL SPRAY 2 SPRAY NASAL ×2 (08:05→21:05)
[2023-08-30] MEDS: Menthol/Lanolin/Calamine/Znox 113 GM Tube 1 APPLIC TOPICAL ×2 (08:06→21:00)
[2023-08-30] MEDS: Senna/Docusate Sodium 1 Tablet 2 TABLET PO (08:06)
[2023-08-30] MEDS: oxyCODONE 5 MG Tablet PO ×3 (08:09→18:51)
[2023-08-30] MEDS: Metoprolol Tartrate 25 MG Tablet PO ×2 (09:16→21:03)
[2023-08-30] MEDS: predniSONE 20 MG Tablet 10 MG PO (09:16)
[2023-08-30] MEDS: Pantoprazole Sodium 40 MG Tablet PO (09:20)
[2023-08-30] MEDS: Lidocaine 5% Patch 1 PATCH TOPICAL (09:20)
[2023-08-30] MEDS: Pioglitazone Hydrochloride 30 MG Tablet PO (09:21)
[2023-08-30 11:24] LABS: Bedside Glucose 324 mg/dL (74-106)
[2023-08-30] MEDS: traMADol 50 MG Tablet PO (11:33)
[2023-08-30] MEDS: 0.9% Saline Lock 10 ML Syringe IV (11:39)
--- NOTE | 2023-08-30 12:15 | CASEMGMT ---
Social Work BIMS () and PHQ-2 () completed MDS assessment. Mita Kearney MSW CHAIRMAN [employer] F[employer]ER
[2023-08-30 16:38] LABS: Bedside Glucose 355 mg/dL (74-106)
[2023-08-30] MEDS: Tamsulosin HCl 0.4 MG Capsule PO (17:40)
[2023-08-30] MEDS: levoFLOXacin IV 250 MG/50 ML BAG 50 MG IV (20:41)
[2023-08-30] MEDS: Atorvastatin Calcium 40 MG Tablet PO (21:02)
[2023-08-30] MEDS: MELATONIN 10 MG TABLET PO (21:02)
[2023-08-30] MEDS: tiZANidine HCl 2 MG Tablet 4 MG PO (21:04)
[2023-08-30] MEDS: Doxepin Hcl 25 MG Capsule PO (21:04)
[2023-08-30] MEDS: Petrolatum 33% Tube 1 APPLIC TOPICAL (21:05)
[2023-08-30] MEDS: Insulin Glargine-YFGN 100 UNIT/ML Pen 25 UNIT SC (21:26)
[2023-08-30 21:28] LABS: Bedside Glucose 424 mg/dL (74-106)
--- NOTE | 2023-08-30 23:59 | NURSING ---
HS blood sugar 424, BP 93/44. notified. New orders received. Will continue to monitor.
[2023-08-31] VITALS (8 sets, daily range): BP systolic 115–165; BP diastolic 58–74; PULSE 72–106; RESP 18–21; TEMP 35.8; O2SAT 95–100; BMI 38.5
[2023-08-31] MEDS: Pregabalin 50 MG Capsule PO ×3 (05:41→20:31)
[2023-08-31] MEDS: Enoxaparin 40 MG/0.4 ML Syringe SC (05:41)
[2023-08-31] MEDS: Acetaminophen 500 MG Tablet 1000 MG PO ×3 (05:42→20:31)
[2023-08-31 05:57] LABS: Absolute Neutrophil Count 6.8 X10^3/uL (2.0-7.7); Basophil# 0.02 X10^3/uL; Basophil% 0.2 % (0-1); Eosinophil# 0.03 X10^3/uL; Eosinophils% 0.3 % (0-5); Hematocrit 30.6 % (37-47); Hemoglobin 9.2 g/dL (12.0-15.0); Lymphocyte % 15.6 % (19-41); Mean Corp Hgb Conc 30.1 g/dL (32-36); Mean Corpuscular Hgb 25.2 pg (27.0-32.0); Mean Corpuscular Volume 83.8 fL (81-99); Mean Platelet Vol. 12.2 fl (6.2-12.0); Monocyte# 0.52 X10^3/uL; Monocyte% 5.8 % (0-10); NRBC Flagged by Analyzer 0 % (0-5); Neutrophil # 6.84 X10^3/uL (2.7-7.7); Neutrophil % 76.4 % (47-70); Platelet Count 177 K/mm3 (150-450); RBC Distribution Width CV 18.3 % (11.6-14.6); RBC Distribution Width SD 55.8 fl (35.1-43.9); Red Blood Count 3.65 M/mm3 (4.2-5.4)
[2023-08-31 06:38] LABS: Anion Gap 3 (5-15); BUN 33 mg/dL (7-18); BUN/Creat Ratio 23.1 RATIO (10-20); Calcium,Total 8.6 mg/dL (8.5-10.1); Chloride 99 mmol/L (98-107); Creatinine, Serum 1.43 mg/dL (0.55-1.02); EST Glomerular Filtration Rate 37 mL/min (>60); Est Glom Filt Rate - Afr Amer 45 mL/min (>60); Glucose 281 mg/dL (74-106); Sodium Level 139 mmol/L (136-145)
[2023-08-31 06:48] LABS: Bedside Glucose 231 mg/dL (74-106)
[2023-08-31] MEDS: Ipratropium/Albuterol Sulfate 3 ML AMPUL.NEB INHALATION ×3 (07:28→18:40)
[2023-08-31] MEDS: 0.9% Normal Saline (500mL Bag) 500 ML 999 ML IV (08:01)
[2023-08-31] MEDS: Lidocaine 5% Patch 1 PATCH TOPICAL (08:11)
[2023-08-31] MEDS: Insulin Glargine-YFGN 100 UNIT/ML Pen 25 UNIT SC ×2 (08:16→20:32)
[2023-08-31] MEDS: oxyCODONE 5 MG Tablet PO ×2 (08:23→20:39)
[2023-08-31] MEDS: Ipratropium Bromide 0.06% NASAL SPRAY 2 SPRAY NASAL ×2 (08:24→20:30)
[2023-08-31] MEDS: Tuberculin,Purif.prot.deriv. 50 TU/ML Vial 0.1 ML ID (08:25)
[2023-08-31] MEDS: Miconazole Nitrate 43 GM Bottle 1 APPLIC TOPICAL ×2 (08:30→20:45)
[2023-08-31] MEDS: Petrolatum 33% Tube 1 APPLIC TOPICAL ×2 (08:30→20:44)
[2023-08-31] MEDS: Aspirin 81 MG TAB.CHEW PO (10:15)
[2023-08-31] MEDS: predniSONE 20 MG Tablet 10 MG PO (10:15)
[2023-08-31] MEDS: Venlafaxine HCl 75 MG Tablet PO (10:16)
[2023-08-31] MEDS: Isosorbide Mononitrate 30 MG Tablet PO (10:16)
[2023-08-31] MEDS: Pioglitazone Hydrochloride 30 MG Tablet PO (10:16)
[2023-08-31] MEDS: Metoprolol Tartrate 25 MG Tablet PO ×2 (10:16→20:30)
[2023-08-31] MEDS: Senna/Docusate Sodium 1 Tablet 2 TABLET PO ×2 (10:19→20:31)
[2023-08-31] MEDS: Pantoprazole Sodium 40 MG Tablet PO (10:19)
[2023-08-31 11:05] LABS: Bedside Glucose 186 mg/dL (74-106)
[2023-08-31] MEDS: Menthol/Lanolin/Calamine/Znox 113 GM Tube 1 APPLIC TOPICAL ×2 (11:09→20:45)
[2023-08-31] MEDS: Insulin Lispro 100 UNIT/ML INSULN.PEN 10 UNIT SC ×2 (12:21→17:36)
--- NOTE | 2023-08-31 13:35 | RAD_ITS ---
HISTORY: Aspiration. TECHNIQUE: XR Chest 2 Views. COMPARISON: 08/25/2023. FINDINGS: LINES/TUBES: None. CARDIOMEDIASTINAL BORDERS: Stable with moderate hiatal hernia. LUNGS: Scattered linear opacities likely atelectasis in the right upper, right mid, and bilateral lower lungs again seen. PLEURA: No pleural effusion or pneumothorax. OTHER: Compression fractures noted in the mid to lower thoracic spine. RAD/Chest PA and Lateral IMPRESSION: No significant interval change. Electronically Signed: Pamela Orozco MD at 9:44 EDT ,
--- NOTE | 2023-08-31 16:07 | CHAPLAIN ---
Type of Pastoral Visit ___ Initial Visit _x__ Follow-up Visit ___ On-call Visit ___ General Patient Visit ___ Spiritual Assessment ___ Family Conference ___ Bereavement ___ Rapid Response ___ Code Blue ___ Other (describe below) Pastoral Care Referral From _x__ Patient _x__ Family ___ Nurse ___ Physician ___ Brake Repair Mechanic ___ Printing Estimator ___ Other (describe below) Sacrament/Intervention _x__ Active listening ___ Anointing ___ Roman Catholic ___ Bereavement ___ Communion ___ Elvira exploration ___ ___ Life review _x__ Prayer ___ Reconciliation ___ Sacrament of Sick ___ Supportive presence ___ Wedding ___ Other (describe below) Pastoral Comments patient and son are in the room; pt gives evaluation of how she feels; son adds information too; both are making attempts to be positive in a slowly evolving time of recovery; pt hopes to get home and welcomes presence and prayer
[2023-08-31 16:38] LABS: Bedside Glucose 242 mg/dL (74-106)
[2023-08-31] MEDS: Tamsulosin HCl 0.4 MG Capsule PO (17:37)
[2023-08-31] MEDS: Atorvastatin Calcium 40 MG Tablet PO (20:31)
[2023-08-31] MEDS: Doxepin Hcl 25 MG Capsule PO (20:31)
[2023-08-31] MEDS: MELATONIN 10 MG TABLET PO (20:31)
--- NOTE | 2023-08-31 20:47 | NURSING ---
Call placed to pharmacy regarding IV Levofloxacin for clarification. Patient has received 7 doses of medication as ordered, with the 7th dose administered 08/30/23. Matt, pharmacist, reviewed order and discontinued medication and patient is not to receive dose this evening.
[2023-08-31 21:18] LABS: Bedside Glucose 309 mg/dL (74-106)
--- NOTE | 2023-08-31 22:02 | NURSING ---
Patient's BP elevated at 830pm when checked. BP 165/74, P 106. Patient's pain also 8/10. Medicatins administered, including prn Oxycodone for pain. Rechecked at this time, BP 134/58, P 80. Patient states pain is much better. Will continue to monitor.
[2023-09-01] VITALS (7 sets, daily range): BP systolic 124–160; BP diastolic 57–90; PULSE 74–93; RESP 18–20; TEMP 36.2; O2SAT 95–99
[2023-09-01] MEDS: Acetaminophen 500 MG Tablet 1000 MG PO ×3 (05:20→22:25)
[2023-09-01] MEDS: Pregabalin 50 MG Capsule PO ×3 (05:20→22:22)
[2023-09-01 06:34] LABS: Bedside Glucose 149 mg/dL (74-106)
[2023-09-01] MEDS: Ipratropium/Albuterol Sulfate 3 ML AMPUL.NEB INHALATION ×2 (07:30→13:22)
[2023-09-01 08:08] LABS: Anion Gap 3 (5-15); BUN 25 mg/dL (7-18); BUN/Creat Ratio 23.6 RATIO (10-20); Calcium,Total 8.7 mg/dL (8.5-10.1); Chloride 105 mmol/L (98-107); Creatinine, Serum 1.06 mg/dL (0.55-1.02); EST Glomerular Filtration Rate 53 mL/min (>60); Est Glom Filt Rate - Afr Amer 64 mL/min (>60); Estimated Creatinine Clearance 49.21 ml/min; Glucose 155 mg/dL (74-106); Potassium 4.7 mmol/L (3.5-5.1); Sodium Level 142 mmol/L (136-145)
[2023-09-01] MEDS: Insulin Lispro 100 UNIT/ML INSULN.PEN 10 UNIT SC ×3 (08:13→16:34)
[2023-09-01] MEDS: predniSONE 20 MG Tablet 10 MG PO (08:14)
[2023-09-01] MEDS: Aspirin 81 MG TAB.CHEW PO (08:14)
[2023-09-01] MEDS: Pioglitazone Hydrochloride 30 MG Tablet PO (08:14)
[2023-09-01] MEDS: Ipratropium Bromide 0.06% NASAL SPRAY 2 SPRAY NASAL ×2 (08:15→22:19)
[2023-09-01] MEDS: Miconazole Nitrate 43 GM Bottle 1 APPLIC TOPICAL ×2 (08:15→22:26)
[2023-09-01] MEDS: Venlafaxine HCl 75 MG Tablet PO (08:15)
[2023-09-01] MEDS: Isosorbide Mononitrate 30 MG Tablet PO (08:15)
[2023-09-01] MEDS: Menthol/Lanolin/Calamine/Znox 113 GM Tube 1 APPLIC TOPICAL ×2 (08:16→22:21)
[2023-09-01] MEDS: Pantoprazole Sodium 40 MG Tablet PO (08:16)
[2023-09-01] MEDS: Lidocaine 5% Patch 1 PATCH TOPICAL (08:16)
[2023-09-01] MEDS: Senna/Docusate Sodium 1 Tablet 2 TABLET PO (08:16)
[2023-09-01] MEDS: Metoprolol Tartrate 25 MG Tablet PO ×2 (08:17→22:24)
[2023-09-01] MEDS: cloNIDine HCl 0.1 MG Tablet PO ×2 (10:12→22:22)
[2023-09-01] MEDS: Insulin Glargine-YFGN 100 UNIT/ML Pen 25 UNIT SC ×2 (10:12→23:13)
[2023-09-01 11:18] LABS: Bedside Glucose 162 mg/dL (74-106)
--- NOTE | 2023-09-01 12:22 | NURSING ---
dr matamoros updated on cxr from 08/31/23, no new orders, continue plan of care.
[2023-09-01] MEDS: oxyCODONE 5 MG Tablet PO ×2 (12:40→22:24)
[2023-09-01] MEDS: Tamsulosin HCl 0.4 MG Capsule PO (18:16)
[2023-09-01 21:31] LABS: Bedside Glucose 240 mg/dL (74-106)
[2023-09-01 21:40] LABS: Bedside Glucose 231 mg/dL (74-106)
[2023-09-01] MEDS: Doxepin Hcl 25 MG Capsule PO (22:24)
[2023-09-01] MEDS: Atorvastatin Calcium 40 MG Tablet PO (22:26)
[2023-09-01] MEDS: MELATONIN 10 MG TABLET PO (22:26)
[2023-09-01] MEDS: 0.9% Saline Lock 10 ML Syringe IV (22:33)
[2023-09-02] VITALS (8 sets, daily range): BP systolic 125–163; BP diastolic 67–97; PULSE 83–96; RESP 16–20; TEMP 36.7; O2SAT 96–98; BMI 38.2
[2023-09-02 06:17] LABS: Bedside Glucose 123 mg/dL (74-106)
[2023-09-02] MEDS: Acetaminophen 500 MG Tablet 1000 MG PO ×3 (06:27→21:34)
[2023-09-02] MEDS: Pregabalin 50 MG Capsule PO ×3 (06:28→21:33)
[2023-09-02] MEDS: Ipratropium/Albuterol Sulfate 3 ML AMPUL.NEB INHALATION ×3 (08:10→18:58)
[2023-09-02] MEDS: Insulin Lispro 100 UNIT/ML INSULN.PEN 10 UNIT SC ×3 (09:04→17:11)
[2023-09-02] MEDS: predniSONE 20 MG Tablet 10 MG PO (09:05)
[2023-09-02] MEDS: Menthol/Lanolin/Calamine/Znox 113 GM Tube 1 APPLIC TOPICAL ×2 (09:08→21:41)
[2023-09-02] MEDS: Senna/Docusate Sodium 1 Tablet 2 TABLET PO (09:09)
[2023-09-02] MEDS: Pioglitazone Hydrochloride 30 MG Tablet PO (09:09)
[2023-09-02] MEDS: Venlafaxine HCl 75 MG Tablet PO (09:09)
[2023-09-02] MEDS: Insulin Glargine-YFGN 100 UNIT/ML Pen 25 UNIT SC ×2 (09:10→21:35)
[2023-09-02] MEDS: Pantoprazole Sodium 40 MG Tablet PO (09:10)
[2023-09-02] MEDS: Ipratropium Bromide 0.06% NASAL SPRAY 2 SPRAY NASAL ×2 (09:13→21:37)
[2023-09-02] MEDS: Lidocaine 5% Patch 1 PATCH TOPICAL (09:14)
[2023-09-02] MEDS: Miconazole Nitrate 43 GM Bottle 1 APPLIC TOPICAL ×2 (09:15→21:42)
[2023-09-02] MEDS: cloNIDine HCl 0.1 MG Tablet PO ×2 (09:18→21:37)
[2023-09-02] MEDS: Aspirin 81 MG TAB.CHEW PO (09:18)
[2023-09-02] MEDS: Metoprolol Tartrate 25 MG Tablet PO ×2 (09:19→21:39)
[2023-09-02] MEDS: Isosorbide Mononitrate 30 MG Tablet PO (09:19)
[2023-09-02] MEDS: oxyCODONE 5 MG Tablet PO ×2 (09:58→21:32)
[2023-09-02] MEDS: traMADol 50 MG Tablet PO (11:30)
[2023-09-02 11:31] LABS: Bedside Glucose 178 mg/dL (74-106)
[2023-09-02 17:09] LABS: Bedside Glucose 257 mg/dL (74-106)
[2023-09-02] MEDS: Tamsulosin HCl 0.4 MG Capsule PO (17:11)
[2023-09-02 21:30] LABS: Bedside Glucose 283 mg/dL (74-106)
[2023-09-02] MEDS: MELATONIN 10 MG TABLET PO (21:33)
[2023-09-02] MEDS: Doxepin Hcl 25 MG Capsule PO (21:34)
[2023-09-02] MEDS: Petrolatum 33% Tube 1 APPLIC TOPICAL (21:36)
[2023-09-02] MEDS: Atorvastatin Calcium 40 MG Tablet PO (21:39)
[2023-09-03] VITALS (7 sets, daily range): BP systolic 141–157; BP diastolic 76–82; PULSE 79–90; RESP 16–20; TEMP 36.4; O2SAT 93–98; BMI 38.5
[2023-09-03] MEDS: traMADol 50 MG Tablet PO (01:13)
[2023-09-03] MEDS: Acetaminophen 500 MG Tablet 1000 MG PO ×3 (05:15→21:26)
[2023-09-03] MEDS: Pregabalin 50 MG Capsule PO ×3 (05:15→21:26)
[2023-09-03 06:11] LABS: Bedside Glucose 154 mg/dL (74-106)
[2023-09-03] MEDS: Insulin Lispro 100 UNIT/ML INSULN.PEN 10 UNIT SC ×3 (07:59→17:47)
[2023-09-03] MEDS: Insulin Glargine-YFGN 100 UNIT/ML Pen 25 UNIT SC ×2 (08:00→21:32)
[2023-09-03] MEDS: oxyCODONE 5 MG Tablet PO ×2 (08:02→21:26)
[2023-09-03] MEDS: Ipratropium Bromide 0.06% NASAL SPRAY 2 SPRAY NASAL ×2 (08:03→21:30)
[2023-09-03] MEDS: Aspirin 81 MG TAB.CHEW PO (08:03)
[2023-09-03] MEDS: predniSONE 20 MG Tablet 10 MG PO (08:03)
[2023-09-03] MEDS: Isosorbide Mononitrate 30 MG Tablet PO (08:04)
[2023-09-03] MEDS: cloNIDine HCl 0.1 MG Tablet PO ×2 (08:04→21:27)
[2023-09-03] MEDS: Venlafaxine HCl 75 MG Tablet PO (08:04)
[2023-09-03] MEDS: Pioglitazone Hydrochloride 30 MG Tablet PO (08:04)
[2023-09-03] MEDS: Pantoprazole Sodium 40 MG Tablet PO (08:04)
[2023-09-03] MEDS: Metoprolol Tartrate 25 MG Tablet PO ×2 (08:05→21:27)
[2023-09-03] MEDS: Senna/Docusate Sodium 1 Tablet 2 TABLET PO ×2 (08:05→21:28)
[2023-09-03] MEDS: Menthol/Lanolin/Calamine/Znox 113 GM Tube 1 APPLIC TOPICAL ×2 (08:05→21:31)
[2023-09-03] MEDS: Lidocaine 5% Patch 1 PATCH TOPICAL (08:06)
[2023-09-03] MEDS: Miconazole Nitrate 43 GM Bottle 1 APPLIC TOPICAL ×2 (08:06→21:31)
[2023-09-03 08:09] LABS: Anion Gap 1 (5-15); BUN 26 mg/dL (7-18); BUN/Creat Ratio 23.4 RATIO (10-20); Calcium,Total 8.9 mg/dL (8.5-10.1); Chloride 102 mmol/L (98-107); Creatinine, Serum 1.11 mg/dL (0.55-1.02); EST Glomerular Filtration Rate 50 mL/min (>60); Est Glom Filt Rate - Afr Amer 60 mL/min (>60); Estimated Creatinine Clearance 47.01 ml/min; Glucose 149 mg/dL (74-106); Potassium 4.3 mmol/L (3.5-5.1); Sodium Level 141 mmol/L (136-145)
--- NOTE | 2023-09-03 08:51 | ST.MBS ---
Modified Barium Swallow Patient Information Study Date: 09/03/23 Study Time: 09:30 Direct Billable Minutes: 120 Total Minutes procedure & reportin Diagnosis: Dysphagia, (R13.10), COPD w/ acute exacerbation (J44.1) Referring Physician: Lei Kwok Chi Reason for Referral: Objectively assess swallow function, assess risk for aspiration, and determine recommendations for least restrictive diet textures and compensatory strategies to improve safety of swallow. Medical History: 82 year old female with PMHx re: asthma, atherosclerosis of coronary artery of [place] heart without angina pectoris, CKD (chronic kidney disease), stage III, [place] syndrome, depression, diabetes mellitus, dyspnea, essential hypertension, hyperlipidemia, hypoxia, obesity, osteoarthritis hospitalized for intractable thoracic back pain 2/2 T12 compression fracture, complicated by COPD exacerbation, acute encephalopathy, NSVT, hypokalemia, hypomagnesemia, hypophosphatemia, admitted to TCU with debility, here for rehabilitation, strengthening, prior to discharge home with daughter. Patient participated in Modified Barium Swallow Study in March 2023 w/ no oral or pharyngeal deficits identified. It was recommended pt. to follow w/ GI d/t poor esophageal motility. Participated in EGD while on TCU on 08/29/23. See EGD report for full details. Patient continues to show s/sx of aspiration. REFRIGERATING TECHNICIAN recommended repeat MBSS to determine the appropriate diet. Current Diet Ordered: Regular; Thin Liquids Dentition: WNL Mental Status: WNL Respiratory Status: Oxygenating on 3L/M nasal cannula Penetration-Aspiration Scale Penetration-Aspiration Scale: OBJECTIVE ASSESSMENT OF SWALLOW FUNCTION (QUANTITATIVE ? PER TRIAL): PENETRATION / ASPIRATION SCALE (ROJAS): 1 = does not enter airway 2 = enters airway/above vocal folds/ejected 3 = enters airway/above vocal folds/not ejected 4 = enters airway/contacts vocal folds/ejected 5 = enters airway/contacts vocal folds/not ejected 6 = enters airway/below vocal folds/ejected 7 = enters airway/below vocal folds/not ejected despite effort 8 = enters airway/below vocal folds/no effort VIDEOFLOROSCOPIC SCALE SCORE (ROJAS): Grade I = aspiration of material that has penetrated into the laryngeal vestibule, intact cough reflex Grade II = aspiration < 10 % of the bolus, intact cough reflex Grade III = aspiration of < 10 % of the bolus, reduced cough reflex or aspiration of > 10 % of the bolus, intact cough reflex Grade IV = aspiration of > 10 % of the bolus, reduced cough reflex Penetration-Aspiration Scale Score Thin Liquid via teaspoon: Result: 1= does not enter airway Thin Liquid via small single sip: cup: Result: 2= enter airway/above vocal folds/ejected Thin Liquid via small single sip: cup Trial 2: Result: 1= does not enter airway Thin Liquid via single sip: straw: Result: 4= enters airway/contacts vocal folds/ejected Comment: Pre-prandial aspiration of pharyngeal residues in the vallecula Thin Liquid via single sip: straw Trial 2: Result: 2= enter airway/above vocal folds/ejected Thin Liquid via sequential sips:straw: Result: 2= enter airway/above vocal folds/ejected Cookie: Result: 1= does not enter airway Thin Liquid via small single sip: cup Trial 3: Result: 2= enter airway/above vocal folds/ejected Thin Liquid via small single sip: cup Trial 4: Result: 1= does not enter airway Thin Liquid via small single sip: cup Effortful swallow: Result: 2= enter airway/above vocal folds/ejected Comment: cannot rule out aspiration d/t poor visualization of airway during study Thin Liquid via small single sip: cup Effortful swallow Trial 2: Result: 5= enters airways/contacts vocal folds/not ejected Comment: cannot rule out aspiration d/t poor visualization of airway during study Oral Phase Labial Seal: No Labial Escape Tongue Control During Bolus Hold: Posterior escape of greater than half of bolus Bolus Preparation/Mastication: Slow prolonged chewing/mashing with complete recollection Bolus Transport/Lingual Motion: Slowed tongue motion Oral Residue: Residue collection on oral structures Pharyngeal Phase Initiation of Pharyngeal Swallow: Bolus head in pyriforms Soft Palate Elevation: No bolus between soft palate and pharyngeal wall Laryngeal Elevation: Partial superior movement thyroid cart/partial apprx aryt-epig petiole Anterior Hyoid Excursion: Partial anterior movement Epiglottic Movement: Partial inversion Laryngeal Vestibule Closure at Height of Swallow: Incomplete; narrow column of air/contrast in laryngeal vestibule Pharyngeal Stripping Wave: Present - diminished Pharyngoesophageal Segment Opening: Complete distension and complete duration; no obstruction of flow Tongue Base Retraction: Narrow column of contrast between tongue base & post. pharyngeal wall Pharyngeal Residue: Collection of residue within or on pharyngeal structures Esophageal Phase Esophageal Clearance: Esophageal retention w/ retrograde flow below pharyngoesophageal seg. Treatment Strategies Effects of treatment strategies attemped:: double swallow to clear pharyngeal residues in the vallecula = effective effortful swallow to clear pharyngeal residues / decrease penetration = not effective Diagnosis/Impression Diagnosis: mild/moderate oropharyngeal dysphagia R13.12 Impression: Oral phase primarily marked by... - slowed, but functional mastication of regular textures observed during the study - slowed AP transit - premature bolus loss observed w/ thin liquids via tsp., cup and straw resulting in suboptimal bolus location upon swallow onset - oral residue present and seen spilling into the vallecula after the swallow Pharyngeal phase primarily marked by... - delayed pharyngeal swallow onset timing resulting in suboptimal bolus location upon swallow onset - reduced closure of airway during the swallow attributed to reduced laryngeal elevation, diminished anterior hyoid and epiglottic inversion contributing to penetration into the airway - pharyngeal residues in the vallecula contributing to pre-prandial SILENT aspiration. Pharyngeal residues decreased w/ use of double dry swallow. Esophageal phase primarily marked by... - poor esophageal motility w/ retrograde flow of cookie observed - liquid wash significantly improved clearance - prominent cricopharyngeal bar located at the C5/C6 level w/ no effect on pharyngeal motility Recommendations Diet: Regular Textures and Thin Liquids Compensatory Strategies: Small Bites, Small Sips, Slow Rate, Multiple Swallows, Alternate bites/solids and sips/liquids, Sitting upright and Remain sitting upright for 30 minutes after PO intake Supervision: Assist as needed Recommend Repeat Modified Barium Swallow: TBD Need for Skilled Speech Therapy Services: Yes Education Completed: 1. Described result of evaluation., 2. Pt understands evaluation & agrees with goals and treatment plan. and 4. Family/caregivers understand evaluation & agree w/ goals & tx plan. Status Active ST Patient: Active Contact Information [facility] Speech Therapy:: Sandra Martínez M.A. [facility]-REFRIGERATING TECHNICIAN Speech-Language Pathologist [facility] [address] [place] [place] [address] [email or web address] [phone]
--- NOTE | 2023-09-03 08:55 | NURSING ---
Piping Drafter Note; MDS for 08/29/2020 Complete
[2023-09-03] MEDS: tiZANidine HCl 2 MG Tablet 4 MG PO ×2 (10:26→21:37)
[2023-09-03 11:11] LABS: Bedside Glucose 165 mg/dL (74-106)
--- NOTE | 2023-09-03 11:50 | NURSING ---
daughter called out reporting that pt has skin tear and fluid leaking from hand. daughter then reported her ring slit her skin by accident when assisting pt. area cleansed with NS. applied adaptic and wrapped with latosha. daughter removed her ring, she felt horrible.
[2023-09-03] MEDS: Ipratropium/Albuterol Sulfate 3 ML AMPUL.NEB INHALATION ×2 (13:05→18:32)
[2023-09-03 16:18] LABS: Bedside Glucose 246 mg/dL (74-106)
[2023-09-03] MEDS: Tamsulosin HCl 0.4 MG Capsule PO (17:47)
[2023-09-03] MEDS: Doxepin Hcl 25 MG Capsule PO (21:28)
[2023-09-03] MEDS: MELATONIN 10 MG TABLET PO (21:28)
[2023-09-03] MEDS: Petrolatum 33% Tube 1 APPLIC TOPICAL (21:29)
[2023-09-03] MEDS: Atorvastatin Calcium 40 MG Tablet PO (21:29)
[2023-09-03 21:39] LABS: Bedside Glucose 208 mg/dL (74-106)
[2023-09-04] VITALS (9 sets, daily range): BP systolic 153–158; BP diastolic 63; PULSE 83–109; RESP 18–22; TEMP 36.3; O2SAT 96–97; BMI 38.2
[2023-09-04] MEDS: Acetaminophen 500 MG Tablet 1000 MG PO ×3 (06:16→22:01)
[2023-09-04] MEDS: Pregabalin 50 MG Capsule PO ×3 (06:16→21:58)
[2023-09-04 06:32] LABS: Bedside Glucose 111 mg/dL (74-106)
[2023-09-04] MEDS: Insulin Lispro 100 UNIT/ML INSULN.PEN 10 UNIT SC ×3 (08:24→18:06)
[2023-09-04] MEDS: Insulin Glargine-YFGN 100 UNIT/ML Pen 25 UNIT SC ×2 (08:25→21:59)
[2023-09-04] MEDS: Aspirin 81 MG TAB.CHEW PO (08:26)
[2023-09-04] MEDS: Pioglitazone Hydrochloride 30 MG Tablet PO (08:26)
[2023-09-04] MEDS: Isosorbide Mononitrate 30 MG Tablet PO (08:27)
[2023-09-04] MEDS: Senna/Docusate Sodium 1 Tablet 2 TABLET PO ×2 (08:27→22:03)
[2023-09-04] MEDS: Pantoprazole Sodium 40 MG Tablet PO (08:27)
[2023-09-04] MEDS: predniSONE 20 MG Tablet 10 MG PO (08:27)
[2023-09-04] MEDS: Metoprolol Tartrate 25 MG Tablet PO ×2 (08:27→22:01)
[2023-09-04] MEDS: Venlafaxine HCl 75 MG Tablet PO (08:27)
[2023-09-04] MEDS: cloNIDine HCl 0.1 MG Tablet PO ×2 (08:27→22:02)
[2023-09-04] MEDS: Ipratropium Bromide 0.06% NASAL SPRAY 2 SPRAY NASAL ×2 (08:29→22:01)
[2023-09-04] MEDS: Lidocaine 5% Patch 1 PATCH TOPICAL (08:29)
[2023-09-04] MEDS: Menthol/Lanolin/Calamine/Znox 113 GM Tube 1 APPLIC TOPICAL ×2 (08:31→22:03)
[2023-09-04] MEDS: oxyCODONE 5 MG Tablet PO ×2 (08:31→21:58)
[2023-09-04] MEDS: Miconazole Nitrate 43 GM Bottle 1 APPLIC TOPICAL ×2 (08:32→22:04)
[2023-09-04] MEDS: Ipratropium/Albuterol Sulfate 3 ML AMPUL.NEB INHALATION ×3 (08:50→18:50)
[2023-09-04] MEDS: tiZANidine HCl 2 MG Tablet 4 MG PO (10:34)
[2023-09-04 11:12] LABS: Bedside Glucose 178 mg/dL (74-106)
[2023-09-04 17:11] LABS: Bedside Glucose 205 mg/dL (74-106)
--- NOTE | 2023-09-04 17:48 | NURSING ---
pt off unit to xray
--- NOTE | 2023-09-04 17:50 | RAD_ITS ---
STUDY: X-RAY CHEST REASON FOR EXAM: Female, 82 years old. SOB. TECHNIQUE: PA and lateral views of the chest. COMPARISON: 08/31/2023 FINDINGS: The lungs are clear and expanded. There is no demonstrated pleural abnormality. Normal size heart. Normal mediastinum and elly. Normal visualized pulmonary arteries. Normal visualized aortic arch and descending thoracic aorta. Multiple chronic compression fractures of the thoracic spine with increased kyphosis. Normal visualized ribs, clavicles, and shoulders. There is no demonstrated abnormality of the visualized soft tissue structures of the upper abdomen. RAD/Chest PA and Lateral IMPRESSION: No active disease. Electronically Signed: Felix Ash MD at 0:07 EDT ,
[2023-09-04] MEDS: Tamsulosin HCl 0.4 MG Capsule PO (18:06)
[2023-09-04 21:22] LABS: Bedside Glucose 300 mg/dL (74-106)
[2023-09-04] MEDS: Atorvastatin Calcium 40 MG Tablet PO (22:02)
[2023-09-04] MEDS: Doxepin Hcl 25 MG Capsule PO (22:02)
[2023-09-04] MEDS: MELATONIN 10 MG TABLET PO (22:03)
[2023-09-04] MEDS: Petrolatum 33% Tube 1 APPLIC TOPICAL (22:03)
[2023-09-05] VITALS (9 sets, daily range): BP systolic 120–163; BP diastolic 59–75; PULSE 70–97; RESP 16–19; TEMP 35.8; O2SAT 95–100; BMI 38.7
[2023-09-05] MEDS: traMADol 50 MG Tablet PO (01:34)
[2023-09-05] MEDS: Pregabalin 50 MG Capsule PO ×3 (05:07→21:23)
[2023-09-05] MEDS: Acetaminophen 500 MG Tablet 1000 MG PO ×3 (05:08→21:24)
[2023-09-05 06:23] LABS: Bedside Glucose 106 mg/dL (74-106)
[2023-09-05] MEDS: Ipratropium/Albuterol Sulfate 3 ML AMPUL.NEB INHALATION ×3 (06:51→19:55)
--- NOTE | 2023-09-05 07:42 | CPS ---
This RT decreased to 2L NC
[2023-09-05] MEDS: Aspirin 81 MG TAB.CHEW PO (08:25)
[2023-09-05] MEDS: cloNIDine HCl 0.1 MG Tablet PO ×2 (08:26→21:24)
[2023-09-05] MEDS: Isosorbide Mononitrate 30 MG Tablet PO (08:26)
[2023-09-05] MEDS: Venlafaxine HCl 75 MG Tablet PO (08:26)
[2023-09-05] MEDS: Pioglitazone Hydrochloride 30 MG Tablet PO (08:26)
[2023-09-05] MEDS: Insulin Glargine-YFGN 100 UNIT/ML Pen 25 UNIT SC ×2 (08:27→21:27)
[2023-09-05] MEDS: Pantoprazole Sodium 40 MG Tablet PO (08:27)
[2023-09-05] MEDS: Senna/Docusate Sodium 1 Tablet 2 TABLET PO ×2 (08:28→21:23)
[2023-09-05] MEDS: Metoprolol Tartrate 25 MG Tablet PO ×2 (08:29→21:25)
[2023-09-05] MEDS: Insulin Lispro 100 UNIT/ML INSULN.PEN 10 UNIT SC ×3 (08:31→18:29)
--- NOTE | 2023-09-05 09:05 | MDS.RN ---
Information for the mds was obtained from reivew of the clinical record, interview of resident, staff, and direct observation of resident's care.
[2023-09-05] MEDS: oxyCODONE 5 MG Tablet PO ×2 (10:38→21:22)
[2023-09-05] MEDS: tiZANidine HCl 2 MG Tablet 4 MG PO (10:39)
[2023-09-05] MEDS: Ipratropium Bromide 0.06% NASAL SPRAY 2 SPRAY NASAL ×2 (10:40→21:21)
[2023-09-05] MEDS: Lidocaine 5% Patch 1 PATCH TOPICAL (10:40)
[2023-09-05] MEDS: Miconazole Nitrate 43 GM Bottle 1 APPLIC TOPICAL ×2 (10:44→21:22)
[2023-09-05] MEDS: Menthol/Lanolin/Calamine/Znox 113 GM Tube 1 APPLIC TOPICAL ×2 (10:44→21:21)
[2023-09-05 11:24] LABS: Bedside Glucose 158 mg/dL (74-106)
--- NOTE | 2023-09-05 14:57 | CHAPLAIN ---
Type of Pastoral Visit ___ Initial Visit _x__ Follow-up Visit ___ On-call Visit ___ General Patient Visit ___ Spiritual Assessment ___ Family Conference ___ Bereavement ___ Rapid Response ___ Code Blue ___ Other (describe below) Pastoral Care Referral From _x__ Patient _x__ Family ___ Nurse ___ Physician ___ Device Sales Consultant ___ E Business Consultant ___ Other (describe below) Sacrament/Intervention _x__ Active listening ___ Anointing ___ Hinduism ___ Bereavement ___ Communion ___ Elvira exploration ___ ___ Life review _x__ Prayer ___ Reconciliation ___ Sacrament of Sick ___ Supportive presence ___ Wedding ___ Other (describe below) Pastoral Comments patient requests a prayer as I am having a rough day; pt is trying to rest so visit is brief
[2023-09-05 17:21] LABS: Bedside Glucose 103 mg/dL (74-106)
[2023-09-05] MEDS: Tamsulosin HCl 0.4 MG Capsule PO (18:28)
[2023-09-05] MEDS: Petrolatum 33% Tube 1 APPLIC TOPICAL (21:22)
[2023-09-05] MEDS: MELATONIN 10 MG TABLET PO (21:23)
[2023-09-05] MEDS: Doxepin Hcl 25 MG Capsule PO (21:23)
[2023-09-05] MEDS: Atorvastatin Calcium 40 MG Tablet PO (21:24)
[2023-09-05 21:48] LABS: Bedside Glucose 98 mg/dL (74-106)
[2023-09-06] VITALS (7 sets, daily range): BP systolic 123–152; BP diastolic 52–70; PULSE 72–98; RESP 14–20; TEMP 36.8; O2SAT 96–97; BMI 39.0
[2023-09-06] MEDS: oxyCODONE 5 MG Tablet PO ×3 (04:56→22:13)
[2023-09-06] MEDS: Acetaminophen 500 MG Tablet 1000 MG PO ×3 (04:59→22:10)
[2023-09-06] MEDS: Pregabalin 50 MG Capsule PO ×3 (04:59→22:20)
[2023-09-06 05:59] LABS: Absolute Lymphocyte Count 1.35 X10^3/uL (0.83-4.51); Absolute Neutrophil Count 3.9 X10^3/uL (2.0-7.7); Basophil# 0.01 X10^3/uL; Basophil% 0.2 % (0-1); Eosinophil# 0.09 X10^3/uL; Eosinophils% 1.6 % (0-5); Hematocrit 29.5 % (37-47); Hemoglobin 8.9 g/dL (12.0-15.0); Lymphocyte # 1.35 X10^3/ul (0.83-4.51); Lymphocyte % 23.6 % (19-41); Mean Corp Hgb Conc 30.2 g/dL (32-36); Mean Corpuscular Hgb 25.6 pg (27.0-32.0); Mean Platelet Vol. 12.1 fl (6.2-12.0); Monocyte# 0.34 X10^3/uL; Monocyte% 5.9 % (0-10); NRBC Flagged by Analyzer 0 % (0-5); Platelet Count 151 K/mm3 (150-450); RBC Distribution Width CV 19.1 % (11.6-14.6); RBC Distribution Width SD 58.4 fl (35.1-43.9); Red Blood Count 3.47 M/mm3 (4.2-5.4); White Blood Count 5.7 K/mm3 (4.4-11.0)
[2023-09-06 06:17] LABS: Anion Gap 2 (5-15); BUN 28 mg/dL (7-18); BUN/Creat Ratio 28.2 RATIO (10-20); Chloride 104 mmol/L (98-107); Creatinine, Serum 0.99 mg/dL (0.55-1.02); EST Glomerular Filtration Rate 57 mL/min (>60); Est Glom Filt Rate - Afr Amer 69 mL/min (>60); Estimated Creatinine Clearance 53.08 ml/min; Glucose 88 mg/dL (74-106); Potassium 4.1 mmol/L (3.5-5.1); Sodium Level 143 mmol/L (136-145)
[2023-09-06] MEDS: Ipratropium/Albuterol Sulfate 3 ML AMPUL.NEB INHALATION ×3 (07:25→19:10)
[2023-09-06 08:10] LABS: BNP,B-Type NATRIURETIC PEPTIDE 46.5 pg/mL (0-100)
[2023-09-06] MEDS: Aspirin 81 MG TAB.CHEW PO (08:20)
[2023-09-06] MEDS: Pioglitazone Hydrochloride 30 MG Tablet PO (08:21)
[2023-09-06] MEDS: Ipratropium Bromide 0.06% NASAL SPRAY 2 SPRAY NASAL ×2 (08:21→22:08)
[2023-09-06] MEDS: Isosorbide Mononitrate 30 MG Tablet PO (08:22)
[2023-09-06] MEDS: Lidocaine 5% Patch 1 PATCH TOPICAL (08:22)
[2023-09-06] MEDS: cloNIDine HCl 0.1 MG Tablet PO ×2 (08:22→22:11)
[2023-09-06] MEDS: Pantoprazole Sodium 40 MG Tablet PO (08:22)
[2023-09-06] MEDS: Venlafaxine HCl 75 MG Tablet PO (08:22)
[2023-09-06] MEDS: Senna/Docusate Sodium 1 Tablet 2 TABLET PO ×2 (08:23→22:09)
[2023-09-06] MEDS: Furosemide 40 MG Tablet PO (08:26)
[2023-09-06] MEDS: Potassium Chloride Oral Tablet 20 MEQ PO (08:26)
[2023-09-06] MEDS: Metoprolol Tartrate 25 MG Tablet PO ×2 (08:32→22:12)
[2023-09-06] MEDS: Magnesium Citrate 300 ML PO (08:34)
[2023-09-06] MEDS: Miconazole Nitrate 43 GM Bottle 1 APPLIC TOPICAL ×2 (08:40→22:13)
[2023-09-06] MEDS: Menthol/Lanolin/Calamine/Znox 113 GM Tube 1 APPLIC TOPICAL ×2 (08:40→22:14)
[2023-09-06 09:11] LABS: Bedside Glucose 100 mg/dL (74-106)
[2023-09-06] MEDS: tiZANidine HCl 2 MG Tablet 4 MG PO (09:17)
--- NOTE | 2023-09-06 09:22 | NURSING ---
Ordered MRI right shoulder for persistent pain, right rotator cuff tendinopathy. Ref #[id number]. Auth received, #[id number].
[2023-09-06 11:46] LABS: Bedside Glucose 148 mg/dL (74-106)
[2023-09-06 11:46] LABS: Bedside Glucose 76 mg/dL (74-106)
[2023-09-06] MEDS: Insulin Lispro 100 UNIT/ML INSULN.PEN 10 UNIT SC ×2 (12:03→17:49)
[2023-09-06 16:57] LABS: Bedside Glucose 150 mg/dL (74-106)
[2023-09-06] MEDS: Tamsulosin HCl 0.4 MG Capsule PO (17:50)
[2023-09-06 22:06] LABS: Bedside Glucose 182 mg/dL (74-106)
[2023-09-06] MEDS: MELATONIN 10 MG TABLET PO (22:11)
[2023-09-06] MEDS: Atorvastatin Calcium 40 MG Tablet PO (22:11)
[2023-09-06] MEDS: Doxepin Hcl 25 MG Capsule PO (22:11)
[2023-09-06] MEDS: Petrolatum 33% Tube 1 APPLIC TOPICAL (22:13)
[2023-09-06] MEDS: Insulin Glargine-YFGN 100 UNIT/ML Pen 25 UNIT SC (22:15)
[2023-09-07] VITALS (8 sets, daily range): BP systolic 108–149; BP diastolic 54–62; PULSE 69–96; RESP 16–20; TEMP 35.9; O2SAT 95–99; BMI 39.1
[2023-09-07 05:50] LABS: Absolute Lymphocyte Count 1.27 X10^3/uL (0.83-4.51); Absolute Neutrophil Count 3.6 X10^3/uL (2.0-7.7); Basophil# 0.01 X10^3/uL; Basophil% 0.2 % (0-1); Eosinophil# 0.07 X10^3/uL; Eosinophils% 1.3 % (0-5); Hematocrit 27.7 % (37-47); Hemoglobin 8.1 g/dL (12.0-15.0); Lymphocyte # 1.27 X10^3/ul (0.83-4.51); Lymphocyte % 23.6 % (19-41); Mean Corp Hgb Conc 29.2 g/dL (32-36); Mean Corpuscular Volume 85.5 fL (81-99); Mean Platelet Vol. 11.7 fl (6.2-12.0); Monocyte# 0.39 X10^3/uL; Monocyte% 7.2 % (0-10); NRBC Flagged by Analyzer 0 % (0-5); Neutrophil # 3.61 X10^3/uL (2.7-7.7); Platelet Count 119 K/mm3 (150-450); RBC Distribution Width CV 19.3 % (11.6-14.6); Red Blood Count 3.24 M/mm3 (4.2-5.4); White Blood Count 5.4 K/mm3 (4.4-11.0)
[2023-09-07] MEDS: Acetaminophen 500 MG Tablet 1000 MG PO ×3 (06:18→21:43)
[2023-09-07] MEDS: oxyCODONE 5 MG Tablet PO ×4 (06:19→21:41)
[2023-09-07] MEDS: Pregabalin 50 MG Capsule PO ×3 (06:19→21:55)
[2023-09-07 06:38] LABS: Bedside Glucose 95 mg/dL (74-106)
[2023-09-07 07:10] LABS: Anion Gap 2 (5-15); BUN 23 mg/dL (7-18); BUN/Creat Ratio 22.1 RATIO (10-20); Calcium,Total 8.9 mg/dL (8.5-10.1); Chloride 103 mmol/L (98-107); Creatinine, Serum 1.04 mg/dL (0.55-1.02); EST Glomerular Filtration Rate 54 mL/min (>60); Est Glom Filt Rate - Afr Amer 65 mL/min (>60); Estimated Creatinine Clearance 50.59 ml/min; Glucose 113 mg/dL (74-106); Potassium 4.4 mmol/L (3.5-5.1); Sodium Level 141 mmol/L (136-145)
[2023-09-07] MEDS: Ipratropium/Albuterol Sulfate 3 ML AMPUL.NEB INHALATION ×3 (07:20→19:50)
[2023-09-07] MEDS: Furosemide 40 MG Tablet PO (09:43)
[2023-09-07] MEDS: Potassium Chloride Oral Tablet 20 MEQ PO (09:43)
[2023-09-07] MEDS: Pantoprazole Sodium 40 MG Tablet PO (09:44)
[2023-09-07] MEDS: Ipratropium Bromide 0.06% NASAL SPRAY 2 SPRAY NASAL ×2 (09:44→21:47)
[2023-09-07] MEDS: Metoprolol Tartrate 25 MG Tablet PO ×2 (09:45→21:43)
[2023-09-07] MEDS: Senna/Docusate Sodium 1 Tablet 2 TABLET PO ×2 (09:45→21:45)
[2023-09-07] MEDS: Pioglitazone Hydrochloride 30 MG Tablet PO (09:45)
[2023-09-07] MEDS: cloNIDine HCl 0.1 MG Tablet PO ×2 (09:45→21:43)
[2023-09-07] MEDS: Aspirin 81 MG TAB.CHEW PO (09:46)
[2023-09-07] MEDS: Isosorbide Mononitrate 30 MG Tablet PO (09:46)
[2023-09-07] MEDS: Venlafaxine HCl 75 MG Tablet PO (09:46)
[2023-09-07] MEDS: Lidocaine 5% Patch 1 PATCH TOPICAL (09:47)
[2023-09-07] MEDS: Menthol/Lanolin/Calamine/Znox 113 GM Tube 1 APPLIC TOPICAL ×2 (09:47→21:48)
[2023-09-07] MEDS: Miconazole Nitrate 43 GM Bottle 1 APPLIC TOPICAL ×2 (09:48→21:46)
[2023-09-07] MEDS: Insulin Glargine-YFGN 100 UNIT/ML Pen 20 UNIT SC ×2 (09:49→22:36)
[2023-09-07 11:06] LABS: Bedside Glucose 242 mg/dL (74-106)
--- NOTE | 2023-09-07 11:17 | NURSING ---
Telephone order received and read back from requesting a consult w/ Dr. Arcenio Bullock for a rt torn rotator cuff. Notify ortho office the MRI has been completed.
--- NOTE | 2023-09-07 11:58 | NURSING ---
Patient updated that MRI show right rotator cuff tear. Appt made for September 10 at 3:00 w/ Dr. Bullock. Patient and daughter aware.
[2023-09-07] MEDS: Insulin Lispro 100 UNIT/ML INSULN.PEN SC ×2 (12:12→17:49)
[2023-09-07 16:24] LABS: Bedside Glucose 219 mg/dL (74-106)
[2023-09-07] MEDS: Tamsulosin HCl 0.4 MG Capsule PO (16:45)
[2023-09-07 21:36] LABS: Bedside Glucose 192 mg/dL (74-106)
[2023-09-07] MEDS: Atorvastatin Calcium 40 MG Tablet PO (21:44)
[2023-09-07] MEDS: Petrolatum 33% Tube 1 APPLIC TOPICAL (21:45)
[2023-09-07] MEDS: Doxepin Hcl 25 MG Capsule PO (21:46)
[2023-09-07] MEDS: MELATONIN 10 MG TABLET PO (21:47)
[2023-09-08] MEDS: Acetaminophen 500 MG Tablet 1000 MG PO ×3 (05:24→21:45)
[2023-09-08] MEDS: Pregabalin 50 MG Capsule PO ×3 (05:24→21:44)
[2023-09-08 06:00] VITALS: BMI 39.2
[2023-09-08 06:02] LABS: Hematocrit 28.2 % (37-47); Hemoglobin 8.4 g/dL (12.0-15.0)
[2023-09-08 06:21] LABS: Anion Gap 1 (5-15); BUN 24 mg/dL (7-18); BUN/Creat Ratio 21.4 RATIO (10-20); Calcium,Total 8.5 mg/dL (8.5-10.1); Chloride 100 mmol/L (98-107); Creatinine, Serum 1.12 mg/dL (0.55-1.02); EST Glomerular Filtration Rate 49 mL/min (>60); Est Glom Filt Rate - Afr Amer 60 mL/min (>60); Estimated Creatinine Clearance 46.98 ml/min; Glucose 167 mg/dL (74-106); Potassium 4.2 mmol/L (3.5-5.1); Sodium Level 138 mmol/L (136-145)
[2023-09-08 06:41] LABS: Bedside Glucose 146 mg/dL (74-106)
[2023-09-08 07:31] VITALS: PULSE 69; RESP 20; O2SAT 99
[2023-09-08] MEDS: Ipratropium/Albuterol Sulfate 3 ML AMPUL.NEB INHALATION ×3 (07:31→19:45)
[2023-09-08] MEDS: Insulin Lispro 100 UNIT/ML INSULN.PEN SC ×3 (07:53→17:36)
[2023-09-08] MEDS: Insulin Glargine-YFGN 100 UNIT/ML Pen 20 UNIT SC ×2 (07:53→21:50)
[2023-09-08 07:56] VITALS: BP 166/64; PULSE 78
[2023-09-08] MEDS: Metoprolol Tartrate 25 MG Tablet PO ×2 (07:56→21:45)
[2023-09-08] MEDS: Potassium Chloride Oral Tablet 20 MEQ PO (07:57)
[2023-09-08] MEDS: Aspirin 81 MG TAB.CHEW PO (07:57)
[2023-09-08] MEDS: cloNIDine HCl 0.1 MG Tablet PO ×2 (07:57→21:45)
[2023-09-08] MEDS: Venlafaxine HCl 75 MG Tablet PO (07:57)
[2023-09-08] MEDS: Senna/Docusate Sodium 1 Tablet 2 TABLET PO ×2 (07:57→21:44)
[2023-09-08] MEDS: Isosorbide Mononitrate 30 MG Tablet PO (07:57)
[2023-09-08] MEDS: Furosemide 40 MG Tablet PO (07:57)
[2023-09-08] MEDS: Ipratropium Bromide 0.06% NASAL SPRAY 2 SPRAY NASAL ×2 (07:58→21:40)
[2023-09-08] MEDS: Pantoprazole Sodium 40 MG Tablet PO (07:58)
[2023-09-08] MEDS: Miconazole Nitrate 43 GM Bottle 1 APPLIC TOPICAL ×2 (07:58→21:52)
[2023-09-08] MEDS: Pioglitazone Hydrochloride 30 MG Tablet PO (07:58)
[2023-09-08] MEDS: Menthol/Lanolin/Calamine/Znox 113 GM Tube 1 APPLIC TOPICAL ×2 (07:59→22:27)
[2023-09-08] MEDS: Lidocaine 5% Patch 1 PATCH TOPICAL (11:19)
[2023-09-08 11:22] LABS: Bedside Glucose 221 mg/dL (74-106)
--- NOTE | 2023-09-08 13:44 | NURSING ---
updated on pt's RLE being Warm Reddened swollen and +Homans sign. N.O. for Doppler to RLE. Order read back.
[2023-09-08 13:56] VITALS: BP 149/60; PULSE 89; RESP 18; TEMP 36.4; O2SAT 96
[2023-09-08 14:07] VITALS: PULSE 77; RESP 16; O2SAT 100
[2023-09-08 16:45] LABS: Bedside Glucose 174 mg/dL (74-106)
[2023-09-08] MEDS: Tamsulosin HCl 0.4 MG Capsule PO (17:37)
[2023-09-08 19:45] VITALS: PULSE 85; RESP 18; O2SAT 94
[2023-09-08] MEDS: Atorvastatin Calcium 40 MG Tablet PO (21:41)
[2023-09-08 21:45] VITALS: BP 155/59; PULSE 89
[2023-09-08] MEDS: Doxepin Hcl 25 MG Capsule PO (21:45)
[2023-09-08] MEDS: MELATONIN 10 MG TABLET PO (21:45)
[2023-09-08] MEDS: oxyCODONE 5 MG Tablet PO (21:53)
[2023-09-09] VITALS (7 sets, daily range): BP systolic 146–149; BP diastolic 56–65; PULSE 75–103; RESP 16–18; TEMP 36.1; O2SAT 96–98
[2023-09-09 00:22] LABS: Bedside Glucose 229 mg/dL (74-106)
--- NOTE | 2023-09-09 04:49 | NURSING ---
Talked with patient regarding upcoming orthopedic appt due to MRI results of right shoulder. Patient states she believes her daughter cancelled the appt. Will follow up.
[2023-09-09] MEDS: oxyCODONE 5 MG Tablet PO ×2 (06:14→20:44)
[2023-09-09] MEDS: Acetaminophen 500 MG Tablet 1000 MG PO ×3 (06:14→20:45)
[2023-09-09] MEDS: Pregabalin 50 MG Capsule PO ×3 (06:15→20:50)
[2023-09-09 06:24] LABS: Bedside Glucose 170 mg/dL (74-106)
[2023-09-09] MEDS: Ipratropium/Albuterol Sulfate 3 ML AMPUL.NEB INHALATION ×3 (07:02→19:45)
[2023-09-09] MEDS: Insulin Lispro 100 UNIT/ML INSULN.PEN SC ×3 (08:25→18:02)
[2023-09-09] MEDS: Potassium Chloride Oral Tablet 20 MEQ PO (08:26)
[2023-09-09] MEDS: Aspirin 81 MG TAB.CHEW PO (08:26)
[2023-09-09] MEDS: cloNIDine HCl 0.1 MG Tablet PO ×2 (08:27→20:48)
[2023-09-09] MEDS: Isosorbide Mononitrate 30 MG Tablet PO (08:27)
[2023-09-09] MEDS: Pioglitazone Hydrochloride 30 MG Tablet PO (08:27)
[2023-09-09] MEDS: Insulin Glargine-YFGN 100 UNIT/ML Pen 20 UNIT SC ×2 (08:27→20:44)
[2023-09-09] MEDS: Furosemide 40 MG Tablet PO (08:28)
[2023-09-09] MEDS: Pantoprazole Sodium 40 MG Tablet PO (08:28)
[2023-09-09] MEDS: Venlafaxine HCl 75 MG Tablet PO (08:28)
[2023-09-09] MEDS: Metoprolol Tartrate 25 MG Tablet PO ×2 (08:28→20:44)
[2023-09-09] MEDS: Lidocaine 5% Patch 1 PATCH TOPICAL (08:29)
[2023-09-09] MEDS: Ipratropium Bromide 0.06% NASAL SPRAY 2 SPRAY NASAL ×2 (08:29→20:48)
[2023-09-09] MEDS: Senna/Docusate Sodium 1 Tablet 2 TABLET PO ×2 (08:29→20:46)
[2023-09-09] MEDS: Menthol/Lanolin/Calamine/Znox 113 GM Tube 1 APPLIC TOPICAL ×2 (08:30→21:00)
[2023-09-09] MEDS: Miconazole Nitrate 43 GM Bottle 1 APPLIC TOPICAL ×2 (08:30→21:00)
--- NOTE | 2023-09-09 08:46 | NURSING ---
pt repositioned in bed, legs elevated on pillow. pt RLE red, warm, pain w/dorsiflexion in calf. dopper ordered but will not be done until Sunday. pt c/o 01/18 pain RLE
[2023-09-09 11:44] LABS: Bedside Glucose 222 mg/dL (74-106)
[2023-09-09 16:36] LABS: Bedside Glucose 230 mg/dL (74-106)
[2023-09-09] MEDS: Tamsulosin HCl 0.4 MG Capsule PO (18:01)
[2023-09-09] MEDS: Atorvastatin Calcium 40 MG Tablet PO (20:45)
[2023-09-09] MEDS: MELATONIN 10 MG TABLET PO (20:46)
[2023-09-09] MEDS: Doxepin Hcl 25 MG Capsule PO (20:46)
[2023-09-09 21:34] LABS: Bedside Glucose 243 mg/dL (74-106)
--- NOTE | 2023-09-09 23:20 | NURSING ---
Patient very painful this evening in both lower extremities. Shins on both legs red, warm to touch. PRN pain medications administered. Patient resting at this time. Doppler ordered. Will continue to monitor.
[2023-09-10] VITALS (9 sets, daily range): BP systolic 139–155; BP diastolic 70; PULSE 52–112; RESP 18; TEMP 36.3; O2SAT 4–98; BMI 39.2
[2023-09-10] MEDS: Pregabalin 50 MG Capsule PO ×3 (06:22→21:56)
[2023-09-10] MEDS: Acetaminophen 500 MG Tablet 1000 MG PO ×3 (06:22→21:51)
[2023-09-10 06:24] LABS: Bedside Glucose 153 mg/dL (74-106)
[2023-09-10] MEDS: Ipratropium/Albuterol Sulfate 3 ML AMPUL.NEB INHALATION ×3 (06:35→19:10)
[2023-09-10] MEDS: Ipratropium Bromide 0.06% NASAL SPRAY 2 SPRAY NASAL ×2 (08:10→21:48)
[2023-09-10] MEDS: cloNIDine HCl 0.1 MG Tablet PO ×2 (08:11→21:49)
[2023-09-10] MEDS: Furosemide 40 MG Tablet PO (08:11)
[2023-09-10] MEDS: Venlafaxine HCl 75 MG Tablet PO (08:11)
[2023-09-10] MEDS: Potassium Chloride Oral Tablet 20 MEQ PO (08:11)
[2023-09-10] MEDS: Pioglitazone Hydrochloride 30 MG Tablet PO (08:11)
[2023-09-10] MEDS: Metoprolol Tartrate 25 MG Tablet PO ×2 (08:11→21:52)
[2023-09-10] MEDS: Aspirin 81 MG TAB.CHEW PO (08:11)
[2023-09-10] MEDS: Isosorbide Mononitrate 30 MG Tablet PO (08:11)
[2023-09-10] MEDS: Senna/Docusate Sodium 1 Tablet 2 TABLET PO ×2 (08:12→21:51)
[2023-09-10] MEDS: Pantoprazole Sodium 40 MG Tablet PO (08:12)
[2023-09-10] MEDS: Insulin Lispro 100 UNIT/ML INSULN.PEN SC ×3 (08:12→17:16)
[2023-09-10] MEDS: Insulin Glargine-YFGN 100 UNIT/ML Pen 20 UNIT SC ×2 (08:13→21:47)
[2023-09-10] MEDS: Miconazole Nitrate 43 GM Bottle 1 APPLIC TOPICAL ×2 (08:13→21:50)
[2023-09-10] MEDS: Menthol/Lanolin/Calamine/Znox 113 GM Tube 1 APPLIC TOPICAL ×2 (08:13→21:49)
[2023-09-10] MEDS: Lidocaine 5% Patch 1 PATCH TOPICAL (08:14)
[2023-09-10] MEDS: oxyCODONE 5 MG Tablet PO ×3 (08:30→21:46)
--- NOTE | 2023-09-10 09:24 | NURSING ---
vascular here to do doppler at this time
--- NOTE | 2023-09-10 09:45 | NURSING ---
Updated by tech that doppler was positive for DVTs in RLE, multiple from groin to ankle. Updated , new orders to DC aspirin, start Eliquis 10mg BID x7 days, then 5mg Eliquis BID.
[2023-09-10] MEDS: APIXABAN 5 MG TABLET 10 MG PO ×2 (10:16→21:50)
--- NOTE | 2023-09-10 10:48 | NURSING ---
pt & daughter updated on doppler and treatment.
[2023-09-10 11:30] LABS: Bedside Glucose 226 mg/dL (74-106)
--- NOTE | 2023-09-10 11:33 | CASEMGMT ---
Social Work SW met with patient's daughterKassi per family request to discuss transition of care. The patient's daughter informed JOLEEN that she would like the patient to transition patient home, but she is concerned about the patient's ability to balance and transfer. The patient's daughter informed JOLEEN that she and her grandson provide 24/hr care and assistance. The patient's daughter is requesting for DME- Hospital bed and bedside commode. SW discussed home health care services with patient's daughter. The patient's daughter would like home PT/OT/SN/IRRIGATION DISTRICT MANAGER services to assist with transition to home. SW provided a home health care list via [employer] including quality and resource use data and consistent with the patient's preferred geographic region, medical needs and insurance network via [employer]. Patient will discharge home with home health PT/OT/SN/IRRIGATION DISTRICT MANAGER. DME- Bedside Commode and Hospital Bed requested by family SW to do DME script for Physician signature. CALDERON Leavitt
[2023-09-10 16:28] LABS: Bedside Glucose 215 mg/dL (74-106)
--- NOTE | 2023-09-10 17:09 | CASEMGMT ---
Social Work SW met with patient to notify of insurance next review date 09/14/2023. The patient requested that SW provide update to daughter. SW provided update to daughter regarding insurance net review per patient request. Patient choice required for home health care referral for RN/PT/OT/SOLUTIONS DEVELOPMENT ANALYST CALDERON Leavitt
[2023-09-10] MEDS: Tamsulosin HCl 0.4 MG Capsule PO (17:16)
[2023-09-10 21:26] LABS: Bedside Glucose 278 mg/dL (74-106)
[2023-09-10] MEDS: Petrolatum 33% Tube 1 APPLIC TOPICAL (21:49)
[2023-09-10] MEDS: Atorvastatin Calcium 40 MG Tablet PO (21:51)
[2023-09-10] MEDS: Doxepin Hcl 25 MG Capsule PO (21:51)
[2023-09-10] MEDS: MELATONIN 10 MG TABLET PO (21:51)
[2023-09-11] VITALS (9 sets, daily range): BP systolic 111–168; BP diastolic 59–77; PULSE 81–98; RESP 16–20; TEMP 36; O2SAT 92–98; BMI 38.9
[2023-09-11] MEDS: traMADol 50 MG Tablet PO ×2 (00:44→22:48)
[2023-09-11] MEDS: tiZANidine HCl 2 MG Tablet 4 MG PO ×2 (01:29→23:29)
[2023-09-11] MEDS: Pregabalin 50 MG Capsule PO ×3 (05:34→22:02)
[2023-09-11] MEDS: Acetaminophen 500 MG Tablet 1000 MG PO ×3 (05:35→22:11)
[2023-09-11 06:18] LABS: Bedside Glucose 160 mg/dL (74-106)
[2023-09-11] MEDS: Ipratropium/Albuterol Sulfate 3 ML AMPUL.NEB INHALATION ×3 (08:15→19:23)
[2023-09-11] MEDS: Insulin Lispro 100 UNIT/ML INSULN.PEN SC ×3 (08:26→17:39)
[2023-09-11] MEDS: Insulin Glargine-YFGN 100 UNIT/ML Pen 20 UNIT SC ×2 (08:26→22:03)
[2023-09-11] MEDS: Venlafaxine HCl 75 MG Tablet PO (08:27)
[2023-09-11] MEDS: APIXABAN 5 MG TABLET 10 MG PO ×2 (08:27→22:07)
[2023-09-11] MEDS: Isosorbide Mononitrate 30 MG Tablet PO (08:27)
[2023-09-11] MEDS: Senna/Docusate Sodium 1 Tablet 2 TABLET PO ×2 (08:27→22:08)
[2023-09-11] MEDS: Pantoprazole Sodium 40 MG Tablet PO (08:27)
[2023-09-11] MEDS: Metoprolol Tartrate 25 MG Tablet PO ×2 (08:28→22:04)
[2023-09-11] MEDS: Menthol/Lanolin/Calamine/Znox 113 GM Tube 1 APPLIC TOPICAL ×2 (08:28→22:11)
[2023-09-11] MEDS: cloNIDine HCl 0.1 MG Tablet PO ×2 (08:28→22:06)
[2023-09-11] MEDS: Furosemide 40 MG Tablet PO (08:28)
[2023-09-11] MEDS: Miconazole Nitrate 43 GM Bottle 1 APPLIC TOPICAL ×2 (08:28→22:10)
[2023-09-11] MEDS: Potassium Chloride Oral Tablet 20 MEQ PO (08:28)
[2023-09-11] MEDS: Ipratropium Bromide 0.06% NASAL SPRAY 2 SPRAY NASAL ×2 (08:29→22:10)
[2023-09-11] MEDS: Cephalexin 500 MG Capsule PO ×2 (10:01→22:10)
[2023-09-11] MEDS: Doxycycline 100 MG CAPSULE PO ×2 (10:01→22:11)
[2023-09-11] MEDS: Lidocaine 5% Patch 1 PATCH TOPICAL (10:01)
[2023-09-11] MEDS: oxyCODONE 5 MG Tablet PO ×2 (10:04→22:06)
[2023-09-11 12:08] LABS: Bedside Glucose 177 mg/dL (74-106)
--- NOTE | 2023-09-11 16:25 | CHAPLAIN ---
Type of Pastoral Visit ___ Initial Visit _x__ Follow-up Visit ___ On-call Visit ___ General Patient Visit ___ Spiritual Assessment ___ Family Conference ___ Bereavement ___ Rapid Response ___ Code Blue ___ Other (describe below) Pastoral Care Referral From _x__ Patient _x__ Family ___ Nurse ___ Physician ___ Belt Maker ___ Circular Shear Operator ___ Other (describe below) Sacrament/Intervention _x__ Active listening ___ Anointing ___ Jain ___ Bereavement ___ Communion ___ Elvira exploration ___ ___ Life review _x__ Prayer ___ Reconciliation ___ Sacrament of Sick ___ Supportive presence ___ Wedding ___ Other (describe below) Pastoral Comments
[2023-09-11 16:46] LABS: Bedside Glucose 200 mg/dL (74-106)
[2023-09-11] MEDS: Tamsulosin HCl 0.4 MG Capsule PO (17:39)
--- NOTE | 2023-09-11 18:44 | PCA ---
This PRODUCTION SORTER assisted patient on bedpan with other PRODUCTION SORTER. Patient was asked by both perishable fruit inspector if she wished to get washed up once she was finished on the bedpan. Patient stated that she did not wish to get washed up tonight and would like to wait until the morning. After patient was done on bedpan tasha care and cath care was completed. and patient adjusted in bed. No other assistance needed call light with in reach.
--- NOTE | 2023-09-11 18:45 | PCA ---
mary had light on so me and other aide went in she wanted bed diaz. So we asked her about washing her when done on bed diaz she told us both no would clean up in morning
[2023-09-11 21:35] LABS: Bedside Glucose 259 mg/dL (74-106)
[2023-09-11] MEDS: Doxepin Hcl 25 MG Capsule PO (22:08)
[2023-09-11] MEDS: MELATONIN 10 MG TABLET PO (22:08)
[2023-09-11] MEDS: Petrolatum 33% Tube 1 APPLIC TOPICAL (22:10)
[2023-09-11] MEDS: Atorvastatin Calcium 40 MG Tablet PO (22:10)
[2023-09-12] VITALS (9 sets, daily range): BP systolic 111–142; BP diastolic 54–71; PULSE 78–101; RESP 16–20; TEMP 36.1; O2SAT 94–98; BMI 39.2
[2023-09-12] MEDS: Pregabalin 50 MG Capsule PO ×3 (05:19→21:20)
[2023-09-12] MEDS: Acetaminophen 500 MG Tablet 1000 MG PO ×3 (05:23→21:21)
[2023-09-12 06:18] LABS: Bedside Glucose 141 mg/dL (74-106)
[2023-09-12] MEDS: Ipratropium/Albuterol Sulfate 3 ML AMPUL.NEB INHALATION ×3 (07:30→19:03)
[2023-09-12] MEDS: oxyCODONE 5 MG Tablet PO ×2 (08:41→21:20)
[2023-09-12] MEDS: Insulin Lispro 100 UNIT/ML INSULN.PEN SC ×3 (08:46→18:08)
[2023-09-12] MEDS: Venlafaxine HCl 75 MG Tablet PO (08:48)
[2023-09-12] MEDS: cloNIDine HCl 0.1 MG Tablet PO ×2 (08:48→21:19)
[2023-09-12] MEDS: Doxycycline 100 MG CAPSULE PO ×2 (08:48→21:21)
[2023-09-12] MEDS: APIXABAN 5 MG TABLET 10 MG PO ×2 (08:49→21:19)
[2023-09-12] MEDS: Isosorbide Mononitrate 30 MG Tablet PO (08:49)
[2023-09-12] MEDS: Insulin Glargine-YFGN 100 UNIT/ML Pen 20 UNIT SC ×2 (08:50→21:27)
[2023-09-12] MEDS: Cephalexin 500 MG Capsule PO ×2 (08:51→21:21)
[2023-09-12] MEDS: Metoprolol Tartrate 25 MG Tablet PO ×2 (08:52→21:20)
[2023-09-12] MEDS: Pantoprazole Sodium 40 MG Tablet PO (08:52)
[2023-09-12] MEDS: Senna/Docusate Sodium 1 Tablet 2 TABLET PO ×2 (08:52→21:20)
[2023-09-12] MEDS: Furosemide 40 MG Tablet PO (08:54)
[2023-09-12] MEDS: Lidocaine 5% Patch 1 PATCH TOPICAL (08:55)
[2023-09-12] MEDS: Ipratropium Bromide 0.06% NASAL SPRAY 2 SPRAY NASAL ×2 (08:57→21:21)
[2023-09-12] MEDS: Miconazole Nitrate 43 GM Bottle 1 APPLIC TOPICAL ×2 (08:57→21:31)
[2023-09-12] MEDS: Menthol/Lanolin/Calamine/Znox 113 GM Tube 1 APPLIC TOPICAL ×2 (09:07→21:31)
[2023-09-12 11:27] LABS: Bedside Glucose 194 mg/dL (74-106)
[2023-09-12 17:04] LABS: Bedside Glucose 167 mg/dL (74-106)
[2023-09-12] MEDS: Tamsulosin HCl 0.4 MG Capsule PO (18:08)
[2023-09-12] MEDS: tiZANidine HCl 2 MG Tablet 4 MG PO (21:20)
[2023-09-12] MEDS: Doxepin Hcl 25 MG Capsule PO (21:21)
[2023-09-12] MEDS: Atorvastatin Calcium 40 MG Tablet PO (21:21)
[2023-09-12] MEDS: MELATONIN 10 MG TABLET PO (21:21)
[2023-09-12 21:25] LABS: Bedside Glucose 278 mg/dL (74-106)
[2023-09-12] MEDS: Petrolatum 33% Tube 1 APPLIC TOPICAL (21:30)
[2023-09-13] MEDS: Pregabalin 50 MG Capsule PO ×3 (05:59→21:31)
[2023-09-13] MEDS: Acetaminophen 500 MG Tablet 1000 MG PO ×3 (06:00→21:31)
[2023-09-13] MEDS: oxyCODONE 5 MG Tablet PO ×3 (06:00→21:30)
[2023-09-13 06:54] LABS: Bedside Glucose 128 mg/dL (74-106)
[2023-09-13 07:50] VITALS: PULSE 80; RESP 18; O2SAT 96
[2023-09-13] MEDS: Ipratropium/Albuterol Sulfate 3 ML AMPUL.NEB INHALATION ×2 (07:50→19:00)
[2023-09-13] MEDS: Insulin Glargine-YFGN 100 UNIT/ML Pen 20 UNIT SC ×2 (08:53→21:34)
[2023-09-13] MEDS: Insulin Lispro 100 UNIT/ML INSULN.PEN SC ×3 (08:54→17:27)
[2023-09-13] MEDS: Senna/Docusate Sodium 1 Tablet 2 TABLET PO ×2 (08:54→21:32)
[2023-09-13] MEDS: Lidocaine 5% Patch 1 PATCH TOPICAL (08:54)
[2023-09-13] MEDS: Isosorbide Mononitrate 30 MG Tablet PO (08:54)
[2023-09-13 08:55] VITALS: PULSE 96
[2023-09-13] MEDS: Pantoprazole Sodium 40 MG Tablet PO (08:55)
[2023-09-13] MEDS: APIXABAN 5 MG TABLET 10 MG PO ×2 (08:55→21:32)
[2023-09-13] MEDS: Furosemide 40 MG Tablet PO (08:55)
[2023-09-13] MEDS: Venlafaxine HCl 75 MG Tablet PO (08:55)
[2023-09-13] MEDS: cloNIDine HCl 0.1 MG Tablet PO ×2 (08:55→21:29)
[2023-09-13] MEDS: Cephalexin 500 MG Capsule PO ×2 (08:55→21:31)
[2023-09-13] MEDS: Metoprolol Tartrate 25 MG Tablet PO ×2 (08:55→21:39)
[2023-09-13] MEDS: Doxycycline 100 MG CAPSULE PO ×2 (08:55→21:32)
[2023-09-13] MEDS: Miconazole Nitrate 43 GM Bottle 1 APPLIC TOPICAL ×2 (08:56→21:33)
[2023-09-13] MEDS: Menthol/Lanolin/Calamine/Znox 113 GM Tube 1 APPLIC TOPICAL ×2 (08:57→21:45)
[2023-09-13] MEDS: Ipratropium Bromide 0.06% NASAL SPRAY 2 SPRAY NASAL ×2 (08:57→21:40)
[2023-09-13 09:30] VITALS: BP 141/54; PULSE 96; RESP 20; TEMP 36; O2SAT 93
[2023-09-13 11:36] LABS: Bedside Glucose 195 mg/dL (74-106)
--- NOTE | 2023-09-13 17:02 | CASEMGMT ---
Social Work Patient expressed concern to staff that she would be discharging home. SW met with patient at bedside to discuss [employer] insurance coverage. SW notified patient that she is not being discharged on 09/13. Patient was notified that next review date has been requested by insurance to review updated clinicals for determination of continued stay or potential discharge date. Patient provided verbal understanding. Patient informed SW that her daughter will be at bedside tomorrow, Wednesday 09/13; requested SW meet with daughter to review discharge plans. SW will continue to follow patient to assist with discharge planning. CALDERON Leavitt
[2023-09-13] MEDS: Tamsulosin HCl 0.4 MG Capsule PO (17:25)
[2023-09-13 17:49] LABS: Bedside Glucose 132 mg/dL (74-106)
[2023-09-13 19:00] VITALS: PULSE 82; RESP 18
[2023-09-13] MEDS: tiZANidine HCl 2 MG Tablet 4 MG PO (21:28)
[2023-09-13] MEDS: Doxepin Hcl 25 MG Capsule PO (21:31)
[2023-09-13] MEDS: Atorvastatin Calcium 40 MG Tablet PO (21:31)
[2023-09-13] MEDS: MELATONIN 10 MG TABLET PO (21:31)
[2023-09-13] MEDS: Petrolatum 33% Tube 1 APPLIC TOPICAL (21:33)
[2023-09-13 21:39] VITALS: BP 171/81; PULSE 86
[2023-09-13 22:14] LABS: Bedside Glucose 211 mg/dL (74-106)
[2023-09-14] VITALS (10 sets, daily range): BP systolic 120–187; BP diastolic 66–90; PULSE 69–95; RESP 16–24; TEMP 35.8; O2SAT 93–97; BMI 38.9
[2023-09-14] MEDS: traMADol 50 MG Tablet PO (00:34)
[2023-09-14] MEDS: Acetaminophen 500 MG Tablet 1000 MG PO ×3 (05:36→21:29)
[2023-09-14] MEDS: Pregabalin 50 MG Capsule PO ×3 (05:36→21:35)
[2023-09-14 05:58] LABS: Absolute Neutrophil Count 1.6 X10^3/uL (2.0-7.7); Basophil# 0.01 X10^3/uL; Basophil% 0.3 % (0-1); Eosinophils% 3.2 % (0-5); Hematocrit 26.9 % (37-47); Lymphocyte % 32.2 % (19-41); Mean Corp Hgb Conc 29.7 g/dL (32-36); Mean Corpuscular Hgb 25.6 pg (27.0-32.0); Mean Corpuscular Volume 85.9 fL (81-99); Mean Platelet Vol. 11.5 fl (6.2-12.0); Monocyte# 0.37 X10^3/uL; Monocyte% 11.9 % (0-10); NRBC Flagged by Analyzer 0 % (0-5); Neutrophil % 51.4 % (47-70); Platelet Count 171 K/mm3 (150-450); RBC Distribution Width CV 18.8 % (11.6-14.6); RBC Distribution Width SD 58.8 fl (35.1-43.9); Red Blood Count 3.13 M/mm3 (4.2-5.4); White Blood Count 3.1 K/mm3 (4.4-11.0)
[2023-09-14 06:31] LABS: Bedside Glucose 130 mg/dL (74-106)
[2023-09-14 06:46] LABS: Anion Gap 5 (5-15); BUN 20 mg/dL (7-18); BUN/Creat Ratio 16.8 RATIO (10-20); Calcium,Total 8.9 mg/dL (8.5-10.1); Chloride 98 mmol/L (98-107); Creatinine, Serum 1.19 mg/dL (0.55-1.02); EST Glomerular Filtration Rate 46 mL/min (>60); Est Glom Filt Rate - Afr Amer 56 mL/min (>60); Estimated Creatinine Clearance 44.26 ml/min; Glucose 163 mg/dL (74-106); Potassium 3.4 mmol/L (3.5-5.1); Sodium Level 140 mmol/L (136-145)
[2023-09-14] MEDS: Ipratropium/Albuterol Sulfate 3 ML AMPUL.NEB INHALATION ×3 (07:37→18:55)
[2023-09-14] MEDS: Doxycycline 100 MG CAPSULE PO ×2 (08:12→21:28)
[2023-09-14] MEDS: Metoprolol Tartrate 25 MG Tablet PO ×2 (08:12→21:29)
[2023-09-14] MEDS: Cephalexin 500 MG Capsule PO ×2 (08:12→21:28)
[2023-09-14] MEDS: APIXABAN 5 MG TABLET PO ×2 (08:12→21:28)
[2023-09-14] MEDS: Pantoprazole Sodium 40 MG Tablet PO (08:12)
[2023-09-14] MEDS: Venlafaxine HCl 75 MG Tablet PO (08:13)
[2023-09-14] MEDS: Furosemide 40 MG Tablet PO (08:13)
[2023-09-14] MEDS: tiZANidine HCl 2 MG Tablet 4 MG PO ×2 (08:13→22:05)
[2023-09-14] MEDS: Senna/Docusate Sodium 1 Tablet 2 TABLET PO ×2 (08:13→21:30)
[2023-09-14] MEDS: Isosorbide Mononitrate 30 MG Tablet PO (08:13)
[2023-09-14] MEDS: Insulin Lispro 100 UNIT/ML INSULN.PEN SC ×3 (08:14→17:54)
[2023-09-14] MEDS: Insulin Glargine-YFGN 100 UNIT/ML Pen 20 UNIT SC ×2 (08:14→21:38)
[2023-09-14] MEDS: Ipratropium Bromide 0.06% NASAL SPRAY 2 SPRAY NASAL ×2 (08:15→21:26)
[2023-09-14] MEDS: Miconazole Nitrate 43 GM Bottle 1 APPLIC TOPICAL ×2 (08:15→21:26)
[2023-09-14] MEDS: Lidocaine 5% Patch 1 PATCH TOPICAL (11:05)
[2023-09-14] MEDS: cloNIDine HCl 0.1 MG Tablet PO ×2 (11:07→21:29)
[2023-09-14] MEDS: Potassium Chloride Oral Tablet 20 MEQ PO (11:08)
[2023-09-14] MEDS: Menthol/Lanolin/Calamine/Znox 113 GM Tube 1 APPLIC TOPICAL ×2 (11:11→21:27)
[2023-09-14 12:08] LABS: Bedside Glucose 207 mg/dL (74-106)
--- NOTE | 2023-09-14 16:03 | CASEMGMT ---
Social Work SW met with patient at bedside to inform patient of [facility] Medicare insurance continued coverage for skilled services. SW informed patient of next review date 09/17/23. Patient requested that SW notify daughter. SW contacted patient's daughter, Kassi to notify of insurance coverage and NRD: 09/16. Kassi informed SW that she has been in contact with patient's insurance and discussed home health care services. Kassi informed SW that she would like [facility] to provide SN/PT/OT/FINANCIAL ANALYST/CABANA ATTENDANT services. SW to submit referral to [facility]. Patient's daughter inquired about hospital bed and bedside commode. SW obtain script by physician, . Referral is submitted to [facility]. SW will continue to follow patient to assist with discharge planning CALDERON Leavitt
[2023-09-14 17:21] LABS: Bedside Glucose 195 mg/dL (74-106)
[2023-09-14] MEDS: Tamsulosin HCl 0.4 MG Capsule PO (17:53)
[2023-09-14] MEDS: oxyCODONE 5 MG Tablet PO ×2 (17:58→22:05)
[2023-09-14] MEDS: Petrolatum 33% Tube 1 APPLIC TOPICAL (21:26)
[2023-09-14] MEDS: Atorvastatin Calcium 40 MG Tablet PO (21:30)
[2023-09-14] MEDS: Doxepin Hcl 25 MG Capsule PO (21:30)
[2023-09-14] MEDS: MELATONIN 10 MG TABLET PO (21:31)
[2023-09-14 21:51] LABS: Bedside Glucose 210 mg/dL (74-106)
[2023-09-15] VITALS (7 sets, daily range): BP systolic 146–155; BP diastolic 74–77; PULSE 70–92; RESP 18–20; TEMP 36.2; O2SAT 92–97; BMI 38.7
[2023-09-15] MEDS: traMADol 50 MG Tablet PO (00:24)
[2023-09-15] MEDS: Acetaminophen 500 MG Tablet 1000 MG PO ×3 (05:22→21:56)
[2023-09-15] MEDS: tiZANidine HCl 2 MG Tablet 4 MG PO ×2 (05:22→21:58)
[2023-09-15] MEDS: Pregabalin 50 MG Capsule PO ×3 (05:23→21:30)
[2023-09-15 06:35] LABS: Bedside Glucose 108 mg/dL (74-106)
[2023-09-15 07:09] LABS: Hematocrit 25.9 % (37-47); Hemoglobin 7.8 g/dL (12.0-15.0)
[2023-09-15] MEDS: Ipratropium/Albuterol Sulfate 3 ML AMPUL.NEB INHALATION ×3 (07:30→19:15)
[2023-09-15 08:19] LABS: Anion Gap 4 (5-15); BUN 27 mg/dL (7-18); BUN/Creat Ratio 22.1 RATIO (10-20); Calcium,Total 8.7 mg/dL (8.5-10.1); Chloride 101 mmol/L (98-107); Creatinine, Serum 1.22 mg/dL (0.55-1.02); EST Glomerular Filtration Rate 45 mL/min (>60); Est Glom Filt Rate - Afr Amer 54 mL/min (>60); Estimated Creatinine Clearance 42.87 ml/min; Glucose 124 mg/dL (74-106); Potassium 3.3 mmol/L (3.5-5.1); Sodium Level 140 mmol/L (136-145)
[2023-09-15] MEDS: Insulin Lispro 100 UNIT/ML INSULN.PEN SC ×3 (08:53→17:52)
--- NOTE | 2023-09-15 10:41 | NURSING ---
Patient called out to RN due to shortness of breath. Patient stated she was choking on her scrambled eggs this morning with breakfast. Patient coughed for approx. 35 mins. Vitals and sats remained WNL. Patient brought up egg particles and phlegm/mucus. Slight wheezing noted. Patient states she this has happened before. Later in the morning, patient's daughter stated patient brought up some blood tinged mucus. Call placed to . New order received for chest x-ray for tomorrow morning 09/16/23. Order placed.
[2023-09-15] MEDS: Potassium Chloride Oral Tablet 20 MEQ PO ×2 (10:54→17:53)
[2023-09-15] MEDS: Menthol/Lanolin/Calamine/Znox 113 GM Tube 1 APPLIC TOPICAL ×2 (10:54→21:19)
[2023-09-15] MEDS: Ipratropium Bromide 0.06% NASAL SPRAY 2 SPRAY NASAL ×2 (10:54→21:18)
[2023-09-15] MEDS: cloNIDine HCl 0.1 MG Tablet PO ×2 (10:56→21:31)
[2023-09-15] MEDS: Miconazole Nitrate 43 GM Bottle 1 APPLIC TOPICAL ×2 (10:56→21:18)
[2023-09-15] MEDS: Venlafaxine HCl 75 MG Tablet PO (10:57)
[2023-09-15] MEDS: APIXABAN 5 MG TABLET PO ×2 (10:57→21:31)
[2023-09-15] MEDS: Doxycycline 100 MG CAPSULE PO ×2 (10:57→21:30)
[2023-09-15] MEDS: Isosorbide Mononitrate 30 MG Tablet PO (10:57)
[2023-09-15] MEDS: Insulin Glargine-YFGN 100 UNIT/ML Pen 20 UNIT SC ×2 (10:58→21:32)
[2023-09-15] MEDS: Cephalexin 500 MG Capsule PO ×2 (10:59→21:29)
[2023-09-15] MEDS: Lidocaine 5% Patch 1 PATCH TOPICAL (10:59)
[2023-09-15] MEDS: Furosemide 40 MG Tablet PO (10:59)
[2023-09-15] MEDS: Metoprolol Tartrate 25 MG Tablet PO ×2 (10:59→21:30)
[2023-09-15] MEDS: Senna/Docusate Sodium 1 Tablet 2 TABLET PO ×2 (11:00→21:29)
[2023-09-15] MEDS: Pantoprazole Sodium 40 MG Tablet PO (11:00)
[2023-09-15 11:50] LABS: Bedside Glucose 220 mg/dL (74-106)
[2023-09-15] MEDS: oxyCODONE 5 MG Tablet PO ×2 (14:52→21:31)
[2023-09-15 17:07] LABS: Bedside Glucose 163 mg/dL (74-106)
[2023-09-15] MEDS: Tamsulosin HCl 0.4 MG Capsule PO (17:53)
[2023-09-15] MEDS: Petrolatum 33% Tube 1 APPLIC TOPICAL (21:25)
[2023-09-15] MEDS: MELATONIN 10 MG TABLET PO (21:29)
[2023-09-15] MEDS: Atorvastatin Calcium 40 MG Tablet PO (21:29)
[2023-09-15] MEDS: Doxepin Hcl 25 MG Capsule PO (21:31)
[2023-09-15 21:48] LABS: Bedside Glucose 255 mg/dL (74-106)
[2023-09-16] VITALS (8 sets, daily range): BP systolic 112–147; BP diastolic 58–62; PULSE 71–92; RESP 18–20; TEMP 36.4; O2SAT 97–100; BMI 38.5
[2023-09-16] MEDS: Acetaminophen 500 MG Tablet 1000 MG PO ×3 (05:47→21:49)
[2023-09-16] MEDS: Pregabalin 50 MG Capsule PO ×3 (05:47→21:50)
--- NOTE | 2023-09-16 06:00 | RAD_ITS ---
STUDY: X-RAY CHEST REASON FOR EXAM: Female, 82 years old. Shortness of breath. Possible aspiration. TECHNIQUE: PA and lateral views of the chest. COMPARISON: Comparison is made with prior study dated September 04, 2023. FINDINGS: Mild increased markings at the left lung base with some blunting of the left costophrenic angle. There is no demonstrated pleural abnormality. Normal size heart. Normal mediastinum and elly. Normal visualized pulmonary arteries. There is atherosclerotic calcification of the aortic arch with tortuosity. There is demineralization of the osseous structures. Increased kyphosis. Almost complete collapse of the T11 vertebrae. Normal visualized ribs, clavicles, and shoulders. Hiatal hernia. RAD/Chest PA and Lateral IMPRESSION: Mild increased markings at the left lung base. Follow-up recommended. Blunting of the left costophrenic angle. Electronically Signed: Toni Dawkins MD at 10:06 EDT ,
[2023-09-16 06:28] LABS: Bedside Glucose 124 mg/dL (74-106)
[2023-09-16] MEDS: Ipratropium/Albuterol Sulfate 3 ML AMPUL.NEB INHALATION ×3 (06:50→19:24)
[2023-09-16] MEDS: Insulin Lispro 100 UNIT/ML INSULN.PEN SC ×3 (08:46→17:39)
[2023-09-16] MEDS: Potassium Chloride Oral Tablet 20 MEQ PO ×2 (08:47→17:40)
[2023-09-16] MEDS: Ipratropium Bromide 0.06% NASAL SPRAY 2 SPRAY NASAL ×2 (08:47→21:48)
[2023-09-16] MEDS: Menthol/Lanolin/Calamine/Znox 113 GM Tube 1 APPLIC TOPICAL ×2 (08:47→21:55)
[2023-09-16] MEDS: Miconazole Nitrate 43 GM Bottle 1 APPLIC TOPICAL ×2 (08:48→21:56)
[2023-09-16] MEDS: cloNIDine HCl 0.1 MG Tablet PO ×2 (08:48→21:50)
[2023-09-16] MEDS: Doxycycline 100 MG CAPSULE PO ×2 (08:48→21:51)
[2023-09-16] MEDS: Insulin Glargine-YFGN 100 UNIT/ML Pen 20 UNIT SC ×2 (08:49→22:05)
[2023-09-16] MEDS: Isosorbide Mononitrate 30 MG Tablet PO (08:49)
[2023-09-16] MEDS: APIXABAN 5 MG TABLET PO ×2 (08:49→21:52)
[2023-09-16] MEDS: Venlafaxine HCl 75 MG Tablet PO (08:49)
[2023-09-16] MEDS: Cephalexin 500 MG Capsule PO ×2 (08:50→21:50)
[2023-09-16] MEDS: Lidocaine 5% Patch 1 PATCH TOPICAL (08:50)
[2023-09-16] MEDS: Furosemide 40 MG Tablet PO (08:50)
[2023-09-16] MEDS: Metoprolol Tartrate 25 MG Tablet PO ×2 (08:51→21:51)
[2023-09-16] MEDS: Pantoprazole Sodium 40 MG Tablet PO (08:51)
[2023-09-16] MEDS: Senna/Docusate Sodium 1 Tablet 2 TABLET PO ×2 (08:51→21:49)
[2023-09-16] MEDS: oxyCODONE 5 MG Tablet PO ×3 (09:09→21:52)
[2023-09-16] MEDS: tiZANidine HCl 2 MG Tablet 4 MG PO ×2 (09:09→17:39)
[2023-09-16 11:11] LABS: Bedside Glucose 284 mg/dL (74-106)
[2023-09-16 16:34] LABS: Bedside Glucose 182 mg/dL (74-106)
[2023-09-16] MEDS: Tamsulosin HCl 0.4 MG Capsule PO (17:40)
--- NOTE | 2023-09-16 20:00 | NURSING ---
Addendum entered by Maria Elena Christiansen 09/17/23 05:15: Secure Backline message sent to to update on previously noted information. He responds indicating viewing CXR image which appears negative. No new orders received. Original Note: Respiratory recently administered schedule Duoneb aerosol and informed this nurse expiratory wheezes were noted- lung sounds were diminished the night prior. Pt in semi-mendosa's position in bed. Intermittent audible wheezing noted. Minimal conversational dyspnea that resolves quickly. In no acute distress. Vitals obtained and recorded. O2 at 4 lpm via nc. Lungs w/ expiratory wheezes to all lung rodríguez anterior and posterior. Occasional harsh, dry, barking cough. Resident denies any sputum production. Denies any nasal congestion. Denies any chest pain. Skin pale, warm, and dry. CXR was completed earlier today and not read as report received from previous nurse that image will not be read until tomorrow as the test was ordered as routine. Spoke w/ [employer] Roller to question if radiology can be contacted or order edited for image to be read sooner per a radiologist. She will have the hospitalist on-site view the CXR. [employer] Roller contacts the unit and notes per the hospitalist that the current image from today has improved since the recent CXR and recommend aggressive IS use. Resident updated on discussion w/ [employer] Roller and verbalizes understanding. Instructed how to use IS and recommended frequency of every hour WA. Will continue to monitor.
[2023-09-16 21:34] LABS: Bedside Glucose 247 mg/dL (74-106)
[2023-09-16] MEDS: MELATONIN 10 MG TABLET PO (21:51)
[2023-09-16] MEDS: Doxepin Hcl 25 MG Capsule PO (21:51)
[2023-09-16] MEDS: Petrolatum 33% Tube 1 APPLIC TOPICAL (21:55)
[2023-09-16] MEDS: Atorvastatin Calcium 40 MG Tablet PO (21:56)
[2023-09-16] MEDS: Albuterol 2.5 MG/3 ML VIAL.NEB. INHALATION (22:15)
[2023-09-17] VITALS (9 sets, daily range): BP systolic 116–184; BP diastolic 61–80; PULSE 71–113; RESP 16–24; TEMP 35.8; O2SAT 94–99; BMI 38.6
[2023-09-17] MEDS: traMADol 50 MG Tablet PO (00:07)
[2023-09-17] MEDS: tiZANidine HCl 2 MG Tablet 4 MG PO ×3 (00:57→22:54)
[2023-09-17] MEDS: Albuterol 2.5 MG/3 ML VIAL.NEB. INHALATION ×2 (05:25→23:55)
[2023-09-17] MEDS: Acetaminophen 500 MG Tablet 1000 MG PO ×3 (05:34→22:52)
[2023-09-17] MEDS: Pregabalin 50 MG Capsule PO ×3 (05:35→22:56)
[2023-09-17 06:16] LABS: Anion Gap 5 (5-15); BUN 32 mg/dL (7-18); BUN/Creat Ratio 19.2 RATIO (10-20); Chloride 100 mmol/L (98-107); Creatinine, Serum 1.67 mg/dL (0.55-1.02); EST Glomerular Filtration Rate 31 mL/min (>60); Est Glom Filt Rate - Afr Amer 38 mL/min (>60); Estimated Creatinine Clearance 31.27 ml/min; Glucose 166 mg/dL (74-106); Sodium Level 138 mmol/L (136-145)
[2023-09-17 06:40] LABS: Bedside Glucose 148 mg/dL (74-106)
[2023-09-17] MEDS: Ipratropium/Albuterol Sulfate 3 ML AMPUL.NEB INHALATION ×3 (07:17→18:59)
[2023-09-17] MEDS: cloNIDine HCl 0.1 MG Tablet PO ×2 (07:53→22:52)
[2023-09-17] MEDS: Senna/Docusate Sodium 1 Tablet 2 TABLET PO (07:53)
[2023-09-17] MEDS: Metoprolol Tartrate 25 MG Tablet PO ×2 (07:53→22:53)
[2023-09-17] MEDS: Isosorbide Mononitrate 30 MG Tablet PO (07:54)
[2023-09-17] MEDS: Doxycycline 100 MG CAPSULE PO ×2 (07:54→22:51)
[2023-09-17] MEDS: Furosemide 40 MG Tablet PO (07:54)
[2023-09-17] MEDS: Venlafaxine HCl 75 MG Tablet PO (07:55)
[2023-09-17] MEDS: Pantoprazole Sodium 40 MG Tablet PO (07:55)
[2023-09-17] MEDS: Potassium Chloride Oral Tablet 20 MEQ PO ×2 (07:55→17:51)
[2023-09-17] MEDS: Cephalexin 500 MG Capsule PO ×2 (07:55→22:52)
[2023-09-17] MEDS: APIXABAN 5 MG TABLET PO ×2 (07:55→22:51)
[2023-09-17] MEDS: Miconazole Nitrate 43 GM Bottle 1 APPLIC TOPICAL ×2 (08:25→23:01)
[2023-09-17] MEDS: Ipratropium Bromide 0.06% NASAL SPRAY 2 SPRAY NASAL ×2 (08:25→22:48)
[2023-09-17] MEDS: Menthol/Lanolin/Calamine/Znox 113 GM Tube 1 APPLIC TOPICAL ×2 (08:26→23:01)
[2023-09-17] MEDS: Lidocaine 5% Patch 1 PATCH TOPICAL (08:26)
[2023-09-17] MEDS: Insulin Glargine-YFGN 100 UNIT/ML Pen 20 UNIT SC ×2 (08:27→22:46)
[2023-09-17] MEDS: Insulin Lispro 100 UNIT/ML INSULN.PEN SC ×3 (08:28→17:50)
[2023-09-17] MEDS: MethylPREDNISolone DosePak 4 MG BOX PO ×4 (10:24→22:51)
--- NOTE | 2023-09-17 10:35 | CASEMGMT ---
Social Work JOLEEN received a call from [facility] burden who confirmed that [facility] will be able to accept patient for RN.PT.OT services upon discharge. JOLEEN contacted patient's daughter, Kassi to provide update regard accepting provider for home health care services. JOLEEN informed Kassi of the patient's insurance next review date of 09/16. Patient's insurance coverage is pending review at this time. [employer] is pending review of DME order for hospital bed and BSC. SW to follow to assist in discharge planning CALDERON Leavitt
--- NOTE | 2023-09-17 10:41 | NURSING ---
Daughter, Kassi, visiting pt this am. Updated on new orders for Medrol Dose pack and BMP tomorrow am d/t decline in renal function. Updated on respiratory status per notes from this nurse completed yesterday. She verbalizes understanding.
[2023-09-17 11:13] LABS: Bedside Glucose 263 mg/dL (74-106)
--- NOTE | 2023-09-17 12:41 | CASEMGMT ---
Social Work SW met patient and presents the NOtice of Medicare Non Coverage from pt insurance with LCD 09/19/23 and discharge home on 09/20/23. SW gave copy of form to patient. Pt called her daughter while SW was in room and this worker spoke with daughter to let her know date of discharge and that SW will continue to work on home health and DME needs. This worker explained appeal options to both patient and daughter. GRETCHEN Voss
[2023-09-17 17:03] LABS: Bedside Glucose 257 mg/dL (74-106)
[2023-09-17] MEDS: Tamsulosin HCl 0.4 MG Capsule PO (17:51)
--- NOTE | 2023-09-17 18:26 | PCM.DC.SUM ---
Providers Date of Admission: 08/23/23 Primary Care Physician: Dr. Lei Kwok MD Consultations 08/24/23 13:11 Consult: Gastroenterology Routine Consulting Provider: [facility] Reason for Consult: Esophageal dysphagia. EMERGENT Consult: No MD Notified: Yes Date Notified: 08/24/23 Time Notified: 13:11 Method of Notification: Text Reason For Visit: T12 COMPRESSION FRACTURE Diagnosis Discharge Diagnosis (1) Dysphagia: Status: Acute Code(s): R13.10 - Dysphagia, unspecified Plan 82 year old female with below past medical history hospitalized for intractable thoracic back pain 2/2 T12 compression fracture, complicated by COPD exacerbation, acute encephalopathy, NSVT, hypokalemia, hypomagnesemia, hypophosphatemia, admitted to TCU with debility, here for rehabilitation, strengthening, prior to discharge home with daughter. Debility - PT/OT. Dysphagia - ST. Pain - Tylenol 1000mg q8, Tramadol 50mg q6 prn pain (1-5), Oxycodone 5mg q4 prn pain (6-10), Lidoderm patch 1 patch daily. Bowel - senna/colace 2 tablets bid, Magnesium citrate 300ml daily prn. Adult immunization - Administer pneumoia vaccine, covid vaccine, flu vaccine as appropriate. DVT prophylaxis - Monitor. Coronary artery disease - Metoprolol 25mg bid, Lisinopril 40mg daily, Imdur 30mg daily, Aspirin 81mg daily. Hyperlipidemia - Atorvastatin 40mg qhs. Insomnia - Doxepin 25mg qhs. Nutrition - Glucerna shake 120ml tidcm. Diabetes Mellitus II - Glargine 25 units bid, Lispro 10 units tidac, Pioglitazone 30mg daily. Hypertension - Metoprolol 25mg bid, Lisinopril 40mg daily, Imdur 30mg daily, HCTZ 12.5mg daily. Skin irritation - Calmoseptine topical bid, Eucerin topical qhs. Tinea Corporis - Miconazole topical bid. COPD - Prednisone taper. Diabetic polyneuropathy - Lyrica 50mg tid. Muscle spasm - Tizanidine 4mg tid prn. Depression - Venlafaxine 75mg daily, stable chronic intermediate card tender use, GDR not recommended. Medications at Discharge Home Medications atorvastatin 40 mg tablet 40 mg PO QHS cholesterol 03/13/22 isosorbide mononitrate 30 mg tablet,extended release 24 hr 30 mg PO DAILY blood pressure 03/13/22 pantoprazole 40 mg tablet,delayed release 40 mg PO DAILY stomach/acid 03/13/22 pregabalin 50 mg capsule 50 mg PO TID nerve pain 01/02/23 doxepin 10 mg capsule 25 mg PO DAILY nerve pain 05/07/23 venlafaxine 75 mg tablet 75 mg PO DAILY depression 05/07/23 acetaminophen 500 mg capsule 1,000 mg (2 x 500 mg) PO Q8H pain/inflammat #30 caps 08/23/23 tizanidine 2 mg tablet 4 mg (2 x 2 mg) PO TID PRN muscle spasm #0 tabs 08/23/23 apixaban 5 mg tablet (Eliquis) 5 mg PO BID 30 days #60 tabs 09/17/23 clonidine HCl 0.1 mg tablet 0.1 mg PO BID 30 days #60 tabs 09/17/23 insulin glargine-yfgn 100 unit/mL (3 mL) subcutaneous pen 20 unit (0.2 mL) subcut BID 30 days #12 mL 09/17/23 insulin lispro 100 unit/mL subcutaneous pen (Humalog KwikPen (U-100) Insulin) 5 unit (0.05 mL) subcut TIDAC 30 days #4.5 mL 09/17/23 ipratropium bromide 42 mcg (0.06 %) nasal spray 2 spray NASAL BID #0 mL 09/17/23 lidocaine 5 % topical patch 1 patch topical DAILY 30 days #30 ea 09/17/23 metoprolol tartrate 25 mg tablet 25 mg PO BID 30 days #60 tabs 09/17/23 Hospital Course Summary of Care Provided Minutes Spent on Discharge: 35 Hospital Course: 82 year old female with below past medical history hospitalized for intractable thoracic back pain 2/2 T12 compression fracture, complicated by COPD exacerbation, acute encephalopathy, NSVT, hypokalemia, hypomagnesemia, hypophosphatemia, admitted to TCU with debility, here for rehabilitation, strengthening, prior to discharge home with daughter. 08/29/2023 Dr. Cohn EGD: Impressions : - Benign-appearing esophageal stenosis. Dilated. - Large hiatal hernia. - Multiple gastric polyps. - Normal first portion of the duodenum. - No specimens collected. 09/11/2023 Doppler ultrasound Positive DVT Right lower extremity, Eliquis 5mg bid thru 12/11/2023. Discharge home with daughter 09/20/2023, [facility] PT/OT/RN, [place] [facility] bed: Patient requires positioning of the body that is not feasible in an ordinary bed. Patient requires positioning of the body in ways not feasible with ordinary bed to alleviate pain. Patient requires head of bed to be elevated MORE than 30 degrees most of the time because of CHF, or problems with aspiration. Patient requires a bed height different than a fixed height bed to permit transfers to chair, wheelchair of standing position. Patient's condition requires frequent and/or immediate changes in body positioning. Bedside Commode: Patient is unable to access bathroom safely and requires a Beside Commode. Physical Exam Const alert General Appearance: cooperative HEENT normocephalic Eyes PERRL and EOMs intact bilaterally Neck supple, no JVD and no carotid bruits Resp normal respiratory effort, normal air movement and clear to auscultation bilaterally Cardio regular rate and regular rhythm GI normal to inspection, nondistended, normoactive bowel sounds, non-tender and non-distended Extremity normal capillary refill General Extremity: Negative for edema Skin no rashes or lesions noted General Skin Exam: no breakdown Psych affect normal Appearance: appropriate Medical Records Data Medical Nutrition Assessment Dietitian: Malnutrition Criteria Met Start: 08/24/23 12:51 Freq: Status: Active Protocol: Document 08/24/23 12:51 SLA (Rec: 08/24/23 12:51 SLA Desktop) Nutrition Malnutrition Evidence of Malnutrition Exists Yes Malnutrition (severe): Acute Illness/Injury Evidenced By Suboptimal Energy Intake ( Severe),Weight Loss (Severe) Clinical Problem Acute Disease or Injury Related Malnutrition Etiology related to inadequate energy intake and issues swallowing food Signs/Symptoms as evidenced by 4% unintended wt loss and 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 Recommendation Dietitian Recommendations/Changes Will change diet to CHO Control/ Consistent CHO - consistency per ENVIRONMENTAL ANALYST Will provide 8 oz Glucerna Shake w/ meals -no strawberry- for increased nutrition if consumed Will d/c glucerna shake at medpass per res request Weight / BMI Weight Weight: 105.233 kg Body Mass Index (BMI) 38.6 ABG / Lab / Microbiology Data 09/15/23 07:02 09/17/23 05:16 Laboratory: Laboratory Results - last 24 hr 09/16/23 21:10: POC Glucose 247 H 09/17/23 05:16: Sodium 138, Potassium 4.0, Chloride 100, Carbon Dioxide 33.0 H, Anion Gap 5, BUN 32 H, Creatinine 1.67 H, Estim Creat Clear Calc 31.27, Est GFR (MDRD) Af Amer 38 L, Est GFR (MDRD) Non-Af 31 L, BUN/Creatinine Ratio 19.2, Glucose 166 H, Calcium 9.0 09/17/23 06:18: POC Glucose 148 H 09/17/23 10:44: POC Glucose 263 H 09/17/23 16:28: POC Glucose 257 H Microbiology: Microbiology 09/08/23 13:40 Stool Stool Occult Blood (MARGARITA) - Final Radiography Diagnostic Testing: Radiology Impression Chest X-Ray 09/16/23 06:00 IMPRESSION: Mild increased markings at the left lung base. Follow-up recommended. Blunting of the left costophrenic angle. Electronically Signed: Tnoi Dawkins MD at 10:06 EDT , D/C Instructions Discharge Diet: No restrictions Discharge Activity: Return to Normal Activity, May Shower and Use Walker Weight Bearing Status: Weight bearing as tolerated Call your doctor if you observe: Fever of 101 or Higher, Inability to urinate, Inability to have a bowel movement, Shortness of breath, Dizziness, Fainting spells, Swelling in the ankles, Chest pain and Uncontrolled pain Additional Instructions: Discharge home with daughter 09/20/2023, [facility] PT/OT/RN, Hospital Bed, BSC. Hospital bed: Patient requires positioning of the body that is not feasible in an ordinary bed. Patient requires positioning of the body in ways not feasible with ordinary bed to alleviate pain. Patient requires head of bed to be elevated MORE than 30 degrees most of the time because of CHF, or problems with aspiration. Patient requires a bed height different than a fixed height bed to permit transfers to chair, wheelchair of standing position. Patient's condition requires frequent and/or immediate changes in body positioning. Bedside Commode: Patient is unable to access bathroom safely and requires a Beside Commode. Please Follow Up With: Shin Guevara MD When: As scheduled. Meaningful Use Info Meaningful Use Diagnoses (Choose all that apply): None applicable Discharge Plan Admission Admit Date/Time: 08/23/23 13:57 Primary Reason for Your Visit: Debility. Attending Provider: Lei Kwok Chi Primary Care Provider: Lei Kwok Chi Instructions Additional Instructions / Restrictions: Discharge home with daughter 09/20/2023, [facility] PT/OT/RN, Hospital Bed, [facility] Hospital bed: Patient requires positioning of the body that is not feasible in an ordinary bed. Patient requires positioning of the body in ways not feasible with ordinary bed to alleviate pain. Patient requires head of bed to be elevated MORE than 30 degrees most of the time because of CHF, or problems with aspiration. Patient requires a bed height different than a fixed height bed to permit transfers to chair, wheelchair of standing position. Patient's condition requires frequent and/or immediate changes in body positioning. Bedside Commode: Patient is unable to access bathroom safely and requires a Beside Commode. Discharge Orders/Prescriptions Prescriptions: New clonidine HCl 0.1 mg Tablet 0.1 mg PO BID 30 Days Qty: 60 0RF lidocaine 5 % Adhesive Patch,Medicated 1 patch topical DAILY 30 Days Qty: 30 0RF Protocol: *Topical Application Instructions APPLICATION INSTRUCTIONS: back insulin lispro [Humalog KwikPen Insulin] 100 unit/mL Insulin Pen 5 unit subcut TIDAC 30 Days Qty: 4.5 0RF metoprolol tartrate 25 mg Tablet 25 mg PO BID 30 Days Qty: 60 0RF Eliquis 5 mg Tablet 5 mg PO BID 30 Days Qty: 60 0RF insulin glargine-yfgn 100 unit/mL (3 mL) Insulin Pen 20 unit subcut BID 30 Days Qty: 12 0RF ipratropium bromide 42 mcg (0.06 %) [place],Non-Aerosol 2 spray NASAL BID Qty: 0 0RF Continued atorvastatin 40 mg tablet 40 mg PO QHS isosorbide mononitrate 30 mg tablet extended release 24 hr 30 mg PO DAILY pantoprazole 40 mg tablet,delayed release (DR/EC) 40 mg PO DAILY pregabalin 50 mg capsule 50 mg PO TID venlafaxine 75 mg tablet 75 mg PO DAILY doxepin 10 mg capsule 25 mg PO DAILY tizanidine 2 mg Tablet 4 mg PO TID PRN (Reason: muscle spasm) Qty: 0 0RF acetaminophen 500 mg capsule 1,000 mg PO Q8H Qty: 30 0RF Discontinued aspirin 81 mg tablet,chewable 81 mg PO DAILY ipratropium bromide 42 mcg (0.06 %) spray,non-aerosol 1 spray intranasal BID levocetirizine 5 mg tablet 5 mg PO DAILY pioglitazone 30 mg tablet 30 mg PO DAILY hydrochlorothiazide 12.5 mg Capsule 12.5 mg PO DAILY Qty: 0 0RF insulin lispro [Humalog KwikPen Insulin] 100 unit/mL Insulin Pen See Protocol subcut ACHS Qty: 0 0RF Protocol: 4. Sliding Scale Insulin High-Med Dosing Condition: 150-199 mg/dl = 2 units Condition: 200-259 mg/dl = 4 units Condition: 260-324 mg/dl = 6 units Condition: 325-374 mg/dl = 8 units Condition: 375-409 mg/dl = 10 units Condition: 410-449 mg/dl = 11 units Condition: Greater than 449 call physician Protocol Text: - Use for Total Daily Dose of Insulin 56-80 units - Patient who are insulin resistant or septic HIGH MEDIUM DOSING ALGORITHM insulin lispro [Humalog KwikPen Insulin] 100 unit/mL Insulin Pen 10 unit subcut TIDAC Qty: 0 0RF prednisone 20 mg Tablet 40 mg PO BREAKFAST Qty: 8 0RF lisinopril 40 mg Tablet 40 mg PO DAILY Qty: 0 0RF metoprolol tartrate 25 mg Tablet 25 mg PO BID Qty: 0 0RF oxycodone 5 mg capsule 5 mg PO Q4H PRN (Reason: pain) 3 Days Qty: 12 0RF lidocaine [Lidoderm] 5 % adhesive patch,medicated 1 patch topical DAILY Qty: 15 0RF Rx Instructions: leave on most painful area for up to 12 hrs insulin degludec 200 unit/mL (3 mL) insulin pen 25 unit subcut BID Qty: 9 0RF clonidine HCl 0.1 mg tablet 0.1 mg PO TID Referrals / Follow Up: Shin Guevara MD [Med Staff - Active Staff] - 12/20/23 2:00 pm Arcenio Bullock MD [Med Staff - Active Staff] - (Daughter to call upon discharge to set up an appointment) Lei Kwok Chi, MD [Primary Care Provider] - 09/20/23 3:00 pm Disposition Disposition (needs filled in before D/C Order can be placed): Home Health Service
--- NOTE | 2023-09-17 19:41 | NURSING ---
Sundar Kumar Updated On pt's HGB of 7.8 on 09/14. N.O. received H&H 09/18/23 and okay to give Eliquis. Also, updated on Chest X-ray and received N.O. for repeat x-ray in morning. Orders read back.
[2023-09-17] MEDS: oxyCODONE 5 MG Tablet PO (19:45)
--- NOTE | 2023-09-17 20:09 | NURSING ---
Patient continues to be SOB, expiratory wheezes noted with exertion. Call to respiratory for breathing treatment. Will continue to monitor.
[2023-09-17 22:01] LABS: Bedside Glucose 350 mg/dL (74-106)
[2023-09-17] MEDS: MELATONIN 10 MG TABLET PO (22:51)
[2023-09-17] MEDS: Doxepin Hcl 25 MG Capsule PO (22:52)
[2023-09-17] MEDS: Atorvastatin Calcium 40 MG Tablet PO (22:52)
[2023-09-17] MEDS: Petrolatum 33% Tube 1 APPLIC TOPICAL (23:01)
[2023-09-18] VITALS (8 sets, daily range): BP systolic 140–173; BP diastolic 62–73; PULSE 76–94; RESP 14–18; TEMP 36.2; O2SAT 95–100; BMI 38.3
[2023-09-18] MEDS: Pregabalin 50 MG Capsule PO ×3 (05:43→22:06)
[2023-09-18] MEDS: oxyCODONE 5 MG Tablet PO (05:43)
[2023-09-18] MEDS: Acetaminophen 500 MG Tablet 1000 MG PO ×3 (05:44→22:06)
[2023-09-18 06:40] LABS: Bedside Glucose 310 mg/dL (74-106)
[2023-09-18 07:08] LABS: Hematocrit 30.5 % (37-47); Hemoglobin 9.4 g/dL (12.0-15.0)
[2023-09-18] MEDS: Ipratropium/Albuterol Sulfate 3 ML AMPUL.NEB INHALATION ×3 (07:28→19:55)
[2023-09-18] MEDS: Metoprolol Tartrate 25 MG Tablet PO ×2 (08:16→22:10)
[2023-09-18] MEDS: MethylPREDNISolone DosePak 4 MG BOX PO ×4 (08:16→22:07)
[2023-09-18] MEDS: APIXABAN 5 MG TABLET PO ×2 (08:17→22:08)
[2023-09-18] MEDS: Pantoprazole Sodium 40 MG Tablet PO (08:17)
[2023-09-18] MEDS: Doxycycline 100 MG CAPSULE PO (08:17)
[2023-09-18] MEDS: Cephalexin 500 MG Capsule PO (08:17)
[2023-09-18] MEDS: Venlafaxine HCl 75 MG Tablet PO (08:17)
[2023-09-18] MEDS: Ipratropium Bromide 0.06% NASAL SPRAY 2 SPRAY NASAL ×2 (08:18→22:02)
[2023-09-18] MEDS: Potassium Chloride Oral Tablet 20 MEQ PO ×2 (08:18→17:47)
[2023-09-18] MEDS: Miconazole Nitrate 43 GM Bottle 1 APPLIC TOPICAL ×2 (08:18→22:05)
[2023-09-18] MEDS: cloNIDine HCl 0.1 MG Tablet PO ×2 (08:18→22:06)
[2023-09-18] MEDS: Isosorbide Mononitrate 30 MG Tablet PO (08:19)
[2023-09-18] MEDS: Insulin Lispro 100 UNIT/ML INSULN.PEN 10 UNIT SC ×3 (08:20→17:38)
[2023-09-18] MEDS: Insulin Glargine-YFGN 100 UNIT/ML Pen 20 UNIT SC ×2 (08:21→22:08)
[2023-09-18] MEDS: Menthol/Lanolin/Calamine/Znox 113 GM Tube 1 APPLIC TOPICAL ×2 (08:22→22:04)
--- NOTE | 2023-09-18 09:30 | RAD_ITS ---
STUDY: X-RAY CHEST REASON FOR EXAM: Female, 82 years old. Cough TECHNIQUE: PA and lateral views of the chest. COMPARISON: Comparison is made with prior study dated September 16, 2023. FINDINGS: Stable mild increased markings at the lung bases worse on the left side. Mild increased markings also seen in the right upper lobe most likely scarring. There is no demonstrated pleural abnormality. Normal size heart. Normal mediastinum and elly. Normal visualized pulmonary arteries. There is atherosclerotic calcification of the aortic arch with tortuosity. There is demineralization of the osseous structures. Increased kyphosis. Also complete collapse of the T11 vertebrae. Normal visualized ribs, clavicles, and shoulders. Hiatal hernia. RAD/Chest PA and Lateral IMPRESSION: Stable mild increased markings at the lung bases slightly more prominent on the left side. Electronically Signed: Toni Dawkins MD at 12:40 EDT ,
--- NOTE | 2023-09-18 10:38 | CASEMGMT ---
Social Work JOLEEN received notification from staff that patient's daughter is requesting a meeting with JOLEEN around 1-2PM. JOLEEN contacted daughter, Kassi via phone to address concerns. Patient's daughter informed JOLEEN that she has been discussing patient care with others and they are suggesting that she appeals the discharge. JOLEEN inquired about reason for appeal. Patient's daughter informed JOLEEN that she is concerned about the patient's worsening respiratory condition. Patient daughter continued stating that I know she is improving with therapy, but I am concerned about her breathing. JOLEEN informed Kassi of the patient's right to appeal via [employer]. Kassi provided verbal understanding that she has the right to appeal on the behalf of the patient. Kassi inquired about TCU transfer to hospital for medical care. JOLEEN informed Kassi that transfer to ED would result in patient discharging from TCU and readmitting to ED. JOLEEN advised Kassi to discuss respiratory concerns with Physician . JOLEEN notified via backline regarding family concerns. Kassi informed JOLEEN that she will make contact with to discuss concerns today, 09/18/2023. CALDERON Leavitt
[2023-09-18] MEDS: Lidocaine 5% Patch 1 PATCH TOPICAL (10:58)
--- NOTE | 2023-09-18 11:44 | NURSING ---
Addendum entered by Marta Beavers 09/20/23 08:19: Authorization received, #[id number]. Order faxed to CT. Original Note: Call from , order to do CT scan chest without contrast, rule out pneumonia and CHF. Clinical records need sent for authorization, waiting on report from most recent chest xray then info to be faxed to #[phone]. Tracking #[id number].
[2023-09-18 12:09] LABS: Bedside Glucose 244 mg/dL (74-106)
[2023-09-18 12:21] LABS: Anion Gap 10 (5-15); BUN 35 mg/dL (7-18); BUN/Creat Ratio 23.6 RATIO (10-20); Calcium,Total 9.4 mg/dL (8.5-10.1); Chloride 104 mmol/L (98-107); Creatinine, Serum 1.48 mg/dL (0.55-1.02); EST Glomerular Filtration Rate 36 mL/min (>60); Est Glom Filt Rate - Afr Amer 43 mL/min (>60); Estimated Creatinine Clearance 35.15 ml/min; Glucose 321 mg/dL (74-106); Potassium 4.4 mmol/L (3.5-5.1); Sodium Level 141 mmol/L (136-145)
--- NOTE | 2023-09-18 15:04 | CASEMGMT ---
Social Work SW followed up with patient and daughter regarding concerns for patient discharge. Patient informed SW that she is concerned about her breathing not improving. Patient informed SW that her daughter can be contacted via phone to determine whether an appeal will be initiated. SW contacted patient's daughter via phone to discuss potential appeal. Patient's daughter, Kassi informed SW that she does not want to appeal discharge at this time. Kassi informed SW that she will be following up with Physician, to discuss concerns with respiratory. JOLEEN inquired about delivery time for DME to home. Kassi informed SW that she would like delivery of hospital bed first thing in the morning 09/19. JOLEEN contacted [facility] via [employer] to notify of daughter's request of delivery. Kassi informed JOLEEN that she will transport patient home on 09/20/23 between 12-2PM. Kassi requested for JOLEEN to add home health aid to home care orders. JOLEEN adjusted order for home health and contacted [facility]; spoke with Jhoana who confirmed SOC 09/20. 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
[2023-09-18 17:36] LABS: Bedside Glucose 226 mg/dL (74-106)
[2023-09-18] MEDS: Tamsulosin HCl 0.4 MG Capsule PO (17:38)
[2023-09-18] MEDS: Ampicillin/Sulbactam 3 GM in 0.9% Normal Saline (100mL MB+) 100 ML IV (18:33)
[2023-09-18] MEDS: 0.9% Normal Saline (250mL Bag) 250 ML 15 ML IV (18:33)
[2023-09-18] MEDS: 0.9% Saline Lock 10 ML Syringe IV ×2 (18:36→22:09)
[2023-09-18 21:46] LABS: Bedside Glucose 307 mg/dL (74-106)
[2023-09-18] MEDS: Petrolatum 33% Tube 1 APPLIC TOPICAL (22:04)
[2023-09-18] MEDS: tiZANidine HCl 2 MG Tablet 4 MG PO (22:05)
[2023-09-18] MEDS: Atorvastatin Calcium 40 MG Tablet PO (22:10)
[2023-09-18] MEDS: Doxepin Hcl 25 MG Capsule PO (22:10)
[2023-09-18] MEDS: MELATONIN 10 MG TABLET PO (22:10)
[2023-09-18] MEDS: Senna/Docusate Sodium 1 Tablet 2 TABLET PO (22:11)
[2023-09-19] VITALS (9 sets, daily range): BP systolic 113–166; BP diastolic 61–80; PULSE 64–85; RESP 16–24; TEMP 36.2; O2SAT 93–98; BMI 38.5
[2023-09-19] MEDS: Ampicillin/Sulbactam 3 GM in 0.9% Normal Saline (100mL MB+) 100 ML IV ×4 (00:24→18:34)
[2023-09-19] MEDS: 0.9% Saline Lock 10 ML Syringe IV ×6 (00:24→21:45)
[2023-09-19] MEDS: 0.9% Normal Saline (250mL Bag) 250 ML 15 ML IV ×3 (00:25→12:16)
[2023-09-19] MEDS: oxyCODONE 5 MG Tablet PO ×2 (00:28→16:09)
[2023-09-19] MEDS: Pregabalin 50 MG Capsule PO ×3 (05:10→21:45)
[2023-09-19] MEDS: Acetaminophen 500 MG Tablet 1000 MG PO ×3 (05:10→21:51)
[2023-09-19 06:26] LABS: Bedside Glucose 271 mg/dL (74-106)
[2023-09-19] MEDS: Ipratropium/Albuterol Sulfate 3 ML AMPUL.NEB INHALATION ×3 (07:25→19:28)
[2023-09-19] MEDS: MethylPREDNISolone DosePak 4 MG BOX PO ×4 (08:26→21:50)
[2023-09-19] MEDS: Ipratropium Bromide 0.06% NASAL SPRAY 2 SPRAY NASAL ×2 (08:26→21:48)
[2023-09-19] MEDS: Venlafaxine HCl 75 MG Tablet PO (08:27)
[2023-09-19] MEDS: APIXABAN 5 MG TABLET PO ×2 (08:27→21:49)
[2023-09-19] MEDS: cloNIDine HCl 0.1 MG Tablet PO ×2 (08:27→21:49)
[2023-09-19] MEDS: Isosorbide Mononitrate 30 MG Tablet PO (08:27)
[2023-09-19] MEDS: Insulin Glargine-YFGN 100 UNIT/ML Pen 25 UNIT SC ×2 (08:28→21:52)
[2023-09-19] MEDS: Senna/Docusate Sodium 1 Tablet 2 TABLET PO ×2 (08:29→21:50)
[2023-09-19] MEDS: Metoprolol Tartrate 25 MG Tablet PO ×2 (08:29→21:51)
[2023-09-19] MEDS: Lidocaine 5% Patch 1 PATCH TOPICAL (08:29)
[2023-09-19] MEDS: Pantoprazole Sodium 40 MG Tablet PO (08:29)
[2023-09-19] MEDS: Insulin Lispro 100 UNIT/ML INSULN.PEN 13 UNIT SC ×3 (08:30→18:25)
[2023-09-19] MEDS: Potassium Chloride Oral Tablet 20 MEQ PO ×2 (08:41→18:27)
--- NOTE | 2023-09-19 09:03 | CASEMGMT ---
Social Work JOLEEN met with patient's daughterKassi per request to discuss concerns regarding discharge. Patient now requires IV Abx due to concerns for aspiration pneumonia, CT chest required. Patient's daughter would like to initiate an appeal of discharge. TCU/IPR Psychological Anthropologist is attempting to overturn [employer] due to current changes in medical condition. JOLEEN consulted with Jessika Kalia to determine, if daughter should appeal. Patient's daughter was informed that initiating [employer] appeal is within patient rights. SW reviewed [employer] appeal process and provided [employer] # [phone]. SW informed patient's daughter that she has until noon on date of end of snf services: 09/19/2023. JOLEEN received return call from Jessika informing SW that the patient no longer requires appeal as insurance is obtaining clinical documentation to overturn NOMNC. JOLEEN met with patient and daughter to inform that a [employer] appeal is no longer required. Upon entry in the room patient's daughter was provided [employer] Appeal # [id number]. Patient was notified that an appeal is no longer required due to insurance overturning NOMNC. Patient's daughter attempted to cancel appeal, but was notified that appeal cannot be canceled at this time. A resend letter is requested to overturn appeal via [employer]. Appeal Resend Letter can be faxed to [phone]. JOLEEN to assist with submitting [employer] Resend letter. CALDERON Leavitt
[2023-09-19 11:37] LABS: Bedside Glucose 279 mg/dL (74-106)
[2023-09-19] MEDS: Miconazole Nitrate 43 GM Bottle 1 APPLIC TOPICAL ×2 (12:07→21:47)
[2023-09-19] MEDS: Menthol/Lanolin/Calamine/Znox 113 GM Tube 1 APPLIC TOPICAL ×2 (12:07→21:47)
--- NOTE | 2023-09-19 14:20 | CASEMGMT ---
Social Work Patient discharge has been discontinued. Patient remains on TCU for rehab with IV abx for aspiration pneumonia. [employer] Medicare next review date 09/25/2023. SW notified patient and daughter of insurance next review date. SW provided update regarding delay in discharge to [facility]. SW will continue to follow to assist with transition of care plans. CALDERON Leavitt
[2023-09-19 16:55] LABS: Bedside Glucose 122 mg/dL (74-106)
[2023-09-19] MEDS: Tamsulosin HCl 0.4 MG Capsule PO (18:28)
[2023-09-19] MEDS: tiZANidine HCl 2 MG Tablet 4 MG PO (18:39)
[2023-09-19] MEDS: Petrolatum 33% Tube 1 APPLIC TOPICAL (21:47)
[2023-09-19] MEDS: Atorvastatin Calcium 40 MG Tablet PO (21:50)
[2023-09-19] MEDS: MELATONIN 10 MG TABLET PO (21:50)
[2023-09-19] MEDS: Doxepin Hcl 25 MG Capsule PO (21:51)
[2023-09-19 22:27] LABS: Bedside Glucose 244 mg/dL (74-106)
[2023-09-20] MEDS: Ampicillin/Sulbactam 3 GM in 0.9% Normal Saline (100mL MB+) 100 ML IV ×5 (00:21→23:03)
[2023-09-20] MEDS: 0.9% Saline Lock 10 ML Syringe IV ×4 (00:23→13:16)
[2023-09-20] MEDS: 0.9% Normal Saline (250mL Bag) 250 ML 15 ML IV ×3 (00:24→12:05)
[2023-09-20] MEDS: oxyCODONE 5 MG Tablet PO ×3 (00:29→22:47)
[2023-09-20] MEDS: Pregabalin 50 MG Capsule PO ×3 (05:24→22:48)
[2023-09-20] MEDS: Acetaminophen 500 MG Tablet 1000 MG PO ×3 (05:25→22:50)
[2023-09-20 06:00] VITALS: BMI 39.9
[2023-09-20 06:43] LABS: Bedside Glucose 218 mg/dL (74-106)
[2023-09-20 09:03] VITALS: BP 186/75; PULSE 72; RESP 18; TEMP 35.6; O2SAT 100
[2023-09-20] MEDS: Insulin Lispro 100 UNIT/ML INSULN.PEN 13 UNIT SC ×3 (09:05→17:27)
[2023-09-20 09:06] VITALS: PULSE 72
[2023-09-20] MEDS: Pantoprazole Sodium 40 MG Tablet PO (09:06)
[2023-09-20] MEDS: MethylPREDNISolone DosePak 4 MG BOX PO ×3 (09:06→22:52)
[2023-09-20] MEDS: Metoprolol Tartrate 25 MG Tablet PO ×2 (09:06→22:51)
[2023-09-20] MEDS: Potassium Chloride Oral Tablet 20 MEQ PO ×2 (09:06→17:28)
[2023-09-20] MEDS: Insulin Glargine-YFGN 100 UNIT/ML Pen 25 UNIT SC ×2 (09:07→22:54)
[2023-09-20] MEDS: Senna/Docusate Sodium 1 Tablet 2 TABLET PO ×2 (09:07→22:51)
[2023-09-20] MEDS: Isosorbide Mononitrate 30 MG Tablet PO (09:07)
[2023-09-20] MEDS: APIXABAN 5 MG TABLET PO ×2 (09:07→22:52)
[2023-09-20] MEDS: Venlafaxine HCl 75 MG Tablet PO (09:07)
[2023-09-20] MEDS: Ipratropium Bromide 0.06% NASAL SPRAY 2 SPRAY NASAL ×2 (09:08→22:49)
[2023-09-20] MEDS: cloNIDine HCl 0.1 MG Tablet PO ×2 (09:08→22:55)
[2023-09-20] MEDS: Menthol/Lanolin/Calamine/Znox 113 GM Tube 1 APPLIC TOPICAL ×2 (09:08→23:01)
[2023-09-20] MEDS: Miconazole Nitrate 43 GM Bottle 1 APPLIC TOPICAL ×2 (09:08→23:01)
[2023-09-20] MEDS: Lidocaine 5% Patch 1 PATCH TOPICAL (09:09)
[2023-09-20 11:31] LABS: Bedside Glucose 211 mg/dL (74-106)
[2023-09-20 13:45] VITALS: PULSE 72; RESP 18; O2SAT 98
[2023-09-20] MEDS: Ipratropium/Albuterol Sulfate 3 ML AMPUL.NEB INHALATION ×2 (13:45→19:02)
[2023-09-20] MEDS: tiZANidine HCl 2 MG Tablet 4 MG PO ×2 (14:07→22:57)
[2023-09-20 14:08] VITALS: BP 151/67; PULSE 67
[2023-09-20 16:41] LABS: Bedside Glucose 132 mg/dL (74-106)
[2023-09-20] MEDS: Tamsulosin HCl 0.4 MG Capsule PO (17:28)
[2023-09-20 19:02] VITALS: PULSE 77; RESP 22
[2023-09-20 22:15] LABS: Bedside Glucose 145 mg/dL (74-106)
[2023-09-20 22:51] VITALS: BP 195/84; PULSE 72
[2023-09-20] MEDS: Doxepin Hcl 25 MG Capsule PO (22:51)
[2023-09-20] MEDS: Atorvastatin Calcium 40 MG Tablet PO (22:52)
[2023-09-20] MEDS: MELATONIN 10 MG TABLET PO (22:53)
[2023-09-20] MEDS: Petrolatum 33% Tube 1 APPLIC TOPICAL (23:01)
[2023-09-21] VITALS (7 sets, daily range): BP systolic 142–184; BP diastolic 66–80; PULSE 58–85; RESP 16–20; TEMP 36.3; O2SAT 96–97; BMI 38.5
[2023-09-21] MEDS: Ampicillin/Sulbactam 3 GM in 0.9% Normal Saline (100mL MB+) 100 ML IV ×4 (05:23→23:48)
[2023-09-21] MEDS: Acetaminophen 500 MG Tablet 1000 MG PO ×3 (05:45→23:30)
[2023-09-21] MEDS: Pregabalin 50 MG Capsule PO ×3 (05:46→23:28)
[2023-09-21] MEDS: cloNIDine HCl 0.1 MG Tablet PO ×3 (05:48→23:35)
[2023-09-21] MEDS: Isosorbide Mononitrate 30 MG Tablet PO (05:49)
--- NOTE | 2023-09-21 05:53 | NURSING ---
Written communication left for regarding patient continued elevated blood pressures.
[2023-09-21 06:00] LABS: Absolute Lymphocyte Count 1.05 X10^3/uL (0.83-4.51); Absolute Neutrophil Count 3.2 X10^3/uL (2.0-7.7); Basophil# 0.01 X10^3/uL; Basophil% 0.2 % (0-1); Eosinophil# 0.04 X10^3/uL; Eosinophils% 0.8 % (0-5); Hematocrit 28.5 % (37-47); Hemoglobin 8.4 g/dL (12.0-15.0); Lymphocyte # 1.05 X10^3/ul (0.83-4.51); Lymphocyte % 21.7 % (19-41); Mean Corp Hgb Conc 29.5 g/dL (32-36); Mean Corpuscular Hgb 25.5 pg (27.0-32.0); Mean Corpuscular Volume 86.4 fL (81-99); Monocyte# 0.44 X10^3/uL; Monocyte% 9.1 % (0-10); NRBC Flagged by Analyzer 0 % (0-5); Neutrophil # 3.24 X10^3/uL (2.7-7.7); Platelet Count 251 K/mm3 (150-450); RBC Distribution Width CV 18.7 % (11.6-14.6); White Blood Count 4.8 K/mm3 (4.4-11.0)
[2023-09-21 06:28] LABS: Bedside Glucose 91 mg/dL (74-106)
[2023-09-21 06:28] LABS: Anion Gap 2 (5-15); BUN 24 mg/dL (7-18); BUN/Creat Ratio 21.1 RATIO (10-20); Chloride 108 mmol/L (98-107); Creatinine, Serum 1.14 mg/dL (0.55-1.02); EST Glomerular Filtration Rate 48 mL/min (>60); Est Glom Filt Rate - Afr Amer 59 mL/min (>60); Estimated Creatinine Clearance 46.69 ml/min; Glucose 97 mg/dL (74-106); Potassium 4.4 mmol/L (3.5-5.1); Sodium Level 143 mmol/L (136-145)
[2023-09-21] MEDS: 0.9% Saline Lock 10 ML Syringe IV ×3 (06:37→18:08)
[2023-09-21] MEDS: 0.9% Normal Saline (250mL Bag) 250 ML 15 ML IV (06:38)
[2023-09-21] MEDS: Ipratropium/Albuterol Sulfate 3 ML AMPUL.NEB INHALATION ×2 (07:35→19:47)
--- NOTE | 2023-09-21 08:56 | NURSING ---
Addendum entered by Marta Beavres 09/24/23 10:05: Faxed signed order and clinical info to #[phone]. They will complete authorization for test. Number to PET scheduling/auth #[id number]. Original Note: Discussed PET scan with patient and daughter. They would like help setting it up. Called and scheduled it for 10/09/23. Order & clinical info need faxed to PET scan. Will update and fax order/clinical info as available.
[2023-09-21] MEDS: MethylPREDNISolone DosePak 4 MG BOX PO ×2 (08:59→23:32)
[2023-09-21] MEDS: Potassium Chloride Oral Tablet 20 MEQ PO ×2 (08:59→18:02)
[2023-09-21] MEDS: Venlafaxine HCl 75 MG Tablet PO (08:59)
[2023-09-21] MEDS: APIXABAN 5 MG TABLET PO ×2 (08:59→23:33)
[2023-09-21] MEDS: Insulin Glargine-YFGN 100 UNIT/ML Pen 25 UNIT SC ×2 (08:59→23:45)
[2023-09-21] MEDS: Metoprolol Tartrate 25 MG Tablet PO ×2 (09:00→23:31)
[2023-09-21] MEDS: Senna/Docusate Sodium 1 Tablet 2 TABLET PO ×2 (09:00→23:34)
[2023-09-21] MEDS: Pantoprazole Sodium 40 MG Tablet PO (09:00)
[2023-09-21] MEDS: Lidocaine 5% Patch 1 PATCH TOPICAL (09:01)
[2023-09-21] MEDS: Ipratropium Bromide 0.06% NASAL SPRAY 2 SPRAY NASAL ×2 (09:08→23:36)
[2023-09-21] MEDS: Menthol/Lanolin/Calamine/Znox 113 GM Tube 1 APPLIC TOPICAL ×2 (09:09→23:47)
[2023-09-21 11:29] LABS: Bedside Glucose 156 mg/dL (74-106)
[2023-09-21] MEDS: Insulin Lispro 100 UNIT/ML INSULN.PEN 13 UNIT SC (12:10)
[2023-09-21] MEDS: Miconazole Nitrate 43 GM Bottle 1 APPLIC TOPICAL ×2 (12:12→23:47)
[2023-09-21 17:28] LABS: Bedside Glucose 120 mg/dL (74-106)
[2023-09-21] MEDS: Tamsulosin HCl 0.4 MG Capsule PO (18:02)
--- NOTE | 2023-09-21 18:15 | NURSING ---
Bs 47 before dinner. Patient denies symptoms of hypoglycemia. [place] juice and peanut butter provided. Recheck 120 before dinner and patient ate 100% of dinner.
[2023-09-21 21:30] LABS: Bedside Glucose 47 mg/dL (74-106)
[2023-09-21 21:30] LABS: Bedside Glucose 54 mg/dL (74-106)
[2023-09-21] MEDS: oxyCODONE 5 MG Tablet PO (23:28)
[2023-09-21] MEDS: Doxepin Hcl 25 MG Capsule PO (23:29)
[2023-09-21] MEDS: MELATONIN 10 MG TABLET PO (23:29)
[2023-09-21] MEDS: Atorvastatin Calcium 40 MG Tablet PO (23:30)
[2023-09-21] MEDS: tiZANidine HCl 2 MG Tablet 4 MG PO (23:33)
[2023-09-21 23:42] LABS: Bedside Glucose 209 mg/dL (74-106)
[2023-09-21] MEDS: Petrolatum 33% Tube 1 APPLIC TOPICAL (23:47)
[2023-09-22] VITALS (10 sets, daily range): BP systolic 120–189; BP diastolic 63–85; PULSE 65–94; RESP 16–19; TEMP 36.1; O2SAT 94–99
[2023-09-22] MEDS: Pregabalin 50 MG Capsule PO ×3 (05:39→22:24)
[2023-09-22] MEDS: Acetaminophen 500 MG Tablet 1000 MG PO ×3 (05:40→22:26)
[2023-09-22] MEDS: cloNIDine HCl 0.1 MG Tablet PO ×3 (05:40→22:26)
[2023-09-22] MEDS: Ampicillin/Sulbactam 3 GM in 0.9% Normal Saline (100mL MB+) 100 ML IV ×3 (05:40→18:15)
[2023-09-22 06:35] LABS: Bedside Glucose 137 mg/dL (74-106)
[2023-09-22 06:56] LABS: Hematocrit 28.4 % (37-47); Hemoglobin 8.5 g/dL (12.0-15.0)
[2023-09-22] MEDS: Ipratropium/Albuterol Sulfate 3 ML AMPUL.NEB INHALATION ×2 (07:53→19:10)
[2023-09-22] MEDS: Insulin Lispro 100 UNIT/ML INSULN.PEN 13 UNIT SC ×2 (09:05→12:25)
[2023-09-22] MEDS: MethylPREDNISolone DosePak 4 MG BOX PO (09:05)
[2023-09-22] MEDS: Potassium Chloride Oral Tablet 20 MEQ PO ×2 (09:07→17:15)
[2023-09-22] MEDS: Miconazole Nitrate 43 GM Bottle 1 APPLIC TOPICAL ×2 (09:08→22:29)
[2023-09-22] MEDS: Ipratropium Bromide 0.06% NASAL SPRAY 2 SPRAY NASAL ×2 (09:08→22:29)
[2023-09-22] MEDS: Senna/Docusate Sodium 1 Tablet 2 TABLET PO ×2 (09:10→22:28)
[2023-09-22] MEDS: Metoprolol Tartrate 25 MG Tablet PO ×2 (09:11→22:31)
[2023-09-22] MEDS: Lidocaine 5% Patch 1 PATCH TOPICAL (09:12)
[2023-09-22] MEDS: APIXABAN 5 MG TABLET PO ×2 (09:12→22:27)
[2023-09-22] MEDS: Pantoprazole Sodium 40 MG Tablet PO (09:13)
[2023-09-22] MEDS: Isosorbide Mononitrate 30 MG Tablet PO (09:13)
[2023-09-22] MEDS: Insulin Glargine-YFGN 100 UNIT/ML Pen 25 UNIT SC ×2 (09:15→22:27)
[2023-09-22] MEDS: Venlafaxine HCl 75 MG Tablet PO (09:17)
[2023-09-22] MEDS: Menthol/Lanolin/Calamine/Znox 113 GM Tube 1 APPLIC TOPICAL ×2 (09:19→22:30)
[2023-09-22 12:11] LABS: Bedside Glucose 163 mg/dL (74-106)
[2023-09-22 17:42] LABS: Bedside Glucose 49 mg/dL (74-106)
[2023-09-22 18:08] LABS: Bedside Glucose 113 mg/dL (74-106)
[2023-09-22] MEDS: Tamsulosin HCl 0.4 MG Capsule PO (18:15)
--- NOTE | 2023-09-22 20:25 | NURSING ---
Patient 1800 dose of Unasyn not infused due to IV infiltrate, second nurse present attempting new IV start, patient refuses new IV, educated on PICC and midline, patient refuses any further IV placement, states I don't want any more IVs, I want to take a medicine by mouth. contacted via telephone and notified of 1800 dose of Unasyn not able to be infused and pt. refusing IV placement or PICC line, and patient requesting oral ATB instead. New order from received: 1.) d/c unasyn 2.) Start Augmentin 875mg PO BID stop date 09/24. Orders repeated back to
[2023-09-22 22:15] LABS: Bedside Glucose 194 mg/dL (74-106)
[2023-09-22] MEDS: oxyCODONE 5 MG Tablet PO (22:24)
[2023-09-22] MEDS: Amox/Clavulanate 875 MG Tablet PO (22:26)
[2023-09-22] MEDS: Atorvastatin Calcium 40 MG Tablet PO (22:28)
[2023-09-22] MEDS: MELATONIN 10 MG TABLET PO (22:28)
[2023-09-22] MEDS: Doxepin Hcl 25 MG Capsule PO (22:29)
[2023-09-22] MEDS: Petrolatum 33% Tube 1 APPLIC TOPICAL (22:29)
[2023-09-23] VITALS (10 sets, daily range): BP systolic 113–142; BP diastolic 51–61; PULSE 63–88; RESP 16–18; TEMP 36.5; O2SAT 97–98; BMI 38.7
[2023-09-23] MEDS: tiZANidine HCl 2 MG Tablet 4 MG PO ×3 (00:16→22:25)
[2023-09-23] MEDS: traMADol 50 MG Tablet PO (00:40)
[2023-09-23] MEDS: Pregabalin 50 MG Capsule PO ×3 (05:14→21:57)
[2023-09-23] MEDS: cloNIDine HCl 0.1 MG Tablet PO ×3 (05:15→21:59)
[2023-09-23] MEDS: Acetaminophen 500 MG Tablet 1000 MG PO ×3 (05:15→21:59)
[2023-09-23 06:39] LABS: Bedside Glucose 81 mg/dL (74-106)
[2023-09-23] MEDS: Ipratropium/Albuterol Sulfate 3 ML AMPUL.NEB INHALATION ×3 (07:45→19:32)
[2023-09-23] MEDS: Insulin Lispro 100 UNIT/ML INSULN.PEN 13 UNIT SC (08:59)
[2023-09-23] MEDS: Potassium Chloride Oral Tablet 20 MEQ PO ×2 (09:00→17:18)
[2023-09-23] MEDS: Amox/Clavulanate 875 MG Tablet PO ×2 (09:00→17:18)
[2023-09-23] MEDS: Ipratropium Bromide 0.06% NASAL SPRAY 2 SPRAY NASAL ×2 (09:01→22:01)
[2023-09-23] MEDS: Miconazole Nitrate 43 GM Bottle 1 APPLIC TOPICAL ×2 (09:02→22:03)
[2023-09-23] MEDS: Venlafaxine HCl 75 MG Tablet PO (09:02)
[2023-09-23] MEDS: Menthol/Lanolin/Calamine/Znox 113 GM Tube 1 APPLIC TOPICAL ×2 (09:02→22:04)
[2023-09-23] MEDS: Isosorbide Mononitrate 30 MG Tablet PO (09:03)
[2023-09-23] MEDS: Insulin Glargine-YFGN 100 UNIT/ML Pen 25 UNIT SC (09:03)
[2023-09-23] MEDS: APIXABAN 5 MG TABLET PO ×2 (09:03→21:59)
[2023-09-23] MEDS: Pantoprazole Sodium 40 MG Tablet PO (09:04)
[2023-09-23] MEDS: Lidocaine 5% Patch 1 PATCH TOPICAL (09:04)
[2023-09-23] MEDS: Senna/Docusate Sodium 1 Tablet 2 TABLET PO ×2 (09:04→21:58)
[2023-09-23] MEDS: Metoprolol Tartrate 25 MG Tablet PO ×2 (09:04→21:59)
[2023-09-23 11:37] LABS: Bedside Glucose 140 mg/dL (74-106)
[2023-09-23] MEDS: Insulin Lispro 100 UNIT/ML INSULN.PEN 10 UNIT SC ×2 (12:32→18:13)
[2023-09-23 17:11] LABS: Bedside Glucose 50 mg/dL (74-106)
[2023-09-23] MEDS: oxyCODONE 5 MG Tablet PO ×2 (17:15→21:57)
[2023-09-23] MEDS: Tamsulosin HCl 0.4 MG Capsule PO (17:18)
[2023-09-23 17:41] LABS: Bedside Glucose 76 mg/dL (74-106)
--- NOTE | 2023-09-23 18:22 | NURSING ---
Patient BGT by finger prick 50 this evening. Patient given snack and was 76 on recheck. Patient ate 100% of dinner and was 123. Evening insulin given as ordered.
[2023-09-23 18:37] LABS: Bedside Glucose 123 mg/dL (74-106)
[2023-09-23] MEDS: MELATONIN 10 MG TABLET PO (21:58)
[2023-09-23] MEDS: Atorvastatin Calcium 40 MG Tablet PO (21:59)
[2023-09-23] MEDS: Doxepin Hcl 25 MG Capsule PO (22:00)
[2023-09-23] MEDS: Insulin Glargine-YFGN 100 UNIT/ML Pen 15 UNIT SC (22:02)
[2023-09-23] MEDS: Petrolatum 33% Tube 1 APPLIC TOPICAL (22:03)
[2023-09-23 22:09] LABS: Bedside Glucose 125 mg/dL (74-106)
[2023-09-24] VITALS (11 sets, daily range): BP systolic 119–170; BP diastolic 47–58; PULSE 63–111; RESP 16–22; TEMP 36.2–36.4; O2SAT 95–99; BMI 38.7
[2023-09-24] MEDS: traMADol 50 MG Tablet PO (01:43)
--- NOTE | 2023-09-24 02:27 | NURSING ---
Patient c/o barking cough after breathing treatment tonight. Lungs are diminished in all lobes with audible expiratory wheezing. Patient denies chest pain but states she feels SOB. Patient does not appear to be in distress. Pt currently on 4L of O2, SpO2 at 96%. Vitals WNL, refer to worklist. Pt previously on IV unasyn for possible aspiration pneumonia. IV abx DC'd d/t patient's request to take PO abx. CXR clear. Patient has PET scan scheduled for 10/09/23. Patient's HOB elevated, assisted patient with repositioning, encouraged patient to us IS, and encouraged fluids to help break up secretions. Patient denies further assistance, call light in reach.
--- NOTE | 2023-09-24 04:33 | NURSING ---
Written communication left for requesting if palliative consult appropriate at this time. Per patient, plan is to d/c sometime this week with dtr assistance at home, patient states a nurse will visit two times a week. Patient continues to report SOB with exertion, weakness when ambulating short distances, and frequent c/o pain. Patient states will not accept any further IV medications.
[2023-09-24] MEDS: Acetaminophen 500 MG Tablet 1000 MG PO ×3 (05:30→22:11)
[2023-09-24] MEDS: Pregabalin 50 MG Capsule PO ×3 (05:30→22:18)
[2023-09-24] MEDS: cloNIDine HCl 0.1 MG Tablet PO ×3 (05:30→22:10)
[2023-09-24 05:56] LABS: Hematocrit 29.1 % (37-47); Hemoglobin 8.4 g/dL (12.0-15.0)
[2023-09-24 06:20] LABS: Bedside Glucose 66 mg/dL (74-106)
[2023-09-24] MEDS: Venlafaxine HCl 75 MG Tablet PO (08:44)
[2023-09-24] MEDS: Amox/Clavulanate 875 MG Tablet PO ×2 (08:44→17:24)
[2023-09-24] MEDS: Potassium Chloride Oral Tablet 20 MEQ PO ×2 (08:44→17:24)
[2023-09-24] MEDS: Ipratropium Bromide 0.06% NASAL SPRAY 2 SPRAY NASAL ×2 (08:44→22:07)
[2023-09-24] MEDS: APIXABAN 5 MG TABLET PO ×2 (08:45→22:11)
[2023-09-24] MEDS: Isosorbide Mononitrate 30 MG Tablet PO (08:45)
[2023-09-24] MEDS: Lidocaine 5% Patch 1 PATCH TOPICAL (08:46)
[2023-09-24] MEDS: Senna/Docusate Sodium 1 Tablet 2 TABLET PO ×2 (08:47→22:08)
[2023-09-24] MEDS: Pantoprazole Sodium 40 MG Tablet PO (08:47)
[2023-09-24] MEDS: Ipratropium/Albuterol Sulfate 3 ML AMPUL.NEB INHALATION ×3 (08:47→19:19)
[2023-09-24] MEDS: Metoprolol Tartrate 25 MG Tablet PO ×2 (08:49→22:10)
[2023-09-24] MEDS: Miconazole Nitrate 43 GM Bottle 1 APPLIC TOPICAL ×2 (08:55→22:14)
[2023-09-24] MEDS: Insulin Glargine-YFGN 100 UNIT/ML Pen 10 UNIT SC ×2 (09:31→22:15)
[2023-09-24] MEDS: Menthol/Lanolin/Calamine/Znox 113 GM Tube 1 APPLIC TOPICAL (09:33)
[2023-09-24 09:40] LABS: Bedside Glucose 230 mg/dL (74-106)
--- NOTE | 2023-09-24 12:00 | CPS ---
pt reused tx this am said it making her cough alot, she felt same way yesterday 09/22 after am tx, so we held off. pt then called and said nursing said she will eel better if she takes tx so RT gave tx.
--- NOTE | 2023-09-24 13:44 | NURSING ---
Patient coughing in room after lunch. This nurse enters room to assess and patient reports i'm not when asked if she is okay and reports she thinks she choked on a piece of meat with lunch and can't stop coughing. Meat was minced but she reports she must not have chewed it enough and it felt caught in throat. Patient was eventually able to stop coughing and reports she feels better. No wheezing noted in lungs. Sandra TSAI made aware.
[2023-09-24] MEDS: Albuterol 2.5 MG/3 ML VIAL.NEB. INHALATION (16:10)
[2023-09-24 16:58] LABS: Bedside Glucose 228 mg/dL (74-106)
--- NOTE | 2023-09-24 17:09 | PN.TCU_ITS ---
Subjective Subjective Resident seen, examined for regulatory visit. She is finishing treatment for aspiration pneumonia, she tells me she aspirated small piece of meat this morning, and she coughed for 35 minutes. She is otherwise doing well in therapy, good bed mobility, walking with therapy. She had abnormal CT scan of chest, PET scan scheduled for 10/09/2023 to evaluate for malignancy. Objective Data Objective Data Vital Signs: Vital Signs Temp Pulse Resp BP Pulse Ox O2 Del Method O2 Flow Rate 97.5 F L 84 20 H 134/56 H 96 Room Air 4 09/24/23 13:03 09/24/23 16:09 09/24/23 16:09 09/24/23 13:03 09/24/23 13:03 09/24/23 13:03 09/24/23 11:43 FiO2 95 09/18/23 06:08 Oxygen Flow Rate (L/min) 4 Oxygen Delivery Method Room Air Weight: 105.46 kg Body Mass Index (BMI) 38.7 Intake & Output: Intake and Output for Last 24 Hours 09/22/23 09/23/23 09/24/23 23:59 23:59 23:59 Intake Total 1303 / 1303 960 / 960 480 / 480 Balance 1303 / 1303 960 / 960 480 / 480 Medical Nutrition Assessment Dietitian: Malnutrition Criteria Met Start: 08/24/23 12:51 Freq: Status: Active Protocol: Document 08/24/23 12:51 SLA (Rec: 08/24/23 12:51 SLA Desktop) Nutrition Malnutrition Evidence of Malnutrition Exists Yes Malnutrition (severe): Acute Illness/Injury Evidenced By Suboptimal Energy Intake ( Severe),Weight Loss (Severe) Clinical Problem Acute Disease or Injury Related Malnutrition Etiology related to inadequate energy intake and issues swallowing food Signs/Symptoms as evidenced by 4% unintended wt loss and res 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 09/24/23 05:38 09/21/23 05:42 Labs: Laboratory Results - last 24 hr 09/23/23 16:37: POC Glucose 50 L 09/23/23 17:16: POC Glucose 76 09/23/23 18:12: POC Glucose 123 H 09/23/23 21:40: POC Glucose 125 H 09/24/23 05:38: Hgb 8.4 L, Hct 29.1 L 09/24/23 05:55: POC Glucose 66 L 09/24/23 09:20: POC Glucose 230 H 09/24/23 16:28: POC Glucose 228 H Micro: Microbiology 09/08/23 13:40 Stool Stool Occult Blood (MARGARITA) - Final Physical Exam Const alert General Appearance: cooperative HEENT normocephalic Eyes PERRL and EOMs intact bilaterally Neck supple, no JVD and no carotid bruits Resp normal respiratory effort, normal air movement and clear to auscultation bilaterally Cardio regular rate and regular rhythm GI normal to inspection, nondistended, normoactive bowel sounds, non-tender and non-distended Extremity normal capillary refill General Extremity: Negative for edema Skin no rashes or lesions noted General Skin Exam: no breakdown Psych affect normal Appearance: appropriate Assessment & Plan Assessment/Plan (1) Dysphagia: PLAN: Plan 82 year old female with below past medical history hospitalized for intractable thoracic back pain 2/2 T12 compression fracture, complicated by COPD exacerbation, acute encephalopathy, NSVT, hypokalemia, hypomagnesemia, hypophosphatemia, admitted to TCU with debility, here for rehabilitation, strengthening, prior to discharge home with daughter. * Debility - PT/OT. * Dysphagia - ST. * Pain - Tylenol 1000mg q8, Tramadol 50mg q6 prn pain (1-5), Oxycodone 5mg q4 prn pain (6-10), Lidoderm patch 1 patch daily. * Bowel - senna/colace 2 tablets bid, Magnesium citrate 300ml daily prn. * Adult immunization - Administer pneumoia vaccine, covid vaccine, flu vaccine as appropriate. * DVT prophylaxis - Monitor. * Coronary artery disease - Metoprolol 25mg bid, Imdur 30mg daily, Eliquis 5mg bid. * Hyperlipidemia - Atorvastatin 40mg qhs. * Insomnia - Doxepin 25mg qhs, Melatonin 10mg qhs. * Diabetes Mellitus II - Glargine 10 units bid. * Hypertension - Metoprolol 25mg bid, Clonidine 0.1mg tid. * Skin irritation - Calmoseptine topical bid, Eucerin topical qhs. * Tinea Corporis - Miconazole topical bid. * Diabetic polyneuropathy - Lyrica 50mg tid. * Muscle spasm - Tizanidine 4mg tid prn. * Depression - Venlafaxine 75mg daily, stable chronic residential use, GDR not recommended. * RLE DVT - Eliquis 5mg bid thru 12/10/2023. * COPD - Duoneb 3ml q6 prn, Albuterol 2.5mg neb q2h prn. * Aspiration pneumonia - Augmentin 875mg bidcm thru 09/25/2023. * Rash - HC 2.5% topical tid prn. * Allergic rhinitis - Atrovent 2 sprays nasal daily. * GERD - Pantoprazole 40mg daily. * Hypokalemia - KCL 20meq bidcm. * Urinary retention - Tamsulosin 0.4mg daily. * Abnormal CT chest - PET scan 10/09/2023 to evaluate for lung cancer.
[2023-09-24] MEDS: Tamsulosin HCl 0.4 MG Capsule PO (17:25)
[2023-09-24 22:05] LABS: Bedside Glucose 248 mg/dL (74-106)
[2023-09-24] MEDS: oxyCODONE 5 MG Tablet PO (22:08)
[2023-09-24] MEDS: tiZANidine HCl 2 MG Tablet 4 MG PO (22:09)
[2023-09-24] MEDS: MELATONIN 10 MG TABLET PO (22:10)
[2023-09-24] MEDS: Doxepin Hcl 25 MG Capsule PO (22:11)
[2023-09-24] MEDS: Atorvastatin Calcium 40 MG Tablet PO (22:11)
[2023-09-24] MEDS: Petrolatum 33% Tube 1 APPLIC TOPICAL (22:14)
[2023-09-25] VITALS (10 sets, daily range): BP systolic 133–182; BP diastolic 52–76; PULSE 68–99; RESP 15–20; TEMP 36.1; O2SAT 97–100; BMI 38.9
[2023-09-25] MEDS: Acetaminophen 500 MG Tablet 1000 MG PO ×3 (06:10→22:00)
[2023-09-25] MEDS: traMADol 50 MG Tablet PO (06:11)
[2023-09-25] MEDS: Pregabalin 50 MG Capsule PO ×3 (06:11→22:02)
[2023-09-25] MEDS: cloNIDine HCl 0.1 MG Tablet PO ×3 (06:11→22:01)
[2023-09-25 07:08] LABS: Bedside Glucose 187 mg/dL (74-106)
[2023-09-25] MEDS: Ipratropium/Albuterol Sulfate 3 ML AMPUL.NEB INHALATION ×3 (07:15→19:10)
[2023-09-25] MEDS: Insulin Glargine-YFGN 100 UNIT/ML Pen 10 UNIT SC ×2 (08:40→22:03)
[2023-09-25] MEDS: Pantoprazole Sodium 40 MG Tablet PO (08:41)
[2023-09-25] MEDS: Metoprolol Tartrate 25 MG Tablet PO ×2 (08:41→22:01)
[2023-09-25] MEDS: Lidocaine 5% Patch 1 PATCH TOPICAL (08:41)
[2023-09-25] MEDS: Senna/Docusate Sodium 1 Tablet 2 TABLET PO ×2 (08:41→22:02)
[2023-09-25] MEDS: Isosorbide Mononitrate 30 MG Tablet PO (08:42)
[2023-09-25] MEDS: Potassium Chloride Oral Tablet 20 MEQ PO ×2 (08:42→15:58)
[2023-09-25] MEDS: Amox/Clavulanate 875 MG Tablet PO ×2 (08:42→15:58)
[2023-09-25] MEDS: Miconazole Nitrate 43 GM Bottle 1 APPLIC TOPICAL ×2 (08:42→22:09)
[2023-09-25] MEDS: APIXABAN 5 MG TABLET PO ×2 (08:42→22:01)
[2023-09-25] MEDS: Menthol/Lanolin/Calamine/Znox 113 GM Tube 1 APPLIC TOPICAL ×2 (08:42→22:14)
[2023-09-25] MEDS: Venlafaxine HCl 75 MG Tablet PO (08:42)
[2023-09-25] MEDS: Ipratropium Bromide 0.06% NASAL SPRAY 2 SPRAY NASAL ×2 (08:43→22:03)
[2023-09-25] MEDS: Albuterol 2.5 MG/3 ML VIAL.NEB. INHALATION (11:10)
[2023-09-25 11:13] LABS: Bedside Glucose 226 mg/dL (74-106)
--- NOTE | 2023-09-25 15:53 | CHAPLAIN ---
Type of Pastoral Visit ___ Initial Visit _x__ Follow-up Visit ___ On-call Visit ___ General Patient Visit ___ Spiritual Assessment ___ Family Conference ___ Bereavement ___ Rapid Response ___ Code Blue ___ Other (describe below) Pastoral Care Referral From _x__ Patient ___ Family ___ Nurse ___ Physician ___ Overnight Stocker ___ Set Builder ___ Other (describe below) Sacrament/Intervention _x__ Active listening ___ Anointing ___ Faith ___ Bereavement ___ Communion ___ Elvira exploration ___ ___ Life review _x__ Prayer ___ Reconciliation ___ Sacrament of Sick _x__ Supportive presence ___ Wedding ___ Other (describe below) Pastoral Comments
[2023-09-25] MEDS: Tamsulosin HCl 0.4 MG Capsule PO (15:58)
--- NOTE | 2023-09-25 16:13 | CASEMGMT ---
Social Work Notice of Medicare Non Coverage was received from patient's [employer] with jail services ending 09/27/23. This worker reviewed letter with patient and explained appeal rights. Pt stated she feels ready to return home. Pt signed letter. this worker telephoned patient's daughter and updated her on new DC date. Daughter stated she will transport patient home on 09/28/23. Daughter stated she has all needed equipment in place: hospital bed, bedside commode and gait belt. SW contacted [facility] and updated on new DC date. [facility] services will start 10/01/23. Padmini GODINEZ
[2023-09-25 17:13] LABS: Bedside Glucose 231 mg/dL (74-106)
[2023-09-25 21:44] LABS: Bedside Glucose 261 mg/dL (74-106)
[2023-09-25] MEDS: Doxepin Hcl 25 MG Capsule PO (22:00)
[2023-09-25] MEDS: MELATONIN 10 MG TABLET PO (22:00)
[2023-09-25] MEDS: Atorvastatin Calcium 40 MG Tablet PO (22:02)
[2023-09-25] MEDS: oxyCODONE 5 MG Tablet PO (22:10)
[2023-09-25] MEDS: tiZANidine HCl 2 MG Tablet 4 MG PO (22:10)
[2023-09-25] MEDS: Petrolatum 33% Tube 1 APPLIC TOPICAL (22:16)
[2023-09-26] VITALS (9 sets, daily range): BP systolic 126–166; BP diastolic 48–72; PULSE 65–99; RESP 16–20; TEMP 35.8; O2SAT 95–99; BMI 38.9
[2023-09-26] MEDS: Albuterol 2.5 MG/3 ML VIAL.NEB. INHALATION (00:14)
[2023-09-26] MEDS: cloNIDine HCl 0.1 MG Tablet PO ×3 (06:16→21:43)
[2023-09-26] MEDS: Acetaminophen 500 MG Tablet 1000 MG PO ×3 (06:16→21:43)
[2023-09-26] MEDS: Pregabalin 50 MG Capsule PO ×3 (06:16→21:43)
[2023-09-26 06:29] LABS: Bedside Glucose 221 mg/dL (74-106)
[2023-09-26] MEDS: Ipratropium/Albuterol Sulfate 3 ML AMPUL.NEB INHALATION ×3 (07:35→20:20)
[2023-09-26] MEDS: oxyCODONE 5 MG Tablet PO ×2 (08:10→21:42)
[2023-09-26] MEDS: Ipratropium Bromide 0.06% NASAL SPRAY 2 SPRAY NASAL ×2 (08:11→21:44)
[2023-09-26] MEDS: Potassium Chloride Oral Tablet 20 MEQ PO ×2 (08:11→17:30)
[2023-09-26] MEDS: Venlafaxine HCl 75 MG Tablet PO (08:12)
[2023-09-26] MEDS: Isosorbide Mononitrate 30 MG Tablet PO (08:12)
[2023-09-26] MEDS: APIXABAN 5 MG TABLET PO ×2 (08:12→21:43)
[2023-09-26] MEDS: Lidocaine 5% Patch 1 PATCH TOPICAL (08:12)
[2023-09-26] MEDS: Pantoprazole Sodium 40 MG Tablet PO (08:13)
[2023-09-26] MEDS: Insulin Glargine-YFGN 100 UNIT/ML Pen 10 UNIT SC ×2 (08:13→21:44)
[2023-09-26] MEDS: Metoprolol Tartrate 25 MG Tablet PO ×2 (08:13→21:43)
[2023-09-26] MEDS: Miconazole Nitrate 43 GM Bottle 1 APPLIC TOPICAL ×2 (08:16→21:45)
[2023-09-26] MEDS: Menthol/Lanolin/Calamine/Znox 113 GM Tube 1 APPLIC TOPICAL ×2 (08:16→21:46)
[2023-09-26 11:16] LABS: Bedside Glucose 249 mg/dL (74-106)
[2023-09-26] MEDS: tiZANidine HCl 2 MG Tablet 4 MG PO ×2 (11:38→21:43)
[2023-09-26 16:35] LABS: Bedside Glucose 277 mg/dL (74-106)
[2023-09-26] MEDS: Tamsulosin HCl 0.4 MG Capsule PO (17:30)
[2023-09-26] MEDS: Atorvastatin Calcium 40 MG Tablet PO (21:43)
[2023-09-26] MEDS: MELATONIN 10 MG TABLET PO (21:43)
[2023-09-26] MEDS: Doxepin Hcl 25 MG Capsule PO (21:43)
[2023-09-26] MEDS: Senna/Docusate Sodium 1 Tablet 2 TABLET PO (21:44)
[2023-09-26] MEDS: Petrolatum 33% Tube 1 APPLIC TOPICAL (21:45)
[2023-09-26 22:00] LABS: Bedside Glucose 293 mg/dL (74-106)
[2023-09-27] VITALS (10 sets, daily range): BP systolic 142–160; BP diastolic 57–78; PULSE 64–99; RESP 18; TEMP 36.3; O2SAT 98–99; BMI 38.9
[2023-09-27] MEDS: traMADol 50 MG Tablet PO (00:17)
[2023-09-27] MEDS: Pregabalin 50 MG Capsule PO ×3 (05:26→22:21)
[2023-09-27] MEDS: cloNIDine HCl 0.1 MG Tablet PO ×3 (05:26→22:08)
[2023-09-27] MEDS: oxyCODONE 5 MG Tablet PO ×2 (05:26→22:21)
[2023-09-27] MEDS: Acetaminophen 500 MG Tablet 1000 MG PO ×3 (05:26→22:13)
[2023-09-27 06:10] LABS: Bedside Glucose 248 mg/dL (74-106)
[2023-09-27] MEDS: Ipratropium/Albuterol Sulfate 3 ML AMPUL.NEB INHALATION ×2 (08:30→18:47)
[2023-09-27] MEDS: Ipratropium Bromide 0.06% NASAL SPRAY 2 SPRAY NASAL ×2 (10:29→22:03)
[2023-09-27] MEDS: Isosorbide Mononitrate 30 MG Tablet PO (10:30)
[2023-09-27] MEDS: Metoprolol Tartrate 25 MG Tablet PO ×2 (10:30→22:11)
[2023-09-27] MEDS: Pantoprazole Sodium 40 MG Tablet PO (10:30)
[2023-09-27] MEDS: APIXABAN 5 MG TABLET PO ×2 (10:31→22:09)
[2023-09-27] MEDS: Senna/Docusate Sodium 1 Tablet 2 TABLET PO ×2 (10:31→22:12)
[2023-09-27] MEDS: Potassium Chloride Oral Tablet 20 MEQ PO ×2 (10:31→18:27)
[2023-09-27] MEDS: Venlafaxine HCl 75 MG Tablet PO (10:31)
[2023-09-27] MEDS: Lidocaine 5% Patch 1 PATCH TOPICAL (10:32)
[2023-09-27] MEDS: Insulin Glargine-YFGN 100 UNIT/ML Pen 15 UNIT SC ×2 (10:33→22:50)
[2023-09-27] MEDS: Miconazole Nitrate 43 GM Bottle 1 APPLIC TOPICAL ×2 (10:34→22:07)
[2023-09-27] MEDS: Menthol/Lanolin/Calamine/Znox 113 GM Tube 1 APPLIC TOPICAL ×2 (10:37→22:06)
[2023-09-27 13:51] LABS: Bedside Glucose 295 mg/dL (74-106)
[2023-09-27 17:06] LABS: Bedside Glucose 256 mg/dL (74-106)
[2023-09-27] MEDS: Tamsulosin HCl 0.4 MG Capsule PO (18:27)
[2023-09-27] MEDS: Petrolatum 33% Tube 1 APPLIC TOPICAL (22:09)
[2023-09-27] MEDS: Atorvastatin Calcium 40 MG Tablet PO (22:10)
[2023-09-27] MEDS: MELATONIN 10 MG TABLET PO (22:12)
[2023-09-27] MEDS: Doxepin Hcl 25 MG Capsule PO (22:13)
[2023-09-27] MEDS: tiZANidine HCl 2 MG Tablet 4 MG PO (22:23)
[2023-09-27 22:26] LABS: Bedside Glucose 339 mg/dL (74-106)
--- NOTE | 2023-09-27 22:41 | NURSING ---
PT. BLOOD SUGAR AT TIME 339, DR.KWOK PIEDRA, NEW ORDER FOR INSULIN LISPRO 10U SC X1 DOSE NOW. ORDER VERIFIED BY READ BACK.
[2023-09-27] MEDS: Insulin Lispro 100 UNIT/ML INSULN.PEN 10 UNIT SC (22:56)
[2023-09-28] MEDS: Acetaminophen 500 MG Tablet 1000 MG PO (05:44)
[2023-09-28] MEDS: cloNIDine HCl 0.1 MG Tablet PO (05:48)
[2023-09-28] MEDS: Pregabalin 50 MG Capsule PO (05:50)
[2023-09-28 06:08] VITALS: BP 165/77; PULSE 80
[2023-09-28 06:25] LABS: Bedside Glucose 139 mg/dL (74-106)
[2023-09-28 06:32] VITALS: PULSE 92; O2SAT 97
[2023-09-28] MEDS: Ipratropium/Albuterol Sulfate 3 ML AMPUL.NEB INHALATION (07:45)
[2023-09-28 07:52] VITALS: PULSE 79; RESP 18; O2SAT 100
[2023-09-28] MEDS: Ipratropium Bromide 0.06% NASAL SPRAY 2 SPRAY NASAL (08:30)
[2023-09-28] MEDS: Menthol/Lanolin/Calamine/Znox 113 GM Tube 1 APPLIC TOPICAL (08:30)
[2023-09-28] MEDS: Potassium Chloride Oral Tablet 20 MEQ PO (08:30)
[2023-09-28] MEDS: Miconazole Nitrate 43 GM Bottle 1 APPLIC TOPICAL (08:31)
[2023-09-28] MEDS: Venlafaxine HCl 75 MG Tablet PO (08:31)
[2023-09-28] MEDS: APIXABAN 5 MG TABLET PO (08:31)
[2023-09-28 08:32] VITALS: BP 144/73; PULSE 75
[2023-09-28] MEDS: Lidocaine 5% Patch 1 PATCH TOPICAL (08:32)
[2023-09-28] MEDS: Metoprolol Tartrate 25 MG Tablet PO (08:32)
[2023-09-28] MEDS: Isosorbide Mononitrate 30 MG Tablet PO (08:32)
[2023-09-28] MEDS: Pantoprazole Sodium 40 MG Tablet PO (08:33)
[2023-09-28] MEDS: Insulin Glargine-YFGN 100 UNIT/ML Pen 20 UNIT SC (08:40)
[2023-09-28 10:09] VITALS: RESP 20; TEMP 36.4; O2SAT 99
--- NOTE | 2023-09-28 16:17 | CASEMGMT ---
Social Work SW sent referral for Palliative Consult to [facility]. Padmini GODINEZ
== END 2023-09-28 10:37 | disposition home health service (06) | DRG 559 ==
PROVIDERS: Admitting Provider Family Medicine Geriatric Medicine; PCP Family Medicine Geriatric Medicine; Referring Provider Family Medicine Geriatric Medicine; Visit Provider Family Medicine Geriatric Medicine
DX: M48.54XD Collapsed vertebra, not elsewhere classified, thoracic region, subsequent encounter for fracture with routine healing (principal); J69.0 Pneumonitis due to inhalation of food and vomit; E43 Unspecified severe protein-calorie malnutrition; G93.40 Encephalopathy, unspecified; I82.401 Acute embolism and thrombosis of unspecified deep veins of right lower extremity; J44.1 Chronic obstructive pulmonary disease with (acute) exacerbation; K22.2 Esophageal obstruction; E11.42 Type 2 diabetes mellitus with diabetic polyneuropathy; E66.01 Morbid (severe) obesity due to excess calories; N18.31 Chronic kidney disease, stage 3a; E11.22 Type 2 diabetes mellitus with diabetic chronic kidney disease; Z79.4 Long term (current) use of insulin; F32.A Depression, unspecified; I12.9 Hypertensive chronic kidney disease with stage 1 through stage 4 chronic kidney disease, or unspecified chronic kidney disease; E78.5 Hyperlipidemia, unspecified; I25.10 Atherosclerotic heart disease of native coronary artery without angina pectoris; K21.9 Gastro-esophageal reflux disease without esophagitis; K31.7 Polyp of stomach and duodenum; K44.9 Diaphragmatic hernia without obstruction or gangrene; J30.9 Allergic rhinitis, unspecified; B35.4 Tinea corporis; Z87.891 Personal history of nicotine dependence; Z68.36 Body mass index [BMI] 36.0-36.9, adult; Z79.899 Other long term (current) drug therapy; Z79.82 Long term (current) use of aspirin; R13.10 Dysphagia, unspecified
CPT/HCPCS: 36415; 71046; 74018; 74230; 76770; 80048; 82274; 82570; 82962; 83036; 83880; 84300; 85014; 85018; 85025; 92526; 92610; 92611; 94640; 94668; 97110; 97116; 97162; 97166; 97530; 97535; 97802; J7030; J7040; J7050; A4216; J0295

== ENCOUNTER 2023-08-29 12:35 | Day surgery (SDC) | payer MEDICARE, SELFPAY ==
[2023-08-29] VITALS (7 sets, daily range): BP systolic 102–156; BP diastolic 50–84; PULSE 64–70; RESP 16–18; TEMP 36.1–37.1; O2SAT 96–100; BMI 39.2
[2023-08-29] MEDS: Lactated Ringers 1,000 ML 15 ML IV (13:02)
--- NOTE | 2023-08-29 13:30 | PCM.HP.BLA ---
History and Physical Date of Admission: 08/29/23 Dysphagia HPI Narrative: YUMIKO HU, is a 82 F who presented to the ED with back pain. She has a past medical history of osteoporosis and chronic back pain follows Dr. Gunderson was brought to ED for severe lower back pain. Patient was trying to open the window by pushing upward and got severe lower back pain on past Sunday. Patient is very fatigued tired and frail, increased nausea for last few days to weeks with the decreased oral intake. Patient looks dehydrated. Patient has history of T7 old fracture but in ER imaging chest x-ray shows severe compression fracture of T12 which is new. She has old T7 fracture. Patient was given pain medication and further admitted. She spent some time in the hospital and was transferred over to transitional care unit. While at the transitional care unit she had multiple episodes of esophageal dysphagia followed by vomiting up whole food. I was consulted for esophageal dysphagia of solid food. [facility] Medical History (Updated 08/28/23 @ 18:[address] Morocho Friend, DO) Asthma Atherosclerosis of coronary artery of [place] heart without angina pectoris CKD (chronic kidney disease), stage III Dameon syndrome Depression Diabetes mellitus Dyspnea Essential hypertension Former tobacco use Hyperlipidemia Hypoxia Obesity Osteoarthritis Home Medications aspirin 81 mg chewable tablet 81 mg PO DAILY heart health 10/27/21 [History Last Taken Unknown] atorvastatin 40 mg tablet 40 mg PO QHS cholesterol 03/13/22 [History Last Taken Unknown] ipratropium bromide 42 mcg (0.06 %) nasal spray 1 spray intranasal BID nasal spray 03/13/22 [History Last Taken Unknown] isosorbide mononitrate 30 mg tablet,extended release 24 hr 30 mg PO DAILY blood pressure 03/13/22 [History Last Taken Unknown] levocetirizine 5 mg tablet 5 mg PO DAILY hay fever/hives 03/13/22 [History Last Taken Unknown] pantoprazole 40 mg tablet,delayed release 40 mg PO DAILY stomach/acid 03/13/22 [History Last Taken Unknown] pioglitazone 30 mg tablet 30 mg PO DAILY diabetes 01/02/23 [History Last Taken Unknown] pregabalin 50 mg capsule 50 mg PO TID nerve pain 01/02/23 [History Last Taken Unknown] doxepin 10 mg capsule 25 mg PO DAILY nerve pain 05/07/23 [History Last Taken Unknown] venlafaxine 75 mg tablet 75 mg PO DAILY depression 05/07/23 [History Last Taken Unknown] acetaminophen 500 mg capsule 1,000 mg (2 x 500 mg) PO Q8H pain/inflammat #30 caps 08/23/23 [Rx Last Taken Unknown] hydrochlorothiazide 12.5 mg capsule 12.5 mg PO DAILY water pill #0 caps 08/23/23 [Rx Last Taken Unknown] insulin degludec 200 unit/mL (3 mL) subcutaneous pen 25 unit (0.125 mL) subcut BID diabetes #9 mL 08/23/23 [Rx Last Taken Unknown] insulin lispro 100 unit/mL subcutaneous pen (Humalog KwikPen (U-100) Insulin) 10 unit (0.1 mL) subcut TIDAC diabetes #0 mL 08/23/23 [Rx Last Taken Unknown] insulin lispro 100 unit/mL subcutaneous pen (Humalog KwikPen (U-100) Insulin) See Protocol subcut ACHS diabetes #0 mL 08/23/23 [Rx Last Taken Unknown] lidocaine 5 % topical patch (Lidoderm) 1 patch topical DAILY numbing patch #15 ea 08/23/23 [Rx Last Taken Unknown] lisinopril 40 mg tablet 40 mg PO DAILY blood pressure #0 tabs 08/23/23 [Rx Last Taken Unknown] metoprolol tartrate 25 mg tablet 25 mg PO BID blood pressure #0 tabs 08/23/23 [Rx Last Taken Unknown] oxycodone 5 mg capsule 5 mg PO Q4H PRN pain 3 days #12 caps 08/23/23 [Rx Last Taken Unknown] prednisone 20 mg tablet 40 mg (2 x 20 mg) PO BREAKFAST inflammation #8 tabs 08/23/23 [Rx Last Taken Unknown] tizanidine 2 mg tablet 4 mg (2 x 2 mg) PO TID PRN muscle spasm #0 tabs 08/23/23 [Rx Last Taken Unknown] Allergy/AdvReac Type Severity Reaction Status Date / Time naproxen Allergy Unknown Hives Verified 05/07/23 13:00 Family History Mother Heart disease CAD (coronary artery disease) Hypertension CHF (congestive heart failure)Father Diabetes Surgical History History of right and left heart catheterization (12/30/20) Hx of hysterectomy Social History household members: family number of children: 4 Smoking Status: Former smoker how long ago did patient quit smoking: Quit ~ 30 years prior, 1 ppd since teen until quit. alcohol intake: never substance use type: does not use ROS Constitutional Constitutional: Reports fatigue and weakness; Denies chills, fever(s) or weight gain ENT HEENT: Denies headache(s), nasal congestion or nasal discharge Cardiovascular Cardiovascular: Denies chest pain or palpitations Respiratory/Chest Respiratory/Chest: Denies cough, excessive phlegm production or shortness of breath with exertion Gastrointestinal Gastrointestinal: Denies abdominal pain, nausea or vomiting Genitourinary Genitourinary: Denies dysuria Musculoskeletal Musculoskeletal: Reports back pain; Denies joint pain or joint swelling Integumentary Integumentary: Denies rash or wounds Neurologic Neurologic: Denies focal weakness, numbness or tingling Psychiatric Psychiatric: Denies anxiety, auditory hallucinations, depression, homicidal ideation or suicidal ideation Physical Exam Const alert General Appearance: cooperative HEENT normocephalic Eyes PERRL and EOMs intact bilaterally Neck supple, no JVD and no carotid bruits Resp normal respiratory effort, normal air movement and clear to auscultation bilaterally Cardio regular rate and regular rhythm GI normal to inspection, nondistended, normoactive bowel sounds, non-tender and non-distended Extremity normal capillary refill General Extremity: Negative for edema Skin no rashes or lesions noted General Skin Exam: no breakdown Psych affect normal Appearance: appropriate Medical Records Data Medical Nutrition Assessment Dietitian: Malnutrition Criteria Met Start: 08/24/23 12:51 Freq: Status: Active Protocol: Document 08/24/23 12:51 KAYLENE (Rec: 08/24/23 12:51 [facility] Desktop) Nutrition Malnutrition Evidence of Malnutrition Exists Yes Malnutrition (severe): Acute Illness/Injury Evidenced By Suboptimal Energy Intake ( Severe),Weight Loss (Severe) Clinical Problem Acute Disease or Injury Related Malnutrition Etiology related to inadequate energy intake and issues swallowing food Signs/Symptoms as evidenced by 4% unintended wt loss and 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 Problem Recommendation Dietitian Recommendations/Changes Will change diet to CHO Control/ Consistent CHO - 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 Will provide 8 oz Glucerna Shake w/ meals -no strawberry- for increased nutrition if consumed Will d/c glucerna shake at medpass per res request Lab / Micro Data 08/24/23 05:22 08/28/23 05:25 Labs: Laboratory Results - last 24 hr 08/27/23 21:16: POC Glucose 285 H 08/28/23 05:25: Sodium 144, Potassium 3.8, Chloride 110 H, Carbon Dioxide 31.0, Anion Gap 3 L, BUN 30 H, Creatinine 1.10 H, Estim Creat Clear Calc 46.23, Est GFR (MDRD) Af Amer 61, Est GFR (MDRD) Non-Af 50 L, BUN/Creatinine Ratio 27.3 H, Glucose 110 H, Calcium 8.6 08/28/23 06:08: POC Glucose 91 08/28/23 11:13: POC Glucose 159 H 08/28/23 16:32: POC Glucose 175 H Assessment & Plan Assessment/Plan (1) Dysphagia: PLAN: The differential diagnosis for esophageal dysphagia does include Zenker's diverticulum, esophageal dysmotility disorder, or esophagitis, eosinophilic esophagitis. She will undergo an upper endoscopy to evaluate upper GI tract. She was explained alternatives, risk, benefits include not withstanding bleeding, infection, sepsis, perforation, need for emergent surgery and . She will have an ASA of 3. I have examined the patient and the H&P has been reviewed. There are no clinical changes since date of exam.
--- NOTE | 2023-08-29 13:38 | OP.EGD_ITS ---
Patient Name: Jake Mendez Procedure Date: 08/29/2023 1:04 PM Date of : 1940 Age: 82 Procedure: Upper GI endoscopy Indications: Dysphagia Providers: Rashawn Cohn DO Medicines: Monitored Anesthesia Care Patient Profile: This is an 82 year old female. Refer to note in patient chart for documentation of history and physical. Patient has symptoms of acute dysphagia. Complications: No immediate complications. Procedure: Pre-Anesthesia Assessment: - Prior to the procedure, a History and Physical was performed, and patient medications and allergies were reviewed. The patient is competent. The risks and benefits of the procedure and the sedation options and risks were discussed with the patient. All questions were answered and informed consent was obtained. Patient identification and proposed procedure were verified by the physician in the pre-procedure area. Mental Status Examination: alert and oriented. Airway Examination: normal oropharyngeal airway and neck mobility. Respiratory Examination: clear to auscultation. CV Examination: normal. Prophylactic Antibiotics: The patient does not require prophylactic antibiotics. Prior Anticoagulants: The patient has taken no anticoagulant or antiplatelet agents. ASA Grade Assessment: III - A patient with severe systemic disease. After reviewing the risks and benefits, the patient was deemed in satisfactory condition to undergo the procedure. The anesthesia plan was to use monitored anesthesia care (MAC). Immediately prior to administration of medications, the patient was re-assessed for adequacy to receive sedatives. The heart rate, respiratory rate, oxygen saturations, blood pressure, adequacy of pulmonary ventilation, and response to care were monitored throughout the procedure. The physical status of the patient was re-assessed after the procedure. After obtaining informed consent, the endoscope was passed under direct vision. Throughout the procedure, the patient's blood pressure, pulse, and oxygen saturations were monitored continuously. The Endoscope was introduced through the mouth, and advanced to the second part of duodenum. The upper GI endoscopy was accomplished without difficulty. The patient tolerated the procedure well. Scope In: 1:20:25 PM Scope Out: 1:23:09 PM Total Procedure Duration Time 0 hours 2 minutes 44 seconds Findings: One benign-appearing, intrinsic moderate stenosis was found 39 to 40 cm from the incisors. This stenosis measured 2 cm (in length). The stenosis was traversed. A guidewire was placed and the scope was withdrawn. Dilation was performed with a Savary dilator with no resistance at 54 Fr. The dilation site was examined and showed moderate improvement in luminal narrowing. Estimated blood loss: none. A large hiatal hernia was present. Multiple 5 mm hyperplastic polyps with no bleeding and no stigmata of recent bleeding were found in the gastric body. The first portion of the duodenum was normal. Impression: - Benign-appearing esophageal stenosis. Dilated. - Large hiatal hernia. - Multiple gastric polyps. - Normal first portion of the duodenum. - No specimens collected. Recommendation: - Discharge patient to a correction. - Resume previous diet. - Continue present medications. Procedure Code(s): --- Professional --- 30060, Esophagogastroduodenoscopy, flexible, transoral; with insertion of guide wire followed by passage of dilator(s) through esophagus over guide wire CPT copyright 2021 [employer]. All rights reserved. The codes documented in this report are preliminary and upon chief investment officer review may be revised to meet current compliance requirements. Rashawn Cohn DO 08/29/2023 1:37:53 PM This report has been signed electronically. Number of Addenda: 0 Note Initiated On: 08/29/2023 1:04 PM
--- NOTE | 2023-08-29 13:38 | OP.CCLET_ITS ---
08/29/2023 Lei Kwok MD [address] [place] [address] Re : Upper GI endoscopy procedure for Jake Mendez Dear This procedure was performed on Tuesday, August 29, 2023. My impressions and recommendations are as follows: Impressions : - Benign-appearing esophageal stenosis. Dilated. - Large hiatal hernia. - Multiple gastric polyps. - Normal first portion of the duodenum. - No specimens collected. Recommendations : - Discharge patient to a retirement. - Resume previous diet. - Continue present medications. My findings are described in the full procedure note, which is enclosed. If I can be of further assistance, please feel free to contact me at . Sincerely, Rashawn Cohn, 08/29/2023 1:37:53 PM This report has been signed electronically.
== END 2023-08-29 14:21 | disposition home or self-care (01) ==
PROVIDERS: PCP Family Medicine Geriatric Medicine; Referring Provider Family Medicine Geriatric Medicine; Visit Provider Internal Medicine Gastroenterology
PROC: 0DJ08ZZ Inspection of Upper Intestinal Tract, Via Natural or Artificial Opening Endoscopic (ICD-10-PCS; CPT 43235; principal; 2023-08-29 13:10)
DX: K22.2 Esophageal obstruction (principal); E11.22 Type 2 diabetes mellitus with diabetic chronic kidney disease; E66.01 Morbid (severe) obesity due to excess calories; Z79.4 Long term (current) use of insulin; N18.31 Chronic kidney disease, stage 3a; K44.9 Diaphragmatic hernia without obstruction or gangrene; I12.9 Hypertensive chronic kidney disease with stage 1 through stage 4 chronic kidney disease, or unspecified chronic kidney disease; I25.10 Atherosclerotic heart disease of native coronary artery without angina pectoris; E78.5 Hyperlipidemia, unspecified; Z87.891 Personal history of nicotine dependence; M54.9 Dorsalgia, unspecified; K31.7 Polyp of stomach and duodenum; J45.909 Unspecified asthma, uncomplicated; Z79.899 Other long term (current) drug therapy; Z79.82 Long term (current) use of aspirin; K21.9 Gastro-esophageal reflux disease without esophagitis; Z68.39 Body mass index [BMI] 39.0-39.9, adult
CPT/HCPCS: 43248; J7120; C1769; J2405

== ENCOUNTER → 2023-09-06 | Outpatient (CLI) | payer MEDICARE, SELFPAY ==
--- NOTE | 2023-09-06 10:32 | MRI_ITS ---
STUDY: MRI RIGHT SHOULDER REASON FOR EXAM: Female, 82 years old. Shoulder pain. Evaluate for rotator cuff tendinopathy. TECHNIQUE: Standardized fat and water weighted pulse sequences were obtained in all 3 orthogonal planes. COMPARISON: Right shoulder x-rays dated 10/17/2021 FINDINGS: Moderate supraspinatus and infraspinatus tendinosis with articular surface fraying and thinning/attenuation. No partial thickness or full thickness tear (coronal series 6 images 7-14). Marked subscapularis tendinosis with a high-grade longitudinal partial tear of the distal fibers adjacent to the intertubercular sulcus with medial subluxation of the long head of the biceps into the partial articular surface tear (hidden lesion) (axial series 4 images 10-17). Normal teres minor tendon. Normal supraspinatus muscle. Normal infraspinatus muscle. Normal subscapularis muscle. Normal teres minor muscle. Moderate arthrosis of the glenohumeral joint with a large septated glenohumeral joint effusion (axial series 3 images 7-18). Cystic change in the lateral aspect of the humeral head (axial series 4 images 8-11). Normal biceps labral complex. Long head of biceps tendinosis with tenosynovitis (axial series 4 images 9-19). Nondisplaced superior labral tear (coronal series 6 images 12-15). Normal capsulo- ligamentous complex. Normal rotator interval. AC joint effusion with AC joint hypertrophy resulting in narrowing of the subacromial space (coronal series 5 images 11-15, sagittal series 7 images 11-15). There is a Type II morphology (curved), with a neutral orientation. There is no subacromial-subdeltoid bursal fluid. Normal visualized coracohumeral and coracoacromial ligaments. Normal quadrilateral space. Normal axillary space. Normal deltoid muscle. Normal trapezius muscle. MRI/Upper Ext Joint Only(Routine) IMPRESSION: Moderate supraspinatus and infraspinatus tendinosis with articular surface fraying and thinning/attenuation without a partial thickness or full-thickness tear. Marked subscapularis tendinosis with a high grade longitudinal partial tear of the distal fibers with medial subluxation of the long head of the biceps into the partial tear (hidden lesion). Moderate arthrosis of the glenohumeral joint. Cystic changes in the humeral head. Long head of biceps tendinosis with tenosynovitis. Nondisplaced superior labral tear. AC joint effusion with AC joint hypertrophy resulting in narrowing of the subacromial space. Moderate to large septated glenohumeral joint effusion. Electronically Signed: Logan Talavera MD at 9:59 EDT ,
== END | disposition home or self-care (01) ==
PROVIDERS: PCP Family Medicine Geriatric Medicine; Referring Provider Family Medicine Geriatric Medicine; Visit Provider Family Medicine Geriatric Medicine
DX: M75.81 Other shoulder lesions, right shoulder (principal); M75.111 Incomplete rotator cuff tear or rupture of right shoulder, not specified as traumatic; M19.011 Primary osteoarthritis, right shoulder; M75.21 Bicipital tendinitis, right shoulder; S43.431A Superior glenoid labrum lesion of right shoulder, initial encounter; X58.XXXA Exposure to other specified factors, initial encounter
CPT/HCPCS: 73221

== ENCOUNTER → 2023-09-10 | Outpatient (CLI) | payer MEDICARE, SELFPAY ==
--- NOTE | 2023-09-10 09:13 | VDLE_ITS ---
Reason For Study: Swelling RLE RIGHT LEFT GSV is normal. CFV is compressible, spontaneous, phasic, RT CFV, FV, PopV, T/P Trunk, GastrocV, PTV, competent, and demonstrates normal PeroV, and SoleusV are DILATED and NON augmentation. COMPRESSIBLE consistent with acute DVT. Procedure This is a venous duplex using B-mode, color flow and spectral Doppler. Exam performed portable in patient room. A preliminary report was called and/or faxed to Patient's RN. VL/Venous Duplex US, Unilateral Interpretation Summary Acute deep vein thrombosis is noted in the right common femoral vein, femoral v ein, popliteal vein, tibioperoneal trunk vein, gastrocnemius vein, posterior tibial vein, peroneal v ein, soleus vein Ordering Physician: Lei Kwok Chi Referring Physician: Lei Kwok Chi Performed By: Jade Webb, RDCS, RVT
== END | disposition home or self-care (01) ==
LOC: CVS 09:11
PROVIDERS: PCP Family Medicine Geriatric Medicine; Referring Provider Family Medicine Geriatric Medicine; Visit Provider Family Medicine Geriatric Medicine
DX: M79.89 Other specified soft tissue disorders (principal); R22.41 Localized swelling, mass and lump, right lower limb
CPT/HCPCS: 93971

== ENCOUNTER → 2023-09-20 | Outpatient (CLI) | payer MEDICARE, SELFPAY ==
--- NOTE | 2023-09-20 08:25 | CT_ITS ---
STUDY: CT CHEST WITHOUT CONTRAST REASON FOR EXAM: Female, 82 years old. CHF RADIATION DOSAGE (If Supplied By Facility): CTDIvol = ( 20.09 ) mGy, DLP = ( 592.26 ) mGycm TECHNIQUE: Transaxial imaging was performed without the administration of intravenous contrast material. Multiplanar coronal and sagittal images were reformatted. Individualized dose optimization techniques were used for this CT. COMPARISON: Comparison is made with prior chest radiograph dated September 18, [address] of the chest dated May 14, 2022. FINDINGS: CHEST Infiltrate with volume loss in the medial aspect of the left upper lobe adjacent to the aortic arch. An underlying neoplastic process should be ruled out. Mild increased markings also seen at the lung bases suggestive of a infiltrates. There is no demonstrated pleural abnormality. There are calcifications of the coronary arteries. Normal mediastinum. Normal hilar regions. Normal unenhanced pulmonary arteries. There is atherosclerotic calcification of the aortic arch with tortuosity and elongation of the aortic arch and descending thoracic aorta. Almost complete collapse of the T11 vertebrae. Large hiatal hernia. Calcified splenic granulomas. CT/Chest without Contrast IMPRESSION: Infiltration in the medial aspect of the left upper lobe adjacent to the aortic arch. A neoplastic process should be ruled out. Correlation with the PET scan recommended. Hiatal hernia. Electronically Signed: Toni Dawkins MD at 9:37 EDT ,
== END | disposition home or self-care (01) ==
PROVIDERS: PCP Family Medicine Geriatric Medicine; Referring Provider Family Medicine Geriatric Medicine; Visit Provider Family Medicine Geriatric Medicine
DX: J18.9 Pneumonia, unspecified organism (principal); I50.9 Heart failure, unspecified
CPT/HCPCS: 71250

== ENCOUNTER 2023-10-07 21:35 | Emergency (ER) | payer MEDICARE, SELFPAY ==
[2023-10-07 21:36] VITALS: BP 102/44; PULSE 77; RESP 24; TEMP 35.9; O2SAT 92
--- NOTE | 2023-10-07 21:50 | EKG12_ITS ---
Test Reason : SOB Blood Pressure : / mmHG Vent. Rate : 070 BPM Atrial Rate : 070 BPM P-R Int : 196 ms QRS Dur : 082 ms QT Int : 404 ms P-R-T Axes : 029 -11 058 degrees QTc Int : 436 ms Sinus rhythm with marked sinus arrhythmia Minimal voltage criteria for LVH, may be normal variant ( R in aVL ) Borderline ECG Confirmed by LOY IYER MD ([id number]), editor map TRACEY PINEDA ([id number]) on 10/08/2023 9:47:36 AM Referred By: Confirmed By:LOY IYER MD
[2023-10-07] MEDS: Racepinephrine HCl 0.5 ML VIAL.NEB. INHALATION (21:58)
[2023-10-07 21:59] VITALS: O2SAT 88
[2023-10-07 22:02] VITALS: PULSE 83; RESP 16
[2023-10-07 22:07] LABS: Blood Gas Specimen Type VEN; O2 Delivery Device Cannula; SITE Not entered; VBG BASE EXCESS 8 mmol/L (-1.0-3.5); VBG Bicarbonate 33 mmol/L (22-26); VBG PO2 29 mmHg (25-40); VBG SO2 54 % (50-70); VBG TCO2 34 mmol/L (23-33); VBG pCO2 51.6 mmHg (41-51); VBG pH 7.41 (7.32-7.42)
--- NOTE | 2023-10-07 22:12 | EDS_ITS ---
HPI History of Present Illness Chief Complaint: Shortness of Breath Detail of Chief Complaint: Presents with wheezing and shortness of breath Informant: patient and family (According to family members was admitted approximate 1 week ago for pneumonia. She also had a recent 6-week stay.) Onset/Context/Timing Onset: Today Context: sudden Timing: Continuous Quality: Positive for Dyspnea on exertion and Wheezing; Negative for Orthopnea or PND Current Severity: Moderate Maximum Severity: Severe Worsened by: Exertion Associated Symptoms cough, rhinorrhea, post nasal drip and sore throat; Negative for ear pain, fever, chills or sweats Chest Pain: Positive for None Narrative Narrative: Patient is an 82-year-old female with history of stage III chronic kidney disease, Wheatcroft syndrome, diabetes mellitus, essential hypertension, coronary artery disease, diabetic polyneuropathy, reflux and pulmonary embolus. She was recently diagnosed with DVT right lower extremity on Eliquis. Patient presents because of shortness of breath. Patient does not have formal diagnosis of obstructive sleep apnea. She denies fever, chills night sweats. She does endorse rhinorrhea. She denies ear pain or drainage from her ears. She does report hoarse voice. No ill contacts to her knowledge. She denies chest discomfort. She denies increased pain in her right leg or increased swelling. There is no increased discoloration. She denies nausea, vomit diarrhea. She denies constipation. Denies dysuria, frequency, urgency or hematuria. She has not checked her blood sugar recently. PE Risk Factors: Positive for Prior DVT or PE; Negative for Cancer, OCP + Smoking + > 35, Recent immobilization, Recent surgery or Recent travel Prior similar symptoms: Yes Recent Illness/Hospitalization: Yes [facility] Medical History Asthma Atherosclerosis of coronary artery of [place] heart without angina pectoris CKD (chronic kidney disease), stage III Compression fracture of T7 vertebra Dameon syndrome Depression Diabetes mellitus Dyspnea Essential hypertension Former tobacco use Hyperlipidemia Hypoxia Obesity Osteoarthritis T12 compression fracture Home Medications atorvastatin 40 mg tablet 40 mg PO QHS cholesterol 03/13/22 [History Last Taken Unknown] isosorbide mononitrate 30 mg tablet,extended release 24 hr 30 mg PO DAILY blood pressure 03/13/22 [History Last Taken Unknown] pantoprazole 40 mg tablet,delayed release 40 mg PO DAILY stomach/acid 03/13/22 [History Last Taken Unknown] pregabalin 50 mg capsule 50 mg PO TID nerve pain 01/02/23 [History Last Taken Unknown] doxepin 10 mg capsule 25 mg PO DAILY nerve pain 05/07/23 [History Last Taken Unknown] venlafaxine 75 mg tablet 75 mg PO DAILY depression 05/07/23 [History Last Taken Unknown] acetaminophen 500 mg capsule 1,000 mg (2 x 500 mg) PO Q8H pain/inflammat #30 caps 08/23/23 [Rx Last Taken Unknown] tizanidine 2 mg tablet 4 mg (2 x 2 mg) PO TID PRN muscle spasm #0 tabs 08/23/23 [Rx Last Taken Unknown] apixaban 5 mg tablet (Eliquis) 5 mg PO BID 30 days #60 tabs 09/17/23 [Rx Last Taken Unknown] clonidine HCl 0.1 mg tablet 0.1 mg PO BID 30 days #60 tabs 09/17/23 [Rx Last Taken Unknown] insulin glargine-yfgn 100 unit/mL (3 mL) subcutaneous pen 20 unit (0.2 mL) subcut BID 30 days #12 mL 09/17/23 [Rx Last Taken Unknown] insulin lispro 100 unit/mL subcutaneous pen (Humalog KwikPen (U-100) Insulin) 5 unit (0.05 mL) subcut TIDAC 30 days #4.5 mL 09/17/23 [Rx Last Taken Unknown] ipratropium bromide 42 mcg (0.06 %) nasal spray 2 spray NASAL BID #0 mL 09/17/23 [Rx Last Taken Unknown] lidocaine 5 % topical patch 1 patch topical DAILY 30 days #30 ea 09/17/23 [Rx Last Taken Unknown] metoprolol tartrate 25 mg tablet 25 mg PO BID 30 days #60 tabs 09/17/23 [Rx Last Taken Unknown] tizanidine 2 mg tablet 4 mg (2 x 2 mg) PO TID PRN muscle spasm 30 days #90 tabs 09/28/23 [Rx Last Taken Unknown] Allergy/AdvReac Type Severity Reaction Status Date / Time naproxen Allergy Unknown Hives Verified 10/07/23 21:40 Family History Mother Heart disease CAD (coronary artery disease) Hypertension CHF (congestive heart failure) Father Diabetes Surgical History History of right and left heart catheterization (12/30/20) Hx of hysterectomy Social History household members: family number of children: 4 Smoking Status: Former smoker how long ago did patient quit smoking: Quit ~ 30 years prior, 1 ppd since teen until quit. alcohol intake: never substance use type: does not use ROS ROS ED Constitutional Constitutional ED: Denies chills or sweats Eyes Eyes: Denies blurry vision or change in vision ENT ENT ED: Reports rhinorrhea and sore throat; Denies ear pain Cardiovascular Cardiovascular: Denies chest pain, orthopnea, palpitations or paroxysmal nocturnal dyspnea Respiratory/Chest Respiratory/Chest: Reports cough, dyspnea, dyspnea on exertion and sputum; Denies orthopnea or paroxysmal nocturnal dyspnea Gastrointestinal Gastrointestinal: Denies abdominal pain, nausea or vomiting Genitourinary Genitourinary ED: Denies dysuria, hematuria or urinary frequency Musculoskeletal Musculoskeletal: Denies arthralgias or myalgias Integumentary Denies rash Neurologic Neurologic: Denies headache(s), paresthesias or weakness Hematologic/Lymphatic Hematologic/Lymphatic: Reports easy bruising; Denies easy bleeding Allergic/Immunologic Allergic/Immunologic ED: Denies mouth swelling, tongue swelling or urticaria EXAM Physical Exam Const Vital Signs: 10/07/23 21:36 10/07/23 21:59 10/07/23 22:11 Temperature 96.7 F L Temperature Source Temporal Pulse Rate 77 Respiratory Rate 24 H Respiratory Effort Short of Breath Labored Respiratory Depth Deep Respiratory Pattern Stridor Blood Pressure 102/44 L Blood Pressure Mean 63 Pulse Ox 92 88 Oxygen Delivery Method Nasal Cannula Nasal Cannula Nasal Cannula Oxygen Flow Rate (L/min) 4 4 4 10/07/23 22:02 Temperature Temperature Source Pulse Rate 83 Respiratory Rate 16 Respiratory Effort Respiratory Depth Respiratory Pattern Stridor Blood Pressure Blood Pressure Mean Pulse Ox Oxygen Delivery Method Oxygen Flow Rate (L/min) Positive well nourished, well developed and obese Constitutional Narrative: Patient with apparent audible wheezing. She is hypoxic on room air. She is normally on 4 L of oxygen by nasal cannula General Appearance ED: well developed and pallor Nutritional Appearance: obese HEENT Reports dry mucous membranes HEENT Narrative: Posterior pharynx is normal. Uvula is midline. There is no angioedema. There is no swelling of the tongue, uvula or soft palate. atraumatic Mouth ED: Yes dry mucous membranes Mouth: dry mucous membranes Eyes PERRL and EOMs intact bilaterally General Eye ED: Yes pale conjunctiva; Negative for scleral icterus Neck no lymphadenopathy, supple, no meningeal signs and no JVD Neck Narrative: Trachea is midline. Patient has biphasic stridor. Of note patient is not on an ARB or EBONY inhibitor. She is on insulin for her diabetes and not one of the newer agents which is associated with angioedema. Resp No normal respiratory effort and No clear to auscultation bilaterally Resp Narrative: Patient has transmission of upper airway sounds to her lungs. There is no rales or rhonchi noted on inspiration. There is no wheezing on expiration. Cardio regular rate, regular rhythm, S1 normal heart sound, S2 normal heart sound and no murmurs Back/Spine no CVA tenderness and normal to inspection Extremity Negative for normal to inspection Extremity Narrative: Venous stasis dermatitis noted bilaterally. There is swelling of the right leg compared to left. There is no palpable cords. General Extremety ED: Yes edema General Extremity: edema Neuro oriented x3 and CN's II-XII intact bilaterally [place] Coma Scale: document GCS findings Spontaneous Obeys Commands Oriented 15 Psych Mood & Affect: depressed Skin no wounds and skin turgor normal General Skin Exam: pallor; Negative for jaundice MDM MDM MDM Narrative Medical decision making narrative: Will obtain soft tissue of the neck to assess for soft tissue swelling i.e. epiglottis, lingular tonsillitis, retropharyngeal soft tissue swelling which would suggest retropharyngeal abscess. This may represent angioedema of unknown etiology. Because she was recently treated for pneumonia and is hypoxic chest x-ray was obtained as well as appropriate blood work to assess white count and differential. Concern patient may be anemic as cause of her dyspnea as well since she is pale with pale conjunctival. CMP was obtained as well as lactate to assess for endorgan dysfunction. Because patient has biphasic stridor she was treated with racemic epinephrine. Blood pressure is low will need to review prior blood pressure readings. History & Record Review Additional record(s) reviewed:: Prior inpatient record (Admitted August 16 and discharged on the for COPD exacerbation. She was admitted to the TCU and discharged on the .), Prior ED visit and Prior labs Lab Data Lab results narrative: Patient's prior H and H have been low in the 8 range. Comprehensive metabolic panel reveals elevated CO2 of 36. Urine creatinine are 19 and 1.57. Patient does have history of stage III chronic disease. Glucose is elevated 272 with normal anion gap. There is no acid-base disturbance noted on the VBG. CBC reveals anemia with normal indices. This is slightly improved from prior. Lactate is normal at 1.7. Labs: Laboratory Results - last 24 hr 10/07/23 22:00 WBC 5.1 RBC 3.74 L Hgb 9.4 L Hct 31.3 L MCV 83.7 MCH 25.1 L MCHC 30.0 L RDW Std Deviation 51.5 H RDW Coeff of Duran 16.9 H Plt Count 239 MPV 11.3 Immature Gran % (Auto) 0.400 Neut % (Auto) 63.9 Lymph % (Auto) 23.3 Bryan % (Auto) 10.8 H Eos % (Auto) 1.4 Baso % (Auto) 0.2 Absolute Neuts (auto) 3.3 Absolute Lymphs (auto) 1.19 Nucleated RBC % 0 Sodium 137 Potassium 3.5 Chloride 95 L Carbon Dioxide 36.0 H Anion Gap 6 BUN 19 H Creatinine 1.57 H Est GFR (MDRD) Af Amer 41 L Est GFR (MDRD) Non-Af 33 L BUN/Creatinine Ratio 12.1 Glucose 272 H Lactic Acid 1.7 Calcium 9.1 Total Bilirubin 0.50 AST 18 ALT 24 Alkaline Phosphatase 108 Total Protein 6.7 Albumin 3.3 Globulin 3.4 Albumin/Globulin Ratio 1.0 ABG Data Attestation: I personally reviewed and interpreted this ABG as follows: Interpretation: VBG is unremarkable. pH is normal. Bicarb is slight elevated 33. Suspect patient has chronic elevation of CO2. Will review prior records. Review of prior electrolyte panels indicates patient does have elevated CO2 consistent with chronic CO2 retention. ABG results: ABG 10/07/23 22:03 Specimen Type MATHEW Sample Site Not entered O2 % 4.0 VBG pH 7.41 VBG pO2 29 VBG HCO3 33 H VBG Total CO2 34 H VBG O2 Sat (Calc) 54 VBG Base Excess 8 H POC Mix VBG pCO2 Pt Tmp 51.6 H O2 Delivery Device Cannula Radiography Chest X-Ray - ED: 2 View (2 view chest x-ray is suboptimal. Only 7 ribs are seen. There is no obvious infiltrate or effusion. Cardiac silhouette is normal. Slightly enlarged heart. No obvious mass or abnormality in the hilum. Osseous structures are unremarkable. There is independently reviewed interpreted by me at 223) and Read by ED Physician (Soft tissue x-ray of the neck reveals no to epiglottitis. Prevertebral space is normal at C2 and C6. There is no lingular enlarged tonsils noted. There is no obvious narrowing of the airway. This was independent reviewed by me and interpreted at 2235) EKG Initial EKG: Attestation: I personally reviewed and interpreted this EKG as follows: Interpretation: Sinus Rhythm (Rate is 70. There is minimal voltage criteria for LVH. MO interval is 196 ms. Cures duration 82 ms. QT duration 404 ms. [place] is normal. There is no acute ischemic changes noted. There is motion artifact noted.) Treatment and Re-Evaluation :: Patient was reassessed at 2236. Patient's respiratory status has improved. There is no audible respiratory sounds noted. Plan is discharge to home with appropriate home-going instructions. Patient was given a dose of Decadron prior to discharge. Discharge Plan Triage Chief Complaint: Shortness of Breath ED Provider: Chinedu Simmons Dx/Rx/DC Orders Clinical Impression: Biphasic stridor, Essential hypertension, Chronic kidney disease, stage 3a, GERD (gastroesophageal reflux disease), Hyperlipidemia, Type 1 diabetes mellitus with hyperglycemia, with long-term current use of insulin, Dameon syndrome, Coronary artery disease Instructions: ED Dyspnea Prescriptions: No Action atorvastatin 40 mg tablet 40 mg PO QHS isosorbide mononitrate 30 mg tablet extended release 24 hr 30 mg PO DAILY pantoprazole 40 mg tablet,delayed release (DR/EC) 40 mg PO DAILY pregabalin 50 mg capsule 50 mg PO TID venlafaxine 75 mg tablet 75 mg PO DAILY doxepin 10 mg capsule 25 mg PO DAILY tizanidine 2 mg Tablet 4 mg PO TID PRN (Reason: muscle spasm) Qty: 0 0RF acetaminophen 500 mg capsule 1,000 mg PO Q8H Qty: 30 0RF clonidine HCl 0.1 mg Tablet 0.1 mg PO BID 30 Days Qty: 60 0RF lidocaine 5 % Adhesive Patch,Medicated 1 patch topical DAILY 30 Days Qty: 30 0RF Protocol: *Topical Application Instructions APPLICATION INSTRUCTIONS: back insulin lispro [Humalog KwikPen Insulin] 100 unit/mL Insulin Pen 5 unit subcut TIDAC 30 Days Qty: 4.5 0RF metoprolol tartrate 25 mg Tablet 25 mg PO BID 30 Days Qty: 60 0RF Eliquis 5 mg Tablet 5 mg PO BID 30 Days Qty: 60 0RF insulin glargine-yfgn 100 unit/mL (3 mL) Insulin Pen 20 unit subcut BID 30 Days Qty: 12 0RF ipratropium bromide 42 mcg (0.06 %) [place],Non-Aerosol 2 spray NASAL BID Qty: 0 0RF tizanidine 2 mg Tablet 4 mg PO TID PRN (Reason: muscle spasm) 30 Days Qty: 90 0RF Primary Care Provider: Lei Kwok Chi Referrals: Lei Kwok Chi, MD [Primary Care Provider] - 3-5 Days Disposition Disposition: Home, Self Care
--- NOTE | 2023-10-07 22:20 | RAD_ITS ---
STUDY: X-RAY - SOFT TISSUE NECK REASON FOR EXAM: Female, 82 years old. Biphasic stridor TECHNIQUE: 2 view(s) of the neck were obtained. COMPARISON: None. FINDINGS: Normal visualized nasopharynx, oropharynx, hypopharynx. Normal epiglottis. Normal visualized subglottic tracheal air column. Normal prevertebral soft tissue structures. Normal visualized osseous structures. The soft tissue structures are unremarkable. RAD/Neck for Soft Tissue IMPRESSION: Normal x-ray soft tissue neck. Electronically Signed: Felix Ash MD at 23:05 EDT ,
--- NOTE | 2023-10-07 22:20 | RAD_ITS ---
STUDY: X-RAY CHEST REASON FOR EXAM: Female, 82 years old. Respiratory distress TECHNIQUE: PA and lateral views of the chest. COMPARISON: 09/18/2023 FINDINGS: Poor inspiration with some bibasilar atelectasis. There is no demonstrated pleural abnormality. Normal size heart. Moderate-sized hiatal hernia. Normal visualized pulmonary arteries. Normal visualized aortic arch and descending thoracic aorta. Normal visualized thoracic spine. Normal visualized ribs, clavicles, and shoulders. There is no demonstrated abnormality of the visualized soft tissue structures of the upper abdomen. RAD/Chest PA and Lateral IMPRESSION: Poor inspiration with some bibasilar atelectasis. Electronically Signed: Felix Ash MD at 23:05 EDT ,
[2023-10-07 22:27] LABS: AST(SGOT) 18 U/L (15-37); Alanine Aminotransfer ALT/SGPT 24 U/L (13-56); Albumin, Serum 3.3 g/dL (3.2-5.0); Alkaline Phosphatase 108 U/L (45-117); Anion Gap 6 (5-15); BUN 19 mg/dL (7-18); BUN/Creat Ratio 12.1 RATIO (10-20); Calcium,Total 9.1 mg/dL (8.5-10.1); Chloride 95 mmol/L (98-107); Creatinine, Serum 1.57 mg/dL (0.55-1.02); EST Glomerular Filtration Rate 33 mL/min (>60); Est Glom Filt Rate - Afr Amer 41 mL/min (>60); Globulin 3.4 g/dL (2.2-4.2); Glucose 272 mg/dL (74-106); Potassium 3.5 mmol/L (3.5-5.1); Protein, Total 6.7 g/dL (6.4-8.2); Sodium Level 137 mmol/L (136-145)
[2023-10-07 22:33] LABS: Absolute Lymphocyte Count 1.19 X10^3/uL (0.83-4.51); Absolute Neutrophil Count 3.3 X10^3/uL (2.0-7.7); Basophil# 0.01 X10^3/uL; Basophil% 0.2 % (0-1); Eosinophil# 0.07 X10^3/uL; Eosinophils% 1.4 % (0-5); Hematocrit 31.3 % (37-47); Hemoglobin 9.4 g/dL (12.0-15.0); Lymphocyte # 1.19 X10^3/ul (0.83-4.51); Lymphocyte % 23.3 % (19-41); Mean Corpuscular Hgb 25.1 pg (27.0-32.0); Mean Corpuscular Volume 83.7 fL (81-99); Mean Platelet Vol. 11.3 fl (6.2-12.0); Monocyte# 0.55 X10^3/uL; Monocyte% 10.8 % (0-10); NRBC Flagged by Analyzer 0 % (0-5); Neutrophil # 3.26 X10^3/uL (2.7-7.7); Neutrophil % 63.9 % (47-70); Platelet Count 239 K/mm3 (150-450); RBC Distribution Width CV 16.9 % (11.6-14.6); RBC Distribution Width SD 51.5 fl (35.1-43.9); Red Blood Count 3.74 M/mm3 (4.2-5.4); White Blood Count 5.1 K/mm3 (4.4-11.0)
[2023-10-07 22:35] LABS: Lactic Acid 1.7 mmol/L (0.4-1.9)
[2023-10-07 22:39] VITALS: BP 127/77; PULSE 74; RESP 20; TEMP 36.6; O2SAT 100
[2023-10-07 22:50] VITALS: BP 138/79; PULSE 77; RESP 20; TEMP 36.8; O2SAT 100
[2023-10-07] MEDS: dexAMETHasone 10 MG/ML Vial IV (22:50)
== END 2023-10-07 22:58 | disposition home or self-care (01) ==
LOC: ED 22:45
PROVIDERS: Emergency Provider Emergency Medicine; PCP Family Medicine Geriatric Medicine; Visit Provider Emergency Medicine
DX: R06.1 Stridor (principal); I82.401 Acute embolism and thrombosis of unspecified deep veins of right lower extremity; E10.42 Type 1 diabetes mellitus with diabetic polyneuropathy; E10.22 Type 1 diabetes mellitus with diabetic chronic kidney disease; E10.65 Type 1 diabetes mellitus with hyperglycemia; Z79.4 Long term (current) use of insulin; N18.31 Chronic kidney disease, stage 3a; I12.9 Hypertensive chronic kidney disease with stage 1 through stage 4 chronic kidney disease, or unspecified chronic kidney disease; I25.10 Atherosclerotic heart disease of native coronary artery without angina pectoris; Z87.891 Personal history of nicotine dependence; E78.5 Hyperlipidemia, unspecified; K21.9 Gastro-esophageal reflux disease without esophagitis; E24.9 Cushing's syndrome, unspecified; Z79.01 Long term (current) use of anticoagulants; J45.909 Unspecified asthma, uncomplicated; E66.9 Obesity, unspecified
CPT/HCPCS: 70360; 71046; 80053; 82803; 83605; 85025; 87631; 93005; 94640; 96374; 99284; A4216

== ENCOUNTER → 2023-10-08 | Outpatient (CLI) | payer MEDICARE, SELFPAY ==
[2023-10-08 11:18] LABS: Anion Gap 8 (5-15); BUN 19 mg/dL (7-18); BUN/Creat Ratio 14.8 RATIO (10-20); Calcium,Total 9.2 mg/dL (8.5-10.1); Chloride 96 mmol/L (98-107); Creatinine, Serum 1.28 mg/dL (0.55-1.02); EST Glomerular Filtration Rate 42 mL/min (>60); Est Glom Filt Rate - Afr Amer 51 mL/min (>60); Glucose 309 mg/dL (74-106); Potassium 3.7 mmol/L (3.5-5.1); Sodium Level 138 mmol/L (136-145)
== END | disposition home or self-care (01) ==
LOC: LAB 09:24
PROVIDERS: PCP Family Medicine Geriatric Medicine; Referring Provider Family Medicine Geriatric Medicine; Visit Provider Family Medicine Geriatric Medicine
DX: I10 Essential (primary) hypertension (principal); B95.62 Methicillin resistant Staphylococcus aureus infection as the cause of diseases classified elsewhere
CPT/HCPCS: 36415; 80048; 87070; 87205

== ENCOUNTER → 2023-10-19 07:10 | Outpatient (REF) | payer MEDICARE, SELFPAY ==
[2023-10-19 07:54] LABS: Absolute Neutrophil Count 4.2 X10^3/uL (2.0-7.7); Basophil# 0.01 X10^3/uL; Basophil% 0.1 % (0-1); Eosinophil# 0.08 X10^3/uL; Eosinophils% 1.2 % (0-5); Hematocrit 33.4 % (37-47); Hemoglobin 9.9 g/dL (12.0-15.0); Lymphocyte % 26.9 % (19-41); Mean Corp Hgb Conc 29.6 g/dL (32-36); Mean Corpuscular Hgb 24.6 pg (27.0-32.0); Mean Corpuscular Volume 82.9 fL (81-99); Mean Platelet Vol. 11.7 fl (6.2-12.0); Monocyte# 0.57 X10^3/uL; Monocyte% 8.5 % (0-10); NRBC Flagged by Analyzer 0 % (0-5); Neutrophil # 4.17 X10^3/uL (2.7-7.7); Neutrophil % 62.6 % (47-70); Platelet Count 237 K/mm3 (150-450); RBC Distribution Width CV 16.5 % (11.6-14.6); RBC Distribution Width SD 50.2 fl (35.1-43.9); Red Blood Count 4.03 M/mm3 (4.2-5.4); White Blood Count 6.7 K/mm3 (4.4-11.0)
[2023-10-19 08:24] LABS: Vitamin B12 749 pg/mL (211-911); Vitamin D,25 Hydroxy 59.8 ng/mL
[2023-10-19 08:31] LABS: Anion Gap 3 (5-15); BUN 22 mg/dL (7-18); BUN/Creat Ratio 19.3 RATIO (10-20); Calcium,Total 9.3 mg/dL (8.5-10.1); Chloride 99 mmol/L (98-107); Cholesterol 107 mg/dL (200); Creatinine, Serum 1.14 mg/dL (0.55-1.02); EST Glomerular Filtration Rate 48 mL/min (>60); Est Glom Filt Rate - Afr Amer 59 mL/min (>60); Glucose 229 mg/dL (74-106); High Density Lipoprotein 36 mg/dL; Magnesium 1.6 mg/dL (1.6-2.6); Potassium 3.9 mmol/L (3.5-5.1); Sodium Level 139 mmol/L (136-145); Thyroid Stim Hormone (TSH) 0.86 uIU/mL (0.358-3.74); Triglycerides 159 mg/dL; Very Low Density Lipoprotein 32 mg/dL (5-40)
== END ==
LOC: OLS.SW 07:10
PROVIDERS: PCP Family Medicine Geriatric Medicine; Visit Provider Internal Medicine
DX: I10 Essential (primary) hypertension (principal); E11.9 Type 2 diabetes mellitus without complications; E55.9 Vitamin D deficiency, unspecified
CPT/HCPCS: 36415; 80048; 80061; 82306; 82607; 83036; 83735; 84443; 85025